=== PATIENT | female | born 1940 | race Caucasian/White ===

== ENCOUNTER → 2017-05-06 | Outpatient (CLI) | payer OTHER ==
[~2017-05-06] MED LIST: ATEN100T PO; CALC-354; CHOLTAB3 PO; LISI20TA3 PO; PRLSR20 PO; RALO60TA30 PO; VSC/5 PO
--- NOTE | 2017-05-06 16:13 | MAMMOGRAPHY REPORT ---
BILATERAL DIGITAL SCREENING MAMMOGRAM WITH CAD: 05/06/2017 CLINICAL HISTORY: Asymptomatic. Personal history of breast cancer. TECHNIQUE: Current study was also evaluated with a Computer Aided Detection (CAD) system. Bilateral CC and MLO views were obtained. COMPARISON: Comparison is made to exams dated: 05/05/2016 mammogram, 04/30/2015 mammogram, 02/13/2014 ma mmogram, 06/23/2012 mammogram, 10/14/2011 mammogram, and 04/09/2011 mammogram - [facility] nter. BREAST COMPOSITION: There are scattered areas of fibroglandular density in both breasts. FINDINGS: No suspicious masses, calcifications, or areas of architectural distortion are noted in ei ther breast. There has been no significant interval change compared to prior exams. Scattered bilat eral benign-appearing calcifications are not significantly changed. There are stable postsurgical ch anges in the left upper outer quadrant from prior lumpectomy. Note that the exam is somewhat limited due to difficulties with patient positioning as the patient is wheelchair-bound and has shoulder iss ues; pectoralis muscles are not well visualized on bilateral MLO views. IMPRESSION: ACR BI-RADS CATEGORY 2: BENIGN There is no mammographic evidence of malignancy. A 1 year screening mammogram is recommended. The pa tient will receive written notification of the results. Approximately 10% of breast cancers are not detected with mammography. A negative mammographic report should not delay biopsy if a clinically suggestive mass is present. Yun Lopez M.D. /:05/06/2017 14:07:24 Digital Media Analyst: Ernestina PORRAS(R)(Sushila), [facility] letter sent: Normal 1/2 BI-RADS Code: ACR BI-RADS Category 2: Benign
== END | disposition home or self-care (01) ==
LOC: C.MAMM 10:50
PROVIDERS: ATTEND Internal Medicine Medical Oncology
DX: Z12.31 Encounter for screening mammogram for malignant neoplasm of breast (principal); Z85.3 Personal history of malignant neoplasm of breast

== ENCOUNTER → 2017-05-11 | Outpatient (CLI) | payer OTHER ==
[2017-05-11 18:25] LABS: BLOOD UREA NITROGEN 17 mg/dl (7-18); BUN/CREATININE RATIO 32.4 (10-20); CALCIUM 9.5 mg/dl (8.5-10.1); CARBON DIOXIDE 30 mmol/L (21-32); CHLORIDE 106 mmol/L (98-107); CREATININE 0.54 mg/dl (0.60-1.20); GLUCOSE 76 mg/dl (70-99); POTASSIUM 3.9 mmol/L (3.5-5.1); SODIUM 142 mmol/L (136-145)
== END | disposition home or self-care (01) ==
LOC: C.LABPVFM 11:24
PROVIDERS: ATTEND Family Medicine
DX: I10 Essential (primary) hypertension (principal)

== ENCOUNTER → 2018-02-22 | Outpatient (CLI) | payer OTHER | END | disposition home or self-care (01) | LOC: C.LABSPEC 17:22 | PROVIDERS: ATTEND Urology | DX: N39.0 Urinary tract infection, site not specified (principal); R33.9 Retention of urine, unspecified ==

== ENCOUNTER → 2018-02-28 | Outpatient (CLI) | payer OTHER | END | disposition home or self-care (01) | LOC: C.PATHSPEC 17:04 | PROVIDERS: ATTEND Urology | DX: N39.490 Overflow incontinence (principal); R39.15 Urgency of urination; R31.9 Hematuria, unspecified ==

== ENCOUNTER → 2018-03-14 | Outpatient (CLI) | payer OTHER ==
[2018-03-14 13:01] LABS: BLOOD UREA NITROGEN 16 mg/dl (7-18); CREATININE 0.55 mg/dl (0.60-1.20)
== END | disposition home or self-care (01) ==
LOC: C.LABBFT 10:16
PROVIDERS: ATTEND Urology
DX: R31.9 Hematuria, unspecified (principal)

== ENCOUNTER 2018-03-21 13:44 | Inpatient (IN) | payer OTHER ==
[~2018-03-21] VITALS: Ht 154.9 cm; Wt 50.2 kg
[~2018-03-21 13:44] MED LIST changes: -CALC250T8 PO; -CPR500 PO; -MULT-506 PO; -OPTIRAY 320 IV PRN; -XRL15 PO
--- NOTE | 2018-03-21 14:20 | EMERGENCY ROOM VISIT NOTE ---
History Report prepared by Smith: Meghann Lim Under the Supervision of: Dr. Cas Farah D.O. First contact with patient: 13:49 Chief Complaint: REFERRED BY DOCTOR Stated Complaint: BLOOD CLOTS IN LEGS - SENT BY DR NEUMANN History of Present Illness The patient is a 77 year old female who presents to the Emergency Room with complaints of possible blood clots. She reports that she had a Lopez catheter put in place on 02/22/18 for overflow incontinence. The patient states she had a CT scan earlier today, which was order by Dr. Neumann, urology. Afterwards, she received a call from his office suggesting that she come to the Emergency Department for further evaluation of possible blood clots that they noticed. She denies any current chest pain or trouble breathing. The patient reports a history of breast cancer, noting that she underwent chemotherapy and a lumpectomy. She notes she had a cholecystectomy. Source of History: patient Onset: today Position: other (veins) Quality: other (blood clots) Timing: other (persistent) Note: Associated symptoms: overflow incontinence Review of Systems See HPI for pertinent positives & negatives. A total of 10 systems reviewed and were otherwise negative. Past Medical & Surgical Medical Problems: (1) Breast cancer (2) DVT (deep venous thrombosis) (3) Kidney disease (4) Overflow incontinence Surgical Problems: (1) H/O lumpectomy Family History Cancer Heart disease Hypertension Social History Smoking Status: Never Smoker Smokeless Tobacco Use: No Alcohol Use: none Drug Use: none Marital Status: Housing Status: lives with family Occupation Status: retired Current/Historical Medications Scheduled Atenolol (Tenormin), 100 MG PO DAILY Calcium Citrate (Calcium Citrate), 250 MG PO DAILY Lisinopril (Prinivil), 20 MG PO DAILY Multivitamin (Multivitamin), 1 TAB PO DAILY Omeprazole (Prilosec), 20 MG PO DAILY Raloxifene Hcl (Evista), 60 MG PO DAILY Solifenacin (Vesicare), 5 MG PO DAILY Allergies Coded Allergies: Aspirin (Unverified Allergy, Mild, 03/21/18) Codeine (Verified Adverse Reaction, Mild, INTOLERANCE, 03/21/18) Diclofenac (Verified Adverse Reaction, Mild, INTOLERANCE, 03/21/18) Erythromycin (Verified Adverse Reaction, Mild, INTOLERANCE, 03/21/18) Sulindac (Verified Adverse Reaction, Mild, INTOLERANCE, 03/21/18) Tramadol (Verified Adverse Reaction, Mild, INTOLERANCE, 03/21/18) INTOLERANCE Physical Exam Vital Signs Date Time Temp Pulse Resp B/P (MAP) Pulse Ox O2 Delivery O2 Flow Rate FiO2 03/21/18 15:15 75 03/21/18 14:42 95 Room Air 03/21/18 14:16 78 96 Room Air 03/21/18 14:16 95 Room Air 03/21/18 13:47 36.7 87 18 136/72 95 Room Air Physical Exam GENERAL: Patient is awake, alert, and in no acute distress. Patient is resting comfortably and showing no signs of anxiety EYES: The conjunctivae are clear. The pupils are round and reactive. EARS, NOSE, MOUTH AND THROAT: The nose is without any evidence of any deformity. Mucous membranes are moist tongue is midline NECK: The neck is nontender and supple. RESPIRATORY: Normal respiratory effort is noted there is no evidence of wheezing rhonchi or rales CARDIOVASCULAR: Regular rate and rhythm noted there no murmurs rubs or gallops normal S1 normal S2 GASTROINTESTINAL: The abdomen is soft. Bowel sounds are present in all quadrants. Abdomen is nontender BACK: No midline tenderness or or step-off noted range of motion in flexion extension as well as rotation no signs of muscle spasm noted MUSCULOSKELETAL/EXTREMITIES: There is no evidence of gross deformity full range of motion is noted in the hips and shoulders SKIN: Trace pedal edema bilaterally. There is no obvious evidence of any rash. There are no petechiae, pallor or cyanosis noted. NEUROLOGIC: Patient is awake alert and oriented x3 Medical Decision & Procedures ER Provider Diagnostic Interpretation: Radiology results as stated below per my review and radiologist interpretation: SINGLE VIEW CHEST CLINICAL HISTORY: Weakness. Change in mental status. FINDINGS: An AP, portable, upright chest radiograph is compared to study dated 03/24/2012. The examination is degraded by portable technique and patient rotation. The heart is top normal for projection and there is atherosclerotic calcification of the thoracic aorta. There are questionable opacities at the right apex. Chronic interstitial thickening is similar to previous. No large pleural effusion or pneumothorax is seen. The skeletal structures are osteopenic. Advanced arthritic changes in the shoulders. Calcific joint bodies are present on the left. Degenerative change and scoliosis are also present in the thoracic spine. Cholecystectomy clips are identified in the right upper quadrant. IMPRESSION: 1. There are questionable airspace opacities at the right apex which may be related to superimposition of shadows could versus true consolidation or nodularity. Follow-up with a dedicated PA and lateral examination is recommended for further assessment. 2. The lungs otherwise clear. Electronically signed by: Brock Arambula M.D. 03/21/2018 2:33 PM Dictated Date/Time: 03/21/2018 2:25 PM Laboratory Results 03/21/18 14:30 Red Blood Count 4.51, Mean Corpuscular Volume 89.8, Mean Corpuscular Hemoglobin 30.8, Mean Corpuscular Hemoglobin Concent 34.3, Mean Platelet Volume 10.3 03/21/18 14:30 Test 03/21/18 14:30 03/21/18 15:49 03/21/18 15:52 White Blood Count 51.67 K/uL (4.8-10.8) Red Blood Count 4.51 M/uL (4.2-5.4) Hemoglobin 13.9 g/dL (12.0-16.0) Hematocrit 40.5 % (37-47) Mean Corpuscular Volume 89.8 fL (80-100) Mean Corpuscular Hemoglobin 30.8 pg (25-34) Mean Corpuscular Hemoglobin Concent 34.3 g/dl (32-36) Platelet Count 229 K/uL (130-400) Mean Platelet Volume 10.3 fL (7.4-10.4) RDW Standard Deviation 50.7 fL (36.4-46.3) RDW Coefficient of Variation 15.5 % (11.5-14.5) Neutrophils % (Manual) 15.8 % Lymphocytes % (Manual) 39.8 % Variant Lymphocytes % (manual) 43.5 % Monocytes % (Manual) 0.9 % Neutrophils # (Manual) 8.16 K/uL (1.4-6.5) Total Absolute Neutrophils 8.16 K/uL (1.4-6.5) Lymphocytes # (Manual) 20.56 K/uL (1.2-3.4) Absolute Variant Lymphocytes 22.48 K/uL Total Absolute Lymphocytes 43.04 K/uL (1.2-3.4) Monocytes # (Manual) 0.47 K/uL (0.11-0.59) Smudge Cells PRESENT Anion Gap 6.0 mmol/L (3-11) Est Creatinine Clear Calc Drug Dose 53.1 ml/min Estimated GFR () 98.5 Estimated GFR (Non- 85.0 BUN/Creatinine Ratio 27.4 (10-20) Calcium Level 9.1 mg/dl (8.5-10.1) Magnesium Level 1.8 mg/dl (1.8-2.4) Total Bilirubin 0.3 mg/dl (0.2-1) Direct Bilirubin < 0.1 mg/dl (0-0.2) Aspartate Amino Transf (AST/SGOT) 25 U/L (15-37) Alanine Aminotransferase (ALT/SGPT) 20 U/L (12-78) Alkaline Phosphatase 73 U/L (45-117) Troponin I < 0.015 ng/ml (0-0.045) Total Protein 7.2 gm/dl (6.4-8.2) Albumin 3.4 gm/dl (3.4-5.0) Thyroid Stimulating Hormone (TSH) 2.210 uIu/ml (0.300-4.500) Prothrombin Time 10.0 SECONDS (9.0-12.0) Prothromb Time International Ratio 1.0 (0.9-1.1) Activated Partial Thromboplast Time 22.6 SECONDS (21.0-31.0) Partial Thromboplastin Ratio 0.9 Laboratory results per my review. ECG Per My Interpretation Indication: weakness Rate (beats per minute): 78 Rhythm: normal sinus Findings: no ectopy, other (No acute ST segments, LVH noted by voltage criteria ) Comparison ECG Date: no prior available ED Course 1353: The patient was evaluated in room B12. A complete history and physical examination were performed. 1435: Ordered Heparin Sodium/Dextrose 1ea. 1436: I discussed the patient's case with Dr. Saavedra [facility]. He suggests that we see her platelets first before we give her Heparin. 1442: I reevaluated the patient, who was resting comfortably. Updated her on test findings and the treatment plan. She verbalized complete understanding and agreement. Medical Decision Prior records reviewed and summarized above. Triage Nursing notes reviewed. Additional history obtained from the family. The patient's history was concerning for swelling and pain in the leg. Differential diagnosis: Etiologies such as DVT, musculoskeletal, infection, joint effusion, trauma, lymphedema, idiopathic, CHF, as well as others were entertained.. The patient is a 77-year-old female who presented to the emergency department at the request of her primary urologist. The patient has been suffering from urinary incontinence and is currently being seen by a urologist. She has a Lopez catheter in place. She states that she was scheduled for an outpatient CT the abdomen and pelvis and after the CT was obtained she was told to go to the emergency department for further evaluation. The patient's CAT scan revealed signs of an iliac vein deep vein thrombosis. This appeared to extend proximally into the inferior vena cava. Because of the location of the severity of this DVT she was started on anticoagulation in the emergency department. I discussed patient's laboratory and radiographic studies with her. I also discussed her case with the on-call [facility] hospitalist. They have agreed to evaluate the patient in the emergency department for further management and disposition. Medication Reconcilliation Current Medication List: was personally reviewed by me Blood Pressure Screening Patient's blood pressure: Normal blood pressure Blood pressure disposition: Did not require urgent referral Consults Time Called: 1406 Consulting Physician: Dr. Quentin ROBERTS Returned Call: [phone] I discussed the patient's case with Dr. Quentin ROBERTS. He suggests that we see her platelets first before we give her Heparin. Impression Primary Impression: DVT (deep venous thrombosis) Critical Care I have personally spent greater than 40 minutes of critical care time in the direct management of this patient. This includes bedside care, interpretation of diagnostic studies, and testing, discussion with consultants, patient, and family members, and other required patient management activities. This 40 minutes is in excess of all separately billable procedures. Scribe Attestation The scribe's documentation has been prepared under my direction and personally reviewed by me in its entirety. I confirm that the note above accurately reflects all work, treatment, procedures, and medical decision making performed by me. Departure Information Dispostion Being Evaluated By Hospitalist Referrals No Doctor, Assigned (PCP) Forms HOME CARE DOCUMENTATION FORM, IMPORTANT VISIT INFORMATION, WORK / SCHOOL INSTRUCTIONS Patient Instructions My [facility] Problem Qualifiers Primary Impression: DVT (deep venous thrombosis) DVT location: non-extremity vein Chronicity: acute Qualified Codes: I82.90 - Acute embolism and thrombosis of unspecified vein
[2018-03-21] MEDS ORDERED: CALC250T8 PO (14:33)
[2018-03-21] MEDS ORDERED: MULT-506 PO (14:33)
--- NOTE | 2018-03-21 14:35 | DIAGNOSTIC IMAGING REPORT ---
SINGLE VIEW CHEST CLINICAL HISTORY: Weakness. Change in mental status. FINDINGS: An AP, portable, upright chest radiograph is compared to study dated 03/24/2012. The examination is degraded by portable technique and patient rotation. The heart is top normal for projection and there is atherosclerotic calcification of the thoracic aorta. There are questionable opacities at the right apex. Chronic interstitial thickening is similar to previous. No large pleural effusion or pneumothorax is seen. The skeletal structures are osteopenic. Advanced arthritic changes in the shoulders. Calcific joint bodies are present on the left. Degenerative change and scoliosis are also present in the thoracic spine. Cholecystectomy clips are identified in the right upper quadrant. IMPRESSION: 1. There are questionable airspace opacities at the right apex which may be related to superimposition of shadows could versus true consolidation or nodularity. Follow-up with a dedicated PA and lateral examination is recommended for further assessment. 2. The lungs otherwise clear. Electronically signed by: Brock Arambula M.D. 03/21/2018 2:33 PM Dictated Date/Time: 03/21/2018 2:25 PM
[2018-03-21 15:18] LABS: ALBUMIN 3.4 gm/dl (3.4-5.0); ALT/SGPT 20 U/L (12-78); AST/SGOT 25 U/L (15-37); BLOOD UREA NITROGEN 19 mg/dl (7-18); CALCIUM 9.1 mg/dl (8.5-10.1); CARBON DIOXIDE 29 mmol/L (21-32); CREATININE 0.68 mg/dl (0.60-1.20); GLUCOSE 93 mg/dl (70-99); SODIUM 138 mmol/L (136-145)
[2018-03-21 15:29] LABS: ALKALINE PHOSPHATASE 73 U/L (45-117); TOTAL PROTEIN 7.2 gm/dl (6.4-8.2)
[2018-03-21 15:44] LABS: HEMATOCRIT 40.5 % (37-47); HEMOGLOBIN 13.9 g/dL (12.0-16.0); MEAN CELL VOLUME 89.8 fL (80-100); MEAN CORPUSCULAR HEMOGLOBIN 30.8 pg (25-34); MEAN CORPUSCULAR HGB CONC 34.3 g/dl (32-36); MEAN PLATELET VOLUME 10.3 fL (7.4-10.4); PLATELET COUNT 229 K/uL (130-400); RED CELL DISTRIBUTION WIDTH CV 15.5 % (11.5-14.5); RED CELL DISTRIBUTION WIDTH SD 50.7 fL (36.4-46.3); WHITE BLOOD COUNT 51.67 K/uL (4.8-10.8)
[2018-03-21] MEDS ORDERED: ACETAMINOPHEN 325 MG TAB PO PRN (16:00)
[2018-03-21] MEDS ORDERED: POLYETHYLENE (MIRALAX) 17 GM PACK PO PRN (16:00)
[2018-03-21] MEDS ORDERED: ONDANSETRON INJ 2 MG/ML 2 ML VIAL IV PRN (16:00)
[2018-03-21] MEDS ORDERED: MAGNESIUM HYDROXIDE SUSP 30 ML UDC PO PRN (16:00)
[2018-03-21] MEDS ORDERED: ZOLPIDEM TARTRATE 5 MG TAB PO PRN ×2 (16:00)
[2018-03-21] MEDS ORDERED: ALUMINUM/MAGNESIUM/SIMETH (MAALOX MAX) 30 ML UDC PO PRN (16:00)
[2018-03-21] MEDS ORDERED: HEPARIN 25000 UNIT/500 ML D5W ONE (16:01)
[2018-03-21] MEDS ORDERED: HEPARIN SOD 5000 UNIT/0.5 ML CARP ONE (16:01)
[2018-03-21 16:17] LABS: PTT PATIENT 22.6 SECONDS (21.0-31.0)
--- NOTE | 2018-03-21 16:58 | History and Physical ---
History & Physical Date & Time of Service: Mar 21, 2018 at 16:09 Chief Complaint: Blood Clots In Legs - Sent By Dr Sullivan Primary Care Physician: No Doctor, Assigned History of Present Illness Source: patient 77 years old female with past medical history of hypertension, spina bifida, back surgery, using a walker for ambulation, in 2004 she was diagnosed with breast cancer [id number], treated with Adriamycin and Cytoxan x4 followed by Taxol weekly followed by Herceptin 1 year with radiation therapy for ER/WI negative, HER-2/az positive disease. The patient developed CLL, that is under control. Patient has also urinary retention status post Lopez placement 1 week ago. Urologist ordered a CT abdomen and pelvis that showed a large DVT extended from right internal and common iliac veins as well as the inferior vena cava without extension to the renal veins. Patient will be admitted for initiation of heparin. As baseline she uses a walker for ambulation. Her platelet count is within normal limits. Her INR is pending Past Medical/Surgical History Medical Problems: (1) Breast cancer (2) DVT (deep venous thrombosis) (3) Kidney disease (4) Overflow incontinence Surgical Problems: (1) H/O lumpectomy Family History Cancer Heart disease Hypertension Social History Smoking Status: Never Smoker Smokeless Tobacco Use: No Drug Use: none Marital Status: Occupational Status: retired Immunizations History of Influenza Vaccine: Yes History of Tetanus Vaccine?: UTD History of Pneumococcal: Yes History of Hepatitis B Vaccine: No Allergies Coded Allergies: Aspirin (Unverified Allergy, Mild, 03/21/18) Codeine (Verified Adverse Reaction, Mild, INTOLERANCE, 03/21/18) Diclofenac (Verified Adverse Reaction, Mild, INTOLERANCE, 03/21/18) Erythromycin (Verified Adverse Reaction, Mild, INTOLERANCE, 03/21/18) Sulindac (Verified Adverse Reaction, Mild, INTOLERANCE, 03/21/18) Tramadol (Verified Adverse Reaction, Mild, INTOLERANCE, 03/21/18) INTOLERANCE Home Medications Scheduled Atenolol (Tenormin), 100 MG PO DAILY Calcium Citrate (Calcium Citrate), 250 MG PO DAILY Lisinopril (Prinivil), 20 MG PO DAILY Multivitamin (Multivitamin), 1 TAB PO DAILY Omeprazole (Prilosec), 20 MG PO DAILY Raloxifene Hcl (Evista), 60 MG PO DAILY Solifenacin (Vesicare), 5 MG PO DAILY Review of Systems Review of system Constitutional: No fever / no chills / no sweats / no weakness / no fatigue Eyes: no blurring of vision / no eye pain / no discharge / no redness ENT: no hearing loss / no epistaxis /no swallowing problems Respiratory: no cough / no wheezing / no SOB / no hemoptysis Cardiovascular: no Chest pain / no lower extremity edema / no palpitation Abdomen: no pain / no nausea / no vomiting / no constipation Musculoskeletal: no joint pain / no muscle pain / no joint swelling Genitourinary: no dysuria / no incontinence / no urinary retention Neurologic: no focal weakness / no numbness/tingling / no ataxia Psychiatric: no depression symptoms / no anxiety / no insomnia Endocrine: no excessive thirst / no excessive urination Hematologic: no abnormal bleeding / no bruising / no LN swelling Skin: No rash / no pallor Physical Exam Vital Signs Date Time Temp Pulse Resp B/P (MAP) Pulse Ox O2 Delivery O2 Flow Rate FiO2 03/21/18 15:15 75 03/21/18 14:42 95 Room Air 03/21/18 14:16 78 96 Room Air 03/21/18 14:16 95 Room Air 03/21/18 13:47 36.7 87 18 136/72 95 Room Air Physical examination General patient appears to be comfortable, not in acute distress HEENT: Atraumatic , normocephalic /no jaundice /no pallor /anicteric /no dry mucous membrane /normal external ear inspection Neck: Supple /no swelling /central trach Heart: S1/S2 normal/regular rate and rhythm/no gallop /no rub /no murmur Lungs: Clear to auscultation bilaterally/normal chest with expansion/no rhonchi/ no rales/no wheezing/no use of accessory muscles of respiration Abdomen: Soft/nontender/no guarding/no rebound/no organomegaly/no pulsatile mass Musculoskeletal: No swelling/no edema/no tenderness/normal range of motion Neuro exam: Awake alert oriented 3/cranial nerves II through XII appear to be intact/sensation intact/moves all extremities/no abnormal movements Psychiatric evaluation: No depressed mood/normal affect Skin: No rash on exposed skin area/no erythema Extremity: Normal pulse/no pitting edema/no clubbing or cyanosis Endocrine/lymphatic: No obvious lymphadenopathy /no lymphedema Diagnostics Laboratory Results Results Past 24 Hours Test 03/21/18 14:30 03/21/18 15:49 03/21/18 15:52 Range/Units White Blood Count 51.67 4.8-10.8 K/uL Red Blood Count 4.51 4.2-5.4 M/uL Hemoglobin 13.9 12.0-16.0 g/dL Hematocrit 40.5 37-47 % Mean Corpuscular Volume 89.8 80-100 fL Mean Corpuscular Hemoglobin 30.8 25-34 pg Mean Corpuscular Hemoglobin Concent 34.3 32-36 g/dl Platelet Count 229 130-400 K/uL Mean Platelet Volume 10.3 7.4-10.4 fL RDW Standard Deviation 50.7 36.4-46.3 fL RDW Coefficient of Variation 15.5 11.5-14.5 % Sodium Level 138 136-145 mmol/L Potassium Level 4.0 3.5-5.1 mmol/L Chloride Level 103 98-107 mmol/L Carbon Dioxide Level 29 21-32 mmol/L Anion Gap 6.0 3-11 mmol/L Blood Urea Nitrogen 19 7-18 mg/dl Creatinine 0.68 0.60-1.20 mg/dl Est Creatinine Clear Calc Drug Dose 53.1 ml/min Estimated GFR () 98.5 Estimated GFR (Non- 85.0 BUN/Creatinine Ratio 27.4 10-20 Random Glucose 93 70-99 mg/dl Calcium Level 9.1 8.5-10.1 mg/dl Magnesium Level 1.8 1.8-2.4 mg/dl Total Bilirubin 0.3 0.2-1 mg/dl Direct Bilirubin < 0.1 0-0.2 mg/dl Aspartate Amino Transf (AST/SGOT) 25 15-37 U/L Alanine Aminotransferase (ALT/SGPT) 20 12-78 U/L Alkaline Phosphatase 73 45-117 U/L Troponin I < 0.015 0-0.045 ng/ml Total Protein 7.2 6.4-8.2 gm/dl Albumin 3.4 3.4-5.0 gm/dl Thyroid Stimulating Hormone (TSH) 2.210 0.300-4.500 uIu/ml Diagnostic Radiology ABD/PELVIS COMBO CLINICAL HISTORY: 77 years-old Female presenting with R31.9 Hematuria, bladder problems. TECHNIQUE: Multidetector CT of the abdomen and pelvis was performed before and after the administration of intravenous contrast. IV contrast: 120 mL of Optiray 320. A dose lowering technique was used consistent with the principles of ALARA (as low as reasonably achievable). COMPARISON: None. CT DOSE (mGy.cm): The estimated cumulative dose is 1728.67 mGycm. FINDINGS: Vibration Technician topogram: Cholecystectomy clips noted. Lung bases: Minimal basilar opacities, likely atelectasis. Normal heart size. Coronary artery calcification. No pericardial or pleural effusion. Liver: Normal morphology. Multiple well-defined hypodense lesions throughout the liver, indeterminate but likely hepatic cysts or hamartomas. Patent hepatic vasculature. Biliary: Mild biliary ductal prominence likely a reservoir effect in the post cholecystectomy state. Gallbladder surgically absent. Pancreas: Normal. Spleen: Normal. Adrenal glands: Normal. Kidneys and ureters: Numerous well-defined hypodense nonenhancing lesions scattered throughout both kidneys, likely cysts. No right hydronephrosis. The right ureter is normal. Left pelvocaliectasis and dilation of the left ureter with left urothelial thickening. Excretion from the bilateral kidneys is maintained. No nephrolithiasis. Delayed imaging demonstrates opacification of the distal ureters. Bladder: Diffusely thickened bladder wall. The bladder is incompletely distended with a Lopez catheter in place. Pelvic organs: Lobular contour of the uterine fundus likely indicates underlying fibroid. Small cysts noted in the ovaries measuring up to 1.6 cm, which appear simple. Bowel: Abnormal soft tissue thickening along the right posterior lateral aspect of the anorectal junction (series 5 image 400). This may in part relate to laxity of the pelvic floor given the convexity of the right levator ani and tortuosity of the lower rectum and inner rectal junction. Diverticulosis of the sigmoid colon. Mild stool burden throughout the normal caliber colon. The appendix is normal. No bowel obstruction. Peritoneal cavity: No free fluid or intraperitoneal gas. Lymph nodes: Pathologically enlarged bilateral external iliac lymph nodes. Subcentimeter common iliac and aortic lymph nodes. And index node in the right external iliac region measures 1.3 cm in the short axis (series 5 image 344). An index node the left external iliac region measures 1.4 cm in the short axis (series 5 image 353). Vasculature: Atherosclerosis of the normal caliber abdominal aorta. Filling defect consistent with thrombus in the right iliac confluence extending from the right internal iliac vein. There is minimal thrombus in the right external iliac vein. Left iliac veins are patent. Thrombus extends into the inferior vena cava without extending to the level of the renal veins. Abdominal wall: Infiltration along the posterior soft tissue of the left lower extremity. Musculoskeletal: Osteopenia. Degenerative changes of the spine and sacroiliac joints. IMPRESSION: 1. Diffusely thick-walled urinary bladder. This could suggest infectious cystitis or cystitis from another etiology, however, given the degree of thickness, urologic consultation for cystoscopy could be considered to exclude underlying neoplasm. 2. Moderate left pelvocaliectasis and left hydroureter without convincing evidence of an obstructing mass or calculus. This can indicate a flaccid collecting system. Urothelial thickening on the left could indicate chronic reflux or infection. Correlate with urinalysis. 3. Deep venous thrombosis in the right internal and common iliac veins as well as the inferior vena cava without extension to the renal veins. 4. Pathologically enlarged bilateral external iliac lymph nodes. Correlate with a history of underlying lymphoproliferative disease or malignancy. 5. Soft tissue prominence at the right posterior lateral aspect of the anorectal junction. Underlying soft tissue neoplasm is difficult to exclude though this could be due to redundancy of the inner rectal junction in the setting of pelvic floor incompetence given abnormal laxity of the right levator ani. 6. Polycystic kidneys. 7. Polycystic liver. 8. Diverticulosis. The report will be called/faxed according to standard departmental protocol. Electronically signed by: Shiva Lindsay M.D. 03/21/2018 11:03 AM Impression Assessment and Plan 77 years old female with past medical history of hypertension, spina bifida, back surgery, breast cancer in 2005 and currently has CLL. Patient was found to have large DVT extended from right internal and common iliac veins as well as the inferior vena cava without extension to the renal veins. Assessment Large DVT and internal iliac/common iliac/inferior vena cava CLL, stable with normal platelets count White blood cell count is 51, in November 2017 was 46 Hypertension Back surgery Spina bifida History of breast cancer status post lumpectomy/chemotherapy/radiation Bladder dysfunction status post indwelling Lopez Diffusely thick-walled urinary bladder Plan Admit patient to telemetry As platelets count is within normal limits, will start patient on heparin drip Consult Dr. Valenzuela for considering retrievable IVC filter Giving the size and magnitude of her DVT will make her bedrest for at least 24 hours despite of the data supporting early mobilization Continue home medications Check hemoglobin A1c and lipids to stratify patient's risk factors Consult urology dr Sullivan who ordered the CT scan as she has bladder thickening and hydroureter, in case he wants to do cystoscopy or any intervention this is his opportunity while she is on heparin drip before starting oral anticoagulation consult food service utility worker for her worsening WBCs and for Pathologically enlarged bilateral external iliac lymph nodes, the DVT added to the complexity of her CLL diagnosis, last time Dr. Woodall saw her was in November. continue home meds Started on heparin drip Resuscitation Status VTE Prophylaxis Will order VTE Prophylaxis: Yes
[2018-03-21] MEDS: HEPARIN 25,000 UNIT/500ML D5W 500 ML IV SCH (17:15)
[2018-03-21 17:59] VITALS: BP 152/78; PULSE 83; TEMP 36.7; O2SAT 98; Ht 154.9 cm; Wt 50.2 kg
[2018-03-21 18:59] VITALS: BP 160/77; PULSE 76; TEMP 36.9; O2SAT 99
[2018-03-21 20:00] VITALS: O2SAT 99
[2018-03-21 23:24] LABS: PTT PATIENT 75.8 SECONDS (21.0-31.0)
[2018-03-21 23:43] VITALS: BP 123/68; PULSE 79; TEMP 36.9; O2SAT 94
[2018-03-22] VITALS (10 sets, daily range): BP systolic 95–129; BP diastolic 6–66; PULSE 59–89; TEMP 36.3–37; O2SAT 94–97
[2018-03-22 05:55] LABS: HEMATOCRIT 35.2 % (37-47); HEMOGLOBIN 11.9 g/dL (12.0-16.0); MEAN CELL VOLUME 88.2 fL (80-100); MEAN CORPUSCULAR HEMOGLOBIN 29.8 pg (25-34); MEAN CORPUSCULAR HGB CONC 33.8 g/dl (32-36); MEAN PLATELET VOLUME 9.8 fL (7.4-10.4); PLATELET COUNT 210 K/uL (130-400); RED CELL DISTRIBUTION WIDTH CV 15.4 % (11.5-14.5); RED CELL DISTRIBUTION WIDTH SD 49.2 fL (36.4-46.3); WHITE BLOOD COUNT 45.04 K/uL (4.8-10.8)
[2018-03-22 06:06] LABS: PTT PATIENT 57.9 SECONDS (21.0-31.0)
[2018-03-22 06:09] LABS: ALBUMIN 2.8 gm/dl (3.4-5.0); CALCIUM 8.4 mg/dl (8.5-10.1); CREATININE 0.5 mg/dl (0.60-1.20)
[2018-03-22 06:13] LABS: PHOSPHORUS 3.4 mg/dl (2.5-4.9)
[2018-03-22 06:55] LABS: HEMOGLOBIN A1C 5.5 % (4.5-5.6)
[2018-03-22] MEDS: LISINOPRIL 20 MG TAB PO SCH (07:40)
[2018-03-22] MEDS: PANTOprazole SOD 40 MG TAB PO SCH (07:40)
--- NOTE | 2018-03-22 08:31 | Clinical Documentation Query ---
CLINICAL DOCUMENTATION QUERY 77 yo female admitted with DVT. Patient has an indwelling bush catheter for bladder dysfunction and presents with a UA positive for leukocytes, >30 WBC, and 3+ bacteria. In your clinical opinion is this patient being managed for: ( ) Infection and inflammatory reaction due to indwelling urethral catheter ( x ) Not Agree- Suspected UTI POA in setting of indwelling Bush catheter ( ) Other explanation of clinical findings (Please Explain. If no explanation given, this would be considered a no response.) ( ) Unable to determine ( ) Need to Discuss (Please call CDS via extension or qliq. If no interaction occurs this is considered a no response.) The medical record reflects the following clinical findings, treatment, and risk factors. Clinical Indicators: As above Treatment: UA C&S, Urology consult Risk Factors: Age, female, indwelling bush catheter Please clarify and document your clinical opinion in the progress notes and discharge summary. Terms such as "probable", "suspected", "likely", "questionable", "possible", or "still to be ruled out" are acceptable. IF IN AGREEMENT, YOU MUST DOCUMENT ABOVE DIAGNOSTIC STATEMENT IN DAILY PROGRESS NOTES AND DISCHARGE SUMMARY. This document is not part of the patient's record. Thank You, Janie Encarnacion RN [phone]
--- NOTE | 2018-03-22 08:50 | Hospitalist Progress Note ---
Hospitalist Progress Note Date of Service March 22, 2018. (Ofelia Zarate PA-C) Subjective Pt evaluation today including: conversation w/ patient, physical exam, chart review, lab review, review of studies Pain: None PO Intake: Good Voiding: bush catheter in place The patient was seen and examined this morning. Pt reports doing well overall. She has no acute complaints. Her friends are present at bedside and are keeping her company. The patients spirits are very high. Pt notes she is not currently receiving any treatment for CLL and follows with Dr. Woodall as an outpatient. Pt had indwelling bush cath placed 1 month ago by urology, she denies any issues or history of having infection associated with the bush. Additional Comments: Constitutional: No fever, sweats or chills Eyes: No diplopia, no worsening or blurred vision ENT: normal hearing, no trouble swallowing Respiratory: No cough, sputum, dyspnea at rest or on exertion Cardiovascular: No chest pain, tightness or palpitations Abdomen: No pain, nausea, vomiting, diarrhea or constipation - bush cath Musculoskeletal: No joint pain, calf pain, swelling - uses scooter/wheelchair at baseline for spina bifida. Neurologic: No weakness - has adequate sensation to light touch in distal ext. Psychiatric: No anxiety or depression Skin: No rash or itch (Ofelia Zarate PA-C) Objective Vital Signs Date Time Temp Pulse Resp B/P (MAP) Pulse Ox O2 Delivery O2 Flow Rate FiO2 03/22/18 08:00 Room Air 03/22/18 07:04 36.8 81 18 105/62 (76) 95 Room Air 03/22/18 04:00 96 Room Air 03/22/18 03:36 37.0 61 18 97/61 (73) 96 Room Air 03/22/18 00:01 94 Room Air 03/21/18 23:43 36.9 79 18 123/68 (86) 94 Room Air 03/21/18 20:00 99 Room Air 03/21/18 18:59 36.9 76 16 160/77 (104) 99 Room Air 03/21/18 17:59 36.7 83 20 152/78 98 Room Air 03/21/18 17:11 90 20 135/70 98 03/21/18 16:17 75 21 131/75 97 Room Air 03/21/18 15:15 75 03/21/18 14:42 95 Room Air 03/21/18 14:16 78 96 Room Air 03/21/18 14:16 95 Room Air 03/21/18 13:47 36.7 87 18 136/72 95 Room Air (Ofelia Zarate PA-C) Physical Exam Notes: General: awake, alert, no apparent distress Head: Normocephalic, atraumatic ENT: PERRL, EOMI, no pharyngeal exudate, mucous membranes moist Chest: on RA, Clear to auscultation, on room air, no adventitious breath sounds Cardiac: Regular rate and rhythm, no murmur, no JVD, normal peripheral pulses, good capillary refill Abdominal: NABS x 4 quadrants, soft, nontender to palpation, no rebound, guarding or tenderness- bush cath draining clear yellow urine Extremities: Normal inspection, no peripheral edema or erythema, calfs nontender to palpation Psych: Normal mood and affect Neuro: AAO x 3, strength intact bilaterally and related 5/5, no motor deficits, speech is clear, no peripheral sensory deficits (Ofelia Zarate, SHANNON-C) Laboratory Results Last 24 Hours Test 03/21/18 14:30 03/21/18 15:49 03/21/18 16:30 03/21/18 22:07 White Blood Count 51.67 K/uL Red Blood Count 4.51 M/uL Hemoglobin 13.9 g/dL Hematocrit 40.5 % Mean Corpuscular Volume 89.8 fL Mean Corpuscular Hemoglobin 30.8 pg Mean Corpuscular Hemoglobin Concent 34.3 g/dl Platelet Count 229 K/uL Mean Platelet Volume 10.3 fL RDW Standard Deviation 50.7 fL RDW Coefficient of Variation 15.5 % Neutrophils % (Manual) 15.8 % Lymphocytes % (Manual) 39.8 % Variant Lymphocytes % (manual) 43.5 % Monocytes % (Manual) 0.9 % Neutrophils # (Manual) 8.16 K/uL Total Absolute Neutrophils 8.16 K/uL Lymphocytes # (Manual) 20.56 K/uL Absolute Variant Lymphocytes 22.48 K/uL Total Absolute Lymphocytes 43.04 K/uL Monocytes # (Manual) 0.47 K/uL Smudge Cells PRESENT Sodium Level 138 mmol/L Potassium Level 4.0 mmol/L Chloride Level 103 mmol/L Carbon Dioxide Level 29 mmol/L Anion Gap 6.0 mmol/L Blood Urea Nitrogen 19 mg/dl Creatinine 0.68 mg/dl Est Creatinine Clear Calc Drug Dose 53.1 ml/min Estimated GFR () 98.5 Estimated GFR (Non- 85.0 BUN/Creatinine Ratio 27.4 Random Glucose 93 mg/dl Calcium Level 9.1 mg/dl Magnesium Level 1.8 mg/dl Total Bilirubin 0.3 mg/dl Direct Bilirubin < 0.1 mg/dl Aspartate Amino Transf (AST/SGOT) 25 U/L Alanine Aminotransferase (ALT/SGPT) 20 U/L Alkaline Phosphatase 73 U/L Troponin I < 0.015 ng/ml Total Protein 7.2 gm/dl Albumin 3.4 gm/dl Thyroid Stimulating Hormone (TSH) 2.210 uIu/ml Prothrombin Time 10.0 SECONDS Prothromb Time International Ratio 1.0 Activated Partial Thromboplast Time 22.6 SECONDS 75.8 SECONDS Partial Thromboplastin Ratio 0.9 2.9 Urine Color YELLOW Urine Appearance CLEAR Urine pH 8.0 Urine Specific Cheney > 1.045 Urine Protein NEG Urine Glucose (UA) NEG Urine Ketones NEG Urine Occult Blood 1+ Urine Nitrite NEG Urine Bilirubin NEG Urine Urobilinogen NEG Urine Leukocyte Esterase MODERATE Urine WBC (Auto) >30 /hpf Urine RBC (Auto) 10-30 /hpf Urine Hyaline Casts (Auto) 5-10 /lpf Urine Epithelial Cells (Auto) 0-5 /lpf Urine Bacteria (Auto) 3+ Test 03/22/18 05:24 White Blood Count 45.04 K/uL Red Blood Count 3.99 M/uL Hemoglobin 11.9 g/dL Hematocrit 35.2 % Mean Corpuscular Volume 88.2 fL Mean Corpuscular Hemoglobin 29.8 pg Mean Corpuscular Hemoglobin Concent 33.8 g/dl Platelet Count 210 K/uL Mean Platelet Volume 9.8 fL RDW Standard Deviation 49.2 fL RDW Coefficient of Variation 15.4 % Neutrophils % (Manual) 10.5 % Lymphocytes % (Manual) 87.7 % Monocytes % (Manual) 0.9 % Eosinophils % (Manual) 0.9 % Neutrophils # (Manual) 4.73 K/uL Total Absolute Neutrophils 4.73 K/uL Lymphocytes # (Manual) 39.50 K/uL Total Absolute Lymphocytes 39.50 K/uL Monocytes # (Manual) 0.41 K/uL Eosinophils # (Manual) 0.41 K/uL Smudge Cells PRESENT Activated Partial Thromboplast Time 57.9 SECONDS Partial Thromboplastin Ratio 2.2 Sodium Level 139 mmol/L Potassium Level 4.0 mmol/L Chloride Level 105 mmol/L Carbon Dioxide Level 28 mmol/L Anion Gap 6.0 mmol/L Blood Urea Nitrogen 18 mg/dl Creatinine 0.50 mg/dl Est Creatinine Clear Calc Drug Dose 72.2 ml/min Estimated GFR () 109.0 Estimated GFR (Non- 94.0 BUN/Creatinine Ratio 35.8 Random Glucose 83 mg/dl Estimated Average Glucose 111 mg/dl Hemoglobin A1c 5.5 % Calcium Level 8.4 mg/dl Phosphorus Level 3.4 mg/dl Magnesium Level 1.5 mg/dl Total Bilirubin 0.4 mg/dl Aspartate Amino Transf (AST/SGOT) 22 U/L Alanine Aminotransferase (ALT/SGPT) 17 U/L Alkaline Phosphatase 54 U/L Total Protein 6.0 gm/dl Albumin 2.8 gm/dl Globulin 3.2 gm/dl Albumin/Globulin Ratio 0.9 Triglycerides Level 53 mg/dl Cholesterol Level 125 mg/dl HDL Cholesterol 53 mg/dl LDL Cholesterol, Calculated 61 mg/dl VLDL Cholesterol, Calculated 11 mg/dl Cholesterol/HDL Ratio 2.4 (Ofelia Zarate, LIANG) Assessment and Plan 77 yo F with PMHx of hypertension, spina bifida, back surgery, breast cancer in 2004 sp chemo/radiation and currently has CLL. Patient was found to have large DVT extended from right internal and common iliac veins as well as the inferior vena cava without extension to the renal veins. Large DVT and internal iliac/common iliac/inferior vena cava - on tele - likely can transition off to med surg tomorrow- NSR in 70-80s overnight. - Vascular surg consulted but have no plans for IVCF placement. - cont heparin gtt and will ask hematology to determine how to switch off of this and transition to xarelto as per their recommendations. - Cont bedrest for at least 24 hours dt size of massive Dvt, despite of the data supporting early mobilization - Hematology consulted- Dr. Downs saw pt today - noted WBC of 54K upon admission has now trended back down to 45 K, She is not on any current treatment for CLL. Plans to transition to xarelto and can do this today since no plans for surgical intervention (no IVCF or cystoscopy). Follows with Dr. Woodall as an outpt- discussed with him and he agrees with xarelto 15 mg BID and transition off heparin gtt CLL, stable with normal platelets count Hx Breast cancer s/p lumpectomy/chemotherapy/radiation - WBC = 51, in November 2017 was 46 now back to 46 - at this time no lymphadenopathy of B sx per heme/onc. No tx indicated at this time. Bladder dysfunction status post indwelling Bush Possible UTI Diffusely thick-walled urinary bladder - Urology consulted for recs regarding antibiotics for possible infection - will check UCx today. UA with >30 WBC, 3+ bacteria, and moderate esterase - Outpatient cystoscopy scheduled for 03/28 - no urgent needs for procedure per primary team - Can hold xarelto for 1-2 days prior to procedure as an outpatient. Back surgery Spina bifida - uses wheelchair/scooter at baseline, PT/OT to eval after initial 24 hours. Hypertension - continue home meds DVT ppx: start xarelto tonight, transition off heparin gtt. CODE: FULL Disposition: From home, possible dc tomorrow, PT/OT to eval, CM to assist with dc needs. (Ofelia Zarate PA-C) Reviewed: Pt Seen/Exam by Me (Era Woody MD) History Physician Vice President Media Relations Supervision Note: I interviewed and examined the patient. Discussed with SHANNON Zarate and agree with findings and plan as documented in the note. Any exceptions or clarifications are listed here: Pt has no complaints. No CP or SOB, no leg swelling, no abd pain. States she is on Evista for breast cancer prevention, but was aware of risk of clot with this nad is willing to stop it for now. Vitals reviewed, tele reviewed NAD, AAOx3 RRR no mgr CTAB no wcr, breathing unlabored Abd +BS soft NT ND, Bush in place with clear yellow urine Ext no edema, no calf tenderness, +atrophy of all muscle groups in LEs 77 yo female with spina bifida, minimal ambulation, CLL, Breast CA, HTN, peripheral chemo-induced neuropathy, and flaccid neurogenic bladder with recent gross hematuria, here with incidental finding on CT abd/pel of significant DVT extending into IVC. -transition off heparin gtt to Xarelto--> will mancuso check tomorrow with CM to see about cost -follow CBC -will need anticoag indefinitely given CLL and immobility -recommend stopping Evista given propensity for thromboembolism -lymphadenopathy on CT ab/pel--> likely related to CLL? Unsure -Bladder thickening on CT--> from flaccid bladder vs neoplasm vs infection? Plans for outpt cystoscopy in future-will have to hold Xarelto at least 24 hrs in advance -Abnormal UA, Suspected UTI POA in setting of indwelling Bush catheter/ Complicated UTI-treat empirically with Rocephin, await Ur cx result -possible dc to home tomorrow Documented By: Era Woody (Era Woody MD)
[2018-03-22] MEDS ORDERED: RALOXIFENE 60 MG TAB PO SCH (09:00)
--- NOTE | 2018-03-22 09:30 | Surgery Consultation ---
Consultation Date of Service March 22, 2018. Chief Complaint R iliac v DVT History of Present Illness The patient is a 77 year old female with multiple medical problems, including breast ca, spina bifida, lumbar spine surgery, CLL, admitted with DVT, seen in consultation today for R pelvic DVT noted incidentally on a CT scan performed by urology for bladder problems. Pt denies previous hx of DVT, edema of legs, pain in legs. States she is feeling her usual self. Denies CASTELLON, fever, chills, chest pain, SOB, abd pain, N/V, rest pain, claudication, other complaints. Currently on heparin drip. Vitals Vital Signs Past 12 Hours Date Time Temp Pulse Resp B/P (MAP) Pulse Ox O2 Delivery O2 Flow Rate FiO2 03/22/18 08:00 Room Air 03/22/18 07:04 36.8 81 18 105/62 (76) 95 Room Air 03/22/18 04:00 96 Room Air 03/22/18 03:36 37.0 61 18 97/61 (73) 96 Room Air 03/22/18 00:01 94 Room Air 03/21/18 23:43 36.9 79 18 123/68 (86) 94 Room Air Allergies Coded Allergies: Aspirin (Unverified Allergy, Mild, 03/21/18) Codeine (Verified Adverse Reaction, Mild, INTOLERANCE, 03/21/18) Diclofenac (Verified Adverse Reaction, Mild, INTOLERANCE, 03/21/18) Erythromycin (Verified Adverse Reaction, Mild, INTOLERANCE, 03/21/18) Sulindac (Verified Adverse Reaction, Mild, INTOLERANCE, 03/21/18) Tramadol (Verified Adverse Reaction, Mild, INTOLERANCE, 03/21/18) INTOLERANCE Home Medications Scheduled Atenolol (Tenormin), 100 MG PO DAILY Calcium Citrate (Calcium Citrate), 250 MG PO DAILY Lisinopril (Prinivil), 20 MG PO DAILY Multivitamin (Multivitamin), 1 TAB PO DAILY Omeprazole (Prilosec), 20 MG PO DAILY Raloxifene Hcl (Evista), 60 MG PO DAILY Solifenacin (Vesicare), 5 MG PO DAILY Problem List Medical Problems: (1) Breast cancer (2) DVT (deep venous thrombosis) (3) Kidney disease (4) Overflow incontinence Surgical Problems: (1) H/O lumpectomy Surgical / Medical History Hx Cardiac Surgery: No Hx Abdominal Surgery: Yes (deven) Hx Cancer Surgery: No Hx Thoracic Surgery: No Hx Orthopedic: Yes (back) Hx Urinary Tract Surgery: No Past Medical/Surgical History: Cancer, Hypertension Family History Cancer Heart disease Hypertension Social History Smoking Status: Never Smoker Hx Tobacco Use In Past Year?: No Hx Alcohol Use - Type & Amnt: No Hx Substance Use -Type & Amnt: No Review of Systems Constitutional: No chills, No fever Skin: No change in color Eyes: No visual changes ENMT: No sore throat Respiratory: No cough, No WEISS, No short of breath Cardiovascular: No chest pain, No palpitations, No edema, No intermittent claudication Gastrointestinal: No abdominal pain, No nausea, No vomiting Neurologic: No dizziness, No headache, No lethargy Physical Exam Constitutional: General Apperance: well-nourished (stunted development d/t spina bifida, mildly chronically ill appearing female) Level of Distress: NAD Psychiatric: Mental Status: active & alert, normal mood, normal affect Orientation: oriented except where noted, to time, to place, to person Memory: recent memory normal, remote memory normal Head: normocephalic, atraumatic Eyes: EOM: EOMI ENMT: normal ENT inspection, hearing grossly normal Neck: supple, trachea midline Lungs: Respiratory effort: no dyspnea Auscultation: no wheezing, no rales/crackles, no rhonchi, decreased breath sounds Cardiovascular: Apical Impulse: not displaced Heart Auscultation: RRR, no rubs, no gallops Peripheral Pulses: Pulses: full and equal, in all extremities except if noted Bruits: none appreciated Carotid Pulse: normal on the left, normal on the right Brachial Pulses: normal on the left, normal on the right Radial Pulse: normal on the left, normal on the right Femoral Pulse: normal on the left, normal on the right Posterior Tibialis Pulse: decreased on the left, decreased on the right Dorsalis Pedis Pulse: decreased on the left, decreased on the right Abdomen: Bowel Sounds: normal Inspection & Palpation: soft, non-distended, no tenderness, guarding & rebound Musculoskeletal: normal strength (5/5 throughout), normal tone Extremities: Upper Right: no cyanosis, no edema, no varicosities Upper Left: no cyanosis, no edema, no varicosities Lower Right: no cyanosis, no edema, no varicosities Lower Left: no cyanosis, no edema, no varicosities Neurologic: Cranial Nerves: grossly intact Sensation: grossly intact Assessment and Plan ASSESSMENT and PLAN: R iliac v and caval DVT Pt also seen by Dr Valenzuela, recommends anticoagulation. Length of tx to be recommended by hematology. No indications for IVC filter insertion at this time and would be difficult to place properly d/t location of caval DVT. Please call if needed.
--- NOTE | 2018-03-22 12:14 | HEMATOLOGY CONSULTATION ---
DATE OF CONSULTATION: 03/22/2018 Hematology consultation. REASON FOR CONSULTATION: Concern with rising WBC count. HISTORY OF PRESENT ILLNESS: Emily Martino is a very pleasant 77-year-old female patient well known to [facility], currently under Dr. Woodall's care for remotely diagnosed breast cancer and chronic lymphocytic leukemia. Patient was admitted to hospital on 03/21/2018 at the request of the urology service when it was discovered the patient was suffering thrombosis of the right internal and common iliac veins as well as the inferior vena cava without extension to the renal vasculature. Patient had been previously evaluated by urology because of bladder wall thickening. She was actually scheduled to undergo cystoscopy according to the patient. CT scan was performed on the day of admission and the patient was strongly recommended for direct admission and anticoagulation. She continues unfractionated heparin presently. Primary service is also requesting vascular surgery consult to discuss Ovidio filter placement. Again, this patient is well known to Dr. Woodall, currently being followed for chronic lymphocytic leukemia and remote history of breast cancer. According to Dr. Woodall's clinical notes, the patient's white count has indeed been fluctuant ranging between 40 and 50,000 total respectively. She has not required treatment. Her disease is devoid of peripheral lymphadenopathy and/or splenomegaly. She was seen by Dr. Woodall back in 11/2017 and was recommended to follow up within the next year or so. Primary service expressed concern as the patient's WBC count was over 50,000 on admission. PAST MEDICAL HISTORY: 1. Again, significant for remotely diagnosed breast cancer for which she received both adjuvant chemo and radiation therapy. 2. DVT. 3. Chronic kidney disease. 4. Overflow incontinence. PAST SURGICAL HISTORY: Status post lumpectomy. MEDICATIONS: Prior to admission include atenolol 100 mg p.o. q. daily, lisinopril 20 mg p.o. q. daily, calcium citrate 250 mg p.o. q. daily, multivitamin 1 p.o. q. daily, omeprazole 20 mg p.o. q. daily, Evista 60 mg p.o. q. daily, VESIcare 5 mg p.o. q. daily. ALLERGIES: ASPIRIN, CODEINE, DICLOFENAC, ERYTHROMYCIN, SULINDAC AND TRAMADOL. SOCIAL HISTORY: Patient is retired, , nonsmoker, nondrinker. FAMILY HISTORY: Positive for hypertension, heart disease, and cancer. REVIEW OF SYSTEMS: As per HPI. GENERAL: Patient was admitted virtually asymptomatic. Negative for fevers, chills or sweats. She is maintaining her weight and appetite. SKIN: No new rashes or lesions. No history of dermatosis. HEENT: Negative for headaches, lightheadedness or dizziness. No visual or hearing deficits. No sinus symptoms, sore throat or dysphagia. LYMPH: No history of peripheral lymphadenopathy. She does suffer from chronic lymphocytic leukemia. CARDIAC: No significant cardiac history. No current angina or palpitations. PULMONARY: No history of COPD. She is not short of breath, dyspneic or orthopneic. No cough or hemoptysis. GASTROINTESTINAL: Negative for abdominal pain, nausea, vomiting, diarrhea or constipation, hematochezia or melanotic stools. GENITOURINARY: Currently under evaluation for urinary issues, particularly thickened bladder wall and pending cystoscopy. NEUROLOGIC: Negative for seizures, strokes or migraine headache. ENDOCRINE: Negative for thyroid disease or diabetes mellitus. HEMATOLOGIC: Positive for lymphocytosis again secondary to CLL. PHYSICAL EXAMINATION: GENERAL: Very pleasant, well-nourished 77-year-old female patient, awake, alert and appropriate, in no acute distress. VITAL SIGNS: Temperature 36.8, pulse 81, respiratory rate 18, blood pressure 105/62. SKIN: Warm, dry, noncyanotic without petechiae, rash or ecchymosis. HEENT: Atraumatic, normocephalic. Eyes: PERRLA, EOMI. Sclerae nonicteric. Nose: Nares patent without rhinorrhea or discharge. Throat and mouth: Throat is clear. Tongue is midline. Mucous membranes are moist. NECK: Supple without JVD or thyromegaly. No palpable cervical, supraclavicular or axillary lymph nodes. HEART: Regular rate and rhythm. No clicks, rubs, murmurs or gallops. LUNGS: Clear to auscultation bilaterally. ABDOMEN: Soft, nontender, nondistended without palpable hepatosplenomegaly. EXTREMITIES: No calf tenderness or swelling. Strength and pulses are equal in all 4 quadrants. NEUROLOGIC: Patient is awake, alert, and oriented x3. Cranial nerves grossly intact. LABORATORY DATA: WBC count 45,000 total white count, hemoglobin 11.9, platelet count 210,000. Sodium 139, potassium 4.0, chloride 105, carbon dioxide 28, BUN 18, creatinine 0.5, magnesium slightly decreased at 1.5. Albumin slightly decreased 2.8. IMPRESSION: 1. 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 2. Thickened gallbladder wall, cystitis versus neoplasia. 3. History of chronic lymphocytic leukemia. 4. Mild hypoalbuminemia. 5. Hypomagnesemia. PLAN: I have been asked to visit with Emily at bedside today to look into her elevated white count. Patient has followed regularly with Dr. Woodall and fortunately has not required any therapy for CLL. Her physical exam is devoid of both peripheral lymphadenopathy and/or splenomegaly and she exhibits no B symptoms at this time. Treatment is not indicated. Regarding her thrombotic event, patient reports no family or personal history of thrombophilia. Nonetheless, because of the unusual location of this thrombus, she should remain on anticoagulation indefinitely. I briefly spoke to Dr. Woodall in this regard and he has recommended conversion to Xarelto at the appropriate time. Clearly if there are procedures to be done, I would continue unfractionated heparin until workup is complete. I will notify Dr. Woodall of the patient's admission so he may arrange for followup at the appropriate time post-admission. I have nothing further to add. Currently, I agree with medical management. I also briefly spoke to Dr. Valenzuela at the patient's bed and he has opted to defer on Radford filter placement.
--- NOTE | 2018-03-22 14:58 | Urology Consultation ---
History General Date of Service: March 22, 2018. Chief Complaint: incomplete bladder emptying, left hydroureter Primary Care Physician: No Doctor, Assigned Pt seen a urologist before?: Yes (Dr. Sullivan) If yes, why?: incomplete bladder emptying History of Present Illness 77 yo female recommended admission by Dr. Sullivan for extensive DVT findings on CT. CT ordered for gross hematuria evaluation. consulted for left hydroureter on CT and gross hematuria. The pt does have a hx of incomplete bladder emptying for which she sees Dr. Sullivan. She had bush catheter placed over 1 month ago. Noted to have intermittent gross hematuria since that time. Bush currently draining clear, yellow urine today. She is scheduled for outpatient cysto on 03-28-[address] Sullivan. She denies pain today. H&H stable. Imaging Imaging: CT Laboratory Last 24 Hours Test 03/21/18 15:49 03/21/18 16:30 03/21/18 22:07 03/22/18 05:24 Prothrombin Time 10.0 SECONDS Prothromb Time International Ratio 1.0 Activated Partial Thromboplast Time 22.6 SECONDS 75.8 SECONDS 57.9 SECONDS Partial Thromboplastin Ratio 0.9 2.9 2.2 Urine Color YELLOW Urine Appearance CLEAR Urine pH 8.0 Urine Specific [place] > 1.045 Urine Protein NEG Urine Glucose (UA) NEG Urine Ketones NEG Urine Occult Blood 1+ Urine Nitrite NEG Urine Bilirubin NEG Urine Urobilinogen NEG Urine Leukocyte Esterase MODERATE Urine WBC (Auto) >30 /hpf Urine RBC (Auto) 10-30 /hpf Urine Hyaline Casts (Auto) 5-10 /lpf Urine Epithelial Cells (Auto) 0-5 /lpf Urine Bacteria (Auto) 3+ White Blood Count 45.04 K/uL Red Blood Count 3.99 M/uL Hemoglobin 11.9 g/dL Hematocrit 35.2 % Mean Corpuscular Volume 88.2 fL Mean Corpuscular Hemoglobin 29.8 pg Mean Corpuscular Hemoglobin Concent 33.8 g/dl Platelet Count 210 K/uL Mean Platelet Volume 9.8 fL RDW Standard Deviation 49.2 fL RDW Coefficient of Variation 15.4 % Neutrophils % (Manual) 10.5 % Lymphocytes % (Manual) 87.7 % Monocytes % (Manual) 0.9 % Eosinophils % (Manual) 0.9 % Neutrophils # (Manual) 4.73 K/uL Total Absolute Neutrophils 4.73 K/uL Lymphocytes # (Manual) 39.50 K/uL Total Absolute Lymphocytes 39.50 K/uL Monocytes # (Manual) 0.41 K/uL Eosinophils # (Manual) 0.41 K/uL Smudge Cells PRESENT Sodium Level 139 mmol/L Potassium Level 4.0 mmol/L Chloride Level 105 mmol/L Carbon Dioxide Level 28 mmol/L Anion Gap 6.0 mmol/L Blood Urea Nitrogen 18 mg/dl Creatinine 0.50 mg/dl Est Creatinine Clear Calc Drug Dose 72.2 ml/min Estimated GFR () 109.0 Estimated GFR (Non- 94.0 BUN/Creatinine Ratio 35.8 Random Glucose 83 mg/dl Estimated Average Glucose 111 mg/dl Hemoglobin A1c 5.5 % Calcium Level 8.4 mg/dl Phosphorus Level 3.4 mg/dl Magnesium Level 1.5 mg/dl Total Bilirubin 0.4 mg/dl Aspartate Amino Transf (AST/SGOT) 22 U/L Alanine Aminotransferase (ALT/SGPT) 17 U/L Alkaline Phosphatase 54 U/L Total Protein 6.0 gm/dl Albumin 2.8 gm/dl Globulin 3.2 gm/dl Albumin/Globulin Ratio 0.9 Triglycerides Level 53 mg/dl Cholesterol Level 125 mg/dl HDL Cholesterol 53 mg/dl LDL Cholesterol, Calculated 61 mg/dl VLDL Cholesterol, Calculated 11 mg/dl Cholesterol/HDL Ratio 2.4 Past History cancer - breast, deep vein thrombosis, renal disease, other (CLL, overflow incontinence ) Past Surgical History: other (hx of lumpectomy ) Family History Cancer Heart disease Hypertension Social History Hx Tobacco Use In Past Year?: No Smoking: non-smoker Drug use: none Marital status: Occupation status: retired Immunizations History of Influenza Vaccine: Yes History of Tetanus Vaccine?: UTD History of Pneumococcal: Yes History of Hepatitis B Vaccine: No History of MDRO No Allergies Coded Allergies: Aspirin (Unverified Allergy, Mild, 03/21/18) Codeine (Verified Adverse Reaction, Mild, INTOLERANCE, 03/21/18) Diclofenac (Verified Adverse Reaction, Mild, INTOLERANCE, 03/21/18) Erythromycin (Verified Adverse Reaction, Mild, INTOLERANCE, 03/21/18) Sulindac (Verified Adverse Reaction, Mild, INTOLERANCE, 03/21/18) Tramadol (Verified Adverse Reaction, Mild, INTOLERANCE, 03/21/18) INTOLERANCE Medications Home Medications: Home Meds and Scripts Medications Dose Route/Sig Max Daily Dose Days Date Category Multivitamin (Multivitamins) Tab 1 Tab PO DAILY 03/21/18 Reported Calcium Citrate 250 Mg Tab 250 Mg PO DAILY 03/21/18 Reported Vesicare (Solifenacin) 5 Mg Tab 5 Mg PO DAILY 02/22/14 Reported Prilosec (Omeprazole) 20 Mg Capcr 20 Mg PO DAILY 02/22/14 Reported Prinivil (Lisinopril) 20 Mg Tab 20 Mg PO DAILY 03/24/12 Reported Evista (Raloxifene Hcl) 60 Mg Tab 60 Mg PO DAILY 03/24/12 Reported Tenormin (Atenolol) 100 Mg Tab 100 Mg PO DAILY 03/24/12 Reported Inpatient Medications: Current Inpatient Medications Medications (Trade) Dose Ordered Sig/Oswald Route Start Time Stop Time Status Last Admin Dose Admin Atenolol (Tenormin Tab) 100 mg DAILY PO 03/22/18 09:00 04/21/18 08:59 03/22/18 07:42 100 MG Lisinopril (Zestril Tab) 20 mg DAILY PO 03/22/18 09:00 04/21/18 08:59 03/22/18 07:40 20 MG Raloxifene HCl (Evista Tab) 60 mg DAILY PO 03/22/18 09:00 04/21/18 08:59 Future Hold 03/22/18 07:40 60 MG Pantoprazole Sodium (Protonix Tab) 40 mg DAILY PO 03/22/18 09:00 04/21/18 08:59 03/22/18 07:40 40 MG Miscellaneous Information (Order Awaiting Action) 1 ea QS N/A 03/22/18 00:00 04/21/18 00:00 Acetaminophen (Tylenol Tab) 650 mg Q4H PRN PO 03/21/18 16:00 04/20/18 15:59 Al Hydrox/Mg Hydrox/Simethicone (Maalox Max Susp) 15 ml Q4H PRN PO 03/21/18 16:00 04/20/18 15:59 Magnesium Hydroxide (Milk Of Magnesia Susp) 30 ml Q12H PRN PO 03/21/18 16:00 04/20/18 15:59 Zolpidem Tartrate (Ambien Tab) 5 mg HSZ PRN PO 03/21/18 16:00 04/20/18 15:59 Zolpidem Tartrate (Ambien Tab) 5 mg HSZ PRN PO 03/21/18 16:00 04/20/18 15:59 Ondansetron HCl (Zofran Inj) 4 mg Q6H PRN IV 03/21/18 16:00 04/20/18 15:59 Polyethylene (Miralax Powder Packet) 17 gm DAILY PRN PO 03/21/18 16:00 04/20/18 15:59 Heparin Sodium/ Dextrose 500 ml @ 16 mls/hr Q24H IV 03/21/18 17:15 04/20/18 17:14 Review of Systems Review of Systems Constitutional: No fever, No chills Eyes: No double vision Neurological: No dizzy Endocrine: No excessive thirst Gastrointestinal: No abdominal pain, No nausea, No vomiting Cardiovascular: No chest pain Respiratory: No shortness of breath Skin: No rash Musculoskeletal: + arthritis Female : No blood in urine Physical Exam Vital Signs: Vital Signs Past 12 Hours Date Time Temp Pulse Resp B/P (MAP) Pulse Ox O2 Delivery O2 Flow Rate FiO2 03/22/18 12:00 Room Air 03/22/18 11:56 36.8 76 16 114/66 (82) 96 Room Air 03/22/18 08:00 Room Air 03/22/18 07:04 36.8 81 18 105/62 (76) 95 Room Air 03/22/18 04:00 96 Room Air 03/22/18 03:36 37.0 61 18 97/61 (73) 96 Room Air Physical Exam: General Appearance: no apparent distress Eyes: bilateral eyes normal inspection ENT: hearing grossly normal Neck: no JVD Respiratory/Chest: no respiratory distress, no accessory muscle use Cardiovascular: no JVD Extremities: normal inspection Neurologic/Psychiatric: alert, normal mood/affect, oriented x 3 Skin: normal color Assessment & Plan Assessment & Plan A/P: Left hydroureter, gross hematuria, incomplete bladder emptying AFVSS. Hematuria currently resolved. Discussed with Dr. Sullivan this afternoon; cysto not felt to be warranted at this time. UC&S pending. Left hydroureter likely secondary to chronic flaccid bladder and incomplete emptying. Pt denies pain. Renal function stable. No need for urgent surgical intervention at this time. Will plan to leave bush catheter in place. Change this admission as she is due for a catheter change. Thanks for the consult. Will continue to follow along with primary service.
[2018-03-22] MEDS: HEPARIN 25,000 UNIT/500ML D5W 500 ML IV SCH (17:28)
[2018-03-22] MEDS ORDERED: RIVAROXABAN TAB 15 MG TAB PO SCH (21:00)
[2018-03-22] MEDS ORDERED: HEPARIN DRIP: STOP ORDER ONE ×2 (21:00→22:00)
[2018-03-22] MEDS ORDERED: CEFTRIAXONE SOD INJ 1 GM in DEXTROSE 5% ADD-VANTAGE 50ML 50 ML IV SCH (23:00)
[2018-03-23] VITALS: BP 111/6; PULSE 89; TEMP 36.6; O2SAT 97
[2018-03-23 04:00] VITALS: BP 123/62; PULSE 83; TEMP 36.5; O2SAT 98
[2018-03-23 05:36] LABS: HEMATOCRIT 34.1 % (37-47); HEMOGLOBIN 11.6 g/dL (12.0-16.0); MEAN CELL VOLUME 89.3 fL (80-100); MEAN CORPUSCULAR HEMOGLOBIN 30.4 pg (25-34); MEAN PLATELET VOLUME 10.1 fL (7.4-10.4); PLATELET COUNT 201 K/uL (130-400); RED CELL DISTRIBUTION WIDTH CV 15.6 % (11.5-14.5); WHITE BLOOD COUNT 37.43 K/uL (4.8-10.8)
[2018-03-23 06:04] LABS: CALCIUM 8.4 mg/dl (8.5-10.1); CREATININE 0.62 mg/dl (0.60-1.20)
[2018-03-23] MEDS ORDERED: RIVAROXABAN TAB 15 MG TAB PO SCH (07:30)
[2018-03-23 07:43] VITALS: BP 139/73; PULSE 91; TEMP 36.3; O2SAT 97
[2018-03-23] MEDS: PANTOprazole SOD 40 MG TAB PO SCH (07:52)
[2018-03-23] MEDS: LISINOPRIL 20 MG TAB PO SCH (07:53)
[2018-03-23 08:00] VITALS: O2SAT 98
[2018-03-23] MEDS ORDERED: MAGNESIUM SULFATE 1GM / D5W 100 ML IV STA (10:34)
[2018-03-23] MEDS ORDERED: XRL15 PO ×2 (10:40→10:48)
[2018-03-23] MEDS ORDERED: CPR500 PO ×2 (10:40→10:48)
--- NOTE | 2018-03-23 10:46 | Discharge Instructions ---
Discharge Instructions Date of Service March 23, 2018. Admission Reason for Admission: DVT Discharge Discharge Diagnosis / Problem: Large deep venous thrombosis (DVT) Discharge Goals Goal(s): Decrease discomfort, Improve function, Increase independence, Improve disease control Activity Recommendations Activity Limitations: resume your previous activity Lifting Limitations: no more than 25 pounds, gradually increase as tolerated Exercise/Sports Limitations: rest today May Resume Sexual Activity: after two weeks Shower/Bathe: no limitations (with assistance) Driving or Machine Use: Do not drive . Instructions / Follow-Up Instructions / Follow-Up You were admitted to [facility] after a CT of the abdomen was completed and diagnosed with large DVT extended from right internal and common iliac veins as well as the inferior vena cava without extension to the renal veins. During your stay here you were treated with intravenous heparin x 1 day and then switched over to anticoagulant called Xarelto. Medications: Continue taking Xarelto 15 mg twice daily for 21 days, your dosage will then be changed to 20 mg daily. Your PCP will need to prescribe the second prescription. Continue taking your medications as prescribed. Appointments: Follow up with PCP within 1-2 weeks. Follow up with hematology, Dr. Woodall as scheduled. An appointment has been requested for you. Current Hospital Diet Patient's current hospital diet: Regular Diet Discharge Diet Recommended Diet: Regular Diet Pending Studies Studies pending at discharge: no Laboratory Results Hemoglobin A1c Test 03/22/18 05:24 Range/Units Estimated Average Glucose 111 mg/dl Hemoglobin A1c 5.5 4.5-5.6 % Lipid Panel Test 03/22/18 05:24 Range/Units Triglycerides Level 53 0-150 mg/dl Cholesterol Level 125 0-200 mg/dl HDL Cholesterol 53 mg/dl Cholesterol/HDL Ratio 2.4 LDL Cholesterol, Calculated 61 mg/dl Medical Emergencies . Who to Call and When: Medical Emergencies: If at any time you feel your situation is an emergency, please call 911 immediately. . Non-Emergent Contact Non-Emergency issues call your: Primary Care Provider, Oncologist Call Non-Emergent contact if: you have a fever, temperature is above 100.5, your pain is not controlled, your pain is worsening, your pain is unusual for you, your pain is concerning you, you have any medication questions other concerns with your health. Call 911 or go directly to the Emergency Department if you experience any of the following: Chest pain, chest tightness, shortness of breath, abdominal pain , lightheadedness, dizziness, gastrointestinal bleeding, or have any other concerns regarding your health. . . "Provider Documentation" section prepared by Heidi Zarate. . [place] Drug Monitoring Program Search Results: no issues identified
--- NOTE | 2018-03-23 10:49 | Discharge Summary ---
Discharge Summary Date of Service March 23, 2018. Discharge Summary Admission Date: Mar 21, 2018 at 15:59 Discharge Date: March 23, 2018 Discharge Disposition: Home Principal Diagnosis: DVT Problems/Secondary Diagnoses: hypertension spina bifida back surgery breast cancer in 2005 sp chemo/radiation CLL Immunizations: Have You Had Influenza Vaccine: Yes History of Tetanus Vaccine?: UTD History of Pneumococcal: Yes History of Hepatitis B Vaccine: No Procedures: CXR 03/21/18 IMPRESSION: 1. There are questionable airspace opacities at the right apex which may be related to superimposition of shadows could versus true consolidation or nodularity. Follow-up with a dedicated PA and lateral examination is recommended for further assessment. 2. The lungs otherwise clear. Consultations: Heme/onc Vascular surgery Urology Medication Reconciliation New Medications: Ciprofloxacin (Ciprofloxacin HCl) 500 Mg Tab 500 MG PO BID for 4 Days, #8 TAB Rivaroxaban (Xarelto) 15 Mg Tab 15 MG PO BIDM for 21 Days, #42 TAB Continued Medications: Atenolol (Tenormin) 100 Mg Tab 100 MG PO DAILY Calcium Citrate (Calcium Citrate) 250 Mg Tab 250 MG PO DAILY Lisinopril (Prinivil) 20 Mg Tab 20 MG PO DAILY, 0 Refills Multivitamin (Multivitamin) Tab 1 TAB PO DAILY, TAB Omeprazole (Prilosec) 20 Mg Capcr 20 MG PO DAILY, CAP Raloxifene Hcl (Evista) 60 Mg Tab 60 MG PO DAILY Solifenacin (Vesicare) 5 Mg Tab 5 MG PO DAILY, TAB Discharge Exam The patient was seen and examined this morning. Pt reports doing well this morning. She is anticipating discharge to home today. Discussion held regarding initiation of xarelto and she is agreeable to this. All questions and concerns were answered. ROS: Constitutional: No fever, sweats or chills Eyes: No diplopia, no worsening or blurred vision ENT: normal hearing, no trouble swallowing Respiratory: No cough, sputum, dyspnea at rest or on exertion Cardiovascular: No chest pain, tightness or palpitations Abdomen: No pain, nausea, vomiting, diarrhea or constipation - bush cath Musculoskeletal: No joint pain, calf pain, swelling - uses scooter/wheelchair at baseline for spina bifida. Neurologic: No weakness - has adequate sensation to light touch in distal ext. Psychiatric: No anxiety or depression Skin: No rash or itch PE: General: awake, alert, no apparent distress, sitting up in wheelchair at bedside Head: Normocephalic, atraumatic ENT: PERRL, EOMI, no pharyngeal exudate, mucous membranes moist Chest: on RA, Clear to auscultation, on room air, no adventitious breath sounds Cardiac: Regular rate and rhythm, no murmur, no JVD, normal peripheral pulses, good capillary refill Abdominal: NABS x 4 quadrants, soft, nontender to palpation, no rebound, guarding or tenderness- bush cath draining clear yellow urine Extremities: Normal inspection, no peripheral edema or erythema, calfs nontender to palpation Psych: Normal mood and affect Neuro: AAO x 3, strength intact bilaterally and related 5/5, no motor deficits, speech is clear, no peripheral sensory deficits Hospital Course 77 yo F with PMHx of hypertension, spina bifida, back surgery, breast cancer in 2004 sp chemo/radiation and currently has CLL. Patient was found to have large DVT extended from right internal and common iliac veins as well as the inferior vena cava without extension to the renal veins. Large DVT and internal iliac/common iliac/inferior vena cava - on tele - likely can transition off to med surg tomorrow- NSR in 70-80s overnight. - Vascular surg consulted but have no plans for IVCF placement. - Transitioned from heparin gtt to xarelto on 03/22: continue 15 mg BID x 21 days then switch to 20 mg afterwards - will need PCP to prescribe after first 3 weeks of tx. - Hematology consulted- Dr. Downs- noted WBC of 54K upon admission has now trended back down to 37 K - She is not on any current treatment for CLL. - Follows with Dr. Woodall as an outpt- f/u appt requested CLL, stable with normal platelets count Hx Breast cancer s/p lumpectomy/chemotherapy/radiation - WBC = 51, in November 2017 was 46, no ~37K - at this time no lymphadenopathy of B sx per heme/onc. No tx indicated at this time. Bladder dysfunction status post indwelling Bush Possible UTI Diffusely thick-walled urinary bladder - Urology consulted - follow UCx UA with >30 WBC, 3+ bacteria, and moderate esterase - Continue on cipro 500 mg BID x 4 more days to complete course. - will ask urology and pcp to follow culture and adjust if needed. - Outpatient cystoscopy scheduled for 03/28 - at this time would recommend holding off on any biopsy or invasive procedure due to new clots and location as this could be difficult to anticoagulate with procedure +/- biopsy. Discussed with Dr. Lucero - plan to continue anticoagulation and possibly do cystoscopy alone as outpatient. He plans to discuss with urology team. Back surgery Spina bifida - uses wheelchair/scooter at baseline, PT/OT to eval after initial 24 hours. Hypertension - continue home meds DVT ppx: start xarelto tonight, transition off heparin gtt. CODE: FULL Disposition: From home, discharge home today. Total Time Spent: Greater than 30 minutes This includes examination of the patient, discharge planning, medication reconciliation, and communication with other providers. Discharge Instructions Please refer to the electronic Patient Visit Report (Discharge Instructions) for additional information. Follow-Up Follow up with your Primary Care Provider within 1 week. Follow up with hematology/oncology as scheduled Follow up with urology as scheduled.
[2018-03-23 11:32] VITALS: BP 139/73; PULSE 91; TEMP 36.3; O2SAT 98
[2018-03-23 12:02] VITALS: BP 134/71; PULSE 62; TEMP 36.5; O2SAT 98
== END 2018-03-23 13:10 | disposition home health service (06) | DRG 294 ==
LOC: C.EDB 13:46 → C.2T 15:59 → ENRESERV 16:59
PROVIDERS: ADMIT Internal Medicine; ATTEND Internal Medicine
DX: I82.220 Acute embolism and thrombosis of inferior vena cava (principal); I82.421 Acute embolism and thrombosis of right iliac vein; N39.0 Urinary tract infection, site not specified; N13.6 Pyonephrosis; C91.11 Chronic lymphocytic leukemia of B-cell type in remission; R31.0 Gross hematuria; E88.09 Other disorders of plasma-protein metabolism, not elsewhere classified; E83.42 Hypomagnesemia; Q05.9 Spina bifida, unspecified; N31.9 Neuromuscular dysfunction of bladder, unspecified; R33.9 Retention of urine, unspecified; N39.490 Overflow incontinence; I12.9 Hypertensive chronic kidney disease with stage 1 through stage 4 chronic kidney disease, or unspecified chronic kidney disease; N18.9 Chronic kidney disease, unspecified; Z99.3 Dependence on wheelchair; Z96.0 Presence of urogenital implants; Z79.810 Long term (current) use of selective estrogen receptor modulators (SERMs); Z79.899 Other long term (current) drug therapy; Z88.1 Allergy status to other antibiotic agents; Z88.6 Allergy status to analgesic agent; Z88.5 Allergy status to narcotic agent

== ENCOUNTER → 2018-03-21 | Outpatient (CLI) | payer OTHER ==
[~2018-03-21] MED LIST changes: +CALC250T8 PO; +CPR500 PO; +MULT-506 PO; +OPTIRAY 320 IV PRN; +XRL15 PO
--- NOTE | 2018-03-21 11:04 | DIAGNOSTIC IMAGING REPORT ---
ABD/PELVIS COMBO CLINICAL HISTORY: 77 years-old Female presenting with R31.9 Hematuria, bladder problems. TECHNIQUE: Multidetector CT of the abdomen and pelvis was performed before and after the administration of intravenous contrast. IV contrast: 120 mL of Optiray 320. A dose lowering technique was used consistent with the principles of ALARA (as low as reasonably achievable). COMPARISON: None. CT DOSE (mGy.cm): The estimated cumulative dose is 1728.67 mGycm. FINDINGS: Medical Care Manager topogram: Cholecystectomy clips noted. Lung bases: Minimal basilar opacities, likely atelectasis. Normal heart size. Coronary artery calcification. No pericardial or pleural effusion. Liver: Normal morphology. Multiple well-defined hypodense lesions throughout the liver, indeterminate but likely hepatic cysts or hamartomas. Patent hepatic vasculature. Biliary: Mild biliary ductal prominence likely a reservoir effect in the post cholecystectomy state. Gallbladder surgically absent. Pancreas: Normal. Spleen: Normal. Adrenal glands: Normal. Kidneys and ureters: Numerous well-defined hypodense nonenhancing lesions scattered throughout both kidneys, likely cysts. No right hydronephrosis. The right ureter is normal. Left pelvocaliectasis and dilation of the left ureter with left urothelial thickening. Excretion from the bilateral kidneys is maintained. No nephrolithiasis. Delayed imaging demonstrates opacification of the distal ureters. Bladder: Diffusely thickened bladder wall. The bladder is incompletely distended with a Lopez catheter in place. Pelvic organs: Lobular contour of the uterine fundus likely indicates underlying fibroid. Small cysts noted in the ovaries measuring up to 1.6 cm, which appear simple. Bowel: Abnormal soft tissue thickening along the right posterior lateral aspect of the anorectal junction (series 5 image 400). This may in part relate to laxity of the pelvic floor given the convexity of the right levator ani and tortuosity of the lower rectum and inner rectal junction. Diverticulosis of the sigmoid colon. Mild stool burden throughout the normal caliber colon. The appendix is normal. No bowel obstruction. Peritoneal cavity: No free fluid or intraperitoneal gas. Lymph nodes: Pathologically enlarged bilateral external iliac lymph nodes. Subcentimeter common iliac and aortic lymph nodes. And index node in the right external iliac region measures 1.3 cm in the short axis (series 5 image 344). An index node the left external iliac region measures 1.4 cm in the short axis (series 5 image 353). Vasculature: Atherosclerosis of the normal caliber abdominal aorta. Filling defect consistent with thrombus in the right iliac confluence extending from the right internal iliac vein. There is minimal thrombus in the right external iliac vein. Left iliac veins are patent. Thrombus extends into the inferior vena cava without extending to the level of the renal veins. Abdominal wall: Infiltration along the posterior soft tissue of the left lower extremity. Musculoskeletal: Osteopenia. Degenerative changes of the spine and sacroiliac joints. IMPRESSION: 1. Diffusely thick-walled urinary bladder. This could suggest infectious cystitis or cystitis from another etiology, however, given the degree of thickness, urologic consultation for cystoscopy could be considered to exclude underlying neoplasm. 2. Moderate left pelvocaliectasis and left hydroureter without convincing evidence of an obstructing mass or calculus. This can indicate a flaccid collecting system. Urothelial thickening on the left could indicate chronic reflux or infection. Correlate with urinalysis. 3. Deep venous thrombosis in the right internal and common iliac veins as well as the inferior vena cava without extension to the renal veins. 4. Pathologically enlarged bilateral external iliac lymph nodes. Correlate with a history of underlying lymphoproliferative disease or malignancy. 5. Soft tissue prominence at the right posterior lateral aspect of the anorectal junction. Underlying soft tissue neoplasm is difficult to exclude though this could be due to redundancy of the inner rectal junction in the setting of pelvic floor incompetence given abnormal laxity of the right levator ani. 6. Polycystic kidneys. 7. Polycystic liver. 8. Diverticulosis. The report will be called/faxed according to standard departmental protocol. Electronically signed by: Shiva Lindsay M.D. 03/21/2018 11:03 AM Dictated Date/Time: 03/21/2018 10:46 AM
== END | disposition home or self-care (01) ==
LOC: C.CTS 10:05
PROVIDERS: ATTEND Urology
DX: R31.9 Hematuria, unspecified (principal); Q61.3 Polycystic kidney, unspecified; Q44.6 Cystic disease of liver; K57.92 Diverticulitis of intestine, part unspecified, without perforation or abscess without bleeding

== ENCOUNTER → 2018-06-14 | Outpatient (CLI) | payer OTHER ==
[~2018-06-14] MED LIST changes: -CALC-354; +CALC250T8 PO; -CHOLTAB3 PO; +CPR500 PO; +MULT-506 PO; +XRL15 PO
--- NOTE | 2018-06-16 07:55 | MAMMOGRAPHY REPORT ---
BILATERAL DIGITAL SCREENING MAMMOGRAM TOMOSYNTHESIS WITH CAD: 06/14/2018 CLINICAL HISTORY: Asymptomatic. Personal history of breast cancer. TECHNIQUE: Bilateral 2D CC and MLO views were obtained. Current study was also evaluated with a Comp uter Aided Detection (CAD) system. COMPARISON: Comparison is made to exams dated: 05/06/2017 mammogram, 05/05/2016 mammogram, 04/30/2015 ma mmogram, 02/13/2014 mammogram, 06/23/2012 mammogram, and 10/14/2011 mammogram - [facility] nter. BREAST COMPOSITION: There are scattered areas of fibroglandular density in both breasts. FINDINGS: The exam is suboptimal due to inability of the patient to tolerate adequate positioning, pa rticularly the MLO views due to bilateral frozen shoulders. Within this limitation, there is stable expected architectural distortion in the upper outer middle to posterior left breast, denoting the si te of prior lumpectomy. There are a few scattered benign calcifications and mild vascular calcificat ion in the breasts. No suspicious mass, architectural distortion or cluster of microcalcifications is seen. IMPRESSION: ACR BI-RADS CATEGORY 1: NEGATIVE There is no mammographic evidence of malignancy, within the limitations of the exam. A 1 year screeni ng mammogram is recommended.(06/15/2019) The patient will receive written notification of the result s. Some breast cancers are not detected with mammography. A negative mammographic report should not pascual y biopsy if a clinically suggestive mass is present. Bia Sullivan M.D. ay/:06/14/2018 22:08:57 [employer]: RT Jack(R)(M), [facility] letter sent: Normal 1/2 BI-RADS Code: ACR BI-RADS Category 1: Negative
== END | disposition home or self-care (01) ==
LOC: C.MAMM 14:05
PROVIDERS: ATTEND Internal Medicine Hematology & Oncology
DX: Z12.31 Encounter for screening mammogram for malignant neoplasm of breast (principal); Z85.3 Personal history of malignant neoplasm of breast

== ENCOUNTER → 2018-06-20 | Outpatient (CLI) | payer OTHER | END | disposition home or self-care (01) | LOC: C.LABSPEC 17:01 | PROVIDERS: ATTEND Surgery | DX: N39.46 Mixed incontinence (principal) ==

== ENCOUNTER → 2018-07-07 | Outpatient (CLI) | payer OTHER ==
--- NOTE | 2018-07-07 11:13 | DIAGNOSTIC IMAGING REPORT ---
R HAND MIN 3 VIEWS ROUTINE CLINICAL HISTORY: M25.439 Wrist swellingRIGHT pain. Edema. COMPARISON: None. DISCUSSION: Severe degenerative change throughout. Periarticular osteopenia. Several marginal erosions are present. Soft tissue vascular calcifications are present. Moderate calcification triangular fibrocartilage. There is no evidence for soft tissue swelling. IMPRESSION: Generalized degenerative change. 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 The above report was generated using voice recognition software. It may contain grammatical, syntax or spelling errors. Electronically signed by: Thor Reid M.D. 07/07/2018 11:11 AM Dictated Date/Time: 07/07/2018 11:11 AM
--- NOTE | 2018-07-07 11:15 | DIAGNOSTIC IMAGING REPORT ---
RIGHT WRIST 5 VIEWS HISTORY: M25.439 Wrist swelling RIGHT COMPARISON: None. FINDINGS: No acute fracture or dislocation within the right wrist. Diffuse soft tissue swelling. Small well-corticated ossific densities dorsal to the wrist is likely due to old injury. Mild to moderate osteoarthritis at the radiocarpal joint, STT joints, and first carpometacarpal joints. Mild chondrocalcinosis. The bones are osteopenic. No radiopaque foreign bodies. IMPRESSION: 1. No acute fracture or dislocation within the right wrist. 2. Diffuse soft tissue swelling. 3. Chondrocalcinosis. 4. Degenerative changes as described above. Electronically signed by: Chandu Garcia M.D. 07/07/2018 11:14 AM Dictated Date/Time: 07/07/2018 11:11 AM
== END | disposition home or self-care (01) ==
LOC: C.RADPV 10:34
PROVIDERS: ATTEND Family Medicine
DX: M11.231 Other chondrocalcinosis, right wrist (principal); M79.89 Other specified soft tissue disorders

== ENCOUNTER 2019-04-30 16:52 | Inpatient (IN) ==
[2019-04-30] MEDS ORDERED: SODIUM CHLORIDE 0.9% 1000ML 1,000 ML IV ONE (17:43)
--- NOTE | 2019-04-30 18:14 | XRay Report ---
XR chest 1V portable HISTORY: 78 years-old Female ro pna follow-up study in a patient with possible pneumonia COMPARISON: Chest radiograph 03/21/2018 and 03/24/2012. TECHNIQUE: Portable AP view of the chest FINDINGS: Linear 2.0 cm opacity of the right lung apex appears unchanged from most recent comparison and has pr ogressed from 03/24/2012. The cardiomediastinal and hilar silhouettes are within normal limits. No pneu mothorax, pleural effusion or focal airspace consolidation. Degenerative changes of the shoulders and spine. Cholecystectomy. IMPRESSION: 1. No acute process. 2. 2.0 cm opacity of the right lung apex redemonstrated, likely secondary to summation density/osteop hytic spurring from adjacent anterior right first rib. Underlying airspace disease or pulmonary lesio n considered less likely. This finding could be confirmed with follow-up lateral and oblique images. The above report was generated using voice recognition software. It may contain grammatical, syntax o r spelling errors. Electronically signed by: Chetan Nesbitt M.D. 04/30/2019 6:12 PM
[2019-04-30 18:20] LABS: INR 1.2 (0.9-1.1); Partial Thromboplastin Ratio 1.1; Partial Thromboplastin Time 30.3 Seconds (21.0-31.0); Prothrombin Time 12.3 Seconds (9.0-12.0)
[2019-04-30 18:24] LABS: Hematocrit (blood only) 41.6 % (37-47); Hemoglobin 13.9 g/dL (12.0-16.0); Mean Corpuscular Hgb Conc 33.4 g/dL (32-36); Mean Corpuscular Volume 88.5 fL (80-100); Mean Platelet Volume 10.4 fL (7.4-10.4); Platelet Count 261 K/uL (130-400); RDW Coefficient of Variation 16.3 % (11.5-14.5); RDW Standard Deviation 52.3 fL (36.4-46.3); White Blood Count 69.35 K/uL (4.8-10.8)
[2019-04-30 18:26] LABS: Alanine Aminotransferase 15 U/L (12-78); Albumin Level 3.5 gm/dl (3.4-5.0); Aspartate Aminotransferase 18 U/L (15-37); BUN Creatinine Ratio 24.2 (10-20); Bilirubin Direct 0.1 mg/dl (0-0.2); Blood Urea Nitrogen 23 mg/dl (7-18); Calcium 9.2 mg/dl (8.5-10.1); Carbon Dioxide 28 mmol/L (21-32); Chloride 104 mmol/L (98-107); Creatinine Clr Calc Pharmacy 37.8 ml/min; Est GFR (African American) 67.8; Est GFR (Non-African American) 58.5; Glucose 104 mg/dl (70-99); Potassium 4.2 mmol/L (3.5-5.1); Sodium 139 mmol/L (136-145)
[2019-04-30 18:31] LABS: Alkaline Phosphatase 79 U/L (45-117); Bilirubin,Total 0.5 mg/dl (0.2-1); Total Protein 7.2 gm/dl (6.4-8.2); Troponin I < 0.015 ng/ml (0-0.045)
[2019-04-30 18:57] LABS: Appearance Urine Turbid (Clear); Bacteria Urine Automated Negative (Negative); Bilirubin Urine Negative (Negative); Blood Urine 3+ (Negative); Epithelial Cell Urine Auto >30 /lpf (0-5); Glucose Urine UA Negative (Negative); Ketones Urine Negative (Negative); Leukocyte Esterase Urine 3+ (Negative); Nitrite Urine Positive (Negative); Protein Urine 3+ (Negative); Specific Gravity Urine 1.019 (1.000-1.030); Urobilinogen Urine Negative (Negative); WBC Urine Automated >30 /hpf (0-5)
--- NOTE | 2019-04-30 18:57 | CT Scan Report ---
ABDOMEN AND PELVIS CT WITHOUT CONTRAST CT DOSE: 270.04 mGy.cm HISTORY: Acute hematuria hematuria TECHNIQUE: Multiaxial CT images of the abdomen and pelvis were performed without contrast. A dose lo wering technique was utilized adhering to the principles of ALARA. COMPARISON STUDY: CT abdomen and pelvis 03/21/2018. FINDINGS: Partially imaged groundglass opacities of the right lung base suggest atelectasis or pneumonitis. Par tially imaged 3 mm nodular focus of the posterior basal segment left lower lobe. No pneumatosis or pn eumoperitoneum. Coronary arterial calcifications are noted. Imaged inferior cardiac chambers are unre markable with trace pericardial effusion. Interval hypodense lesions throughout the liver redemonstrated suggestive of hepatic cysts. The splee n and right adrenal gland are unremarkable. Mild thickening of the left adrenal gland. Moderate gener alized parenchymal atrophy of the pancreas. 10 mm proteinaceous or hemorrhagic cyst of the inferior p ole right kidney, unchanged. Hypodense lesions of the bilateral kidneys are suggestive of bilateral r enal cysts. Severe left-sided hydroureteronephrosis has progressively worsened from prior study. The entire left ureter is dilated to the level of the ureterovesicular junction. Moderate circumferential wall thickening of the urinary bladder. No obstructing calculus or lesion identified. No right hydro nephrosis. Indeterminate 1.7 cm cystic focus of the left adnexum. Mildly atrophic uterus. Extensive c alcifications of the abdominal aorta without aneurysm. Bilateral iliac chain adenopathy redemonstrate d measuring up to 1.3 cm on the right and 1.4 cm and the left, unchanged from comparison. Prominent b ilateral inguinal chain lymph nodes are also present measuring up to 9 mm on the right. No bowel obstruction or focal bowel wall thickening. Colonic diverticulosis without acute diverticuli tis. Terminal ileum and appendix appear normal. Soft tissues are unremarkable. Demineralized appearan ce of the bones. Degenerative changes of the spine, pelvis and hips. No suspicious bone lesions ident ified. Lumbar levoscoliosis. IMPRESSION: 1. Severe left-sided hydroureteronephrosis has progressively worsened from 03/21/2018. The left ureter is dilated to the level of the ureterovesicular junction. No obstructing calculus or lesion identifi ed. Correlation with cystoscopy recommended to exclude obstructing urothelial neoplasm. 2. Moderate circumferential wall thickening of the urinary bladder. Correlate with urinalysis to excl ude cystitis. 3. No urolith identified. 4. Unchanged enlarged bilateral iliac chain lymph nodes with prominent bilateral inguinal lymph nodes . Attention at follow-up recommended. 5. Additional findings as above. Electronically signed by: Chetan Nesbitt M.D. 04/30/2019 6:55 PM
[2019-04-30 19:02] LABS: Color Urine Dark Yellow
[2019-04-30 19:13] LABS: ALC (manual) 54.72 K/uL (1.2-3.4); Lymphocytes # (manual) 54.72 K/uL (1.2-3.4); Lymphocytes % (manual) 78.9 %; Monocytes # (manual) 1.73 K/uL (0.11-0.59); Monocytes % (manual) 2.5 %; Neutrophils % (manual) 18.6 %; RBC Morphology Unremarkable
[2019-04-30] MEDS ORDERED: cefTRIAXone SODIUM 1,000 MG/50 ML BAG IV STA (19:23)
[2019-04-30] MEDS ORDERED: CIPROFLOXACIN 400 MG/200 ML BAG IV STA (19:25)
--- NOTE | 2019-04-30 20:21 | History & Physical Report ---
Date of Service April 30, 2019 Assessment & Plan (1) Hematuria: Patient with reported gross hematuria. Has had similar events in the past associated with UTI. She has history of incomplete bladder emptying, possible neurogenic bladder from spina bifida. She has had indwelling bush catheters in the past and has had gross hematuria as well. Presently she is hemodynamically stable, asymptomatic, voiding spontaneously, renal function intact. 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 -Monitor CBC -Hold Xarelto -NPO after midnight -Urology consultation, possible cystoscopy in AM -No Bush for now Present on Admission?: Yes (2) Acute UTI: +UA with 3+ blood and 3+ protein. 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 She is presently on Xarelto -Hold anticoagulation in setting of acute hematuria -Cysto as above Present on Admission?: Yes (4) CLL (chronic lymphocytic leukemia): Chronic. Patient follows routinely with Dr. Cabrera -Continue to monitor Present on Admission?: Yes (5) Hydroureteronephrosis: Patient with hisotory of the same. Thought to be secondary to flaccid tissues from incomplete emptying. Presently voiding spontaneously. Renal function intact -Urology consultation as above Present on Admission?: Yes (6) Hypertension: Blood pressure stable at present -Continue Atenolol -Continue Lisinopril F/E/N - LR at 80mL/hr x 1 liter, electrolytes favorable, Heart healthy diet tonight, NPO after midnight for possible cystoscopy Ppx - SCDs/TEDS, no chemoppx in setting of acute bleed Code - Full per discussion with patient Dispo - Admit to medical floor History of Present Illness Chief Complaint: Hematuria Primary Care Provider: Balbina Harp MD Emily Martino is a 78yo C female with history of CLL, HTN, DVT on Xarelto presenting with hematuria. Patient had a UTI diagnosed recently which presented with some hematuria as well. She was taking antibiotics which she completed yesterday. Today she noted some pink urine which prompted her to seek medical care. She passes urine without difficulty or needing to strain. She denies passage of dark blood or clots. Denies back pain, fevers, chills, nausea, vomiting. No SOB, WEISS, CP or palpitations. CT Abdomen obtained - results below ER Course: Ceftriaxone, Ciprofloxacin Allergies Allergy/AdvReac Type Severity Reaction Status Date / Time aspirin Allergy Intermediate INCREASES Verified 04/30/19 17:35 BLEEDING capsaicin AdvReac Mild INTOLERANCE Verified 04/30/19 17:35 codeine AdvReac Mild INTOLERANCE Verified 04/30/19 17:35 diclofenac AdvReac Mild INTOLERANCE Verified 04/30/19 17:35 Diclopak AdvReac Mild INTOLERANCE Verified 03/21/18 14:33 erythromycin base AdvReac Mild INTOLERANCE Verified 04/30/19 17:35 sulindac AdvReac Mild INTOLERANCE Verified 04/30/19 17:35 tramadol AdvReac Mild INTOLERANCE Verified 04/30/19 17:35 Home Medications Home Medications Medication Instructions Recorded Confirmed Type atenolol 100 mg PO DAILY 01/08/19 04/30/19 History lisinopril 20 mg PO DAILY 01/08/19 04/30/19 History multivitamin 1 tab PO DAILY 01/08/19 04/30/19 History rivaroxaban [Xarelto] 20 mg PO DAILY 01/08/19 04/30/19 History calcium citrate-vitamin D3 1 tab PO DAILY 04/19/19 04/30/19 History cholecalciferol (vitamin D3) 400 unit PO DAILY 04/19/19 04/30/19 History [Vitamin D3] Past Med/Surg History Medical History Kidney disease (Chronic) Overflow incontinence (Chronic) 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 CLL (chronic lymphocytic leukemia) Spina bifida Surgical History History of back surgery History of cholecystectomy Family History Other Hypertension Social History Preferred Language: Portuguese Communication Ability: Effective Data Officer Required: No Beliefs That Will Affect Care: None marital status: / Current Living Situation: Alone current occupational status: retired Feels Safe at Home: Yes Safety Concerns: Feels Safe At This Time Smoking Status: Former smoker Hx Alcohol Use: No Hx Substance Use: No Review of Systems Review of Systems: All systems reviewed & are unremarkable except as noted in HPI & below +Urinary incontinence +Increased urinary frequency Physical Exam Physical Exam: General: patient resting comfortably, NAD, non-toxic in appearance, AA&O x 4 Skin: warm, dry, intact, no rashes or lesions HEENT: NC/AT, PERRL, EOMI, anicteric sclera, conjunctiva without injection, external ear normal to inspection and nontender, nares patent, moist mucus membranes, poor dentition, no oropharyngeal lesions, neck supple, trachea midline, no LAD, no thyromegaly, no JVD Heart: +S1/S2, regular, no m/r/g Lungs: equal air entry bilaterally, no rales/rhonchi/wheezes Abd: +BS, soft, NT/ND, no masses/organomegaly/ascites Ext: warm, 2+ pulses in UE/LE bilaterally, no clubbing/cyanosis or edema Neuro: nonfocal, patient AA&O x 4, speech intact, no facial droop, moving all extremities on command with equal strength 5/5 Results & Data Vital Signs (Past 12 Hours) Vital Signs Temp Pulse Pulse Resp BP BP Pulse Ox 04/30/19 18:51 83 16 156/91 H 98 04/30/19 18:10 16 122/62 04/30/19 16:58 36.8 C 88 17 86/55 L 97 Laboratory Results Lab Results 04/30/19 04/30/19 04/30/19 Range/Units 17:55 17:55 17:55 WBC 69.35 H* (4.8-10.8) K/uL RBC 4.70 (4.2-5.4) M/uL Hgb 13.9 (12.0-16.0) g/dL Hct 41.6 (37-47) % MCV 88.5 (80-100) fL MCH 29.6 (25-34) pg MCHC 33.4 (32-36) g/dL RDW Std Deviation 52.3 H (36.4-46.3) fL RDW Coeff of [place] 16.3 H (11.5-14.5) % Plt Count 261 (130-400) K/uL MPV 10.4 (7.4-10.4) fL Neutrophils % (Manual) 18.6 % Lymphocytes % (Manual) 78.9 % Monocytes % (Manual) 2.5 % Neutrophils # (Manual) 12.90 H (1.4-6.5) K/uL Total Absolute Neuts 12.90 H (1.4-6.5) K/uL Lymphocytes # (Manual) 54.72 H (1.2-3.4) K/uL Total Abs Lymphocytes 54.72 H (1.2-3.4) K/uL Monocytes # (Manual) 1.73 H (0.11-0.59) K/uL RBC Morphology Unremarkable PT 12.3 H (9.0-12.0) Seconds INR 1.2 H (0.9-1.1) APTT 30.3 (21.0-31.0) Seconds PTT Ratio 1.1 Sodium 139 (136-145) mmol/L Potassium 4.2 (3.5-5.1) mmol/L Chloride 104 (98-107) mmol/L Carbon Dioxide 28 (21-32) mmol/L Anion Gap 7.0 (3-11) BUN 23 H (7-18) mg/dl Creatinine 0.94 (0.6-1.2) mg/dl Est Cr Clr Drug Dosing 37.8 ml/min Est GFR ( Amer) 67.8 Est GFR (Non-Af Amer) 58.5 BUN/Creatinine Ratio 24.2 H (10-20) Glucose 104 H (70-99) mg/dl POC Lactic Acid [place] (0.90-1.70) mmol/L Calcium 9.2 (8.5-10.1) mg/dl Total Bilirubin 0.5 (0.2-1) mg/dl Direct Bilirubin 0.1 (0-0.2) mg/dl AST 18 (15-37) U/L ALT 15 (12-78) U/L Alkaline Phosphatase 79 (45-117) U/L Troponin I < 0.015 (0-0.045) ng/ml Total Protein 7.2 (6.4-8.2) gm/dl Albumin 3.5 (3.4-5.0) gm/dl Lipase 101 (73-393) U/L Urine Color Urine Appearance (Clear) Urine pH (4.5-7.5) Ur Specific [place] (1.000-1.030) Urine Protein (Negative) Urine Glucose (UA) (Negative) Urine Ketones (Negative) Urine Blood (Negative) Urine Nitrite (Negative) Urine Bilirubin (Negative) Urine Urobilinogen (Negative) Ur Leukocyte Esterase (Negative) Urine WBC (Auto) (0-5) /hpf Urine RBC (Auto) (0-4) /hpf U Hyaline Cast (Auto) (0-5) /lpf U Epithel Cells (Auto) (0-5) /lpf Urine Bacteria (Auto) (Negative) Urine Yeast 04/30/19 04/30/19 Range/Units 17:58 18:45 WBC (4.8-10.8) K/uL RBC (4.2-5.4) M/uL Hgb (12.0-16.0) g/dL Hct (37-47) % MCV (80-100) fL MCH (25-34) pg MCHC (32-36) g/dL RDW Std Deviation (36.4-46.3) fL RDW Coeff of [place] (11.5-14.5) % Plt Count (130-400) K/uL MPV (7.4-10.4) fL Neutrophils % (Manual) % Lymphocytes % (Manual) % Monocytes % (Manual) % Neutrophils # (Manual) (1.4-6.5) K/uL Total Absolute Neuts (1.4-6.5) K/uL Lymphocytes # (Manual) (1.2-3.4) K/uL Total Abs Lymphocytes (1.2-3.4) K/uL Monocytes # (Manual) (0.11-0.59) K/uL RBC Morphology PT (9.0-12.0) Seconds INR (0.9-1.1) APTT (21.0-31.0) Seconds PTT Ratio Sodium (136-145) mmol/L Potassium (3.5-5.1) mmol/L Chloride (98-107) mmol/L Carbon Dioxide (21-32) mmol/L Anion Gap (3-11) BUN (7-18) mg/dl Creatinine (0.6-1.2) mg/dl Est Cr Clr Drug Dosing ml/min Est GFR ( Amer) Est GFR (Non-Af Amer) BUN/Creatinine Ratio (10-20) Glucose (70-99) mg/dl POC Lactic Acid [place] 1.47 (0.90-1.70) mmol/L Calcium (8.5-10.1) mg/dl Total Bilirubin (0.2-1) mg/dl Direct Bilirubin (0-0.2) mg/dl AST (15-37) U/L ALT (12-78) U/L Alkaline Phosphatase (45-117) U/L Troponin I (0-0.045) ng/ml Total Protein (6.4-8.2) gm/dl Albumin (3.4-5.0) gm/dl Lipase (73-393) U/L Urine Color Dark Yellow Urine Appearance Turbid A (Clear) Urine pH 7.0 (4.5-7.5) Ur Specific [place] 1.019 (1.000-1.030) Urine Protein 3+ H (Negative) Urine Glucose (UA) Negative (Negative) Urine Ketones Negative (Negative) Urine Blood 3+ H (Negative) Urine Nitrite Positive A (Negative) Urine Bilirubin Negative (Negative) Urine Urobilinogen Negative (Negative) Ur Leukocyte Esterase 3+ H (Negative) Urine WBC (Auto) >30 H (0-5) /hpf Urine RBC (Auto) 10-30 H (0-4) /hpf U Hyaline Cast (Auto) 5-10 H (0-5) /lpf U Epithel Cells (Auto) >30 H (0-5) /lpf Urine Bacteria (Auto) Negative (Negative) Urine Yeast Not Reportable Diagnostic Findings XR chest 1V portable HISTORY: 78 years-old Female ro pna follow-up study in a patient with possible pneumonia COMPARISON: Chest radiograph 03/21/2018 and 03/24/2012. TECHNIQUE: Portable AP view of the chest FINDINGS: Linear 2.0 cm opacity of the right lung apex appears unchanged from most recent comparison and has progressed from 03/24/2012. The cardiomediastinal and hilar silhouettes are within normal limits. No pneumothorax, pleural effusion or focal airspace consolidation. Degenerative changes of the shoulders and spine. Cholecystectomy. IMPRESSION: 1. No acute process. 2. 2.0 cm opacity of the right lung apex redemonstrated, likely secondary to summation density/osteophytic spurring from adjacent anterior right first rib. Underlying airspace disease or pulmonary lesion considered less likely. This finding could be confirmed with follow-up lateral and oblique images. The above report was generated using voice recognition software. It may contain grammatical, syntax or spelling errors. Electronically signed by: Chetan Nesbitt M.D. 04/30/2019 6:12 PM Dictated: 04/30/191808 Transcribed: 04/30/191808 ABDOMEN AND PELVIS CT WITHOUT CONTRAST CT DOSE: 270.04 mGy.cm HISTORY: Acute hematuria hematuria TECHNIQUE: Multiaxial CT images of the abdomen and pelvis were performed without contrast. A dose lowering technique was utilized adhering to the principles of ALARA. COMPARISON STUDY: CT abdomen and pelvis 03/21/2018. FINDINGS: Partially imaged groundglass opacities of the right lung base suggest atelectasis or pneumonitis. Partially imaged 3 mm nodular focus of the posterior basal segment left lower lobe. No pneumatosis or pneumoperitoneum. Coronary arterial calcifications are noted. Imaged inferior cardiac chambers are unremarkable with trace pericardial effusion. Interval hypodense lesions throughout the liver redemonstrated suggestive of hepatic cysts. The spleen and right adrenal gland are unremarkable. Mild thickening of the left adrenal gland. Moderate generalized parenchymal atrophy of the pancreas. 10 mm proteinaceous or hemorrhagic cyst of the inferior pole right kidney, unchanged. Hypodense lesions of the bilateral kidneys are suggestive of bilateral renal cysts. Severe left-sided hydroureteronephrosis has progressively worsened from prior study. The entire left ureter is dilated to the level of the ureterovesicular junction. Moderate circumferential wall thickening of the urinary bladder. No obstructing calculus or lesion identified. No right hydronephrosis. Indeterminate 1.7 cm cystic focus of the left adnexum. Mildly atrophic uterus. Extensive calcifications of the abdominal aorta without aneurysm. Bilateral iliac chain adenopathy redemonstrated measuring up to 1.3 cm on the right and 1.4 cm and the left, unchanged from comparison. Prominent bilateral inguinal chain lymph nodes are also present measuring up to 9 mm on the right. No bowel obstruction or focal bowel wall thickening. Colonic diverticulosis without acute diverticulitis. Terminal ileum and appendix appear normal. Soft tissues are unremarkable. Demineralized appearance of the bones. Degenerative changes of the spine, pelvis and hips. No suspicious bone lesions identified. Lumbar levoscoliosis. IMPRESSION: 1. Severe left-sided hydroureteronephrosis has progressively worsened from 03/21/2018. The left ureter is dilated to the level of the ureterovesicular junction. No obstructing calculus or lesion identified. Correlation with cystoscopy recommended to exclude obstructing urothelial neoplasm. 2. Moderate circumferential wall thickening of the urinary bladder. Correlate with urinalysis to exclude cystitis. 3. No urolith identified. 4. Unchanged enlarged bilateral iliac chain lymph nodes with prominent bilateral inguinal lymph nodes. Attention at follow-up recommended. 5. Additional findings as above. Electronically signed by: Chetan Nesbitt M.D. 04/30/2019 6:55 PM Dictated: 04/30/19 1845 Transcribed: 04/30/19 1845 Code Status & VTE Plan Code Status FULL VTE Prophylaxis Plan VTE Prophylaxis will be ordered: Yes (1) Hematuria Hematuria type: gross Qualified Code(s): R31.0 - Gross hematuria (2) DVT (deep venous thrombosis) DVT location: non-extremity vein Chronicity: unspecified Qualified Code(s): I82.90 - Acute embolism and thrombosis of unspecified vein (3) Hypertension Hypertension type: essential hypertension Qualified Code(s): I10 - Essential (primary) hypertension
[2019-04-30] MEDS ORDERED: ACETAMINOPHEN 325 MG TAB PO PRN (21:15)
[2019-04-30] MEDS ORDERED: ONDANSETRON INJ 2 MG/ML 2 ML VIAL IV PRN (21:15)
[2019-04-30] MEDS ORDERED: LACTATED RINGER'S 1,000 ML IV SCH (21:15)
--- NOTE | 2019-04-30 21:40 | Emergency Department Note ---
Entered by Brianne Mendoza acting as a scribe for Sy Dutton History of Present Illness General Chief complaint: Hematuria Stated complaint: BLOODY URINE Time Seen by Provider: 04/30/19 17:32 Source: patient History of Present Illness Onset (ago): hour(s) (prior to arrival) Location: genitals (hematuria) Pain Consistency: + constant Maximum Pain Intensity: 0 Relieved By: + none Associated symptoms: + other (mild lower abdominal pain); no cough, no fever/chills and no shortness of breath The patient is a 78 year old F who presents to the Emergency Room with complaints of constant hematuria that started prior to arrival. She states that she has a history of UTIs. She notes that she just finished her course of antibiotics for her last UTI, two weeks ago. She adds that during her last UTI, two weeks ago, she was experiencing the same symptoms. She states that she is currently experiencing mild lower abdominal pain. She denies that she is currently experiencing coughing, fevers, and shortness of breath. She adds that she is on the medication, Xarelto. Home Medications Home Medications Medication Instructions Recorded Confirmed Type atenolol 100 mg PO DAILY 01/08/19 04/30/19 History lisinopril 20 mg PO DAILY 01/08/19 04/30/19 History multivitamin 1 tab PO DAILY 01/08/19 04/30/19 History rivaroxaban [Xarelto] 20 mg PO DAILY 01/08/19 04/30/19 History calcium citrate-vitamin D3 1 tab PO DAILY 04/19/19 04/30/19 History cholecalciferol (vitamin D3) 400 unit PO DAILY 04/19/19 04/30/19 History [Vitamin D3] Allergies Allergy/AdvReac Type Severity Reaction Status Date / Time aspirin Allergy Intermediate INCREASES Verified 04/30/19 17:35 BLEEDING capsaicin AdvReac Mild INTOLERANCE Verified 04/30/19 17:35 codeine AdvReac Mild INTOLERANCE Verified 04/30/19 17:35 diclofenac AdvReac Mild INTOLERANCE Verified 04/30/19 17:35 Diclopak AdvReac Mild INTOLERANCE Verified 03/21/18 14:33 erythromycin base AdvReac Mild INTOLERANCE Verified 04/30/19 17:35 sulindac AdvReac Mild INTOLERANCE Verified 04/30/19 17:35 tramadol AdvReac Mild INTOLERANCE Verified 04/30/19 17:35 Past Med/Surg History Medical History Kidney disease (Chronic) Overflow incontinence (Chronic) 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 and A total of 10 systems reviewed and were otherwise negative Physical Exam Vital Signs Vital Signs - 24 hr 04/30/19 16:58 04/30/19 18:10 04/30/19 18:51 Temperature 36.8 C Temperature Source Oral Sepsis Recent Fever Within 48 Hours No Sepsis New/Unexplained Change in Mental Status No Sepsis Action Taken by Nursing No Action Required Pulse Rate 88 Pulse Rate [Finger] 83 Pulse Rhythm [Finger] Regular Pulse Strength [Finger] Normal Respiratory Rate 17 16 16 Respiratory Effort / Characteristics Non-Labored Non-Labored Non-Labored Spontaneous Respiratory Depth Normal Normal Normal Respiratory Pattern Regular Regular Regular Blood Pressure 86/55 L Blood Pressure [Right Arm] 122/62 156/91 H Blood Pressure Mean 65 Blood Pressure Mean [Right Arm] 82 112 Blood Pressure Position Sitting Blood Pressure Position [Right Arm] Lying Lying Pulse Oximetry 97 98 Oxygen Delivery Method Room Air Room Air GENERAL: She is oriented to person, place, and time. She appears well-developed and well-nourished. She does not appear distressed. HENT: Exam performed. - Head: Normocephalic and atraumatic. - Right Ear: External ear normal. No mastoid tenderness. - Left Ear: External ear normal. No mastoid tenderness. - Mouth/Throat: The oropharynx is clear and moist. No trismus in the jaw. No dental abscesses or uvula swelling. No oropharyngeal exudate or tonsillar abscesses. EYES: Conjunctivae and EOM are normal. Pupils are equal, round, and reactive to light. Right eye exhibits no discharge. Left eye exhibits no discharge. No scleral icterus. NECK: Normal range of motion. Neck supple. No JVD present. No spinous process tenderness present. No carotid bruit present. No rigidity. No tracheal deviation and normal range of motion present. No Brudzinski's sign and no Kernig's sign noted. CV: Normal rate, regular rhythm, normal heart sounds and intact distal pulses. There is no peripheral edema. Palpable radial pulses bue. PULM/CHEST: Effort normal and breath sounds normal. No respiratory distress. No stridor. She has no wheezes. She has no rales. Chest Wall: She exhibits no tenderness. ABD: The abdomen is soft. Bowel sounds are normal. She has no distension. No mass is present. There is no tenderness. There is no rebound, no guarding, no Daly's sign and no tenderness at McBurney's point. Rovsig negative MUSC/SKEL: Normal range of motion. There is no peripheral edema, tenderness or deformity. LYMPH: No cervical adenopathy. NEURO: She is alert and oriented to person, place, and time. She has normal strength. No cranial nerve deficit or sensory deficit. Coordination and gait normal. GCS eye subscore is 4. GCS verbal subscore is 5. GCS motor subscore is 6. cerbellar tests wnl. SKIN: Skin is warm and dry. She is not diaphoretic. PSYCH: She has a normal mood and affect. Her behavior is normal. Judgment and thought content normal. Course 1741: The patient was evaluated in room A4B. A complete history and physical exam was performed.IV access was obtained on the patient. The patient was placed on a satellite project site monitor. Prior to medical treatment, the patient had a blood pressure of 122/662. 1830: The patients vital signs are stable. The patients POC lactic acid is within normal limits. The patients white blood count is 69. In January, the patients white blood count was 59. The patients blood pressure is stable. A CAT scan was performed due to hematuria. 1830: EMR reviewed showed that the patient has a history of CLL and breast cancer. She was recently placed on Omnicef for UTI. 4: The patients vital signs are stable. The patients CT shows left-sided hydroureteronephrosis that has worsened. The patients urinalysis is concerning for an infection. I reviewed the patient's case with Dr. Lucero, Urology [facility], [place]. Dr. Lucero is on-call for Dr. Sullivan. We both agreed that the patient should be admitted. The patient will be started on Cipro after being treated with omnicef as outpatient failed. There is no need to place a urinary catheter on the patient due to the patient being able to urinate on her own and having a normal creatinine level per Dr Lucero. Due to the patients normal creatinine levels, the patient will not need to have an emergent stent. Dr. Lucero states that he will evaluate the patient in the morning. 1936: I reviewed the patient's case with Dr. Shantell Borja, [facility] Hospitalist. She will evaluate the patient for further management. Consultations Consultation #1: I reviewed the patient's case with Dr. Shantell Borja, [facility] Hospitalist. She will evaluate the patient for further management. Time: 19:36 Administered Medications Lactated Ringer's (Lr) 1,000 mls @ 80 mls/hr IV .[id number] IMAN Stop: 05/01/19 09:44 Last Admin: 04/30/19 21:35 Dose: 80 mls/hr Documented by: [id number] Discontinued Medications Sodium Chloride (Nss 1000ml) 1,000 mls @ 999 mls/hr IV .[id number] ONE Stop: 04/30/19 18:43 Last Infusion: 04/30/19 19:21 Dose: 0 mls/hr Documented by: [id number] Admin: 04/30/19 18:20 Dose: 999 mls/hr Documented by: [id number] Ceftriaxone Sodium (Rocephin) 1,000 mg in 50 mls @ 100 mls/hr IV NOW STA Stop: 04/30/19 19:52 Last Admin: 04/30/19 19:28 Dose: Not Given Documented by: [id number] Ciprofloxacin (Cipro) 400 mg in 200 mls @ 200 mls/hr IV NOW STA Stop: 04/30/19 20:24 Last Infusion: 04/30/19 20:32 Dose: 0 mls/hr Documented by: [id number] Admin: 04/30/19 19:32 Dose: 200 mls/hr Documented by: [id number] Medical Decision Making Medical Records Attestation: I reviewed the patient's medical records. Home Medications Current Medication List: was personally reviewed by me Laboratory Data Attestation: I reviewed the patient's lab results. Result diagrams: 04/30/19 17:55 04/30/19 17:55 Lab Results 04/30/19 04/30/19 04/30/19 Range/Units 17:55 17:55 17:55 WBC 69.35 H* (4.8-10.8) K/uL RBC 4.70 (4.2-5.4) M/uL Hgb 13.9 (12.0-16.0) g/dL Hct 41.6 (37-47) % MCV 88.5 (80-100) fL MCH 29.6 (25-34) pg MCHC 33.4 (32-36) g/dL RDW Std Deviation 52.3 H (36.4-46.3) fL RDW Coeff of Figueroa 16.3 H (11.5-14.5) % Plt Count 261 (130-400) K/uL MPV 10.4 (7.4-10.4) fL Neutrophils % (Manual) 18.6 % Lymphocytes % (Manual) 78.9 % Monocytes % (Manual) 2.5 % Neutrophils # (Manual) 12.90 H (1.4-6.5) K/uL Total Absolute Neuts 12.90 H (1.4-6.5) K/uL Lymphocytes # (Manual) 54.72 H (1.2-3.4) K/uL Total Abs Lymphocytes 54.72 H (1.2-3.4) K/uL Monocytes # (Manual) 1.73 H (0.11-0.59) K/uL RBC Morphology Unremarkable PT 12.3 H (9.0-12.0) Seconds INR 1.2 H (0.9-1.1) APTT 30.3 (21.0-31.0) Seconds PTT Ratio 1.1 Sodium 139 (136-145) mmol/L Potassium 4.2 (3.5-5.1) mmol/L Chloride 104 (98-107) mmol/L Carbon Dioxide 28 (21-32) mmol/L Anion Gap 7.0 (3-11) BUN 23 H (7-18) mg/dl Creatinine 0.94 (0.6-1.2) mg/dl Est Cr Clr Drug Dosing 37.8 ml/min Est GFR ( Amer) 67.8 Est GFR (Non-Af Amer) 58.5 BUN/Creatinine Ratio 24.2 H (10-20) Glucose 104 H (70-99) mg/dl POC Lactic Acid Jaxson (0.90-1.70) mmol/L Calcium 9.2 (8.5-10.1) mg/dl Total Bilirubin 0.5 (0.2-1) mg/dl Direct Bilirubin 0.1 (0-0.2) mg/dl AST 18 (15-37) U/L ALT 15 (12-78) U/L Alkaline Phosphatase 79 (45-117) U/L Troponin I < 0.015 (0-0.045) ng/ml Total Protein 7.2 (6.4-8.2) gm/dl Albumin 3.5 (3.4-5.0) gm/dl Lipase 101 (73-393) U/L Urine Color Urine Appearance (Clear) Urine pH (4.5-7.5) Ur Specific [place] (1.000-1.030) Urine Protein (Negative) Urine Glucose (UA) (Negative) Urine Ketones (Negative) Urine Blood (Negative) Urine Nitrite (Negative) Urine Bilirubin (Negative) Urine Urobilinogen (Negative) Ur Leukocyte Esterase (Negative) Urine WBC (Auto) (0-5) /hpf Urine RBC (Auto) (0-4) /hpf U Hyaline Cast (Auto) (0-5) /lpf U Epithel Cells (Auto) (0-5) /lpf Urine Bacteria (Auto) (Negative) Urine Yeast 04/30/19 04/30/19 Range/Units 17:58 18:45 WBC (4.8-10.8) K/uL RBC (4.2-5.4) M/uL Hgb (12.0-16.0) g/dL Hct (37-47) % MCV (80-100) fL MCH (25-34) pg MCHC (32-36) g/dL RDW Std Deviation (36.4-46.3) fL RDW Coeff of Figueroa (11.5-14.5) % Plt Count (130-400) K/uL MPV (7.4-10.4) fL Neutrophils % (Manual) % Lymphocytes % (Manual) % Monocytes % (Manual) % Neutrophils # (Manual) (1.4-6.5) K/uL Total Absolute Neuts (1.4-6.5) K/uL Lymphocytes # (Manual) (1.2-3.4) K/uL Total Abs Lymphocytes (1.2-3.4) K/uL Monocytes # (Manual) (0.11-0.59) K/uL RBC Morphology PT (9.0-12.0) Seconds INR (0.9-1.1) APTT (21.0-31.0) Seconds PTT Ratio Sodium (136-145) mmol/L Potassium (3.5-5.1) mmol/L Chloride (98-107) mmol/L Carbon Dioxide (21-32) mmol/L Anion Gap (3-11) BUN (7-18) mg/dl Creatinine (0.6-1.2) mg/dl Est Cr Clr Drug Dosing ml/min Est GFR ( Amer) Est GFR (Non-Af Amer) BUN/Creatinine Ratio (10-20) Glucose (70-99) mg/dl POC Lactic Acid Jaxson 1.47 (0.90-1.70) mmol/L Calcium (8.5-10.1) mg/dl Total Bilirubin (0.2-1) mg/dl Direct Bilirubin (0-0.2) mg/dl AST (15-37) U/L ALT (12-78) U/L Alkaline Phosphatase (45-117) U/L Troponin I (0-0.045) ng/ml Total Protein (6.4-8.2) gm/dl Albumin (3.4-5.0) gm/dl Lipase (73-393) U/L Urine Color Dark Yellow Urine Appearance Turbid A (Clear) Urine pH 7.0 (4.5-7.5) Ur Specific [place] 1.019 (1.000-1.030) Urine Protein 3+ H (Negative) Urine Glucose (UA) Negative (Negative) Urine Ketones Negative (Negative) Urine Blood 3+ H (Negative) Urine Nitrite Positive A (Negative) Urine Bilirubin Negative (Negative) Urine Urobilinogen Negative (Negative) Ur Leukocyte Esterase 3+ H (Negative) Urine WBC (Auto) >30 H (0-5) /hpf Urine RBC (Auto) 10-30 H (0-4) /hpf U Hyaline Cast (Auto) 5-10 H (0-5) /lpf U Epithel Cells (Auto) >30 H (0-5) /lpf Urine Bacteria (Auto) Negative (Negative) Urine Yeast Not Reportable Imaging Data Radiologist's Impression: Radiology results as stated below per my review and the radiologist's interpretation: ABDOMEN AND PELVIS CT WITHOUT CONTRAST CT DOSE: 270.04 mGy.cm HISTORY: Acute hematuria hematuria TECHNIQUE: Multiaxial CT images of the abdomen and pelvis were performed without contrast. A dose lowering technique was utilized adhering to the principles of ALARA. COMPARISON STUDY: CT abdomen and pelvis 03/21/2018. FINDINGS: Partially imaged groundglass opacities of the right lung base suggest atelectasis or pneumonitis. Partially imaged 3 mm nodular focus of the posterior basal segment left lower lobe. No pneumatosis or pneumoperitoneum. Coronary arterial calcifications are noted. Imaged inferior cardiac chambers are unr emarkable with trace pericardial effusion. Interval hypodense lesions throughout the liver redemonstrated suggestive of hepatic cysts. The spleen and right adrenal gland are unremarkable. Mild thicke geeta of the left adrenal gland. Moderate generalized parenchymal atrophy of the pancreas. 10 mm proteinaceous or hemorrhagic cyst of the inferior pole right kidney, unchanged. Hypodense lesions of the bilateral kidneys are suggestive of bilateral renal cysts. Severe left-sided hydroureteronephrosis has progressively worsened from prior study. The entire left ureter is dilated to the level of the ureterovesicular junction. Moderate circumferential wall thickening of the urinary bladder. No obstructing calculus or lesion identified. No right hydronephrosis. Indeterminate 1.7 cm cystic focus of the left adnexum. Mildly atrophic uterus. Extensive calcifications of the abdominal aorta without ane urysm. Bilateral iliac chain adenopathy redemonstrated measuring up to 1.3 cm on the right and 1.4 cm and the left, unchanged from comparison. Prominent bilateral inguinal chain lymph nodes are also present measuring up to 9 mm on the right. No bowel obstruction or focal bowel wall thickening. Colonic diverticulosis without acute diverticulitis. Terminal ileum and appendix appear normal. Soft tissues are unremarkable. Demineralized appearance of the bones. Degenerative changes of the spine, pelvis and hips. No suspicious bone lesions identified. Lumbar levoscoliosis. IMPRESSION: 1. Severe left-sided hydroureteronephrosis has progressively worsened from 03/21/2018. The left ureter is dilated to the level of the ureterovesicular junction. No obstructing calculus or lesion identified. Correlation with cystoscopy recommended to exclude obstructing urothelial neoplasm. 2. Moderate circumferential wall thickening of the urinary bladder. Correlate with urinalysis to exclude cystitis. 3. No urolith identified. 4. Unchanged enlarged bilateral iliac chain lymph nodes with prominent bilateral inguinal lymph nodes. Attention at follow-up recommended. 5. Additional findings as above. Electronically signed by: Chetan Nesbitt M.D. 04/30/2019 6:55 PM XR chest 1V portable HISTORY: 78 years-old Female ro pna follow-up study in a patient with possible pneumonia COMPARISON: Chest radiograph 03/21/2018 and 03/24/2012. TECHNIQUE: Portable AP view of the chest FINDINGS: Linear 2.0 cm opacity of the right lung apex appears unchanged from most recent comparison and has progressed from 03/24/2012. The cardiomediastinal and hilar silhouettes are within normal limits. No pneumothorax, pleural effusion or focal airspace consolidation. Degenerative changes of the shoulders and spine. Cholecystectomy. IMPRESSION: 1. No acute process. 2. 2.0 cm opacity of the right lung apex redemonstrated, likely secondary to summation density/osteophytic spurring from adjacent anterior right first rib. Underlying airspace disease or pulmonary lesion considered less likely. This finding could be confirmed with follow-up lateral and oblique images. The above report was generated using voice recognition software. It may contain grammatical, syntax or spelling errors. Electronically signed by: Chetan Nesbitt M.D. 04/30/2019 6:12 PM Blood Pressure Blood Pressure Findings: Elevated blood pressure Blood Pressure Disposition: further management by hospitalist MARYANA Narrative 1741: The patient was evaluated in room A4B. A complete history and physical exam was performed.IV access was obtained on the patient. The patient was placed on a satellite project site monitor. Prior to medical treatment, the patient had a blood pressure of 122/662. 1830: The patients vital signs are stable. The patients POC lactic acid is within normal limits. The patients white blood count is 69. In January, the patients white blood count was 59. The patients blood pressure is stable. A CAT scan was performed due to hematuria. 1830: EMR reviewed showed that the patient has a history of CLL and breast cancer. She was recently placed on Omnicef for UTI. 1934: The patients vital signs are stable. The patients CT shows left-sided hydroureteronephrosis that has worsened. The patients urinalysis is concerning for an infection. I reviewed the patient's case with Dr. Lucero, [facility] [place] [place]. Dr. Lucero is on-call for Dr. Sullivan. We both agreed that the patient should be admitted. The patient will be started on Cipro after being treated with omnicef as outpatient failed. There is no need to place a urinary catheter on the patient due to the patient being able to urinate on her own and having a normal creatinine level per Dr Lucero. Due to the patients normal creatinine levels, the patient will not need to have an emergent stent. Dr. Lucero states that he will evaluate the patient in the morning. 193: I reviewed the patient's case with Dr. Shantell Borja, [facility] Hospitalist. She will evaluate the patient for further management. Impression & Plan Hematuria, UTI (urinary tract infection) Discharge Plan Visit Data *Final* Discharge Date/Time: 04/30/19 20:49 Chief Complaint: Hematuria Stated Complaint: BLOODY URINE ED Provider: Sy Dutton Discharge Problem: Hematuria, UTI (urinary tract infection) Patient Disposition: Admitted As Inpatient Discharge Instructions Interventions: ED Discharge Assessment Last Done: 04/30/19 20:49 The scribe's documentation has been prepared under my direction and personally reviewed by me in its entirety. I confirm that the note above accurately reflects all work, treatment, procedures, and medical decision making performed by me.
[2019-05-01 05:33] LABS: Hematocrit (blood only) 35.6 % (37-47); Hemoglobin 11.9 g/dL (12.0-16.0); Mean Corpuscular Hgb Conc 33.4 g/dL (32-36); Mean Corpuscular Volume 87.7 fL (80-100); Platelet Count 193 K/uL (130-400); RDW Coefficient of Variation 16.1 % (11.5-14.5); RDW Standard Deviation 51.9 fL (36.4-46.3); Red Blood Count 4.06 M/uL (4.2-5.4); White Blood Count 56.44 K/uL (4.8-10.8)
[2019-05-01 06:24] LABS: BUN Creatinine Ratio 27.5 (10-20); Calcium 8.3 mg/dl (8.5-10.1); Creatinine Clr Calc Pharmacy 61.3 ml/min; Est GFR (Non-African American) 88.9
[2019-05-01 06:51] LABS: Basophils # (auto) 0.07 K/uL (0-0.2); Basophils % (auto) 0.1 %; Eosinophils # (auto) 0.17 K/uL (0-0.5); Eosinophils % (auto) 0.3 %; Smudge Cells Present
[2019-05-01 06:54] LABS: Monocytes # (manual) 1.13 K/uL (0.11-0.59)
[2019-05-01] MEDS: CHOLECALCIFEROL (VITAMIN D) 400 UNITS TABLET PO SCH (08:40)
[2019-05-01] MEDS: ATENOLOL 50 MG TABLET PO SCH (08:41)
[2019-05-01] MEDS: MULTIVITAMIN TAB PO SCH (08:41)
[2019-05-01] MEDS: CALCIUM 600MG + VIT D 400 IU TAB PO SCH (08:41)
[2019-05-01] MEDS: CIPROFLOXACIN 400 MG/200 ML BAG IV SCH ×2 (08:41→19:51)
[2019-05-01] MEDS: LISINOPRIL 20 MG TAB PO SCH (08:41)
--- NOTE | 2019-05-01 08:59 | Urology Consultation ---
Date of Consultation May 01, 2019 Assessment & Plan (1) Hydroureteronephrosis: (2) Acute UTI: (3) Gross hematuria: 78yo F with hematuria, UTI, severe L hydroureteronephrosis Hematuria clearing up per patient - not visualized. CT imaging reviewed, no stones. Obstruction likely due to external compression from pelvic lymphadenopathy. She is afebrile, creatinine stable, no flank pain - no indication for acute stenting at this time. Discussed with Dr. Lucero. Recent course omnicef for alpha strep UTI, concern for MDR uropathogen. Discussed with Dr. Lucero, agree with ciprofloxacin for empiric coverage while awaiting sensitivities. We will allow for diet today, focus on antibiotic therapy. Hx poor bladder sensation and urinary retention, will bladder scan q shift. If PVR > 250, place indwelling bush catheter to allow for bladder decompression/rest. Nursing made aware. Contact our service urgently if she develops acute Left flank pain, fevers >101F. NPO at midnight to reassess need for potential intervention if status changes. Thank you for allowing us to participate in the acute care of Ms. Martino. We will continue to monitor closely with primary service. 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 She is established with Dr. Sullivan for severe incontinence, prior retention, hx UTIs, poor bladder sensation. Last seen outpatient in August 2018. Most recent cystoscopy 06/08 - borderline stovepipe urethra, no bladder lesions. She was recently treated for alpha strep UTI with associated hematuria end of March, completed course of omnicef, than hematuria recurred prompting this admission. She states "this has happened before, once I get on antibiotics the blood in my urine goes away". She also reports urinary dribbling, frequency, urgency. CT imaging reveals worsening Left hydroureteronephrosis when compared to films from February 2018. No significant perinephric stranding or concern for clinical pyelonephritis. Pt was sitting up in chair, talking on phone when entered room. She appears to be in no acute distress. Denies any L flank pain. Some trouble with incontinence, small volumes. States hematuria is lightening up, unable to visualize. She was started on ciprofloxacin IV BID, she feels it is helping. Denies n/v/f/c. She also denies fevers at home. Allergies Allergy/AdvReac Type Severity Reaction Status Date / Time aspirin Allergy Intermediate INCREASES Verified 04/30/19 17:35 BLEEDING capsaicin AdvReac Mild INTOLERANCE Verified 04/30/19 17:35 codeine AdvReac Mild INTOLERANCE Verified 04/30/19 17:35 diclofenac AdvReac Mild INTOLERANCE Verified 04/30/19 17:35 Diclopak AdvReac Mild INTOLERANCE Verified 03/21/18 14:33 erythromycin base AdvReac Mild INTOLERANCE Verified 04/30/19 17:35 sulindac AdvReac Mild INTOLERANCE Verified 04/30/19 17:35 tramadol AdvReac Mild INTOLERANCE Verified 04/30/19 17:35 Home Medications Home Medications Medication Instructions Recorded Confirmed Type atenolol 100 mg PO DAILY 01/08/19 04/30/19 History lisinopril 20 mg PO DAILY 01/08/19 04/30/19 History multivitamin 1 tab PO DAILY 01/08/19 04/30/19 History rivaroxaban [Xarelto] 20 mg PO DAILY 01/08/19 04/30/19 History calcium citrate-vitamin D3 1 tab PO DAILY 04/19/19 04/30/19 History cholecalciferol (vitamin D3) 400 unit PO DAILY 04/19/19 04/30/19 History [Vitamin D3] Patient History Medical History Kidney disease (Chronic) Overflow incontinence (Chronic) 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 CLL (chronic lymphocytic leukemia) Spina bifida Surgical History History of back surgery History of cholecystectomy Family History Other Hypertension Social History Preferred Language: Frisian Communication Ability: Effective After School Tutor Required: No Beliefs That Will Affect Care: None marital status: / Current Living Situation: Alone current occupational status: retired Feels Safe at Home: Yes Safety Concerns: Feels Safe At This Time Smoking Status: Former smoker Hx Alcohol Use: No Hx Substance Use: No Review of Systems Constitutional: no fever, no chills and no fatigue Eyes: no problem reported Ear, Nose, Mouth, Throat: no ear pain and no tinnitus Respiratory: no cough, no dyspnea and no dyspnea on exertion Cardiovascular: no chest pain and no chest pain with activity Gastrointestinal: no abdominal pain, no nausea and no vomiting hungry Genitourinary: + difficulty urinating, + urinary frequency, + urinary urgency and + hematuria; no dysuria and no flank pain Musculoskeletal: no back pain Integumentary: no acne and no rash Neurologic: no falls, no localized weakness and no paralysis Psychiatric: no depression and no hopelessness Endocrine: no fatigue and no polyphagia Hematologic / Lymphatic: no easy bleeding Physical Exam Constitutional: well developed; no acute distress, not ill appearing and not obese Eyes: no nystagmus ENMT: Ears: no hearing impairment Neck: trachea midline Respiratory: no respiratory distress, does not use accessory muscles and no cough Cardiovascular: Vessels: no JVD Chest (Breasts): Chest: no mass Gastrointestinal (Abdomen): Inspection/Auscultation: abdomen not distended and no abdominal edema Musculoskeletal: Head/Neck/Chest: normocephalic and head atraumatic Skin: no rashes, warm and dry (in exposed areas) Neurologic: awake; not confused and not obtunded Motor/Sensory: no tremor Psychiatric: Orientation: alert and oriented x 3 Eye Contact: good eye contact Genitourinary: no bladder distention, no suprapubic pain on palpation Lymphatic: no lymphadenopathy Results & Data Vital Signs (Past 12 Hours) Vital Signs Temp Pulse Pulse Resp BP BP Pulse Ox 05/01/19 07:56 36.7 C 83 20 146/86 H 100 04/30/19 23:07 36.8 C 83 16 130/72 96 04/30/19 21:05 36.7 C 90 18 127/71 96 Laboratory Results Laboratory Results - last 48 hr 04/30/19 04/30/19 04/30/19 17:55 17:55 17:55 WBC 69.35 H* RBC 4.70 Hgb 13.9 Hct 41.6 MCV 88.5 MCH 29.6 MCHC 33.4 RDW Std Deviation 52.3 H RDW Coeff of [place] 16.3 H Plt Count 261 MPV 10.4 Eos % (Auto) Baso % (Auto) Eos # (Auto) Baso # (Auto) Neutrophils % (Manual) 18.6 Lymphocytes % (Manual) 78.9 Monocytes % (Manual) 2.5 Neutrophils # (Manual) 12.90 H Total Absolute Neuts 12.90 H Lymphocytes # (Manual) 54.72 H Total Abs Lymphocytes 54.72 H Monocytes # (Manual) 1.73 H Smudge Cells RBC Morphology Unremarkable PT 12.3 H INR 1.2 H APTT 30.3 PTT Ratio 1.1 Sodium 139 Potassium 4.2 Chloride 104 Carbon Dioxide 28 Anion Gap 7.0 BUN 23 H Creatinine 0.94 Est Cr Clr Drug Dosing 37.8 Est GFR ( Amer) 67.8 Est GFR (Non-Af Amer) 58.5 BUN/Creatinine Ratio 24.2 H Glucose 104 H POC Lactic Acid Jaxson Calcium 9.2 Total Bilirubin 0.5 Direct Bilirubin 0.1 AST 18 ALT 15 Alkaline Phosphatase 79 Troponin I < 0.015 Total Protein 7.2 Albumin 3.5 Lipase 101 Urine Color Urine Appearance Urine pH Ur Specific [place] Urine Protein Urine Glucose (UA) Urine Ketones Urine Blood Urine Nitrite Urine Bilirubin Urine Urobilinogen Ur Leukocyte Esterase Urine WBC (Auto) Urine RBC (Auto) U Hyaline Cast (Auto) U Epithel Cells (Auto) Urine Bacteria (Auto) Urine Yeast 04/30/19 04/30/19 05/01/19 17:58 18:45 05:09 WBC 56.44 H* D RBC 4.06 L Hgb 11.9 L Hct 35.6 L MCV 87.7 MCH 29.3 MCHC 33.4 RDW Std Deviation 51.9 H RDW Coeff of [place] 16.1 H Plt Count 193 MPV 10.0 Eos % (Auto) 0.3 Baso % (Auto) 0.1 Eos # (Auto) 0.17 Baso # (Auto) 0.07 Neutrophils % (Manual) 11.0 Lymphocytes % (Manual) 87.0 Monocytes % (Manual) 2.0 Neutrophils # (Manual) 6.21 Total Absolute Neuts 6.21 Lymphocytes # (Manual) 49.10 H Total Abs Lymphocytes 49.10 H Monocytes # (Manual) 1.13 H Smudge Cells Present RBC Morphology PT INR APTT PTT Ratio Sodium Potassium Chloride Carbon Dioxide Anion Gap BUN Creatinine Est Cr Clr Drug Dosing Est GFR ( Amer) Est GFR (Non-Af Amer) BUN/Creatinine Ratio Glucose POC Lactic Acid Jaxson 1.47 Calcium Total Bilirubin Direct Bilirubin AST ALT Alkaline Phosphatase Troponin I Total Protein Albumin Lipase Urine Color Dark Yellow Urine Appearance Turbid A Urine pH 7.0 Ur Specific [place] 1.019 Urine Protein 3+ H Urine Glucose (UA) Negative Urine Ketones Negative Urine Blood 3+ H Urine Nitrite Positive A Urine Bilirubin Negative Urine Urobilinogen Negative Ur Leukocyte Esterase 3+ H Urine WBC (Auto) >30 H Urine RBC (Auto) 10-30 H U Hyaline Cast (Auto) 5-10 H U Epithel Cells (Auto) >30 H Urine Bacteria (Auto) Negative Urine Yeast Not Reportable 05/01/19 05:09 WBC RBC Hgb Hct MCV MCH MCHC RDW Std Deviation RDW Coeff of [place] Plt Count MPV Eos % (Auto) Baso % (Auto) Eos # (Auto) Baso # (Auto) Neutrophils % (Manual) Lymphocytes % (Manual) Monocytes % (Manual) Neutrophils # (Manual) Total Absolute Neuts Lymphocytes # (Manual) Total Abs Lymphocytes Monocytes # (Manual) Smudge Cells RBC Morphology PT INR APTT PTT Ratio Sodium 140 Potassium 4.0 Chloride 108 H Carbon Dioxide 26 Anion Gap 6.0 BUN 16 Creatinine 0.58 L D Est Cr Clr Drug Dosing 61.3 Est GFR ( Amer) 103.0 Est GFR (Non-Af Amer) 88.9 BUN/Creatinine Ratio 27.5 H Glucose 89 POC Lactic Acid Jaxson Calcium 8.3 L Total Bilirubin Direct Bilirubin AST ALT Alkaline Phosphatase Troponin I Total Protein Albumin Lipase Urine Color Urine Appearance Urine pH Ur Specific [place] Urine Protein Urine Glucose (UA) Urine Ketones Urine Blood Urine Nitrite Urine Bilirubin Urine Urobilinogen Ur Leukocyte Esterase Urine WBC (Auto) Urine RBC (Auto) U Hyaline Cast (Auto) U Epithel Cells (Auto) Urine Bacteria (Auto) Urine Yeast
--- NOTE | 2019-05-01 12:46 | Hospitalist Progress Note ---
Date of Service May 01, 2019 Assessment & Plan (1) Hematuria: Patient with reported gross hematuria. Has had similar events in the past associated with UTI. She has history of incomplete bladder emptying, possible neurogenic bladder from spina bifida. She has had indwelling bush catheters in the past and has had gross hematuria as well. Presently she is hemodynamically stable, asymptomatic, voiding spontaneously, renal function intact. 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 -Hgb 11 down from 13 on admission, repeat CBC am -Hold Xarelto again today -Urology consultation - recommend monitoring for now, Bush if PVR are greater than 250. (2) Acute UTI: +UA with 3+ blood and 3+ protein. Prior cultures from 01/08/19 and 04/19/19 positive for alpha hemolytic streptococcus, no sensitivities reported -Follow cultures -continue Ciprofloxacin 400mg IV BID - Continue NSS @ 80 mls/hr (3) DVT (deep venous thrombosis): Patient with DVT of common iliac and IVC clot from February 2018. She is presently on Xarelto - will hold again today. Hopefully can restart tomorrow if no further bleeding or indication for cystoscopy (4) CLL (chronic lymphocytic leukemia): Chronic. Patient follows routinely with Dr. Cabrera -Continue to monitor (5) Hydroureteronephrosis: Patient with history of the same. Thought to be secondary to flaccid tissues from incomplete emptying. Presently voiding spontaneously. Renal function intact -Urology consultation as above (6) Hypertension: Blood pressure stable at present -Continue Atenolol -Continue Lisinopril Ppx - SCDs/TEDS, no chemoppx in setting of acute bleed Code - Full Subjective Ms. Martino has no complaints other than pink urine. She has no pain or burning upon urination. Review of Systems Review of Systems: All systems reviewed & are unremarkable except as noted in HPI & below Physical Exam Physical Exam: General: no distress Eyes: normal inspection, PERLL Respiratory: chest non tender, crackles bilateral bases, no respiratory distress, no accessory muscle use Cardiac: regular rate and rhythm, no rub or gallop, no murmur, no edema, no jvd GI/: active bowel sounds, no abd pain or tenderness, soft, non distended Extremities: normal range of motion, normal strength, non tender Neuro/Psych: alert and oriented x 3, normal mood and affect Skin: normal color, dry Results & Data Vital Signs (Past 12 Hours) Vital Signs Temp Pulse Resp BP Pulse Ox 05/01/19 07:56 36.7 C 83 20 146/86 H 100 (1) Hematuria Hematuria type: gross Qualified Code(s): R31.0 - Gross hematuria (2) DVT (deep venous thrombosis) Chronicity: unspecified DVT location: non-extremity vein Qualified Code(s): I82.90 - Acute embolism and thrombosis of unspecified vein (3) Hypertension Hypertension type: essential hypertension Qualified Code(s): I10 - Essential (primary) hypertension
[2019-05-02 08:03] LABS: Hematocrit (blood only) 36.2 % (37-47); Hemoglobin 12.3 g/dL (12.0-16.0); Mean Corpuscular Volume 86.8 fL (80-100); Mean Platelet Volume 9.8 fL (7.4-10.4); Platelet Count 217 K/uL (130-400); RDW Coefficient of Variation 16.2 % (11.5-14.5); RDW Standard Deviation 51.8 fL (36.4-46.3); Red Blood Count 4.17 M/uL (4.2-5.4); White Blood Count 62.04 K/uL (4.8-10.8)
--- NOTE | 2019-05-02 08:11 | Urology Progress Note ---
Date of Service May 02, 2019 Assessment & Plan (1) Hydroureteronephrosis: (2) Gross hematuria: (3) Acute UTI: 78yo F with CLL, DCIS admitted with complicated pseudomonal UTI, incomplete bladder emptying with indwelling catheter, hematuria, L hydroureteronephrosis. 78yo F with CLL, DCIS admitted with complicated pseudomonal UTI, incomplete bladder emptying with indwelling catheter, hematuria, L hydroureteronephrosis. UC&S final available today - 80,000cfu pseudomonas aeruginosa with intermediate aminoglycoside resistance. BCx prelim no growth. Continue ciprofloxacin IV, okay to convert to PO when agreeable by primary team. Recommend 10-14days total antibiotic therapy. Hematuria likely due to acute cystitis and bladder distention. Continue bush catheter. CT imaging again reviewed by Dr. Sullivan - agreeable to continue to monitor hydronephrosis conservatively. Contact our service urgently if she develops acute left lank pain, fevers >101F or deteriorating kidney function. We will continue to monitor closely with primary service. Subjective 78yo F with CLL, DCIS admitted with complicated pseudomonal UTI, incomplete bladder emptying with indwelling catheter, hematuria, L hydroureteronephrosis. Bush catheter placed yesterday for high PVR (400s) per order. Catheter draining light red/pink with intermittent small clots. Pt tolerating well, denies suprapubic pain or bladder spasms. Able to get some rest last evening, difficult due to change in environment. Afebrile overnight, continues to deny any L flank pain. Denies fever/chills/n/v. She is hungry this AM. Labs reviewed- Creatinine normal today. Review of Systems Review of Systems: All systems reviewed & are unremarkable except as noted in HPI & below Physical Exam Physical Exam: A&Ox3 RRR abd soft, nontender no suprapubic tenderness on palpation no LE edema Bush draining pink to light red with intermittent, small clots. Results & Data Vital Signs (Past 12 Hours) Vital Signs Temp Pulse Resp BP BP Pulse Ox 05/02/19 07:38 36.9 C 78 18 98/62 L 98 05/01/19 23:15 36.8 C 84 18 114/70 97
--- NOTE | 2019-05-02 08:30 | XRay Report ---
XR chest PA, lat, obliques HISTORY: 78 years-old Female pulmonary nodule nodular opacity of the right lung apex. COMPARISON: Chest radiograph 04/30/2019, 03/21/2018 and chest radiographs 03/24/2012 TECHNIQUE: AP view of the chest with oblique views FINDINGS: Ill-defined nodular opacity of the right upper lung redemonstrated, 2.0 cm. This appears slightly les s apparent on the MALAWIAN view. No pneumothorax, pleural effusion or overt pulmonary edema. Degenerative changes of the shoulders and spine. Cholecystectomy. IMPRESSION: Persistent ill-defined 2.0 cm right upper lung opacity. Correlation with chest CT recomme nded. The above report was generated using voice recognition software. It may contain grammatical, syntax o r spelling errors. Electronically signed by: Chetan Nesbitt M.D. 05/02/2019 8:28 AM
[2019-05-02 08:31] LABS: BUN Creatinine Ratio 22.9 (10-20); Calcium 8.7 mg/dl (8.5-10.1); Creatinine Clr Calc Pharmacy 54.7 ml/min; Est GFR (African American) 99.3; Est GFR (Non-African American) 85.6; Potassium 3.8 mmol/L (3.5-5.1)
[2019-05-02 08:56] LABS: ALC (manual) 53.29 K/uL (1.2-3.4); Lymphocytes # (manual) 53.29 K/uL (1.2-3.4); Lymphocytes % (manual) 85.9 %; Monocytes # (manual) 1.12 K/uL (0.11-0.59); Monocytes % (manual) 1.8 %; Neutrophils % (manual) 12.3 %
[2019-05-02] MEDS: CIPROFLOXACIN 400 MG/200 ML BAG IV SCH (09:03)
[2019-05-02] MEDS: LISINOPRIL 20 MG TAB PO SCH (09:04)
[2019-05-02] MEDS: MULTIVITAMIN TAB PO SCH (09:04)
[2019-05-02] MEDS: ATENOLOL 50 MG TABLET PO SCH (09:04)
[2019-05-02] MEDS: CHOLECALCIFEROL (VITAMIN D) 400 UNITS TABLET PO SCH (09:04)
[2019-05-02] MEDS: CALCIUM 600MG + VIT D 400 IU TAB PO SCH (09:04)
--- NOTE | 2019-05-02 17:06 | Hospitalist Progress Note ---
Date of Service May 02, 2019 Assessment & Plan (1) Hematuria: Patient with gross hematuria. Has had similar events in the past associated with UTI. She has history of incomplete bladder emptying, possible neurogenic bladder from spina bifida. She has had indwelling bush catheters in the past and has had gross hematuria as well. Presently she is hemodynamically stable, asymptomatic, voiding spontaneously, renal function intact. 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 -Hgb stable around 12 -Hold Xarelto again today - hopefully can restart in the morning, appreciate urology recommendations on this - continue Bush catheter (2) Acute UTI: +UA with 3+ blood and 3+ protein. Prior cultures from 01/08/19 and 04/19/19 positive for alpha hemolytic streptococcus, no sensitivities reported - UC growing pseudomonas - will change IV cipro to po - Continue NSS @ 80 mls/hr (3) DVT (deep venous thrombosis): Patient with DVT of common iliac and IVC clot from February 2018. She is presently on Xarelto - will hold again today. Hopefully can restart tomorrow if no further bleeding or indication for cystoscopy. Has been on hold for 48 hours (4) CLL (chronic lymphocytic leukemia): Chronic. Patient follows routinely with Dr. Cabrera -Continue to monitor (5) Hydroureteronephrosis: Patient with history of the same. Thought to be secondary to flaccid tissues from incomplete emptying. Presently voiding spontaneously. Renal function intact -Urology consultation as above (6) Hypertension: Blood pressure stable at present -Continue Atenolol -Continue Lisinopril Ppx - SCDs/TEDS, no chemoppx in setting of acute bleed Code - Full Subjective Ms. Martino continues to have pink urine in her catheter. She is also having persistent diarrhea Review of Systems Review of Systems: All systems reviewed & are unremarkable except as noted in HPI & below Physical Exam Physical Exam: General: no distress Eyes: normal inspection, PERLL Respiratory: chest non tender, clear to auscultation, normal breath sounds, no respiratory distress, no accessory muscle use Cardiac: regular rate and rhythm, no rub or gallop, no murmur, no edema, no jvd GI/: active bowel sounds, no abd pain or tenderness, soft, non distended Extremities: normal range of motion, normal strength, non tender Neuro/Psych: alert and oriented x 3, normal mood and affect Skin: normal color, dry Results & Data Vital Signs (Past 12 Hours) Vital Signs Temp Pulse Resp BP Pulse Ox 05/02/19 07:38 36.9 C 78 18 98/62 L 98 (1) Hematuria Hematuria type: gross Qualified Code(s): R31.0 - Gross hematuria (2) DVT (deep venous thrombosis) DVT location: non-extremity vein Chronicity: unspecified Qualified Code(s): I82.90 - Acute embolism and thrombosis of unspecified vein (3) Hypertension Hypertension type: essential hypertension Qualified Code(s): I10 - Essential (primary) hypertension
[2019-05-02] MEDS: CIPROFLOXACIN 500 MG TAB PO SCH (20:28)
--- NOTE | 2019-05-03 09:03 | Urology Progress Note ---
Date of Service May 03, 2019 Assessment & Plan (1) Gross hematuria: (2) Hydroureteronephrosis: (3) Acute UTI: 78yo F with CLL, DCIS admitted with complicated pseudomonal UTI, incomplete bladder emptying with indwelling catheter, hematuria, L hydroureteronephrosis. VSS, afebrile Doing well this AM, responding well to IV abx. Recommend 14 days total abx coverage based upon sensitivities for complicated pseudomonal UTI. Okay to restart xarelto from our perspective. Please discharge home with bush catheter, we will arrange for outpatient TOV next week. Warning signs reviewed with patient for criteria to return to ED including severe L flank pain, Fever >101F, intractable emesis - she verbalizes understanding. Thank you for allowing us to participate in the acute care of Ms. Martino, will see her at outpatient f/u. Subjective 78yo F with CLL, DCIS admitted with complicated pseudomonal UTI, incomplete bladder emptying with indwelling catheter, hematuria, L hydroureteronephrosis. Doing well today, uneventful evening. She states she was able to get some rest. Denies f/c/n/v. Bush catheter "annoying" but denies bladder spasms, suprapubic pain. Bush draining hazy yellow with intermittent strands of clot, draining well. Review of Systems Review of Systems: All systems reviewed & are unremarkable except as noted in HPI & below Physical Exam Physical Exam: A&Ox3 RRR Abd soft, nontender. No suprapubic tenderness upon palpation. Bush draining hazy yellow with intermittent strands of clot, draining well. Results & Data Vital Signs (Past 12 Hours) Vital Signs Temp Pulse Pulse Resp BP Pulse Ox 05/03/19 07:30 36.9 C 83 20 108/70 98 05/02/19 23:10 36.6 C 82 16 100/66 98 Laboratory Results Laboratory Results - last 48 hr 05/02/19 05/02/19 05/03/19 07:45 07:45 08:57 WBC 62.04 H* 64.32 H* RBC 4.17 L 4.41 Hgb 12.3 13.3 Hct 36.2 L 38.8 MCV 86.8 88.0 MCH 29.5 30.2 MCHC 34.0 34.3 RDW Std Deviation 51.8 H 52.7 H RDW Coeff of [place] 16.2 H 16.3 H Plt Count 217 241 MPV 9.8 10.5 H Neutrophils % (Manual) 12.3 Lymphocytes % (Manual) 85.9 Monocytes % (Manual) 1.8 Neutrophils # (Manual) 7.63 H Total Absolute Neuts 7.63 H Lymphocytes # (Manual) 53.29 H Total Abs Lymphocytes 53.29 H Monocytes # (Manual) 1.12 H Sodium 140 Potassium 3.8 Chloride 105 Carbon Dioxide 26 Anion Gap 9.0 BUN 15 Creatinine 0.65 Est Cr Clr Drug Dosing 54.7 Est GFR ( Amer) 99.3 Est GFR (Non-Af Amer) 85.6 BUN/Creatinine Ratio 22.9 H Glucose 88 Calcium 8.7 05/03/19 08:57 WBC RBC Hgb Hct MCV MCH MCHC RDW Std Deviation RDW Coeff of [place] Plt Count MPV Neutrophils % (Manual) Lymphocytes % (Manual) Monocytes % (Manual) Neutrophils # (Manual) Total Absolute Neuts Lymphocytes # (Manual) Total Abs Lymphocytes Monocytes # (Manual) Sodium 137 Potassium 4.2 Chloride 105 Carbon Dioxide 27 Anion Gap 5.0 BUN 20 H Creatinine 0.73 Est Cr Clr Drug Dosing 48.7 Est GFR ( Amer) 92.1 Est GFR (Non-Af Amer) 79.4 BUN/Creatinine Ratio 27.6 H Glucose 100 H Calcium 8.8
[2019-05-03] MEDS: MULTIVITAMIN TAB PO SCH (09:14)
[2019-05-03] MEDS: LISINOPRIL 20 MG TAB PO SCH (09:14)
[2019-05-03] MEDS: CALCIUM 600MG + VIT D 400 IU TAB PO SCH (09:14)
[2019-05-03] MEDS: CIPROFLOXACIN 500 MG TAB PO SCH (09:14)
[2019-05-03] MEDS: ATENOLOL 50 MG TABLET PO SCH (09:15)
[2019-05-03] MEDS: CHOLECALCIFEROL (VITAMIN D) 400 UNITS TABLET PO SCH (09:15)
[2019-05-03 09:52] LABS: Hematocrit (blood only) 38.8 % (37-47); Hemoglobin 13.3 g/dL (12.0-16.0); Mean Corpuscular Hgb Conc 34.3 g/dL (32-36); Mean Platelet Volume 10.5 fL (7.4-10.4); Platelet Count 241 K/uL (130-400); RDW Coefficient of Variation 16.3 % (11.5-14.5); RDW Standard Deviation 52.7 fL (36.4-46.3); Red Blood Count 4.41 M/uL (4.2-5.4); White Blood Count 64.32 K/uL (4.8-10.8)
[2019-05-03 09:56] LABS: BUN Creatinine Ratio 27.6 (10-20); Calcium 8.8 mg/dl (8.5-10.1); Creatinine Clr Calc Pharmacy 48.7 ml/min; Est GFR (African American) 92.1; Est GFR (Non-African American) 79.4; Potassium 4.2 mmol/L (3.5-5.1)
[2019-05-03 10:24] LABS: ALC (manual) 56.22 K/uL (1.2-3.4); Echinocytes 1+; Lymphocytes # (manual) 56.22 K/uL (1.2-3.4); Lymphocytes % (manual) 87.4 %; Monocytes # (manual) 1.09 K/uL (0.11-0.59); Monocytes % (manual) 1.7 %; Neutrophils % (manual) 10.9 %; Smudge Cells Present
--- NOTE | 2019-05-03 14:09 | Discharge Summary ---
Date of Service May 03, 2019 Admission HPI Per Admitting Provider Emily Martino is a 78yo C female with history of CLL, HTN, DVT on Xarelto presenting with hematuria. Patient had a UTI diagnosed recently which presented with some hematuria as well. She was taking antibiotics which she completed yesterday. Today she noted some pink urine which prompted her to seek medical care. She passes urine without difficulty or needing to strain. She denies passage of dark blood or clots. Denies back pain, fevers, chills, nausea, vomiting. No SOB, WEISS, CP or palpitations. CT Abdomen obtained - results below ER Course: Ceftriaxone, Ciprofloxacin Principal Diagnosis Complicated UTI Discharge Exam Constitutional WD/WN, vitals as above Respiratory normal respiratory effort, lungs clear to auscultation Cardiovascular RRR, no murmur, no edema Gastrointestinal (Abdomen) Inspection/Auscultation: abdomen normal to inspection and normal bowel sounds; abdomen not distended Percussion/Palpation: abdomen nontender Musculoskeletal generalized weakness, wheelchair bound Skin no rashes, warm and dry Neurologic moves all extremities and awake Psychiatric A+Ox3, euthymic affect Discharge Data Allergies Allergy/AdvReac Type Severity Reaction Status Date / Time aspirin Allergy Intermediate INCREASES Verified 04/30/19 17:35 BLEEDING capsaicin AdvReac Mild INTOLERANCE Verified 04/30/19 17:35 codeine AdvReac Mild INTOLERANCE Verified 04/30/19 17:35 diclofenac AdvReac Mild INTOLERANCE Verified 04/30/19 17:35 Diclopak AdvReac Mild INTOLERANCE Verified 03/21/18 14:33 erythromycin base AdvReac Mild INTOLERANCE Verified 04/30/19 17:35 sulindac AdvReac Mild INTOLERANCE Verified 04/30/19 17:35 tramadol AdvReac Mild INTOLERANCE Verified 04/30/19 17:35 Consultations 04/30/19 19:34 ED Decision to Admit Stat 04/30/19 21:15 Consult Urology Routine 05/01/19 08:00 Consult Lung Nodule Program Routine Ordered Studies 04/30/19 17:44 CT abd pelvis wo con Stat 05/03/19 09:43 CT chest wo con Routine Hospital Course (1) Hematuria: Patient with gross hematuria. Has had similar events in the past associated with UTI. She has history of incomplete bladder emptying, possible neurogenic bladder from spina bifida. She has had indwelling bush catheters in the past and has had gross hematuria as well. 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 -Hgb improved to 13 -Discussed with urology and patient can restart Xeralto today - Discussed with patient to watch for any increase in bleeding or clots and call urology right away if she sees this. - continue Bush catheter until outpatient follow up (2) Acute UTI: +UA with 3+ blood and 3+ protein. 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 Resume Xeralto as above. Discussed risks and benefits with patient - she is very high risk for clot given history of extensive clot, immobility as she is wheelchair bound, and CLL. She is also at risk for increased bleeding with the hematuria but I think the risk of clotting outweighs the risk of bleeding and urology feels it is ok to restart the Xeralto as well. (4) CLL (chronic lymphocytic leukemia): Chronic. Patient follows routinely with Dr. 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 Thought to be secondary to flaccid tissues from incomplete emptying. Renal function intact -Urology consultation as above (6) Hypertension: Blood pressure stable at present -Continue Atenolol -Continue Lisinopril Dispo: patient has caretakers, declines home health (7) Pulmonary nodule: Found incidentally on Chest Xray. CT showed: IMPRESSION: 1. There is a 3.2 cm cm groundglass lesion at the right apex which has been present radiographically dating back to 03/21/2018. This is highly concerning for a low-grade neoplasm and surgical consultation is advised. 2. There is also a much less well-defined groundglass focus at the left apex which measures 3.2 cm, a subcentimeter groundglass nodule in the left lower lobe, and 2 subcentimeter nodular densities at the left lung base. These should be reassessed at follow-up. 3. Patchy groundglass change in the right lower lobe likely resents a mild infectious/inflammatory pneumonitis. Pulmonary nodule program consulted. Will also have patient see Dr. Sanchez next week for possible biopsy A 3.5 cm ectasia was also found in the ascending aorta. Will have patient follow with vascular surgery Patient's primary care provider should review CT scan as there were multiple abn ormal but non urgent findings ie. calcified coronary arteries, thyroid nodule, hepatic cyst, prominent lymph nodes As to the patchy groundglass change in the RLL which could be mild infectious/inflammatory pneumonitits. Patient denies any cough, sob, has been afebrile, and feels like she is at her baseline pulmonary status. Discussed s/s of pneumonia. While Cipro is not usually a first choice for pneumonia, it should provide coverage especially for such a mild presentation, I would not want to add further antibiotics at this point. Total Time Total Time Spent Total Time Spent (In Minutes): greater than 30 minutes Discharge Plan Discharge Items Patient Disposition: Home - Self-Care Reason For Visit: HEMATURIA Discharge Diagnosis: complicated UTI Discharge Goals: Decrease discomfort and Improve disease control Activity: Resume your previous activity Non-emergency contact: Primary Care Provider and Urologist Call non-emergency contact if: you have any medication questions Follow-up/Referrals: Pedro Sanchez MD, FACS [Surgeon] - 05/11/19 9:00 am (An appointment has be en made on your behalf with [facility]. Please call the office with any questions or concerns. ) Balbina Harp MD [Primary Care Provider] - 05/08/19 2:00 pm Jm Valenzuela MD [Physician] - (A referral has been made to [facility] for a follow-up appointment. You will receive a call from the office with appointment date and time after they review the clinical in formation. Please call the [facility] office with any questions or concerns. ) Diet: Regular Addtl Provider Instructions: Follow ups: Urology within a week. Primary care provider within about a week. Thoracic surgery Dr. Sanchez next week Vascular Surgery in the next few weeks Our nurse navigator will call you with these appointments. If you do not hear from anyone by [place], please call the offices directly. Let urology know right away if you have an increase in blood or clotting in your Bush catheter as your Xeralto has been restarted. Per urology you should return to ED if you have severe L flank pain, Fever >101F, or intractable vomiting. You can take Tylenol at home for fever. Do not exceed 3g (3000 mg per 24 hours). Please finish your entire antibiotic regimen Prescriptions: New ciprofloxacin HCl 500 mg Tablet 500 mg PO BID 10 Days Qty: 20 RF: 0 Continued multivitamin Tablet 1 tab PO DAILY RF: 0 atenolol 100 mg Tablet 100 mg PO DAILY RF: 0 lisinopril 20 mg Tablet 20 mg PO DAILY RF: 0 Xarelto 20 mg Tablet 20 mg PO DAILY RF: 0 cholecalciferol (vitamin D3) [Vitamin D3] 400 unit Tablet 400 unit PO DAILY RF: 0 calcium citrate-vitamin D3 200 mg calcium -250 unit Tablet 1 tab PO DAILY RF: 0 Stand-Alone Forms: My [facility]/Other Patient Handouts: Ciprofloxacin Hydrochloride Oral tablet Discharge Orders: Discharge Order (Routine); Ordered 05/03/19 Ordered By: Katie Ibarra Admission Data Admit Date/Time: 04/30/19 20:17 Attending Provider: Darrell Sahu Admit Provider: Charlene Borja Primary Care Provider: Balbina Harp Other Providers: Charlene Borja ; Dannie Lucero II Service: Surgical Services
--- NOTE | 2019-05-03 14:42 | CT Scan Report ---
CT SCAN OF THE CHEST WITHOUT IV CONTRAST CLINICAL HISTORY: Right upper lobe pulmonary nodule seen by x-ray. COMPARISON STUDY: Chest x-ray dated 05/02/2019 and 03/21/2018. TECHNIQUE: CT scan of the thorax was performed from the thoracic inlet to the upper abdomen. Images are reviewed in the axial, sagittal, and coronal planes. IV contrast was not administered for this ex amination as per the referring clinician. A dose lowering technique was utilized adhering to the anna marie mclain of MARGIE. CT DOSE: 349.56 mGy.cm FINDINGS: Thyroid: Imaged portions of the thyroid gland are normal in size and attenuation. An 11 mm low-attenu ation nodule is seen in the left lobe. A coarse calcification is present in the right lobe. Thoracic aorta: There is mild atherosclerotic calcification of the thoracic aorta. There is mild ecta morenita of the ascending thoracic aorta which measures up to 3.5 cm in diameter. The remainder of the tho racic aorta is normal in caliber and the arch demonstrates bovine variant anatomy. Heart: The heart is normal in size and without pericardial effusion. The coronary arteries are densel y calcified. The pulmonary trunk is normal in caliber. Lungs and pleural spaces: There is no lobar consolidation or pleural effusion. Mild bronchiectasis is seen in the lower lobes. There is bibasilar scarring/atelectasis. The trachea and central airways ar e clear. There is a 3.2 x 1.9 x 2.1 cm groundglass lesion at the right apex seen on image #50. This c orresponds to about is seen on prior chest x-rays. Less confluent groundglass change is also seen at the left apex on image #48 and measures up to 3.2 cm. A 7 mm groundglass nodule in the superior segme nt of the left lower lobe as seen on image #66. 2 nodular densities at the left lung base seen on rosamaria ge #177 and #179 measure up to 8 mm. Patchy groundglass change in the right lower lobe as seen on rosamaria ge #131. Mediastinum: There are numerous prominent mediastinal lymph nodes which measure up to 10 mm in short axis. Preeti: Not well assessed without IV contrast. Axillae: There is no axillary lymphadenopathy. Upper abdomen: Cholecystectomy clips are noted. Hepatic cysts measure up to 14 mm. Cysts are also see n within the partially imaged upper poles of both kidneys. Skeletal structures: The skeletal structures are heterogeneously osteopenic. Degenerative change is n oted in the shoulders and thoracic spine. Numerous calcified joint bodies are seen around the left sh oulder. No lytic or blastic bony lesions are seen. IMPRESSION: 1. There is a 3.2 cm cm groundglass lesion at the right apex which has been present radiographically dating back to 03/21/2018. This is highly concerning for a low-grade neoplasm and surgical consultatio n is advised. 2. There is also a much less well-defined groundglass focus at the left apex which measures 3.2 cm, a subcentimeter groundglass nodule in the left lower lobe, and 2 subcentimeter nodular densities at th e left lung base. These should be reassessed at follow-up. 3. Patchy groundglass change in the right lower lobe likely resents a mild infectious/inflammatory pn eumonitis. 4. Additional findings as above. Electronically signed by: Brock Arambula M.D. 05/03/2019 2:40 PM
[2019-05-03] MEDS ORDERED: RIVAROXABAN 20 MG TAB PO SCH (16:30)
== END 2019-05-03 17:24 | disposition home or self-care (01) | DRG 689 ==
LOC: ED 16:52 → SUATTDRO 20:17 → 3E 20:17

== ENCOUNTER 2019-11-03 06:41 | Inpatient (IN) ==
--- NOTE | 2019-10-16 08:50 | Anesthesiology Consultation ---
Date of Service October 16, 2019 Assessment & Plan (1) Encounter for pre-operative examination: Chart Review Chart Review: Acceptable Risk for Surgery and Patient NOT seen in Pre Admission Testing Consults Requested none History Surgery Operation Date: 10/23/19 09:00 Proposed Procedures p Right Video Assisted Thoracoscopy with Right Upper Lobe Wedge Resection - Pedro Sanchez MD, FACS Height/Weight Height: 5 ft 1 in Weight: 47.627 kg Allergies Allergy/AdvReac Type Severity Reaction Status Date / Time aspirin AdvReac Intermediate INCREASES Verified 10/05/19 09:56 BLEEDING capsaicin AdvReac Mild INTOLERANCE Verified 10/05/19 09:56 codeine AdvReac Mild INTOLERANCE Verified 10/05/19 09:56 diazepam AdvReac Mild INTOLERANCE Verified 10/05/19 09:56 diclofenac AdvReac Mild INTOLERANCE Verified 10/05/19 09:56 Diclopak AdvReac Mild INTOLERANCE Verified 03/21/18 14:33 erythromycin base AdvReac Mild INTOLERANCE Verified 10/05/19 09:56 sulindac AdvReac Mild INTOLERANCE Verified 10/05/19 09:56 tramadol AdvReac Mild INTOLERANCE Verified 10/05/19 09:56 Medications Home Medications Medication Instructions Recorded Confirmed Last Taken Xarelto 20 mg PO QAM 01/08/19 10/05/19 07/18/19 06:00 atenolol 100 mg PO QAM 01/08/19 10/05/19 07/21/19 08:00 lisinopril 20 mg PO QAM 01/08/19 10/05/19 07/20/19 06:00 multivitamin 1 tab PO QAM 01/08/19 10/05/19 07/20/19 06:00 cholecalciferol (vitamin D3) 400 unit PO QAM 04/19/19 10/05/19 07/20/19 06:00 [Vitamin D3] calcium citrate 250 mg PO QAM 07/03/19 10/05/19 07/20/19 06:00 nitrofurantoin 100 mg PO BID 5 Days #10 cap 10/03/19 10/05/19 Unknown monohydrate/macrocrystals 100 mg capsule Past Medical History Medical History (Updated 10/16/19 @ 08:51 by Chandu Gan MD) Breast cancer s/p lumpectomy s/p chemo/XRT CLL (chronic lymphocytic leukemia) h/o chemotherapy (2014); chronic leukocytosis (baseline WBC 50-60 range per chart review) 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 GERD (gastroesophageal reflux disease) occasional Hypertension Lung mass "NON-MALIGNANT" Osteoarthritis Peripheral neuropathy b/l hands r/t chemo Pulmonary nodules Spina bifida able to walk short distances with walker but often uses wheelchair but due to increasing back pain UTI (urinary tract infection) Past Family History Family History Mother Hypertension Past Surgical History Surgical History (Updated 10/16/19 @ 08:49 by Chandu Gan MD) History of back surgery lumbar History of bilateral tubal ligation History of bronchoscopy Navigational bronchoscopy 07/21/1919 Grade 1 view Yao 2 blade History of cardiac cath 2001= no stents History of cholecystectomy History of lumbar puncture as an r/t spina bifida History of surgery repair of the spina bifida (at the base of pt neck) History of tonsillectomy Hx of lumpectomy left Social History Smoking Status: Former smoker tobacco type: cigarettes Smoking End Date: Hx Alcohol Use: No Hx Substance Use: No substance use type: does not use Testing Laboratory Results Laboratory Tests 03/21/18 03/22/18 04/30/19 14:30 05:24 17:55 WBC Hgb Hct Plt Count PT 12.3 H INR 1.2 H APTT 30.3 Sodium Potassium Chloride Carbon Dioxide BUN Creatinine Glucose Hemoglobin A1c 5.5 TSH 2.210 10/06/19 10/06/19 08:59 08:59 WBC 63.15 H* Hgb 12.2 Hct 37.7 Plt Count 238 PT INR APTT Sodium 141 Potassium 3.8 Chloride 106 Carbon Dioxide 28 BUN 23 H Creatinine 0.91 Glucose 109 H Hemoglobin A1c TSH Electrocardiogram Date: 07/04/19 Findings: + NSR @ (75) and + LVH Other Testing CT OF THE CHEST WITH IV CONTRAST CLINICAL HISTORY: BREAST CA COMPARISON STUDY: 05/03/2019 TECHNIQUE: Following the IV administration of 94 mL of Optiray-320, CT of the thorax was performed from the thoracic inlet to the lung bases. Images are reviewed in the axial, sagittal, and coronal planes. IV contrast was adminis tered without complication. A dose lowering technique was utilized adhering to the principles of ALARA. CT DOSE: 296.93 mGy.cm FINDINGS: Thyroid: There is a multinodular thyroid gland. No nodules exceed 15 mm in diameter. Current recommendations indicate no necessity of all up. Thoracic aorta: The ascending thoracic aorta measures 33 mm. Pulmonary vasculature: The pulmonary trunk is normal in caliber. There are no central filling defects identified to suggest pulmonary embolus. Note that this examination was not protocoled for the evaluation of pulmonary emboli. HEART: There are moderate coronary artery calcifications. There is no pericardial effusion. Lungs and pleural spaces: There are no pleural effusions. There are dependent atelectatic changes. There is a persistent mixed solid and groundglass right apical pulmonary nodule measuring 18 mm in diameter. There is adjacent 6 mm solid nodule. There are no pleural effusions. There is a very subtle 3 cm focus of groundglass attenuation within the left upper lobe. There is a stable 3 mm solid nodule within the superior segment of the left lower lobe. Mediastinum: Mediastinal lymph nodes are the upper limits of normal in size. Preeti: There is no evidence of pathologic hilar adenopathy Axilla: There is no evidence of pathologic axillary lymphadenopathy Upper abdomen: There are multiple hepatic hypodensities similar to the prior study. There is a partially visualized 2 cm upper pole left renal hypodensity Skeletal structures: There are no lytic or blastic osseous lesions. IMPRESSION: 1. Stable mixed solid and groundglass right apical pulmonary nodule measuring 18 mm. A low-grade carcinoma remains a diagnosis of exclusion. There is an adjacent 6 mm solid nodule. 2. Stable 3 mm solid nodule in the superior segment of the left lower lobe. 3. Persistent very subtle 3 cm groundglass opacity within the left upper lobe. 4. No evidence of pathologic adenopathy 5. Multiple hepatic hypodensities likely representing cysts 6. Mediastinal lymph nodes are the upper limits of normal in size and similar to the prior study Electronically signed by: Marky Cobb M.D. 08/28/2019 1:12 PM Dictated: 08/28/19 1303 Transcribed: 08/28/19 1303
[~2019-11-03 06:41] MED LIST changes: -ATEN100T PO; -CALC250T8 PO; -CPR500 PO; -LISI20TA3 PO; +LR 15ML/HR IV SCH; -MULT-506 PO; -PRLSR20 PO; -RALO60TA30 PO; -VSC/5 PO; -XRL15 PO
[2019-11-03 07:43] LABS: Hematocrit (blood only) 26.4 % (37-47); Hemoglobin 8.5 g/dL (12.0-16.0); Mean Corpuscular Hemoglobin 27.6 pg (25-34); Mean Corpuscular Hgb Conc 32.2 g/dL (32-36); Mean Corpuscular Volume 85.7 fL (80-100); Mean Platelet Volume 8.3 fL (7.4-10.4); Platelet Count 391 K/uL (130-400); RDW Coefficient of Variation 17.2 % (11.5-14.5); RDW Standard Deviation 53.3 fL (36.4-46.3); Red Blood Count 3.08 M/uL (4.2-5.4); White Blood Count 61.56 K/uL (4.8-10.8)
[2019-11-03 08:36] LABS: Basophils # (auto) 0.06 K/uL (0-0.2); Basophils % (auto) 0.1 %; Eosinophils # (auto) 0.12 K/uL (0-0.5); Eosinophils % (auto) 0.2 %; Smudge Cells Present
[2019-11-03] MEDS ORDERED: PROMETHAZINE HCL 12.5 MG in SODIUM CHLORIDE 0.9% 50 ML IV PRN (08:54)
[2019-11-03] MEDS ORDERED: ePHEDrine sulfate 50 MG/ML AMP IV PRN (08:54)
[2019-11-03] MEDS ORDERED: fentaNYL citrate 100 MCG/2 ML VIAL IV PRN (08:54)
[2019-11-03] MEDS ORDERED: ATROPINE SULFATE 0.1 MG/ML 10ML SYR IV PRN (08:54)
[2019-11-03] MEDS ORDERED: HYDROmorphone INJ 2 MG/ML SYR/VIAL IV PRN (08:54)
[2019-11-03] MEDS ORDERED: METOCLOPRAMIDE HCL INJ 5 MG/ML 2 ML VIAL IV PRN (08:54)
[2019-11-03] MEDS ORDERED: ONDANSETRON INJ 2 MG/ML 2 ML VIAL IV PRN ×2 (08:54→13:26)
[2019-11-03] MEDS ORDERED: fentaNYL citrate 100 MCG/2 ML VIAL ONE (09:04)
[2019-11-03] MEDS ORDERED: MIDAZOLAM HCL 1 MG/ML 2ML VIAL ONE (09:04)
--- NOTE | 2019-11-03 09:45 | History & Physical Report ---
Date of Service November 03, 2019 Assessment & Plan (1) Right upper lobe pulmonary nodule: After much discussion at our multidisciplinary cancer conference and with Dr. Bhanu Woodall we are going to proceed with a right thoracoscopy with a wedge resection of this right upper lobe mass. I had multiple discussions with the patient and her support system about risk and benefits which included but were not limited to lung injury, bleeding, persistent air leak, infections, cardiac arrhythmias and deep vein thromboses with pulmonary emboli. Patient understands and wishes to proceed. Present on Admission?: Yes History of Present Illness Primary Care Provider: Balbina Harp MD Emily Martino is a 79-year-old female with a history of spina bifida who is essentially wheelchair-bound. She has longstanding history of chronic lymphocytic leukemia. Several months ago the patient was sent to me as she had a right upper lobe solid nodule and a groundglass opacity in the left upper lobe. I performed an endobronchial ultrasound navigational bronchoscopy but we did not get a diagnosis of malignancy. Dr. Bhanu Woodall is been following her for her CLL and as she does have a history of cigarette smoking he was concerned. He is asked that we do a biopsy of this right upper lobe mass. It is solid. On her last CT scan on 08/28/2019 it appeared to me that the left upper lobe groundglass opacity had improved. We have set her up for a thoracoscopic right upper lobe wedge resection of this mass. Patient has multiple social issues as she is really getting to the point where she cannot care for herself. She fell 10 days ago and has hematoma of her forehead and also has a abrasion of her anterior left lower leg and has started get some breakdown in her sacral area. She is also found to have a white count over 100,000 which was unusual for her. She usually ran about 50,000. We discussed this with Dr. Woodall and was felt that infection may be an etiology and we put her on Cipro and it turns out she had a Pseudomonas urinary tract infection sensitive to Cipro. Her white count was 61,000 today on 11/03/2019. We are going to proceed with a right thoracoscopy wedge resection of the right upper lobe mass. Allergies Allergy/AdvReac Type Severity Reaction Status Date / Time aspirin AdvReac Intermediate INCREASES Verified 11/03/19 07:09 BLEEDING capsaicin AdvReac Mild INTOLERANCE Verified 11/03/19 07:09 codeine AdvReac Mild INTOLERANCE Verified 11/03/19 07:09 diazepam AdvReac Mild INTOLERANCE Verified 11/03/19 07:09 diclofenac AdvReac Mild INTOLERANCE Verified 11/03/19 07:09 Diclopak AdvReac Mild INTOLERANCE Verified 03/21/18 14:33 erythromycin base AdvReac Mild INTOLERANCE Verified 11/03/19 07:09 sulindac AdvReac Mild INTOLERANCE Verified 11/03/19 07:09 tramadol AdvReac Mild INTOLERANCE Verified 11/03/19 07:09 Home Medications Home Medications Medication Instructions Recorded Confirmed Type multivitamin 1 tab PO QAM 01/08/19 11/03/19 History Xarelto 20 mg PO DAILY 10/24/19 11/03/19 History atenolol 100 mg PO DAILY 10/24/19 11/03/19 History lisinopril 20 mg PO DAILY 10/24/19 11/03/19 History ciprofloxacin HCl 500 mg tablet 500 mg PO Q12H #14 tab 10/30/19 11/03/19 Rx Past Med/Surg History Family History Mother Hypertension Social History Preferred Language: Czech Communication Ability: Effective 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 The patient denies fevers. She did fall and have lacerations and contusions as noted in history of present illness. She denies symptoms suggestive of a urinary tract infection has had no fever or chills. She denies a productive cough. Rest of her review of systems is unremarkable. Physical Exam Physical Exam: Right foot 1 inch 105 pound female who is awake alert and oriented. She has a contusion just above her left brow which is in various stages of resolution. Her teeth are in very poor repair. Extraocular's are intact. Sclera pale but anicteric. Tongue is midline. Oral mucosa is a bit dry. Neck is supple. She has no neck vein distention or tracheal deviation. She has no wheezing today although she has had wheezing in the past. Her abdomen is soft nontender. Upon evaluation of her lower extremity she has some abrasions in the anterior aspect of her left lower mid leg without evidence of infection. She also has a stage II breakdown along her sacral area which is rather small. This is a pressure wound. Neurologically patient does have weakness in her lower legs. There is been no change in her exam since 09/28/2019 of those offered above. Results & Data Vital Signs (Past 12 Hours) Vital Signs Temp Pulse Resp BP Pulse Ox 11/03/19 07:11 36.9 C 79 18 139/74 99 PG Care Time/CCT Total # of Minutes Spent Total Time Spent with Patient: Total time spent is greater than 50% in coordination of care (as documented) at patient's floor/unit and/or counseling patient:
[2019-11-03] MEDS ORDERED: SODIUM CHLORIDE 0.9% PF 50 ML VIAL ONE (09:51)
[2019-11-03] MEDS ORDERED: BUPIVACAINE 0.5 % 5 MG/1 ML MPF 30ML VIAL ONE (09:51)
[2019-11-03] MEDS ORDERED: BUPIVACAINE LIPOSOME 1.3% 266 MG/20 ML VIAL ONE (09:51)
[2019-11-03] MEDS ORDERED: LARYING-O-JET KIT (LTA) ONE (10:48)
[2019-11-03] MEDS ORDERED: DEXAMETHASONE SOD INJ 4 MG/ML VIAL ONE (10:48)
[2019-11-03] MEDS ORDERED: ONDANSETRON INJ 2 MG/ML 2 ML VIAL ONE (10:48)
[2019-11-03] MEDS ORDERED: PROPOFOL IV EMULSION 10 MG/ML 20 ML VIAL IV ONE (10:48)
[2019-11-03] MEDS ORDERED: PHENYLEPHRINE HCL 10 MG/ML VIAL ONE (10:48)
[2019-11-03] MEDS ORDERED: LIDOCAINE HCL 2% 2 ML VIAL/AMP(20MG/ML) INFIL ONE (10:48)
[2019-11-03] MEDS ORDERED: NEOSTIGMINE METHYLSULFATE 5 MG/5 ML SYR ONE (10:48)
[2019-11-03] MEDS ORDERED: ROCURONIUM BROMIDE 10 MG/ML 5 ML VIAL ONE ×2 (10:48→11:21)
[2019-11-03] MEDS ORDERED: GLYCOPYRROLATE 0.2 MG/ML VIAL ONE (10:48)
[2019-11-03] MEDS ORDERED: ePHEDrine sulfate 50 MG/ML SYR ONE (10:48)
[2019-11-03] MEDS ORDERED: CEFAZOLIN 1000MG 1,000 MG/7.5 ML SYR IV ONE (11:01)
--- NOTE | 2019-11-03 11:06 | Operative Report ---
PG Post Operative Report Pre & Post Diagnosis Operation Date: 11/03/19 08:25 Pre-Op Diagnosis: Right lung Nodule Post-Op Diagnosis: Right lung Nodule I identified the patient and participated in the time-out.: Yes Procedure Operation Date: 11/03/19 08:25 Actual Procedures p Right Video-Assisted Thoracoscopy with Right Upper Lobe Wedge Resection(Right) - Pedro Sanchez MD, FACS Surgeon Pedro Sanchez MD, FACS Process Technician Edil ORTEGA Estimated Blood Loss 2 Findings Consistent with Post-Op Diagnosis Specimens Right upper lobe apex wedge resection Drains 24 fr chest tube Anesthesia Type General Complications none Disposition Accompanied Patient To Recovery: Yes Disposition: Recovery Room Indications Right upper lobe mass in former smoker who has history of CLL Description of Procedure This is a 79-year-old female with history of spina bifida and longstanding chronic lymphocytic leukemia who is also has a history of cigarette smoking although she quit many years ago. Patient presented to the office and was noted to have bilateral upper lobe abnormalities. Had a groundglass opacity in the left which was hypermetabolic on PET and she had a more solid mass on the right. We discussed this patient multiple times at our multidisciplinary cancer conference. The consensus was that we should wedged out the right upper lobe mass. I was happy to see that the left lower lobe mass actually appeared to improve a bit which would seem to suggest inflammatory infectious component. Should be noted that I performed an endobronchial ultrasound with biopsy as well as a occasional bronchoscopy with no evidence of malignancy. On 11/03/2019 patient underwent uncomplicated right thoracoscopy with wedge resections right upper lobe mass. She tolerated it well. Procedure: Patient was brought to the operating room and laid in the supine position. General anesthesia was induced the patient was intubated with a single-lumen tube. The patient was turned into the left lateral decubitus position the right chest was prepped and draped in sterile fashion. After appropriate timeout had been called and antibiotics given a 5 mm port was placed just posterior to the scapular tip. Upon placing the 5 mm scope we could see that there were no adhesions. Carbon dioxide was insufflated. Another 5 mm port was placed anterior to the scapula just anterior latissimus dorsi muscle. 12 mm port was then placed anterior just above the diaphragmatic insertion. 266 mg of Exparel were mixed and 30 cc of 0.5% ropivacaine and 2 and 50 cc of normal saline. The solution was used to inject each of the 3 port sites before making the incision. We then used this to perform a block from the first to the 12th rib intrathoracicly. There was an abnormality noted anteriorly on the right upper lobe apex. This was grasped we did a generous wedge resection using Endo IRMA IRMA staplers. The wedge was placed in Endobag and removed. 24 Sami chest tube was placed through the 12 mm port directed towards the apex. Held in place with heavy silk suture. 4 Monocryl was used to close each of the incisions in a subcuticular fashion. Blood loss was negligible. She tolerated it well. I attest to the content of the Intraoperative Record and any orders documented therein. Any exceptions are noted below.
--- NOTE | 2019-11-03 11:56 | Operative Report ---
PG Post Operative Report Pre & Post Diagnosis Operation Date: 11/03/19 08:25 Pre-Op Diagnosis: Right lung Nodule Post-Op Diagnosis: Adenocarcinoma I identified the patient and participated in the time-out.: Yes Procedure Operation Date: 11/03/19 08:25 Actual Procedures p Right Video-Assisted Thoracoscopy with Right Upper Lobe Wedge Resection with Mediastinal Lymphnode Biopsies(Right) - Pedro Sanchez MD, FACS Re-resected staple line and performed a lymph node biopsy Surgeon Pedro Sanchez MD, FACS Assistant Accounting Manager Edil ORTEGA Estimated Blood Loss 5 Findings Consistent with Post-Op Diagnosis Specimens Re-resected staple line Right lymph node stations 2 and 4 Drains 24 fr Anesthesia Type General Complications none Disposition Accompanied Patient To Recovery: Yes Disposition: Recovery Room Indications Frozen section showed adenocarcinoma close to resection line Description of Procedure Please see formal operative note. Frozen section reviewed with Dr. Flowers from pathology. Appears to be an adenocarcinoma close to resection margin. For this reason. the staple line was re-resected with an Endo IRMA stapler with a generous margin. I also used the harmonic stapler to dissect out and remove the right level 2 and level 4 nodes. She had no air leak. The 24 fr. chest tube was re- inserted and sutured in place with a heavy silk suture. The skin incisions were closed with 4-0 monocryl. She tolerated it well. I attest to the content of the Intraoperative Record and any orders documented therein. Any exceptions are noted below.
[2019-11-03] MEDS ORDERED: METOCLOPRAMIDE HCL INJ 5 MG/ML 2 ML VIAL IV ONE (12:10)
--- NOTE | 2019-11-03 12:19 | XRay Report ---
XR chest 1V portable CLINICAL HISTORY: RUL wedge resection COMPARISON STUDY: 10/30/2019 FINDINGS: The cardiac and mediastinal contours remain stable. Postsurgical changes are present on the right. There is a right-sided chest tube. There is trace right-sided subcutaneous emphysema. No pneu mothorax is visualized. There is no lobar consolidation. There are advanced arthritic changes are pre sent within the shoulders. There is minor left basilar atelectatic change.[ IMPRESSION: Postsurgical changes of the right. Interval insertion of a right-sided chest tube the tip of which projects between the right posterior third and fourth ribs. No evidence of pneumothorax Electronically signed by: Marky Cobb M.D. 11/03/2019 12:18 PM
[2019-11-03] MEDS ORDERED: MoRPHine SULFATE 2 MG/ML CARP IV PRN (13:26)
--- NOTE | 2019-11-03 13:31 | Anesthesiology Progress Note ---
Date of Service November 03, 2019 Anesthesia Post Procedure Vital Signs Vital Signs: Temp Pulse Pulse Resp BP Pulse Ox 11/03/19 12:55 36.2 C L 74 20 149/58 H 100 11/03/19 12:45 36.2 C L 70 20 134/64 100 11/03/19 12:35 70 19 122/65 100 11/03/19 12:25 72 22 132/67 100 11/03/19 12:15 73 23 129/69 100 11/03/19 12:08 36.2 C L 72 18 107/57 L 100 11/03/19 07:11 36.9 C 79 18 139/74 99 Pain Intensity Generalized: Pain Intensity: 7 Transfer of Care Handoff Completed per policy Notes Mental Status: alert / awake / arousable and participated in evaluation Patient Amnestic to Procedure: Yes Nausea / Vomiting: adequately controlled Pain: adequately controlled Airway Patency, RR, SpO2: stable & adequate BP & HR: stable & adequate Hydration State: stable & adequate Anesthetic Complications: no major complications apparent
[2019-11-03] MEDS: D5W AND 1/2NSS 1,000 ML IV SCH ×2 (14:27→23:31)
[2019-11-03] MEDS: ACETAMINOPHEN 1,000 MG/100 ML VIAL IV SCH ×2 (14:27→21:02)
[2019-11-03] MEDS: CIPROFLOXACIN 500 MG TAB PO SCH ×2 (14:42→21:04)
[2019-11-03] MEDS: DOCUSATE SODIUM 100 MG CAP PO SCH (20:43)
[2019-11-03] MEDS: METOCLOPRAMIDE HCL INJ 5 MG/ML 2 ML VIAL IV SCH (20:43)
[2019-11-04] MEDS: METOCLOPRAMIDE HCL INJ 5 MG/ML 2 ML VIAL IV SCH (04:04)
[2019-11-04] MEDS: ACETAMINOPHEN 1,000 MG/100 ML VIAL IV SCH ×3 (05:18→21:03)
--- NOTE | 2019-11-04 07:17 | XRay Report ---
XR chest 1V portable CLINICAL HISTORY: RUL wedge resection COMPARISON STUDY: Chest radiograph November 03, 2019. FINDINGS: Right chest tube is in place. Postoperative findings within the right lung are noted. No pn eumothorax is identified. There is no consolidation or evidence for pulmonary edema. Cardiomediastina l silhouette is normal. IMPRESSION: Right chest tube in place. No pneumothorax identified. Electronically signed by: Tino Frank M.D. 11/04/2019 7:15 AM
[2019-11-04] MEDS: CIPROFLOXACIN 500 MG TAB PO SCH ×2 (09:06→21:03)
[2019-11-04] MEDS: lisinopriL 20 MG TAB PO SCH (09:34)
[2019-11-04] MEDS: DOCUSATE SODIUM 100 MG CAP PO SCH ×2 (09:34→21:03)
[2019-11-04] MEDS: ATENOLOL 50 MG TABLET PO SCH (09:35)
[2019-11-04] MEDS: MULTIVITAMIN TAB PO SCH (09:35)
[2019-11-04] MEDS: D5W AND 1/2NSS 1,000 ML IV SCH (09:39)
--- NOTE | 2019-11-04 10:04 | Surgery Progress Note ---
Date of Service November 04, 2019 Assessment & Plan (1) Primary adenocarcinoma of upper lobe of right lung: Present on Admission?: Yes (2) Status post lung surgery: I had a long talk with Emily Martino this morning. I have explained that this is a primary adenocarcinoma of the lung which is totally different from her chronic lymphocytic leukemia. We will await we get our lymph nodes back that I dissected out the level 2 and 4 lymph node packets. I feeling from our prior endobronchial ultrasound with biopsies and her PET scan and CT is that we are dealing with an early stage rather indolent cancer. We await her final pathology. This patient is also going to have issues going home. She is getting to the point where she is unable to care for herself and she really has no support system. She is probably going to end up in an extended care facility however she may be able to make it back home with enough help. We will leave that to the discharge planners and case management director. The meantime were going to check another CBC in the morning. Her x-ray today looked excellent. We will probably be able to get her chest tube out the next 24 to 48 hours. Present on Admission?: No Subjective The patient tolerated her surgery well. She has a minimal amount of pain. She is on room air. She sitting up eating breakfast. Physical Exam Physical Exam: Her breath sounds are excellent bilaterally. She has no wheezing or rails. She has a tiny intermittent chest tube air leak. The rest of her exam is unchanged. Results & Data Vital Signs (Past 12 Hours) Vital Signs Temp Pulse Pulse Resp BP Pulse Ox 11/04/19 08:00 36.3 C L 73 16 132/67 97 11/04/19 06:14 36.7 C 74 16 136/56 L 97 11/04/19 02:10 36.5 C 80 18 155/68 H 98 11/04/19 00:10 36.4 C L 80 18 132/73 97 11/03/19 22:10 36.7 C 78 18 133/69 98 PG Care Time/CCT Total # of Minutes Spent Total Time Spent with Patient: Total time spent is greater than 50% in coordination of care (as documented) at patient's floor/unit and/or counseling patient:
--- NOTE | 2019-11-04 17:43 | Hospitalist Consultation ---
Date of Consultation November 04, 2019 Assessment & Plan (1) Primary adenocarcinoma of upper lobe of right lung: - S/P R VATS with RUL Wedge Resection & Bx -likely primary adenocarcinoma -Right-sided chest tube at present -CXR with no pneumothorax -possible removal of chest tube in next 24 to 48 hours per primary team -Surgical management per primary -appreciate their input on Xarelto restart (2) CLL (chronic lymphocytic leukemia): -History of chemotherapy (2014); baseline WBC 50-60 -WBC currently 61 (3) Hypertension: -Stable -Continue atenolol 100 mg daily and lisinopril 20 mg daily (4) DVT (deep venous thrombosis): -History of DVT and per notes IVC filter placed in February 2018 -appears this was likely removed as I cannot visualize them on imaging -Xarelto on hold given procedure and will defer to primary service when deemed safe to resume -Given limited mobility and malignancy she is at increased risk for coagulopathies (5) Anemia: -Baseline appears around 11 and currently at 8.5 -Per operative report there was minimal blood loss with EBL at 5 cc and will repeat labs in a.m. (6) Pseudomonas urinary tract infection: -Culture from 10/30 reveals pansensitive Pseudomonas currently on treatment with Cipro 500 mg twice daily Disposition: Referrals placed to [facility]; hospitalist service will continue to monitor Supervising Physician Co-Signing Physician Notes I have seen and examine patient with Niurka Ramos PA-C and agree with the assessment and plan. Physical Exam Constitutional: WD/WN, vitals as above Eyes: + anicteric sclerae ENMT: Ears: no hearing impairment Neck: trachea midline Respiratory: normal respiratory effort Auscultation: lungs clear to auscultation bilaterally and + diminished lung sounds Cardiovascular: Rate/Rhythm: regular rate and regular rhythm Chest (Breasts): Additional Comments: Right-sided chest tube Gastrointestinal (Abdomen): Inspection/Auscultation: normal bowel sounds Percussion/Palpation: abdomen soft; abdomen nontender Musculoskeletal: Head/Neck/Chest: normocephalic Healing hematoma noted to left forehead with very minimal bruising just inferior to left eye Skin: no rashes, warm and dry Psychiatric: A+Ox3, euthymic affect History of Present Illness Reason for Consultation: Medical management Attending Physician: Pedro Sanchez MD, FACS History of Present Illness Ms. Martino is a 79-year-old female with past medical history of CLL, DVT on Xarelto, HTN, Breast CA S/P Lumpectomy/XRT, recent fall even now chair bound, and spina bifida who is S/CA VATS with RUL Wedge Resection with biopsies which is likely primary adenocarcinoma. Patient states she is doing okay this morning and only minimal pain. She has a chest tube placed on the right. She reports being wheelchair-bound. She was in the emergency room at the beginning of the month due to a fall resulting in hematoma to the left forehead. Minimal bruising and healing hematoma still present. She verbalizes no other complaints at this time. Allergies Allergy/AdvReac Type Severity Reaction Status Date / Time aspirin AdvReac Intermediate INCREASES Verified 11/03/19 07:09 BLEEDING capsaicin AdvReac Mild INTOLERANCE Verified 11/03/19 07:09 codeine AdvReac Mild INTOLERANCE Verified 11/03/19 07:09 diazepam AdvReac Mild INTOLERANCE Verified 11/03/19 07:09 diclofenac AdvReac Mild INTOLERANCE Verified 11/03/19 07:09 Diclopak AdvReac Mild INTOLERANCE Verified 03/21/18 14:33 erythromycin base AdvReac Mild INTOLERANCE Verified 11/03/19 07:09 sulindac AdvReac Mild INTOLERANCE Verified 11/03/19 07:09 tramadol AdvReac Mild INTOLERANCE Verified 11/03/19 07:09 Home Medications Home Medications Medication Instructions Recorded Confirmed Type multivitamin 1 tab PO QAM 01/08/19 11/03/19 History Xarelto 20 mg PO DAILY 10/24/19 11/03/19 History atenolol 100 mg PO DAILY 10/24/19 11/03/19 History lisinopril 20 mg PO DAILY 10/24/19 11/03/19 History ciprofloxacin HCl 500 mg tablet 500 mg PO Q12H #14 tab 10/30/19 11/03/19 Rx Patient History Medical History Breast cancer s/p lumpectomy s/p chemo/XRT CLL (chronic lymphocytic leukemia) h/o chemotherapy (2014); chronic leukocytosis (baseline WBC 50-60 range per chart review) 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 GERD (gastroesophageal reflux disease) occasional Hypertension Lung mass "NON-MALIGNANT" Osteoarthritis Peripheral neuropathy b/l hands r/t chemo Pulmonary nodules Spina bifida able to walk short distances with walker but often uses wheelchair but due to increasing back pain UTI (urinary tract infection) Surgical History History of back surgery lumbar History of bilateral tubal ligation History of bronchoscopy Navigational bronchoscopy 07/21/1919 Grade 1 view Yao 2 blade History of cardiac cath 2001= no stents History of cholecystectomy History of lumbar puncture as an r/t spina bifida History of surgery repair of the spina bifida (at the base of pt neck) History of tonsillectomy Hx of lumpectomy left Family History Mother Hypertension Social History Preferred Language: Sudanese Communication Ability: Effective Technology Applications Engineer Required: No Beliefs That Will Affect Care: None marital status: / Current Living Situation: Alone current occupational status: retired Other Information That Helps Us Care for You: No Feels Safe at Home: Yes Safety Concerns: Feels Safe At This Time Smoking Status: Former smoker Tobacco Type: cigarettes ; Smoking End Date: ; Second Hand Exposure: No ; Tobacco Cessation Education Requested by Patient: No Hx Alcohol Use: No Hx Substance Use: No Review of Systems Constitutional: no fever and no chills Respiratory: no cough and no dyspnea Cardiovascular: no chest pain, no palpitations and no edema Gastrointestinal: no abdominal pain, no nausea, no vomiting, no constipation and no diarrhea/loose stools Genitourinary: no dysuria Musculoskeletal: Mild discomfort at location of chest tube Integumentary: no rash Healing bruising around left eye and healing left forehead hematoma Neurologic: + falls Physical Exam Constitutional: WD/WN, vitals as above Eyes: + anicteric sclerae ENMT: Ears: no hearing impairment Neck: trachea midline Respiratory: normal respiratory effort Auscultation: lungs clear to auscultation bilaterally and + diminished lung sounds Cardiovascular: Rate/Rhythm: regular rate and regular rhythm Chest (Breasts): Additional Comments: Right-sided chest tube Gastrointestinal (Abdomen): Inspection/Auscultation: normal bowel sounds Percussion/Palpation: abdomen soft; abdomen nontender Musculoskeletal: Head/Neck/Chest: normocephalic Healing hematoma noted to left forehead with very minimal bruising just inferior to left eye Skin: no rashes, warm and dry Psychiatric: A+Ox3, euthymic affect Results & Data Vital Signs (Past 12 Hours) Vital Signs Temp Pulse Pulse Resp BP Pulse Ox 11/04/19 16:04 36.4 C L 74 18 131/67 96 11/04/19 11:00 36.3 C L 79 18 133/66 98 11/04/19 08:00 36.3 C L 73 16 132/67 97 11/04/19 06:14 36.7 C 74 16 136/56 L 97 PG Care Time/CCT Total # of Minutes Spent Total Time Spent with Patient: Total time spent is greater than 50% in coordination of care (as documented) at patient's floor/unit and/or counseling patient: (1) DVT (deep venous thrombosis) Chronicity: unspecified DVT location: non-extremity vein Qualified Code(s): I82.90 - Acute embolism and thrombosis of unspecified vein (2) Hypertension Hypertension type: essential hypertension Qualified Code(s): I10 - Essential (primary) hypertension
[2019-11-05] MEDS: ACETAMINOPHEN 1,000 MG/100 ML VIAL IV SCH ×3 (05:42→21:04)
[2019-11-05 06:38] LABS: Hematocrit (blood only) 27.1 % (37-47); Hemoglobin 8.6 g/dL (12.0-16.0); Mean Corpuscular Hemoglobin 27.1 pg (25-34); Mean Corpuscular Hgb Conc 31.7 g/dL (32-36); Mean Corpuscular Volume 85.5 fL (80-100); Mean Platelet Volume 8.5 fL (7.4-10.4); Platelet Count 438 K/uL (130-400); RDW Coefficient of Variation 17.2 % (11.5-14.5); RDW Standard Deviation 53.1 fL (36.4-46.3); Red Blood Count 3.17 M/uL (4.2-5.4); White Blood Count 76.03 K/uL (4.8-10.8)
[2019-11-05 07:19] LABS: ALC (manual) 59.46 K/uL (1.2-3.4); ANC (manual) 15.97 K/uL (1.4-6.5); Basophils # (manual) 0.61 K/uL (0-0.2); Basophils % (manual) 0.8 %; Lymphocytes # (manual) 59.46 K/uL (1.2-3.4); Lymphocytes % (manual) 78.2 %; Neutrophils # (manual) 15.97 K/uL (1.4-6.5); Smudge Cells Present
[2019-11-05] MEDS: MULTIVITAMIN TAB PO SCH (08:45)
[2019-11-05] MEDS: DOCUSATE SODIUM 100 MG CAP PO SCH ×2 (08:45→21:04)
[2019-11-05] MEDS: lisinopriL 20 MG TAB PO SCH (08:45)
[2019-11-05] MEDS: ATENOLOL 50 MG TABLET PO SCH (08:45)
--- NOTE | 2019-11-05 09:41 | Surgery Progress Note ---
Date of Service November 05, 2019 Assessment & Plan (1) Primary adenocarcinoma of upper lobe of right lung: Present on Admission?: Yes (2) Status post lung surgery: The patient's white count has gone back up over 70,000. I have discussed this case a few times with Dr. Woodall but I am and asked him to officially see her tomorrow. We will probably be able to get her chest tube out tomorrow. Otherwise I think she looks quite good. She sounds very good on exam. They are going to be some discharge and disposition issues which can have to be resolved before she can be discharged from the hospital. Present on Admission?: No Subjective Patient is sitting up eating breakfast this morning. She has no complaints. Physical Exam Physical Exam: Exam is unchanged. She has a resolving ecchymosis of her forehead. In addition her breath sounds are excellent bilaterally. She has no rales or wheezing. She has a very small intermittent air leak. Results & Data Vital Signs (Past 12 Hours) Vital Signs Temp Pulse Pulse Resp BP Pulse Ox 11/05/19 07:38 36.6 C 91 H 20 122/63 95 11/04/19 22:55 36.8 C 88 18 147/73 H 96 PG Care Time/CCT Total # of Minutes Spent Total Time Spent with Patient: Total time spent is greater than 50% in coordination of care (as documented) at patient's floor/unit and/or counseling patient:
[2019-11-05] MEDS: RIVAROXABAN 20 MG TAB PO SCH (10:17)
--- NOTE | 2019-11-05 18:16 | Hospitalist Progress Note ---
Date of Service November 05, 2019 Assessment & Plan (1) Primary adenocarcinoma of upper lobe of right lung: -S/P R VATS with RUL Wedge Resection & Bx -likely primary adenocarcinoma -Right-sided chest tube present -CXR with no pneumothorax -possible removal of chest tube in next 24 hours per primary team -Surgical management per primary -appreciate their input on Xarelto restart (2) CLL (chronic lymphocytic leukemia): -Follows with Dr. Woodall - History of chemotherapy (2015); baseline WBC 50-60 -WBC currently 76 - Heme/Onc consultation placed - appreciate input (3) Hypertension: -Stable -Continue atenolol 100 mg daily and lisinopril 20 mg daily (4) DVT (deep venous thrombosis): -History of DVT and per notes IVC filter placed in February 2018 -appears this was likely removed as I cannot visualize them on imaging and can discuss patient -Xarelto on hold given procedure and will defer to primary service when deemed safe to resume -Given limited mobility and malignancy she is at increased risk for coagulopathies (5) Anemia: -Baseline appears around 11 and currently at 8.6 -- May be the cause of her intermittent lightheadedness - if ongoing symptoms may need to consider transfusion but currently hemodynamically stable -Per operative report there was minimal blood loss with EBL at 5 cc; Continue to monitor (6) Spina bifida: - STABLE; primarily wheelchair bound - Lives in a senior care apartment alone; has a friend who helps with transfers/transport (7) Pseudomonas urinary tract infection: -Culture from 10/30 reveals pansensitive Pseudomonas currently on treatment with Cipro 500 mg twice daily Disposition: Referrals placed to [facility]; hospitalist service will continue to monitor Supervising Physician Co-Signing Physician Notes I have seen and examine patient with Niurka Ramos PA-C and agree with the assessment and plan. Physical Exam Constitutional: WD/WN, vitals as above Eyes: + anicteric sclerae ENMT: Ears: no hearing impairment Neck: trachea midline Respiratory: normal respiratory effort Auscultation: lungs clear to auscultation bilaterally and + diminished lung sounds Cardiovascular: Rate/Rhythm: regular rate and regular rhythm Chest (Breasts): Additional Comments: Right-sided chest tube Gastrointestinal (Abdomen): Inspection/Auscultation: normal bowel sounds Percussion/Palpation: abdomen soft; abdomen nontender Musculoskeletal: Head/Neck/Chest: normocephalic Healing hematoma noted to left forehead with very minimal bruising just inferior to left eye Skin: no rashes, warm and dry Psychiatric: A+Ox3, euthymic affect Subjective Reports she feels very good today. Better then yesterday. Was able to sit in chair for a longer duration of time today. She states she did have some lightheadedness and was wondering if her BP medications are becoming too much for her. Hbg higher on labs today and she states she sees Dr. Woodall. States she is aware her lung is cancer. She states she is tolerating a diet without issue. Denies new complaints Review of Systems Constitutional: no fever and no chills Respiratory: no cough and no dyspnea Cardiovascular: + lightheadedness (short intermittent episode while sitting in chair); no chest pain, no palpitations and no edema Gastrointestinal: no abdominal pain, no nausea and no vomiting Genitourinary: + urinary incontinence Musculoskeletal: no body aches Mild discomfort at location of chest tube Integumentary: no rash Healing bruising around left eye and healing left forehead hematoma Neurologic: + falls Physical Exam Constitutional: WD/WN, vitals as above Eyes: + anicteric sclerae ENMT: Ears: no hearing impairment Neck: trachea midline Respiratory: normal respiratory effort Auscultation: lungs clear to auscultation bilaterally and + diminished lung sounds Cardiovascular: Rate/Rhythm: regular rate and regular rhythm Chest (Breasts): Additional Comments: R sided chest tube present Gastrointestinal (Abdomen): Inspection/Auscultation: normal bowel sounds Percussion/Palpation: abdomen soft; abdomen nontender Musculoskeletal: Head/Neck/Chest: normocephalic Skin: no rashes, warm and dry Psychiatric: A+Ox3, euthymic affect Results & Data Vital Signs (Past 12 Hours) Vital Signs Temp Pulse Pulse Resp BP Pulse Ox 11/05/19 15:25 36.7 C 73 16 146/72 H 97 11/05/19 11:00 36.4 C L 75 20 119/64 98 11/05/19 07:38 36.6 C 91 H 20 122/63 95 PG Care Time/CCT Total # of Minutes Spent Total Time Spent with Patient: Total time spent is greater than 50% in coordination of care (as documented) at patient's floor/unit and/or counseling patient: (1) DVT (deep venous thrombosis) Chronicity: unspecified DVT location: non-extremity vein Qualified Code(s): I82.90 - Acute embolism and thrombosis of unspecified vein (2) Hypertension Hypertension type: essential hypertension Qualified Code(s): I10 - Essential (primary) hypertension
[2019-11-06] MEDS: ACETAMINOPHEN 1,000 MG/100 ML VIAL IV SCH (05:30)
--- NOTE | 2019-11-06 07:13 | XRay Report ---
XR chest 1V portable HISTORY: 79 years-old Female post-op status post right upper lobe wedge resection COMPARISON: Chest radiograph 11/04/2018 TECHNIQUE: Portable AP view of the chest FINDINGS: Postoperative changes of the right upper lung redemonstrated. A right-sided chest tube distal tip pro jects over the right lung apex. No definite pneumothorax identified. Mild subcutaneous emphysema of t he right chest wall. Mild right hemidiaphragmatic elevation. Cardiomediastinal and hilar silhouettes are unchanged. No large pleural effusion or overt pulmonary edema. Severe osteoarthritis of the shoul ders with multiple heterotopic ossifications/loose bodies inferior to the left glenohumeral joint. Si gmoidal scoliosis of the spine. Cholecystectomy. IMPRESSION: Postoperative changes of the right lung with unchanged positioning of the right-sided clemente st tube. No definite pneumothorax identified. The above report was generated using voice recognition software. It may contain grammatical, syntax o r spelling errors. Electronically signed by: Chetan Nesbitt M.D. 11/06/2019 7:12 AM
[2019-11-06] MEDS: MULTIVITAMIN TAB PO SCH (08:39)
[2019-11-06] MEDS: DOCUSATE SODIUM 100 MG CAP PO SCH ×2 (08:39→21:04)
[2019-11-06] MEDS: RIVAROXABAN 20 MG TAB PO SCH (08:40)
[2019-11-06] MEDS: lisinopriL 20 MG TAB PO SCH (08:40)
[2019-11-06] MEDS: ATENOLOL 50 MG TABLET PO SCH (08:40)
[2019-11-06 10:04] LABS: BUN Creatinine Ratio 28.5 (10-20); Calcium 8.1 mg/dl (8.5-10.1); Creatinine Clr Calc Pharmacy 42.7 ml/min; Est GFR (African American) 84.4; Est GFR (Non-African American) 72.8; Potassium 3.6 mmol/L (3.5-5.1)
--- NOTE | 2019-11-06 14:21 | XRay Report ---
XR chest 1V portable CLINICAL HISTORY: 79 years-old Female presenting with tube removal. TECHNIQUE: Portable upright AP view of the chest was obtained. COMPARISON: 11/06/2019 at 6:54 AM. FINDINGS: The large bore right pleural drain has been removed. Mild elevation of the right hemidiaphragm as on prior exam. Atherosclerosis of the aortic arch. Cardiac silhouette and or more in size. Suture margin projects over the right upper lung. No focal opacity. No large effusion or pneumothorax. Advanced de generative changes of the glenohumeral joints with several large loose bodies on the left. Cholecyste ctomy clips noted. IMPRESSION: 1. Status post removal of the right pleural drain. No pneumothorax. Postsurgical changes of the righ t upper lung. Electronically signed by: Shiva Lindsay M.D. 11/06/2019 2:20 PM
--- NOTE | 2019-11-06 15:29 | Hospitalist Progress Note ---
Date of Service November 06, 2019 Assessment & Plan (1) Primary adenocarcinoma of upper lobe of right lung: * S/P R VATS with RUL Wedge Resection & Bx -likely primary adenocarcinoma * Right-sided chest tube present -CXR with no pneumothorax -possible removal of chest tube this afternoon per primary team * Surgical management per primary (2) CLL (chronic lymphocytic leukemia): * Follows with Dr. Woodall - History of chemotherapy (2014); baseline W BC 50-60 * WBC continues to be elevated, at 85.58k today from 76 * Heme/Onc consultation placed - to be seen today -- appreciate input * Continue to follow (3) Hypertension: * Stable * Continue atenolol 100 mg daily and lisinopril 20 mg daily (4) DVT (deep venous thrombosis): * History of DVT and per notes IVC filter placed in February 2018 -appears this was likely removed as not able to be visualized on imaging * Xarelto on hold given procedure, but was re-initiated on 11/05 * Given limited mobility and malignancy she is at increased risk for coagulopathies (5) Anemia: * Baseline appears around 11. Pre-op h/h 11.6/35.5 with drop to 8.5/8.6 post-operatively. EBL per op report with minimal blood loss, 5cc * Today, h/h improved to 9.1/28.5, with improvement in symptoms * Continue to monitor (6) Spina bifida: * STABLE; primarily wheelchair bound * Lives in a retirement apartment alone; has a friend who helps with transfers/transport recently, Rocael (7) Pseudomonas urinary tract infection: * Culture from 10/30 revealed pansensitive Pseudomonas-- treated with Cipro 500mg BID, completed on 11/04 * No urinary symptoms currently (8) Depression: * Recent depression regarding diagnosis -- after discussion with patient, patient agreeable to trial mirtazapine to help with depression/anxiety/appetite * Would initiate mirtazapine 7.5mg HS and monitor (9) DVT prophylaxis: * Per primary -- Xarelto resumed 11/05 Disposition: CM sent referrals to [facility]-- no beds until later in the week. Referrals placed for [facility] or [facility] -- patient will likely need rehab/possible prison needs. Hospitalist service will continue to follow. Supervising Physician Co-Signing Physician Notes PA Supervision Note: I did not personally see or examine the patient today, but I verified all montes p oints of SHANNON Romero's assessment and plan with the following exceptions/additions: None Subjective Patient evaluated this morning. States her cough is improving with the use of incentive spirometry. She continues to state her appetite is minimal and her sleep is poor. She states she is cold, and also admits that she has been having some depression and anxiety regarding her health, as she has a history of breast cancer in 2004 and underwent lumpectomy and chemo/radiation as well as continued issues with CLL in addition to a new diagnosis of lung ca. She states she is not very sure what the plan for her is, and she states that she has been living at home [facility] to help her. A friend, Rocael, has been staying with her from [place] to help her with daily activities as well. She believes her chest tube is supposed to come out today, but still believes she would like to return home. When asked about skilled rehab, the patient stated that no one had ever mentioned that to her. Review of Systems Review of Systems: All systems reviewed & are unremarkable except as noted in HPI & below Constitutional: + chills and + anorexia; no fever Eyes: no diplopia and no problem reported Respiratory: + cough (improving) and + change in sputum (decreased) Cardiovascular: no chest pain, no palpitations and no edema Gastrointestinal: + constipation; no abdominal pain, no nausea, no vomiting and no diarrhea/loose stools Genitourinary: + urinary incontinence; no dysuria and no hematuria Musculoskeletal: scoliosis Physical Exam Constitutional: + thin and cooperative; no acute distress Eyes: + anicteric sclerae and PERRL Neck: trachea midline, no thyromegaly Respiratory: normal respiratory effort; no respiratory distress and no labored breathing Auscultation: + diminished lung sounds and + bronchovesicular breath sounds R sided chest tube present, hooked to suction. No airleak present. Cardiovascular: Rate/Rhythm: regular rate and regular rhythm Heart Sounds: normal S1 and normal S2 Vessels: no JVD Extremities: no edema Gastrointestinal (Abdomen): normal bowel sounds, soft, nontender, no hepatosplenomegaly Musculoskeletal: no cyanosis or clubbing, extremities motor strength 5/5 Skin: no rashes, warm and dry Neurologic: PERRL, EOMI, accommodation nl, no face palsy, no dysarthria Psychiatric: Orientation: alert and oriented x 3 Mood: + depressed mood Lymphatic: no cervical or axillary lymphadenopathy Results & Data Vital Signs (Past 12 Hours) Vital Signs Temp Pulse Pulse Resp BP Pulse Ox 11/06/19 15:12 36.5 C 88 16 166/84 H 99 11/06/19 07:21 36.6 C 83 16 149/74 H 97 Laboratory Results 11/06/19 Range/Units 09:15 Sodium 138 (136-145) mmol/L Potassium 3.6 (3.5-5.1) mmol/L Chloride 105 (98-107) mmol/L Carbon Dioxide 27 (21-32) mmol/L Anion Gap 6.0 (3-11) BUN 22 H (7-18) mg/dl Creatinine 0.78 (0.6-1.2) mg/dl Est Cr Clr Drug Dosing 42.7 ml/min Est GFR ( Amer) 84.4 Est GFR (Non-Af Amer) 72.8 BUN/Creatinine Ratio 28.5 H (10-20) Glucose 109 H (70-99) mg/dl Calcium 8.1 L (8.5-10.1) mg/dl Diagnostic Findings CXR 11/06/19 IMPRESSION: Postoperative changes of the right lung with unchanged positioning of the right-sided chest tube. No definite pneumothorax identified. PG Care Time/CCT Total # of Minutes Spent Total Time Spent with Patient: Total time spent is greater than 50% in coordination of care (as documented) at patient's floor/unit and/or counseling patient: (1) DVT (deep venous thrombosis) Chronicity: unspecified DVT location: non-extremity vein Qualified Code(s): I82.90 - Acute embolism and thrombosis of unspecified vein (2) Hypertension Hypertension type: essential hypertension Qualified Code(s): I10 - Essential (primary) hypertension
[2019-11-06 16:20] LABS: Hematocrit (blood only) 28.5 % (37-47); Hemoglobin 9.1 g/dL (12.0-16.0); Mean Corpuscular Hemoglobin 27.5 pg (25-34); Mean Corpuscular Hgb Conc 31.9 g/dL (32-36); Mean Corpuscular Volume 86.1 fL (80-100); Mean Platelet Volume 8.5 fL (7.4-10.4); Platelet Count 450 K/uL (130-400); RDW Coefficient of Variation 17.5 % (11.5-14.5); RDW Standard Deviation 54.6 fL (36.4-46.3); Red Blood Count 3.31 M/uL (4.2-5.4); White Blood Count 85.58 K/uL (4.8-10.8)
--- NOTE | 2019-11-06 16:36 | Surgery Progress Note ---
Date of Service November 06, 2019 Assessment & Plan (1) Status post lung surgery: Present on Admission?: No (2) Primary adenocarcinoma of upper lobe of right lung: Patient is now postop day 3 from her wide excision of the adenocarcinoma the right upper lobe. Removed her chest tube. Her x-rays look quite good. She has no air leak and very little in the way of fluid. We are attempting to place her is I feel she is a danger to herself at home. Very little support. Present on Admission?: Yes Subjective Patient has no real complaints. We removed her chest tube today and she tolerated it well. Disposition is going to be difficult and efforts are ongoing. Physical Exam Physical Exam: Her incisions are clean. Her chest tube was removed. She is moving air well bilaterally. Results & Data Vital Signs (Past 12 Hours) Vital Signs Temp Pulse Pulse Resp BP Pulse Ox 11/06/19 15:12 36.5 C 88 16 166/84 H 99 11/06/19 07:21 36.6 C 83 16 149/74 H 97 PG Care Time/CCT Total # of Minutes Spent Total Time Spent with Patient: Total time spent is greater than 50% in coordination of care (as documented) at patient's floor/unit and/or counseling patient:
[2019-11-06] MEDS: MIRTAZAPINE TAB 15 MG TAB PO SCH (21:04)
[2019-11-07 06:41] LABS: Hematocrit (blood only) 26.4 % (37-47); Hemoglobin 8.6 g/dL (12.0-16.0); Mean Corpuscular Hemoglobin 27.8 pg (25-34); Mean Corpuscular Hgb Conc 32.6 g/dL (32-36); Mean Corpuscular Volume 85.4 fL (80-100); Mean Platelet Volume 8.5 fL (7.4-10.4); Platelet Count 407 K/uL (130-400); RDW Coefficient of Variation 17.3 % (11.5-14.5); RDW Standard Deviation 53.5 fL (36.4-46.3); Red Blood Count 3.09 M/uL (4.2-5.4); White Blood Count 72.93 K/uL (4.8-10.8)
[2019-11-07 07:12] LABS: BUN Creatinine Ratio 30.7 (10-20); Calcium 8.5 mg/dl (8.5-10.1); Creatinine Clr Calc Pharmacy 46.3 ml/min; Est GFR (Non-African American) 80.2; Potassium 3.7 mmol/L (3.5-5.1)
[2019-11-07 07:16] LABS: ALC (manual) 61.48 K/uL (1.2-3.4); ANC (manual) 10.79 K/uL (1.4-6.5); Lymphocytes # (manual) 61.48 K/uL (1.2-3.4); Lymphocytes % (manual) 84.3 %; Monocytes # (manual) 0.66 K/uL (0.11-0.59); Monocytes % (manual) 0.9 %; Neutrophils # (manual) 10.79 K/uL (1.4-6.5); Neutrophils % (manual) 14.8 %; Smudge Cells Present
[2019-11-07] MEDS: lisinopriL 20 MG TAB PO SCH (09:36)
[2019-11-07] MEDS: DOCUSATE SODIUM 100 MG CAP PO SCH ×2 (09:36→20:18)
[2019-11-07] MEDS: MULTIVITAMIN TAB PO SCH (09:36)
[2019-11-07] MEDS: RIVAROXABAN 20 MG TAB PO SCH (09:37)
[2019-11-07] MEDS: ATENOLOL 50 MG TABLET PO SCH (09:37)
--- NOTE | 2019-11-07 09:38 | Consultation Report ---
DATE OF CONSULTATION: 11/07/2019 REASON FOR CONSULTATION: Right upper lobe pulmonary nodule. HISTORY OF PRESENT ILLNESS: Emily Martino is a pleasant 79-year-old female patient with history of spina bifida who is essentially wheelchair bound. She is well known to Dr. Woodall, had been following with history of both chronic lymphocytic leukemia and remote history of breast cancer. Apparently, she suffered a fall about a week and half prior to admission, striking her forehead, resulting in a left-sided frontal hematoma and circumoral ecchymosis. She was also noted to have a white count of 100,000, which was unusual for her. This was brought up to Dr. Woodall who felt infection was the underlying etiology and she was empirically treated with Cipro as it was discovered she suffered from a pseudomonal urinary tract infection. Her white count subsequently retreated to the 60,[address] Woodall had ordered a CT scan of the chest which was performed on 08/28/2019, delineating a right apical pulmonary nodule measuring 18 mm in diameter. There was also an adjacent 6 mm solid nodule. Mediastinal lymph nodes were evaluated and found to be within normal limits. Thus, this led to a tumor board presentation and subsequent right-sided video-assisted thoracoscopy with right upper lobe wedge resection with mediastinal lymph node sampling, which was performed by Dr. Sanchez on 11/03/2019. Pathology remains pending; however, frozen section suggested she suffers from non-small cell lung cancer. She is recovering postoperatively. PAST MEDICAL HISTORY: Again, significant for remote history of breast cancer, CLL, spina bifida, hypertension, DVT by history, anemia by history, depression by history, pseudomonal urinary tract infection. MEDICATIONS: Prior to admission, ciprofloxacin 500 mg p.o. b.i.d., lisinopril 20 mg p.o. daily, atenolol 100 mg p.o. daily, Xarelto 20 mg p.o. daily, multivitamin 1 p.o. daily. ALLERGIES: Include ASPIRIN, CAPSAICIN, CODEINE, DIAZEPAM, DICLOFENAC, ____, ERYTHROMYCIN, SULINDAC, AND TRAMADOL. SOCIAL HISTORY: The patient lives alone. She is retired. She is a . She is a reformed smoker, stopped in the 70s. Negative for alcohol or illicit drugs. FAMILY HISTORY: Noncontributory. REVIEW OF SYSTEMS: Negative for fevers, chills or sweats. She was diagnosed with a pseudomonal urinary tract infection and was treated with ciprofloxacin. Denies any overt weight loss or decrease in appetite. SKIN: Status post fall posttraumatic ecchymosis in the right frontal and periorbital regions in the head. No rashes or lesions otherwise. HEENT: She denies headaches, lightheadedness or dizziness at present. She has no acute visual or hearing deficits. No sinus symptoms, sore throat or dysphagia. LYMPH: Positive history of CLL. CARDIAC: No current angina or palpitations. PULMONARY: She is not currently short of breath or dyspneic. Status post VATS. GASTROINTESTINAL: Negative for abdominal pain, nausea, vomiting, diarrhea or constipation, hematochezia or melena reported. GENITOURINARY: Again, pseudomonal urinary tract infection treated with ciprofloxacin. MUSCULOSKELETAL: No arthralgias or myalgias. ENDOCRINE: Negative for diabetes or thyroid disease. NEUROLOGIC: Negative for seizure, stroke, or migraine headache. HEMATOLOGIC: Positive for lymphocytosis and associated anemia. PHYSICAL EXAMINATION: GENERAL: Very pleasant 79-year-old female patient, in no acute distress. VITAL SIGNS: Temperature 36.4, pulse 88, respiratory rate 18, blood pressure 125/66. SKIN: Other than the above noted ecchymoses, no rashes or lesions. No petechiae. HEENT: Head is normocephalic. Eyes: PERRLA, EOMI. Sclerae nonicteric. No conjunctival injection. Nares patent without rhinorrhea or discharge. Throat is clear. Tongue is midline. Mucous membranes are moist. NECK: Supple without JVD or thyromegaly. LYMPHATICS: No cervical, supraclavicular, axillary or inguinal palpable nodes. HEART: Regular rate and rhythm. No clicks, rubs, murmurs or gallops. LUNGS: Clear to auscultation bilaterally. ABDOMEN: Soft, nontender, nondistended, without palpable hepatosplenomegaly. EXTREMITIES: No clubbing, cyanosis or edema. MUSCULOSKELETAL: Strength and pulses are equal in all 4 quadrants. NEUROLOGICAL: She is grossly intact. LABORATORY DATA: WBC count 72,930, hemoglobin 8.6, platelet count 407,000, absolute neutrophil count 10,790, absolute lymphocyte count 61.5 thousand. Sodium 140, potassium 3.7, chloride 107, carbon dioxide 27, creatinine 0.72, BUN 22. IMPRESSION: 1. Newly diagnosed nonsmall cell lung cancer with pending confirmation. 2. History of chronic lymphocytic leukemia, currently under Dr. Woodall's management. 3. Pseudomonal urinary tract infection. 4. Remote history of breast cancer. PLAN: I briefly spoke with Emily today, explained her that Dr. Woodall will make formal decision on how to proceed with treatment. Generally speaking depending on pathology high risk features, etc., consolidative chemotherapy may be warranted. Metastatic disease should be ruled out before formal treatment decision made. She has not required any form of therapy for her lymphoproliferative disorder. I will advise Dr. Woodall of patient's admission to the hospital and will establish expedient followup to discuss ongoing care upon discharge. I have nothing further to add and agree with current medical management. Thank you very much for allowing me to participate in her care.
--- NOTE | 2019-11-07 13:26 | Hospitalist Progress Note ---
Date of Service November 07, 2019 Assessment & Plan (1) Primary adenocarcinoma of upper lobe of right lung: * Patient with h/o Breast Ca 2003 (s/p lumpectomy, chemo with Herceptin and radiation x39 treatments), CLL * S/P R VATS with RUL Wedge Resection & Bx -likely primary adenocarcinoma, non small cell in nature, although pathology not back yet * Right-sided chest tube removed last evening --> repeat CXR without pneumothorax, post surgical changes * Surgical management per primary * Discharge complicated due to placement issues, as patient labeled as [facility] (2) CLL (chronic lymphocytic leukemia): * Follows with Dr. Woodall - History of chemotherapy (2014); baseline WBC 50-60k * WBC continued to be elevated at 85.5k yesterday, but is trending down --> 72.9k today * Most recent PET scan 05/17/19 with enlarged external iliac chain lymph nodes unchanged from previous imaging but remain pathologically indeterminant. Also, found 1.4cm nodule in Left lobe of thyroid gland -- rec nonemergent thyroid US, however patient did not have done. * Chest CT on 08/28 with multiple hepatic hypodensities, likely representing cysts, as well partially visualized 2cm upper pole left renal hypodensity. * Head CT 10/24 with ventriculomegaly of lateral and third ventricles, likely representing Chiari malformation * Heme/Onc consultation-- patient seen by Dr. Grayson today, appreciate input -- patient with likely non small cell lung CA, although pathology still pending -- consolidative chemo could be warranted, but would rule out metastatic disease prior to formal treatment decision --> will defer to Dr. Woodall * Continue to follow (3) Hypertension: * Stable * Continue atenolol 100 mg daily and lisinopril 20 mg daily (4) DVT (deep venous thrombosis): * History of DVT and per notes IVC filter placed in February 2018 -appears this was likely removed as not able to be visualized on imaging * Given limited mobility and malignancy she is at increased risk for coagulopathies-- Xarelto initially on hold for procedure but resumed on 11/05 (5) Anemia: * Baseline appears around 11. Pre-op h/h 11.6/35.5 with drop to 8.5/8.6 post-operatively. EBL per op report with minimal blood loss, 5cc * Stable -- h/h today 8.6/26.4 * Continue to monitor (6) Spina bifida: * STABLE; primarily wheelchair bound * Lives in a skilled nursing apartment alone; has a friend who helps with transfers/transport recently, Rocael, who lives in [place] (7) Pseudomonas urinary tract infection: * Culture from 10/30 revealed pansensitive Pseudomonas-- treated with Cipro 500mg BID, completed on 11/04 * No urinary symptoms currently (8) Depression: * Recent depression regarding diagnosis -- after discussion with patient, patient agreeable to trial mirtazapine to help with depression/anxiety/appetite * Initiated mirtazapine 7.5mg HS last night, with increased fatgiue this morning, could consider decreasing or switching to different agent, but will continue for now to see if better tolerated- re-evaluate in AM (9) DVT prophylaxis: * Per primary -- Xarelto resumed 11/05 Disposition: sent referrals to [facility]-- no beds until later in the week. Referrals placed for [facility] or [facility] -- patient will likely need rehab/possible [place] [facility] needs. Per CM, patient a [facility] Hospitalist service will continue to follow. Supervising Physician Co-Signing Physician Notes PA Supervision Note: I did not personally see or examine the patient today, but I verified all montes points of SHANNON Romero's assessment and plan with the following exceptions/additions: None Subjective Patient evaluated this morning. When asked how she is feeling, she states she is doing "alright". States she was a little more tired this morning that usual but denies any improved sleep due to "all the people in and out every twenty minutes". Appetite is still minimal. Confirms she saw Dr. Grayson this morning and they are still waiting on the biopsy results to see what the next steps are moving forward. Breathing improved. Patient denies any shortness of breath. Does have some pain where the chest tube was removed last evening. The patient does voice that the pain was pretty severe directly after removal of the chest tube, but is tolerable today. When asked about rehab again today, patient more interested in the discussion as it is unsafe for her to return home alone, even with friend, due to assistance of 2 aides to get her from bed to chair. She states she does feel uneasy on her feet and is scared to fall. Review of Systems Review of Systems: All systems reviewed & are unremarkable except as noted in HPI & below Constitutional: no fever and no chills Eyes: no diplopia and no problem reported Ear, Nose, Mouth, Throat: no sore throat and no dysphagia Respiratory: no cough and no dyspnea Cardiovascular: no chest pain, no palpitations and no edema Gastrointestinal: no abdominal pain, no nausea and no vomiting Genitourinary: no dysuria and no hematuria Integumentary: no rash and no lesions Neurologic: no numbness, no paresthesia and no headache(s) Endocrine: + cold intolerance Physical Exam Constitutional: + thin and cooperative; no acute distress Eyes: + anicteric sclerae and PERRL ptosis RIGHT eye Neck: trachea midline, no thyromegaly Respiratory: normal respiratory effort; no respiratory distress and no labored breathing Auscultation: + diminished lung sounds Cardiovascular: Rate/Rhythm: regular rate and regular rhythm Heart Sounds: normal S1 and normal S2 Vessels: no JVD Extremities: no edema Gastrointestinal (Abdomen): normal bowel sounds, soft, nontender, no hepatosplenomegaly Musculoskeletal: no cyanosis or clubbing, extremities motor strength 5/5 Skin: dressing over incision from previous chest tube no crepitus appreciated hematoma to forehead, left of midline, approx 2cm in diameter Psychiatric: Orientation: alert and oriented x 3 Lymphatic: no cervical or axillary lymphadenopathy Results & Data Vital Signs (Past 12 Hours) Vital Signs Temp Pulse Resp BP Pulse Ox 11/07/19 07:26 36.4 C L 88 18 125/66 97 11/07/19 04:00 36.5 C 83 16 146/78 H 97 Laboratory Results 11/07/19 11/07/19 11/06/19 Range/Units 05:54 05:54 16:02 WBC 72.93 H* D 85.58 H* (4.8-10.8) K/uL RBC 3.09 L 3.31 L (4.2-5.4) M/uL Hgb 8.6 L 9.1 L (12.0-16.0) g/dL Hct 26.4 L 28.5 L (37-47) % MCV 85.4 86.1 (80-100) fL MCH 27.8 27.5 (25-34) pg MCHC 32.6 31.9 L (32-36) g/dL RDW Std Deviation 53.5 H 54.6 H (36.4-46.3) fL RDW Coeff of Figueroa 17.3 H 17.5 H (11.5-14.5) % Plt Count 407 H 450 H (130-400) K/uL MPV 8.5 8.5 (7.4-10.4) fL Neutrophils % (Manual) 14.8 % Lymphocytes % (Manual) 84.3 % Monocytes % (Manual) 0.9 % Neutrophils # (Manual) 10.79 H (1.4-6.5) K/uL Total Absolute Neuts 10.79 H (1.4-6.5) K/uL Lymphocytes # (Manual) 61.48 H (1.2-3.4) K/uL Total Abs Lymphocytes 61.48 H (1.2-3.4) K/uL Monocytes # (Manual) 0.66 H (0.11-0.59) K/uL Smudge Cells Present Sodium 140 (136-145) mmol/L Potassium 3.7 (3.5-5.1) mmol/L Chloride 107 (98-107) mmol/L Carbon Dioxide 27 (21-32) mmol/L Anion Gap 6.0 (3-11) BUN 22 H (7-18) mg/dl Creatinine 0.72 (0.6-1.2) mg/dl Est Cr Clr Drug Dosing 46.3 ml/min Est GFR ( Amer) 93.0 Est GFR (Non-Af Amer) 80.2 BUN/Creatinine Ratio 30.7 H (10-20) Glucose 78 (70-99) mg/dl Calcium 8.5 (8.5-10.1) mg/dl Diagnostic Findings CXR 11/06/19 14:19 FINDINGS: The large bore right pleural drain has been removed. Mild elevation of the right hemidiaphragm as on prior exam. Atherosclerosis of the aortic arch. Cardiac silhouette and or more in size. Suture margin projects over the right upper lung. No focal opacity. No large effusion or pneumothorax. Advanced degenerative changes of the glenohumeral joints with several large loose bodies on the left. Cholecystectomy clips noted. IMPRESSION: 1. Status post removal of the right pleural drain. No pneumothorax. Postsurgical changes of the right upper lung. PG Care Time/CCT Total # of Minutes Spent Total Time Spent with Patient: Total time spent is greater than 50% in coordination of care (as documented) at patient's floor/unit and/or counseling patient: (1) DVT (deep venous thrombosis) Chronicity: unspecified DVT location: non-extremity vein Qualified Code(s): I82.90 - Acute embolism and thrombosis of unspecified vein (2) Hypertension Hypertension type: essential hypertension Qualified Code(s): I10 - Essential (primary) hypertension
--- NOTE | 2019-11-07 16:08 | Surgery Progress Note ---
Date of Service November 07, 2019 Assessment & Plan (1) Primary adenocarcinoma of upper lobe of right lung: Patient has tolerated her procedure quite nicely. Unfortunately, the path is not back yet. She has no real complaints. She is being evaluated for possible extended care facility placement. I think this is appropriate. She and I discussed this at length. Present on Admission?: Yes (2) Status post lung surgery: Present on Admission?: No Subjective Patient has no real complaints. Physical Exam Physical Exam: She is moving air quite well in the right side. She denies right-sided chest pain. Results & Data Vital Signs (Past 12 Hours) Vital Signs Temp Pulse Resp BP Pulse Ox 11/07/19 14:54 37.0 C 76 17 129/70 97 11/07/19 07:26 36.4 C L 88 18 125/66 97 PG Care Time/CCT Total # of Minutes Spent Total Time Spent with Patient: Total time spent is greater than 50% in coordination of care (as documented) at patient's floor/unit and/or counseling patient:
[2019-11-07] MEDS: MIRTAZAPINE TAB 15 MG TAB PO SCH (20:17)
[2019-11-07] MEDS: ACETAMINOPHEN 500 MG TAB PO PRN (20:25)
[2019-11-08 07:24] LABS: Creatinine Clr Calc Pharmacy 42.2 ml/min; Est GFR (African American) 83.1; Est GFR (Non-African American) 71.7
[2019-11-08] MEDS: lisinopriL 20 MG TAB PO SCH (09:37)
[2019-11-08] MEDS: RIVAROXABAN 20 MG TAB PO SCH (09:38)
[2019-11-08] MEDS: DOCUSATE SODIUM 100 MG CAP PO SCH ×2 (09:38→21:12)
[2019-11-08] MEDS: ATENOLOL 50 MG TABLET PO SCH (09:38)
[2019-11-08] MEDS: MULTIVITAMIN TAB PO SCH (09:38)
[2019-11-08 10:28] LABS: ALC (manual) 69.32 K/uL (1.2-3.4); ANC (manual) 9.72 K/uL (1.4-6.5); Basophils # (manual) 0.64 K/uL (0-0.2); Basophils % (manual) 0.8 %; Hematocrit (blood only) 27.6 % (37-47); Hemoglobin 8.8 g/dL (12.0-16.0); Lymphocytes # (manual) 69.32 K/uL (1.2-3.4); Lymphocytes % (manual) 86.3 %; Mean Corpuscular Hgb Conc 31.9 g/dL (32-36); Mean Corpuscular Volume 87.9 fL (80-100); Mean Platelet Volume 8.6 fL (7.4-10.4); Monocytes # (manual) 0.64 K/uL (0.11-0.59); Monocytes % (manual) 0.8 %; Neutrophils # (manual) 9.72 K/uL (1.4-6.5); Neutrophils % (manual) 12.1 %; Platelet Count 456 K/uL (130-400); RDW Coefficient of Variation 17.4 % (11.5-14.5); RDW Standard Deviation 54.5 fL (36.4-46.3); Red Blood Count 3.14 M/uL (4.2-5.4); Smudge Cells Present; White Blood Count 80.32 K/uL (4.8-10.8)
--- NOTE | 2019-11-08 11:26 | Surgery Progress Note ---
Date of Service November 08, 2019 Assessment & Plan (1) Primary adenocarcinoma of upper lobe of right lung: Present on Admission?: Yes (2) Status post lung surgery: Patient is stable from a surgical standpoint. Disposition is an issue. Discharge planners and special education case manager are working on this. I reviewed her pathology. She does have an adenocarcinoma. Her margins are clean. Her level 2 and level 4 lymph node packets were negative for any ev idence of metastatic disease. In addition endobronchial ultrasound done a few months ago and her PET scan showed no evidence of lymph node involvement. White count is up a bit today to over 80,000. I do not believe this is clinically relevant. At this point we are awaiting disposition. Present on Admission?: No Subjective Patient really has no complaints. She is just wondering exactly what her disposition is going to be. Discharge planners are working on this. Patient is eating. She is been working with physical therapy. She is wheelchair-bound secondary to her spina bifida. Physical Exam Physical Exam: All dressings were removed and her incisions are quite clean. She does have good aeration in both lung aguirre. The rest of her exam is unchanged. Results & Data Vital Signs (Past 12 Hours) Vital Signs Temp Pulse Resp BP Pulse Ox 11/08/19 09:35 83 105/64 11/08/19 07:30 36.4 C L 16 144/71 H 93 PG Care Time/CCT Total # of Minutes Spent Total Time Spent with Patient: Total time spent is greater than 50% in coordination of care (as documented) at patient's floor/unit and/or counseling patient:
--- NOTE | 2019-11-08 13:57 | Hospitalist Progress Note ---
Date of Service November 08, 2019 Assessment & Plan (1) Primary adenocarcinoma of upper lobe of right lung: * Patient with h/o Breast Ca 2004 (s/p lumpectomy, chemo with Herceptin and radiation x39 treatments), CLL * POD #5 S/P R VATS with RUL Wedge Resection & Bx on 11/[address] Sanchez - likely primary adenocarcinoma, nonsmall cell in nature, although pathology not back yet * Right-sided chest tube removed last evening --> repeat CXR without pneumothorax, post surgical changes * Surgical management per primary (2) CLL (chronic lymphocytic leukemia): * Follows with Dr. Woodall - History of chemotherapy (2014); baseline WBC 50-60k * WBC continued to be elevated at 85.5k on 11/06, but trended down to 72k yesterday -- currently WBC 80.3k, although given lack of s/sx of infection, afebrile do not think this is significant * Most recent PET scan 05/17/19 with enlarged external iliac chain lymph nodes unchanged from previous imaging but remain pathologically indeterminant. Also, found 1.4cm nodule in Left lobe of thyroid gland -- rec nonemergent thyroid US, however patient did not have done. * Chest CT on 08/28 with multiple hepatic hypodensities, likely representing cysts, as well partially visualized 2cm upper pole left renal hypodensity. * Head CT 10/24 with ventriculomegaly of lateral and third ventricles, likely representing Chiari malformation * Heme/Onc consultation-- patient seen by Dr. Grayson, appreciate input -- per note, patient with likely non small cell lung CA, although pathology still pending -- consolidative chemo could be warranted, but would rule out metastatic disease prior to formal treatment decision --> will defer to Dr. Woodall * Continue to follow (3) Hypertension: * Stable * Continue atenolol 100 mg daily and lisinopril 20 mg daily (4) DVT (deep venous thrombosis): * History of DVT and per notes IVC filter placed in February 2018 -appears this was likely removed as not able to be visualized on imaging * Given limited mobility and malignancy she is at increased risk for coagulopathies -- Xarelto initially on hold for procedure but resumed on 11/05 (5) Anemia: * Baseline appears around 11. Pre-op h/h 11.6/35.5 with drop to 8.5/8.6 post-operatively. EBL per op report with minimal blood loss, 5cc * Stable -- h/h improved 8.8/27.6 (6) Spina bifida: * STABLE; primarily wheelchair bound * Lives in a half-way apartment alone; has a friend who helps with transfers/transport recently, Rocael, who lives in [place] (7) Pseudomonas urinary tract infection: * Culture from 10/30 revealed pansensitive Pseudomonas-- treated with Cipro 500mg BID, completed on 11/04 * No urinary symptoms currently (8) Depression: * Recent depression regarding diagnosis. * Initiated mirtazapine 7.5mg HS on 11/06 * Mood appears improved today -- will continue at current dose (9) Thyroid nodule: As above, 1.4 cm nodule-needs outpatient follow-up TSH normal at 1.98 (10) DVT prophylaxis: * Per primary -- Xarelto resumed 11/05 Disposition: sent referrals to [facility]-- no beds until later in the week. Now that patient no longer T[employer]/requiring PASSR 2, patient to be dis charged per primary service. Referrals placed for [facility] or [facility]. Hospitalist service will continue to follow while patient remains inpatient Supervising Physician Co-Signing Physician Notes PA Supervision Note: I did not personally see or examine the patient today, but I verified all montes points of SHANNON Romero's assessment and plan with the following exceptions/additions: None Subjective Patient seen this morning, in bed. Patient more awake this morning, although she does state she is a little drowsy. Discussion regarding continued use of Remeron and subsiding of that side effect was had, with agreement of patient to continue current dose for now. Patient states appetite minimally improved. She states she is frustrated by being "cooped up" in her room and being in bed. States she is more comfortable up in the chair, similar to last evening. Plan for discharge to inpatient facility when bed available. Review of Systems Review of Systems: All systems reviewed & are unremarkable except as noted in HPI & below Constitutional: no fever and no chills Eyes: no diplopia and no spots in vision Ear, Nose, Mouth, Throat: no sore throat and no dysphagia Respiratory: no cough and no dyspnea Cardiovascular: no chest pain, no palpitations and no edema Gastrointestinal: no abdominal pain, no nausea and no vomiting Genitourinary: no dysuria and no difficulty urinating Musculoskeletal: + stiffness Integumentary: no rash and no lesions Neurologic: no numbness and no paresthesia Physical Exam Constitutional: + thin and cooperative; no acute distress Eyes: + anicteric sclerae and PERRL Neck: trachea midline, no thyromegaly Respiratory: normal respiratory effort; no respiratory distress and no labored breathing Auscultation: + diminished lung sounds Cardiovascular: Rate/Rhythm: regular rate and regular rhythm Heart Sounds: normal S1 and normal S2 Vessels: no JVD Extremities: no edema Gastrointestinal (Abdomen): normal bowel sounds, soft, nontender, no hepatosplenomegaly Musculoskeletal: no cyanosis or clubbing, extremities motor strength 5/5 Skin: small hematoma/ecchymosis left forehead, improved Neurologic: PERRL, EOMI, accommodation nl, no face palsy, no dysarthria Psychiatric: Orientation: alert and oriented x 3 Lymphatic: no cervical or axillary lymphadenopathy Results & Data Vital Signs (Past 12 Hours) Vital Signs Temp Pulse Resp BP Pulse Ox 11/08/19 09:35 83 105/64 11/08/19 07:30 36.4 C L 16 144/71 H 93 Laboratory Results 11/08/19 11/08/19 Range/Units 06:26 06:23 WBC 80.32 H* (4.8-10.8) K/uL RBC 3.14 L (4.2-5.4) M/uL Hgb 8.8 L (12.0-16.0) g/dL Hct 27.6 L (37-47) % MCV 87.9 (80-100) fL MCH 28.0 (25-34) pg MCHC 31.9 L (32-36) g/dL RDW Std Deviation 54.5 H (36.4-46.3) fL RDW Coeff of Figueroa 17.4 H (11.5-14.5) % Plt Count 456 H (130-400) K/uL MPV 8.6 (7.4-10.4) fL Neutrophils % (Manual) 12.1 % Lymphocytes % (Manual) 86.3 % Monocytes % (Manual) 0.8 % Basophils % (Manual) 0.8 % Neutrophils # (Manual) 9.72 H (1.4-6.5) K/uL Total Absolute Neuts 9.72 H (1.4-6.5) K/uL Lymphocytes # (Manual) 69.32 H (1.2-3.4) K/uL Total Abs Lymphocytes 69.32 H (1.2-3.4) K/uL Monocytes # (Manual) 0.64 H (0.11-0.59) K/uL Basophils # (Manual) 0.64 H (0-0.2) K/uL Smudge Cells Present Creatinine 0.79 (0.6-1.2) mg/dl Est Cr Clr Drug Dosing 42.2 ml/min Est GFR ( Amer) 83.1 Est GFR (Non-Af Amer) 71.7 PG Care Time/CCT Total # of Minutes Spent Total Time Spent with Patient: Total time spent is greater than 50% in coordination of care (as documented) at patient's floor/unit and/or counseling patient: (1) DVT (deep venous thrombosis) Chronicity: unspecified DVT location: non-extremity vein Qualified Code(s): I82.90 - Acute embolism and thrombosis of unspecified vein (2) Hypertension Hypertension type: essential hypertension Qualified Code(s): I10 - Essential (primary) hypertension
[2019-11-08] MEDS: ACETAMINOPHEN 500 MG TAB PO PRN ×2 (16:57→21:15)
[2019-11-08] MEDS: MIRTAZAPINE TAB 15 MG TAB PO SCH (21:10)
[2019-11-09 07:04] VITALS: TEMP 97.9
--- NOTE | 2019-11-09 08:44 | Surgery Progress Note ---
Date of Service November 09, 2019 Assessment & Plan (1) Primary adenocarcinoma of upper lobe of right lung: -pt. is s/p RVATS with wedge resection -margins noted to be (-) -CT removed on 11/06/19 and no pneumothorax noted on post-pull CXR -continue pain control measures -activity as tolerated -pt. taking xarelto so no additional DVT measures needed -discussed with case mgt.--awaiting placement Subjective Pt. resting in bed and voices no complaints. Discussed with RN--no issues noted. Pt. is non-ambulatory. Physical Exam Constitutional: + thin; no acute distress Neck: trachea midline Respiratory: normal respiratory effort; no respiratory distress and no labored breathing BS noted to be decreased slightly at bases Cardiovascular: Rate/Rhythm: regular rate and regular rhythm Results & Data Vital Signs (Past 12 Hours) Vital Signs Temp Pulse Pulse Resp BP Pulse Ox 11/09/19 07:04 36.6 C 77 16 118/63 98 11/09/19 00:14 36.5 C 78 16 121/66 97 PG Care Time/CCT Total # of Minutes Spent Total Time Spent with Patient: Total time spent is greater than 50% in coordination of care (as documented) at patient's floor/unit and/or counseling patient:
[2019-11-09] MEDS: RIVAROXABAN 20 MG TAB PO SCH (09:26)
[2019-11-09] MEDS: lisinopriL 20 MG TAB PO SCH (09:26)
[2019-11-09] MEDS: MULTIVITAMIN TAB PO SCH (09:27)
[2019-11-09] MEDS: ATENOLOL 50 MG TABLET PO SCH (09:27)
[2019-11-09] MEDS: DOCUSATE SODIUM 100 MG CAP PO SCH (09:27)
--- NOTE | 2019-11-09 11:45 | Hospitalist Progress Note ---
Date of Service November 09, 2019 Assessment & Plan (1) Primary adenocarcinoma of upper lobe of right lung: * Patient with h/o Breast Ca 2004 (s/p lumpectomy, chemo with Herceptin and radiation x39 treatments), CLL * POD #6 S/P R VATS with RUL Wedge Resection & Bx on 11/[address] Sanchez - likely primary adenocarcinoma, nonsmall cell in nature, although pathology not back yet * Right-sided chest tube removed last evening --> repeat CXR without pneumothorax, post surgical changes * Surgical management per primary (2) CLL (chronic lymphocytic leukemia): * Follows with Dr. Woodall - History of chemotherapy (2014); baseline WBC 50-60k * WBC continued to be elevated at 85.5k on 11/06, but trended down to 72k yesterday -- currently WBC 80.3k, although given lack of s/sx of infection, afebrile do not think this is significant * Most recent PET scan 05/17/19 with enlarged external iliac chain lymph nodes unchanged from previous imaging but remain pathologically indeterminant. Also, found 1.4cm nodule in Left lobe of thyroid gland -- rec nonemergent thyroid US, however patient did not have done. * Chest CT on 08/28 with multiple hepatic hypodensities, likely representing cysts, as well partially visualized 2cm upper pole left renal hypodensity. * Head CT 10/24 with ventriculomegaly of lateral and third ventricles, likely representing Chiari malformation * Heme/Onc consultation-- patient seen by Dr. Grayson, appreciate input -- per note, patient with likely non small cell lung CA, although pathology still pending -- consolidative chemo could be warranted, but would rule out metastatic disease prior to formal treatment decision --> will defer to Dr. Woodall (3) Hypertension: * Stable. 117/63 this morning * Continue atenolol 100 mg daily and lisinopril 20 mg daily (4) DVT (deep venous thrombosis): * History of DVT and per notes IVC filter placed in February 2018 -appears this was likely removed as not able to be visualized on imaging * Given limited mobility and malignancy she is at increased risk for coagulopathies -- Xarelto initially on hold for procedure but resumed on 11/05 (5) Anemia: * Baseline appears around 11. Pre-op h/h 11.6/35.5 with drop to 8.5/8.6 post-operatively. EBL per op report with minimal blood loss, 5cc * Stable -- h/h 8.8/27.6 (6) Spina bifida: * STABLE; primarily wheelchair bound * Lives in a assisted apartment alone; has a friend who helps with transfers/transport recently, Rocael, who lives in [place] (7) Pseudomonas urinary tract infection: * Culture from 10/30 revealed pansensitive Pseudomonas-- treated with Cipro 500mg BID, completed on 11/04 * No urinary symptoms currently (8) Depression: * Recent depression regarding diagnosis. * Initiated mirtazapine 7.5mg HS on 11/06 * Continue at current dose (9) Thyroid nodule: * As above, 1.4 cm nodule-needs outpatient follow-up * TSH normal at 1.98 (10) DVT prophylaxis: * Per primary -- Xarelto resumed 11/05 Disposition: Patient to be discharged to [facility] this afternoon per primary Supervising Physician Co-Signing Physician Notes SHANNON Supervision Note: I did not personally see or examine the patient today, but I verified all montes points of SHANNON Romero's assessment and plan with the following exceptions/additions: None Subjective Patient evaluated this morning. When initially asked how she doing, she states "they're kicking me out". Patient became extremely tearful when talking about [facility], as it brought back difficult memories regarding her and his end of life/previous experience there. She states that ideally she would like to go to [facility], but after discussion with case management regarding [facility] vs [facility], patient agreeable to go to [facility]. Much less tearful with reassurance. No other concerns at this time. Denies chest pain, shortness of breath, abdominal pain, n/v/d/c, fever, chills, dysuria, lightheadedness. Review of Systems Constitutional: no fever and no chills Eyes: no diplopia and no spots in vision Respiratory: no cough and no dyspnea Cardiovascular: no chest pain and no palpitations Gastrointestinal: no abdominal pain, no nausea, no vomiting, no constipation and no diarrhea/loose stools Genitourinary: no dysuria and no hematuria Integumentary: no rash and no lesions Psychiatric: + depression; no anxiety Physical Exam Physical Exam: Constitutional + thin and cooperative; no acute distress Eyes + anicteric sclerae and PERRL Neck trachea midline, no thyromegaly Respiratory normal respiratory effort; no respiratory distress and no labored breathing Auscultation: + diminished lung sounds, r base Cardiovascular Rate/Rhythm: regular rate and regular rhythm Heart Sounds: normal S1 and normal S2 Vessels: no JVD Extremities: no edema Gastrointestinal (Abdomen) normal bowel sounds, soft, nontender, no hepatosplenomegaly Musculoskeletal extremities motor strength 5/5 Skin hematoma/ecchymosis left forehead, improved Psychiatric Orientation: alert and oriented x 3 Lymphatic no cervical or axillary lymphadenopathy Results & Data Vital Signs (Past 12 Hours) Vital Signs Temp Pulse Pulse Resp BP Pulse Ox 11/09/19 09:25 83 117/63 11/09/19 07:04 36.6 C 77 16 118/63 98 11/09/19 00:14 36.5 C 78 16 121/66 97 PG Care Time/CCT Total # of Minutes Spent Total Time Spent with Patient: Total time spent is greater than 50% in coordination of care (as documented) at patient's floor/unit and/or counseling patient: (1) DVT (deep venous thrombosis) Chronicity: unspecified DVT location: non-extremity vein Qualified Code(s): I82.90 - Acute embolism and thrombosis of unspecified vein (2) Hypertension Hypertension type: essential hypertension Qualified Code(s): I10 - Essential (primary) hypertension
[2019-11-09] MEDS ORDERED: bisacodyL 5 MG TABEC PO ONE (14:00)
[2019-11-09] MEDS ORDERED: POLYETHYLENE (MIRALAX) 17 GM PACK PO SCH (14:00)
--- NOTE | 2019-11-09 14:01 | Discharge Summary ---
ADMISSION DIAGNOSIS: Right lung nodule. DISCHARGE DIAGNOSES: Include the followin. Adenocarcinoma of right lung. 2. Stage II sacral decubitus ulcer, which was a preexisting condition at the time of admission. 3. History of CLL. 4. History of hypertension. 5. Depression. HOSPITAL COURSE: This is a patient who is 79 years old who was seen and evaluated by Dr. Sanchez as an outpatient. She was evaluated for a right lung nodule and due to the appearance radiographically, Dr. Sanchez was concerned about underlying malignancy. He therefore brought the patient into the hospital on 11/03/2019 and performed a right video-assisted thoracoscopy with a wedge resection of the right upper lobe. Pathology did reveal that patient had an adenocarcinoma. It should be noted that he did perform a wedge resection and all margins were uninvolved by tumor. He examined 3 lymph nodes, which were also negative for underlying malignancy. The patient's chest tube was managed in the appropriate fashion and removed on 11/06/2019 and a post-pull chest x-ray did not reveal any evidence of pneumothorax. Additional things to note during her hospitalization is preoperatively, the patient is noted to have a history of CLL with baseline white blood cell count anywhere to 40,000-60,000. On her preoperative labs, this had increased to 100,000 and this was discussed prior to surgery with her lip and gate builder/oncologist. He did not feel that this was a contraindication to surgery; however, underlying infectious etiology should be ruled out. It should be noted that the patient did have a chest x-ray performed on 10/30/2019 that showed no evidence of infiltrates. Blood cultures were drawn the same day that did not reveal any growth; however, she did have a urine culture on this date, which showed a pseudomonas urinary tract infection. This was noted to be sensitive to Cipro and after discussion with her urology team, it was felt to treat her with Cipro, which she was treated for several days prior to surgery and continued in the postoperative period. This did not appear to be of any consequence. It is also noteworthy to mention that in the holding area when Dr. Sanchez identified the patient, she was noted to have a stage II sacral decubitus ulcer. This was treated appropriately while in the hospital with frequent repositioning. Again, this was a preexisting condition. The patient has an underlying history of spina bifida and history of falls and she is largely wheelchair bound; therefore, did not ambulate much during her hospital course. During her postoperative course, PT and OT evaluations were undertaken and it was felt the patient would benefit from placement in acute rehab/intermediate facility and case management helped to secure a bed at [facility] and she was accepted there on 11/09/2019. Most recent labs prior to discharge included a CBC on 11/08 where white blood cell count was 80,000, hemoglobin and hematocrit were 8.8 and 27.6 and her platelet count was 456,000. Most recent chemistry profile was on 11/07/2019 that showed sodium, potassium and creatinine were all normal. Her BUN had a slight elevation of 22. The patient was deemed stable for discharge on 11/09/2019 to [facility]. DISCHARGE MEDICATIONS: Include the followin. Tylenol 325 mg every 6 hours. 2. Remeron 7.5 mg daily at bedtime and this was a new medication initiated by the hospitalist service during her hospitalization due to depression. 3. Atenolol 100 mg daily. 4. Lisinopril 20 mg daily. 5. Multivitamin tablet daily. 6. Xarelto 20 mg daily. As the patient's chest tube was removed 3 days ago, her incisions were felt to no longer require any dressings. They could be left open to air and the patient could shower with soap and water; however, not to take any tub baths. She should maintain physical and occupational therapy while at [facility]. Concerning followup, Dr. Sanchez will see her in approximately 3 weeks with a repeat chest x-ray. She will continue to follow with her oncologist, Dr. Bhanu Woodall, regarding treatment of her CLL as well as her underlying lung cancer if felt to be necessary.
[2019-11-09 15:24] VITALS: BP 123/68; PULSE 84; O2SAT 99
== END 2019-11-09 16:15 | DRG 167 ==
LOC: ASU 06:41 → 3N 12:00

== ENCOUNTER 2020-01-03 10:53 | Inpatient (IN) ==
[2020-01-03] MEDS ORDERED: CEFEPIME 2,000 MG/20 ML VIAL IV STA (12:29)
[2020-01-03] MEDS ORDERED: VANCOMYCIN HCL 1,000 MG in SODIUM CHLORIDE 0.9% 500 ML IV STA (12:29)
[2020-01-03] MEDS ORDERED: VANCOMYCIN CONSULT ACTIVE PRN (12:29)
[2020-01-03] MEDS ORDERED: SODIUM CHLORIDE 0.9% 1000ML 1,000 ML IV ONE (12:29)
--- NOTE | 2020-01-03 12:49 | XRay Report ---
SINGLE VIEW CHEST CLINICAL HISTORY: Sepsis. FINDINGS: An AP, portable, upright chest radiograph is compared to study dated 11/17/2019 and correla micki with chest CT dated 08/28/2019. The examination is degraded by portable technique and patient rota tion. The cardiomediastinal silhouette is unremarkable. There is elevation right hemidiaphragm. Bibas ilar scarring/atelectasis is similar to previous. Postoperative change is noted at the right apex. No airspace consolidation or large pleural effusion is identified. A calcified granuloma is seen at the left apex. No pneumothorax is seen. The skeletal structures are osteopenic. The bony thorax is gross ly intact. Advanced degenerative change is noted in the shoulders and thoracic spine. Cholecystectomy clips are seen in the right upper quadrant. IMPRESSION: No acute cardiopulmonary abnormality. ACT 112: Negative or not required by law. Electronically signed by: Brock Arambula M.D. 01/03/2020 12:48 PM
[2020-01-03 13:11] LABS: Appearance Urine Turbid (Clear); Bacteria Urine Automated 1+ (Negative); Bilirubin Urine Negative (Negative); Blood Urine 3+ (Negative); Color Urine Yellow; Glucose Urine UA Negative (Negative); Ketones Urine Negative (Negative); Leukocyte Esterase Urine 3+ (Negative); Nitrite Urine Negative (Negative); Protein Urine 1+ (Negative); Specific Gravity Urine 1.014 (1.000-1.030); Urobilinogen Urine Negative (Negative); WBC Urine Automated >30 /hpf (0-5)
[2020-01-03 13:42] LABS: INR 1.9 (0.9-1.1); Partial Thromboplastin Ratio 1.6; Partial Thromboplastin Time 44.6 Seconds (21.0-31.0); Prothrombin Time 18.2 Seconds (9.0-12.0)
[2020-01-03 13:46] LABS: Alanine Aminotransferase 12 U/L (12-78); Albumin Level 2.3 gm/dl (3.4-5.0); Aspartate Aminotransferase 20 U/L (15-37); BUN Creatinine Ratio 43.9 (10-20); Blood Urea Nitrogen 33 mg/dl (7-18); Calcium 9.1 mg/dl (8.5-10.1); Carbon Dioxide 23 mmol/L (21-32); Chloride 102 mmol/L (98-107); Creatinine Clr Calc Pharmacy 48.4 ml/min; Est GFR (African American) 88.5; Est GFR (Non-African American) 76.3; Glucose 84 mg/dl (70-99); Magnesium 1.7 mg/dl (1.8-2.4); Potassium 3.5 mmol/L (3.5-5.1); Sodium 133 mmol/L (136-145)
[2020-01-03 13:47] LABS: Albumin Globulin Ratio 0.5 (0.9-2); Alkaline Phosphatase 88 U/L (45-117); Bilirubin,Total 0.4 mg/dl (0.2-1); Globulin 4.8 gm/dl (2.5-4.0); Total Protein 7.1 gm/dl (6.4-8.2); Troponin I < 0.015 ng/ml (0-0.045)
[2020-01-03 13:54] LABS: Hematocrit (blood only) 31.9 % (37-47); Hemoglobin 10.3 g/dL (12.0-16.0); Mean Corpuscular Hemoglobin 27.3 pg (25-34); Mean Corpuscular Hgb Conc 32.3 g/dL (32-36); Mean Corpuscular Volume 84.6 fL (80-100); Mean Platelet Volume 9.7 fL (7.4-10.4); Platelet Count 237 K/uL (130-400); RDW Coefficient of Variation 17.6 % (11.5-14.5); RDW Standard Deviation 54.4 fL (36.4-46.3); Red Blood Count 3.77 M/uL (4.2-5.4); White Blood Count 46.98 K/uL (4.8-10.8)
[2020-01-03 14:38] LABS: Echinocytes 1+; Lymphocytes # (manual) 31.85 K/uL (1.2-3.4); Lymphocytes % (manual) 67.8 %; Monocytes # (manual) 0.42 K/uL (0.11-0.59); Monocytes % (manual) 0.9 %; Neutrophils % (manual) 31.3 %; Smudge Cells Present; Toxic Vacuolation 1+
--- NOTE | 2020-01-03 15:31 | History & Physical Report ---
Date of Service January 03, 2020 Assessment & Plan (1) Sepsis: -Admit to PCU -BCx x1+ growing gram-negative rods per [facility] resulted on 01/02/20, repeat BCx obtained x2, follow UCx for sensitivities -Patient received 1 L NSS in the ER, started on empiric antibiotics with vancomycin and cefepime, will add on IV Zosyn with concern for Pseudomonas since she had UTI in October 2019. -BP equal 137/82, HR = 90, temp =36.8, Tmax as outpt was 103 -Give additional bolus of LR 1 L, then continue LR at 150 mL/h x 10h -Hold all antihypertensives including lisinopril and atenolol in the setting of sepsis -Lactic acid 1.4 on admission (2) Bacteremia: - Gram negative rods on anaerobic BCx, follow for sensitivities - As above (3) Adenocarcinoma of lung: -Recent diagnosis in October 2019 -S/p right lobe wedge resection with Dr. Benson, follows with him as an outpatient note, with his upcoming departure, the patient will require new thoracic surgeon for continued follow-up -Follow with Dr. Woodall as outpatient (4) CLL (chronic lymphocytic leukemia): -WBC count significantly elevated secondary to CLL, WBC = 46.98 -Follows with Dr. Woodall as an outpatient, currently not on any treatment (5) UTI (urinary tract infection): -History of growing E. coli and Pseudomonas UTI from October 2019 -Monitor a.m. PRP to monitor kidney function with history of acute pyelonephritis -Continue on Vanco, cefepime, vancomycin -Lopez catheter in place with turbid urine, reports does not have indwelling Lopez catheter (6) Thyroid nodule: - follow up as outpatient (7) Spina bifida: -Noted, has been doing exercises to work on standing at [facility] more recently in the past 3 days, otherwise uses wheelchair, prior to this most recent [facility] stay she did use walker for ambulation -PT/OT consults (8) Depression: - stable (9) Anemia: -Hemoglobin of 10.3, HCT = 31.9, appears to be about her baseline, -Continue Xarelto with history of DVT -Follow a.m. CBC (10) Hypertension: -Currently holding antihypertensives in the setting of sepsis and hypotensive this morning- monitor for rebound tachycardia as this happened during last admission, consider half dose of atenolol with am if BP remains stable. (11) DVT (deep venous thrombosis): -Continue Xarelto (12) Sacral decubitus ulcer, stage II: - Stage II - Wound consulted - Frequent turn and repo Q2H (13) DVT prophylaxis: - Keisha velez CODE STATUS: Full code Disposition: Patient from [facility], PT/OT consults, CM to assist with discharge planning, likely to remain in the hospital x2 days Brother from [place] currently up to visit due to patient status History of Present Illness Primary Care Provider: [facility] This is a 79 yo F with PMHx of CLL, primary adenocarcinoma of the lung, multiple pulmonary nodules involving the left and right lobes, s/p right upper lobe wedge resection on 11/03/2019, breast cancer s/p left breast lumpectomy orig dx in 2003, s/p chemo/xrt, remote smoking history of 20 pack years, quit over 30 years ago, anemia, HTN, spina bifida, history of Pseudomonas UTI and pyelonephritis in October 2019, stage II decubitus ulcer, history of DVT, IC VC filter was placed in 2017 but was removed, osteoporosis, osteoarthritis, and peripheral neuropathy who presents from [facility] with +1/1 anaerobic blood culture growing gram-negative bacilli. The patient was noted to be lethargic, weak, had decreased appetite and not quite herselfyesterday at [facility]. She developed a fever with T-max of 103 yesterday afternoon and was treated with Tylenol. Her temperature spiked throughout the night. Staff there had been monitoring her blood pressure and checked 1 blood culture yesterday at the facility. This morning the patient was found to have a BP of 84/51, all her normally scheduled antihypertensives were held, blood culture results came back positive for gram-negative bacteria. UA appears to be grossly infected here in the ER, Lopez was placed and turbid urine is in the tubing. Patient denies any lightheadedness or dizziness currently. She is able to answer all my questions, and her brother is present at bedside to support the history. She has been administered 1 L NSS, started on Vanco and cefepime in the ER. Allergies Allergy/AdvReac Type Severity Reaction Status Date / Time aspirin AdvReac Intermediate INCREASES Verified 01/03/20 12:27 BLEEDING capsaicin AdvReac Mild INTOLERANCE Verified 01/03/20 12:27 codeine AdvReac Mild INTOLERANCE Verified 01/03/20 12:27 diazepam AdvReac Mild INTOLERANCE Verified 01/03/20 12:27 diclofenac AdvReac Mild INTOLERANCE Verified 01/03/20 12:27 Diclopak AdvReac Mild INTOLERANCE Verified 03/21/18 14:33 erythromycin base AdvReac Mild INTOLERANCE Verified 01/03/20 12:27 sulindac AdvReac Mild INTOLERANCE Verified 01/03/20 12:27 tramadol AdvReac Mild INTOLERANCE Verified 01/03/20 12:27 Home Medications Home Medications Medication Instructions Recorded Confirmed Type multivitamin 1 tab PO QAM 01/08/19 01/03/20 History Xarelto 20 mg PO DAILY 10/24/19 01/03/20 History lisinopril 20 mg PO DAILY 10/24/19 01/03/20 History acetaminophen 650 mg PO Q6H PRN 11/17/19 01/03/20 History ascorbic acid (vitamin C) 500 mg 500 mg PO DAILY 11/30/19 01/03/20 History tablet atenolol 100 mg tablet 100 mg PO DAILY 11/30/19 01/03/20 History Past Med/Surg History Medical History Breast cancer s/p lumpectomy s/p chemo/XRT CLL (chronic lymphocytic leukemia) h/o chemotherapy (2014); chronic leukocytosis (baseline WBC 50-60 range per chart review) 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 GERD (gastroesophageal reflux disease) occasional Hypertension Lung mass "NON-MALIGNANT" Osteoarthritis Peripheral neuropathy b/l hands r/t chemo Pulmonary nodules Spina bifida able to walk short distances with walker but often uses wheelchair but due to increasing back pain Thyroid nodule UTI (urinary tract infection) Surgical History History of back surgery lumbar History of bilateral tubal ligation History of bronchoscopy Navigational bronchoscopy 07/21/1919 Grade 1 view Yao 2 blade History of cardiac cath 2001= no stents History of chemotherapy Chemotherapeutics History of cholecystectomy History of lumbar puncture as an r/t spina bifida History of surgery repair of the spina bifida (at the base of pt neck) History of tonsillectomy Hx of lumpectomy left Family History Mother Hypertension Social History Preferred Language: Lithuanian Communication Ability: Effective Visual Impairment: No Limitations Quality Control Associate Required: No Beliefs That Will Affect Care: None marital status: / Current Living Situation: [facility] Current Living Situation Comment: [facility] current occupational status: retired Other Information That Helps Us Care for You: No Feels Safe at Home: Yes Smoking Status: Former smoker Tobacco Type: cigarettes ; Second Hand Exposure: No ; Hx Alcohol Use: No Hx Substance Use: No Review of Systems Review of Systems: Constitutional: No fever, sweats, + generalized fatigue, + chills, + decreased appetite Eyes: No diplopia, no worsening or blurred vision ENT: normal hearing, no trouble swallowing Respiratory: No cough, sputum, dyspnea at rest or on exertion Cardiovascular: No chest pain, tightness or palpitations Abdomen: No pain, nausea, vomiting, diarrhea or constipation : Denies urinary frequency, dysuria, hematuria Musculoskeletal: + Low back pain in the past 2 days, no joint pain, calf pain, swelling Neurologic: + Generalized weakness, + generalized numbness/tingling in BLE, uses a walker for ambulation, has been doing PT/OT at [facility] with exercises regarding holding onto a bar and standing up more in past 3 days Psychiatric: no anxiety or depression currently Skin: No rash or itch, + small abrasions over the left matias secondary to bumping into something Physical Exam Physical Exam: General: awake, alert, no apparent distress, + thin, + generalized muscular atrophy, + BMI 17 Head: Normocephalic, atraumatic ENT: PERRL, EOMI, no pharyngeal exudate, mucous membranes slightly dry Chest: Clear to auscultation, on room air, no adventitious breath sounds Cardiac: Sinus tachycardia with few PVCs, no murmur, no JVD, normal peripheral pulses, good capillary refill Abdominal: NABS x 4 quadrants, soft, nondistended, nontender to palpation, no rebound, guarding or tenderness Extremities: + BLE muscular atrophy, + left ankle hyperflexed at baseline, otherwise normal inspection, no peripheral edema or erythema, calfs nontender to palpation Psych: Normal mood and affect Neuro: AAO x 3, no gross motor deficits, speech is clear, no peripheral sensory deficits Skin: + Small abrasion over the left matias, healing well, no surrounding erythema otherwise no rash or erythema. + Grade 2 sacral decubitus ulceration. Constitutional: WD/WN, vitals as above Eyes: normal visual aguirre by confrontation and + anicteric sclerae Neck: normal visual inspection and trachea midline Respiratory: normal respiratory effort, lungs clear to auscultation Cardiovascular: Rate/Rhythm: regular rate and regular rhythm Gastrointestinal (Abdomen): Inspection/Auscultation: abdomen not distended Percussion/Palpation: abdomen soft; abdomen nontender Musculoskeletal: Head/Neck/Chest: normocephalic and head atraumatic Neg for peripheral LE edema, + pedal pulses Skin: no rashes, warm and dry Neurologic: awake; not confused Speech / Cognition: normal speech Psychiatric: A+Ox3, euthymic affect Lymphatic: Exam as done by Danelle Lu DO Results & Data Vital Signs (Past 12 Hours) Vital Signs Temp Pulse Pulse Resp BP BP Pulse Ox 01/03/20 15:00 90 18 137/82 99 01/03/20 13:52 86 18 111/51 L 98 01/03/20 12:36 78 18 117/55 L 97 01/03/20 12:29 100 01/03/20 10:36 36.8 C 85 18 98/58 L 98 Diagnostic Findings SINGLE VIEW CHEST CLINICAL HISTORY: Sepsis. FINDINGS: An AP, portable, upright chest radiograph is compared to study dated 11/17/2019 and correlated with chest CT dated 08/28/2019. The examination is degraded by portable technique and patient rotation. The cardiomediastinal silhouette is unremarkable. There is elevation right hemidiaphragm. Bibasilar scarring/atelectasis is similar to previous. Postoperative change is noted at the right apex. No airspace consolidation or large pleural effusion is identified. A calcified granuloma is seen at the left apex. No pneumothorax is seen. The skeletal structures are osteopenic. The bony thorax is grossly intact. Advanced degenerative change is noted in the shoulders and thoracic spine. Cholecystectomy clips are seen in the right upper quadrant. IMPRESSION: No acute cardiopulmonary abnormality. ACT 112: Negative or not required by law. Electronically signed by: Brock Arambula M.D. 01/03/2020 12:48 PM ECG Additional Comments: Normal sinus rhythm Possible left atrial enlargement LVH Ventricular rate =81 bpm NC interval 144 MS QRS duration = 78 MS QT/QTc = 396/460 MS PRRT axis 33 -27 17 Code Status & VTE Plan Code Status Full code-discussed with the patient at bedside, she would not want to be maintained on a ventilator or other artificial means. - Her brother is the person who would make decisions in the event that she would be unable to. Does not have a formal medical POA, spouse , no children. Supervising Physician Co-Signing Physician Notes Pt seen and examined by me. States she feels overall improved since starting tx in the ED. Was hungry and asked for cereal. States she felt a fever this AM but not now. States she was sent here due to drop in BP at [facility]. Denies chest pain or SOB. Tolerating PO without issue. Agree with HPI/ROS as noted by PA See above for my exam in PE section Agree with plan as outlined above UTI, tx with ceftriaxone x1 at [facility] on 01/02, blood cx returned + for gram neg bacteremia and sent to ED for hypoTN in this setting Started on vanc/cefepime in ED, zosyn added for hx of pseudomonas UA + for leuk est, neg nitrites today with repeat urine and blood cx pending Obtain urine cx, blood cx from [facility] Elevated lactic acid Markedly elevated WBC in the setting of CLL, monitor Pt states that urology recommended she might need a permanent catheter placed due to UTIs. Pt currently uses pads with Depends over her regular underwear. It does sound as if she is not changing her pads very often because she has the "fall back" of the Depends. "Sometimes they feel like they (the pads) weight 10 lbs when I change them." Advised that she should change the pads at a regular interval while awake and this would likely decrease her UTI recurrence and prevent need for catheter. PG Care Time/CCT Total # of Minutes Spent Total Time Spent with Patient: Total time spent is greater than 50% in coordination of care (as documented) at patient's floor/unit and/or counseling patient: Coding Level of Care Code 74572 Initial Inpt Care Lvl 3 Diagnoses Sepsis A41.9; R65.21 Sepsis acute organ dysfunction status: with acute organ dysfunction Sepsis type: sepsis due to unspecified organism Severe sepsis acute organ dysfunction type: unspecified Severe sepsis shock status: with septic shock Bacteremia R78.81 Adenocarcinoma of lung C34.90 CLL (chronic lymphocytic leukemia) C91.90 UTI (urinary tract infection) N39.0 Thyroid nodule E04.1 Spina bifida Q05.9 Depression F32.9 Anemia D64.9 Anemia type: unspecified type Hypertension I10 Hypertension type: essential hypertension DVT (deep venous thrombosis) I82.90 Chronicity: unspecified DVT location: non-extremity vein Sacral decubitus ulcer, stage II L89.152 DVT prophylaxis Z29.9 (1) DVT (deep venous thrombosis) Chronicity: unspecified DVT location: non-extremity vein Qualified Code(s): I82.90 - Acute embolism and thrombosis of unspecified vein (2) Anemia Anemia type: unspecified type Qualified Code(s): D64.9 - Anemia, unspecified (3) Sepsis Sepsis acute organ dysfunction status: with acute organ dysfunction Sepsis type: sepsis due to unspecified organism Severe sepsis acute organ dysfunction type: unspecified Severe sepsis shock status: with septic shock Qualified Code(s): A41.9 - Sepsis, unspecified organism; R65.21 - Severe sepsis with septic shock (4) Hypertension Hypertension type: essential hypertension Qualified Code(s): I10 - Essential (primary) hypertension
[2020-01-03] MEDS ORDERED: LACTATED RINGER'S 1,000 ML IV ONE (16:36)
[2020-01-03] MEDS ORDERED: PIPERACILLIN/TAZOBACTAM 3.375 GM in DEXTROSE 5% 100 ML IV SCH (16:36)
--- NOTE | 2020-01-03 17:11 | Emergency Department Note ---
Entered by Talisha Mcgowan acting as a scribe for Feng Suazo MD ED Provider Note CHIEF COMPLAINT: Hypotension HISTORY OF PRESENT ILLNESS: The patient is a 74 year old female who presents to the Emergency Room with complaints of persistent hypotension starting 1 day ago. The patient resides at [facility]. [facility] staff called and reported that the patient's blood presure has been low for the past day. They state that the patient has been weak and lethargic appearing. They explain that the patient had a Chest X-Ray and influenza testing which were both negative. They note that the patient did have her blood cultured today which returned positive for gram negative bacteria. They add that the patient received no medications for her symptoms [employer]PER[employer]. [facility] staff reported that they did not give the patient her blood pressure medication yesterday. They state that the patient received a shot of Rocephin yesterday that didn't improve her symptoms. Pt denies LOC, headache, fevers, chills, diaphoresis, visual changes, neck pain, chest pain, breathing difficulties, nausea, vomiting, abdominal pain, melena, he matochezia, urinary symptoms, numbness, weakness, lymphadenopathy, rash, or other complaints. REVIEW OF SYSTEMS: See HPI for pertinent positives and negatives. A total of ten systems were reviewed and were otherwise negative. PMHx/PSHx: See past medical and surgical history lists. SOCIAL HISTORY: Patient lives in [facility]. . PHYSICAL EXAM: GENERAL: Patient is tired appearing. Awake, alert, in no distress HENT: Normocephalic, atraumatic. Oropharynx unremarkable. EYES: PERRL. Normal conjunctiva. Sclera non-icteric. NECK: Inspection normal. Non-tender. Supple. No nuchal rigidity. FROM. No masses. RESPIRATORY: Clear to auscultation. No wheezes. No rales. Normal respiratory effort. CARDIAC: Normal rate. Normal rhythm. No murmurs. No rubs. Extremities warm and well perfused. Pulses equal. No JVD. GI: Soft, non-distended. No tenderness to palpation. No rebound or guarding. No masses. RECTAL: Deferred. MUSCULOSKELETAL: Atraumatic. Chest examination reveals no tenderness. The back is symmetrical on inspection without obvious abnormality. There is no CVA tenderness to palpation. No joint edema. LOWER EXTREMITIES: Trace lower extremity edema. Calves are equal size bilaterally and non-tender. No discoloration. NEURO: Normal sensorium. No sensory or motor deficits noted. SKIN: No rash or jaundice noted. EMERGENCY DEPARTMENT COURSE: 1232: Past medical records reviewed. The patient was evaluated in room A3, and a complete history and physical examination were performed. 1446: I updated the patient at this time. 1454: I discussed the patients case with Dr. Aly ROBERTS hospitalist. She will evaluate the patient for further management. MEDICAL DECISION MAKING: Prior records/ancillary studies reviewed. Gram-negative bacilli growing in cultures. Triage Nursing notes reviewed and agree them. Additional history obtained from the family. The patient's history was concerning for possible infection. Differential diagnosis: Etiologies such as sepsis, UTI, pneumonia, electrolyte abnormalities, cardiac sources, intracerebral event, toxicologic, neurologic, as well as others were entertained. Physical examination: As above. The patient had some mild hypotension. ER treatment provided: IV fluid resuscitation normal saline Blood and urine cultures Antibiotics: Cefepime and vancomycin Pressors: None Procedures: None On reassessment the patient vital signs improved. Diagnostics interpretation by me: ECG: No acute process The labs revealed a market leukocytosis consistent with the patient's CLL. Chemistry panel was unremarkable. New blood and urine cultures pending. Urinalysis concerning for infection. I suspect this is the source. Imaging studies: Chest x-ray negative for acute process Consultation: A consultation was placed with the hospitalist. The case was discussed and diagnostics were reviewed. The patient was evaluated in the ER for further treatment. The patient has bacteremia. She does not have a lactic acidosis. She did have low blood pressure. She has a leukocytosis although this is skewed because of her CLL. There is findings that are concerning for sepsis. I suspect a urinary source. To be admitted. IMPRESSION: Bacteremia, Acute UTI, Hypotension, sepsis PLAN: Being Evaluated by Hospitalist The scribe's documentation has been prepared under my direction and personally reviewed by me in its entirety. I confirm that the note above accurately reflects all work, treatment, procedures, and medical decision making performed by me. 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 GERD (gastroesophageal reflux disease) occasional Hypertension Lung mass "NON-MALIGNANT" Osteoarthritis Peripheral neuropathy b/l hands r/t chemo Pulmonary nodules Spina bifida able to walk short distances with walker but often uses wheelchair but due to increasing back pain Thyroid nodule UTI (urinary tract infection) Surgical History History of back surgery lumbar History of bilateral tubal ligation History of bronchoscopy Navigational bronchoscopy 07/21/1919 Grade 1 view Yao 2 blade History of cardiac cath 2001= no stents History of chemotherapy Chemotherapeutics History of cholecystectomy History of lumbar puncture as an r/t spina bifida History of surgery repair of the spina bifida (at the base of pt neck) History of tonsillectomy Hx of lumpectomy left Family History Mother Hypertension Social History Preferred Language: Surinamese Communication Ability: Effective Visual Impairment: No Limitations 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 Cook Room Required: No Beliefs That Will Affect Care: None marital status: / Current Living Situation: [facility] Current Living Situation Comment: [facility] current occupational status: retired Other Information That Helps Us Care for You: No Feels Safe at Home: Yes Smoking Status: Former smoker Tobacco Type: cigarettes ; Second Hand Exposure: No ; Hx Alcohol Use: No Hx Substance Use: No Results & Data Vital Signs Vital Signs - 24 hr 01/03/20 10:36 01/03/20 12:29 01/03/20 12:36 Temperature 36.8 C Temperature Source Oral Pulse Rate 85 Pulse Rate [Apical] 78 Respiratory Rate 18 18 Respiratory Effort / Characteristics Non-Labored Non-Labored Respiratory Depth Normal Normal Blood Pressure 98/58 L Blood Pressure [Right Arm] 117/55 L Blood Pressure Mean 71 Blood Pressure Mean [Right Arm] 75 Blood Pressure Position Lying Pulse Oximetry 98 100 97 Oxygen Delivery Method Room Air Room Air Room Air Sepsis Recent Fever Within 48 Hours Yes Sepsis New/Unexplained Change in Mental Status No Sepsis Action Taken by Nursing No Action Required 01/03/20 13:52 01/03/20 15:00 01/03/20 17:00 Temperature Temperature Source Pulse Rate Pulse Rate [Apical] 86 90 106 H Respiratory Rate 18 18 16 Respiratory Effort / Characteristics Respiratory Depth Blood Pressure Blood Pressure [Right Arm] 111/51 L 137/82 111/90 Blood Pressure Mean Blood Pressure Mean [Right Arm] 71 100 97 Blood Pressure Position Pulse Oximetry 98 99 97 Oxygen Delivery Method Room Air Room Air Sepsis Recent Fever Within 48 Hours Sepsis New/Unexplained Change in Mental Status Sepsis Action Taken by [facility] Medications Current Medication List: was personally reviewed by me Laboratory Data Attestation: I reviewed the patient's lab results. Result diagrams: 01/03/20 13:14 01/03/20 13:14 Lab Results 01/03/20 01/03/20 01/03/20 Range/Units 11:10 13:14 13:14 WBC 46.98 H* (4.8-10.8) K/uL RBC 3.77 L (4.2-5.4) M/uL Hgb 10.3 L (12.0-16.0) g/dL Hct 31.9 L (37-47) % MCV 84.6 (80-100) fL MCH 27.3 (25-34) pg MCHC 32.3 (32-36) g/dL RDW Std Deviation 54.4 H (36.4-46.3) fL RDW Coeff of Figueroa 17.6 H (11.5-14.5) % Plt Count 237 (130-400) K/uL MPV 9.7 (7.4-10.4) fL Neutrophils % (Manual) 31.3 % Lymphocytes % (Manual) 67.8 % Monocytes % (Manual) 0.9 % Neutrophils # (Manual) 14.70 H (1.4-6.5) K/uL Total Absolute Neuts 14.70 H (1.4-6.5) K/uL Lymphocytes # (Manual) 31.85 H (1.2-3.4) K/uL Monocytes # (Manual) 0.42 (0.11-0.59) K/uL Smudge Cells Present Toxic Vacuolation 1+ Echinocytes 1+ PT 18.2 H (9.0-12.0) Seconds INR 1.9 H (0.9-1.1) APTT 44.6 H (21.0-31.0) Seconds PTT Ratio 1.6 Sodium (136-145) mmol/L Potassium (3.5-5.1) mmol/L Chloride (98-107) mmol/L Carbon Dioxide (21-32) mmol/L Anion Gap (3-11) BUN (7-18) mg/dl Creatinine (0.6-1.2) mg/dl Est Cr Clr Drug Dosing ml/min Est GFR ( Amer) Est GFR (Non-Af Amer) BUN/Creatinine Ratio (10-20) Glucose (70-99) mg/dl Lactate (0.4-2.0) mmol/L Calcium (8.5-10.1) mg/dl Magnesium (1.8-2.4) mg/dl Total Bilirubin (0.2-1) mg/dl AST (15-37) U/L ALT (12-78) U/L Alkaline Phosphatase (45-117) U/L Troponin I (0-0.045) ng/ml Total Protein (6.4-8.2) gm/dl Albumin (3.4-5.0) gm/dl Globulin (2.5-4.0) gm/dl Albumin/Globulin Ratio (0.9-2) Specimen Hemolysis Urine Color Yellow Urine Appearance Turbid A (Clear) Urine pH 6.0 (4.5-7.5) Ur Specific Sandy 1.014 (1.000-1.030) Urine Protein 1+ H (Negative) Urine Glucose (UA) Negative (Negative) Urine Ketones Negative (Negative) Urine Blood 3+ H (Negative) Urine Nitrite Negative (Negative) Urine Bilirubin Negative (Negative) Urine Urobilinogen Negative (Negative) Ur Leukocyte Esterase 3+ H (Negative) Urine WBC (Auto) >30 H (0-5) /hpf Urine RBC (Auto) 10-30 H (0-4) /hpf U Hyaline Cast (Auto) 1-5 (0-5) /lpf U Epithel Cells (Auto) 10-20 H (0-5) /lpf Urine Bacteria (Auto) 1+ H (Negative) Urine Yeast Not Reportable 01/03/20 01/03/20 Range/Units 13:14 13:14 WBC (4.8-10.8) K/uL RBC (4.2-5.4) M/uL Hgb (12.0-16.0) g/dL Hct (37-47) % MCV (80-100) fL MCH (25-34) pg MCHC (32-36) g/dL RDW Std Deviation (36.4-46.3) fL RDW Coeff of Figueroa (11.5-14.5) % Plt Count (130-400) K/uL MPV (7.4-10.4) fL Neutrophils % (Manual) % Lymphocytes % (Manual) % Monocytes % (Manual) % Neutrophils # (Manual) (1.4-6.5) K/uL Total Absolute Neuts (1.4-6.5) K/uL Lymphocytes # (Manual) (1.2-3.4) K/uL Monocytes # (Manual) (0.11-0.59) K/uL Smudge Cells Toxic Vacuolation Echinocytes PT (9.0-12.0) Seconds INR (0.9-1.1) APTT (21.0-31.0) Seconds PTT Ratio Sodium 133 L (136-145) mmol/L Potassium 3.5 (3.5-5.1) mmol/L Chloride 102 (98-107) mmol/L Carbon Dioxide 23 (21-32) mmol/L Anion Gap 9.0 (3-11) BUN 33 H (7-18) mg/dl Creatinine 0.75 (0.6-1.2) mg/dl Est Cr Clr Drug Dosing 48.4 ml/min Est GFR ( Amer) 88.5 Est GFR (Non-Af Amer) 76.3 BUN/Creatinine Ratio 43.9 H (10-20) Glucose 84 (70-99) mg/dl Lactate 1.4 (0.4-2.0) mmol/L Calcium 9.1 (8.5-10.1) mg/dl Magnesium 1.7 L (1.8-2.4) mg/dl Total Bilirubin 0.4 (0.2-1) mg/dl AST 20 (15-37) U/L ALT 12 (12-78) U/L Alkaline Phosphatase 88 (45-117) U/L Troponin I < 0.015 (0-0.045) ng/ml Total Protein 7.1 (6.4-8.2) gm/dl Albumin 2.3 L (3.4-5.0) gm/dl Globulin 4.8 H (2.5-4.0) gm/dl Albumin/Globulin Ratio 0.5 L (0.9-2) Specimen Hemolysis Urine Color Urine Appearance (Clear) Urine pH (4.5-7.5) Ur Specific Sandy (1.000-1.030) Urine Protein (Negative) Urine Glucose (UA) (Negative) Urine Ketones (Negative) Urine Blood (Negative) Urine Nitrite (Negative) Urine Bilirubin (Negative) Urine Urobilinogen (Negative) Ur Leukocyte Esterase (Negative) Urine WBC (Auto) (0-5) /hpf Urine RBC (Auto) (0-4) /hpf U Hyaline Cast (Auto) (0-5) /lpf U Epithel Cells (Auto) (0-5) /lpf Urine Bacteria (Auto) (Negative) Urine Yeast Administered Medications Lactated Ringer's (Lr) 1,000 mls @ 999 mls/hr IV .Q1H1M ONE Stop: 01/03/20 17:36 Last Admin: 01/03/20 17:06 Dose: 999 mls/hr Documented by: [id number] Discontinued Medications Vancomycin HCl 1,000 mg/ (Sodium Chloride) 520 mls @ 200 mls/hr IV NOW STA Stop: 01/03/20 15:04 Last Infusion: 01/03/20 16:04 Dose: 0 mls/hr Documented by: [id number] Admin: 01/03/20 13:28 Dose: 200 mls/hr Documented by: [id number] Sodium Chloride (Nss 1000ml) 1,000 mls @ 999 mls/hr IV .Q1H1M ONE Stop: 01/03/20 13:29 Last Infusion: 01/03/20 13:51 Dose: 0 mls/hr Documented by: [id number] Admin: 01/03/20 12:29 Dose: 999 mls/hr Documented by: [id number] Cefepime HCl (Maxipime) 2,000 mg in 20 mls @ 5 mls/min IV NOW STA; Protocol Stop: 01/03/20 12:32 Last Admin: 01/03/20 13:28 Dose: 5 mls/min Documented by: [id number] Imaging Data Radiologist's Impression: Radiology results as stated below per my review and the radiologist's interpretation: SINGLE VIEW CHEST CLINICAL HISTORY: Sepsis. FINDINGS: An AP, portable, upright chest radiograph is compared to study dated 11/17/2019 and correlated with chest CT dated 08/28/2019. The examination is degraded by portable technique and patient rotation. The cardiomediastinal silhouette is unremarkable. There is elevation right hemidiaphragm. Bibasilar scarring/atelectasis is similar to previous. Postoperative change is noted at the right apex. No airspace consolidation or large pleural effusion is identified. A calcified granuloma is seen at the left apex. No pneumothorax is seen. The skeletal structures are osteopenic. The bony thorax is grossly intact. Advanced degenerative change is noted in the shoulders and thoracic spine. Cholecystectomy clips are seen in the right upper quadrant. IMPRESSION: No acute cardiopulmonary abnormality. ACT 112: Negative or not required by law. Electronically signed by: Brock Arambula M.D. 01/03/2020 12:48 PM ECG Data Attestation: I personally reviewed and interpreted this ECG as follows: Indication: + weakness and + other (hypotension) Rate (beats per minute): 81 Rhythm: normal sinus ECG Intervals/blocks: + Normal QRS ECG Wykoff: + Normal ECG ST segments: + Nonspecific ST abnormalities; no ST depression and no ST elevation ECG Findings: + LVH Blood Pressure Blood Pressure Findings: Low blood pressure Blood Pressure Disposition: further management by hospitalist Discharge Plan Visit Data Chief Complaint: Hypotension ED Provider: Feng Suazo Discharge Problem: Bacteremia, Hypertension, Acute UTI Patient Disposition: Being Evaluated by Hospitalist Forms Stand Alone Forms: My [facility] Prescriptions Prescriptions: No Action ascorbic acid (vitamin C) 500 mg tablet 500 mg PO DAILY RF: 0 atenolol 100 mg tablet 100 mg PO DAILY RF: 0 multivitamin Tablet 1 tab PO QAM RF: 0 lisinopril 20 mg tablet 20 mg PO DAILY RF: 0 Xarelto 20 mg tablet 20 mg PO DAILY RF: 0 acetaminophen 325 mg capsule 650 mg PO Q6H PRN (Reason: fever or pain) RF: 0 Referrals Referrals: Chuck Maradiaga [Primary Care Provider] - Discharge Problem: Hypertension Qualifiers: Hypertension type: unspecified Qualified Code(s): I10 - Essential (primary) hypertension The scribe's documentation has been prepared under my direction and personally reviewed by me in its entirety. I confirm that the note above accurately reflects all work, treatment, procedures, and medical decision making performed by me.
[2020-01-03] MEDS ORDERED: ACETAMINOPHEN 325 MG TAB ONE (17:50)
[2020-01-03] MEDS ORDERED: PIPERACILL/TAZOBAC CONSULT ACTIVE PRN (19:38)
[2020-01-03] MEDS ORDERED: SODIUM CHLORIDE 0.9% 1000ML 1,000 ML IV SCH (19:38)
[2020-01-03] MEDS ORDERED: ONDANSETRON INJ 2 MG/ML 2 ML VIAL IV PRN (19:38)
[2020-01-03] MEDS ORDERED: NON-FORMULARY MEDICATION (Acetaminophen 650 MG) PO PRN (19:38)
--- NOTE | 2020-01-03 21:20 | Pharmacy Report ---
Pharmacy Abx Dose Short Note - Date of Service January 03, 2020 - Assessment & Plan Laboratory Tests 01/03/20 01/03/20 13:14 13:14 WBC 46.98 H* Creatinine 0.75 Est Cr Clr Drug Dosing 48.4 Assessment 79 year old F receiving VANC/ZOSYN for treatment of CONFIRMED BACTEREMIA * [facility] BC x 1 gram(-) rods * Received Vanc 1g IV + cefepime 2g + Zosyn 3.375g IV in ED Plan Vancomycin * Estimated PK = 0.0450hr-1, T1/2~15hrs * LOADING DOSE: Vanc 1g (20mg/kg) IV x 1 * MAINTENANCE DOSE: Vanc 750mg IV q18h * Goal trough level: 15 to 20 mcg/mL * VANC Trough level ordered @ [facility] prior to 01/05/20 1600 ZOSYN: 3.375g IV load, then 3.375g IV CI q 8 hours. Pharmacy will continue to follow and will adjust dose/frequency as necessary. Thank you.
[2020-01-03] MEDS: LACTATED RINGER'S 1,000 ML IV SCH (21:27)
[2020-01-04] MEDS: PIPERACILLIN/TAZOBACTAM 3.375 GM in DEXTROSE 5% 100 ML IV SCH ×2 (00:02→08:03)
[2020-01-04] MEDS: ACETAMINOPHEN 325 MG TAB PO PRN ×2 (01:31→11:17)
[2020-01-04] MEDS ORDERED: VANCOMYCIN HCL 750 MG in SODIUM CHLORIDE 0.9% 250 ML IV SCH (04:00)
[2020-01-04] MEDS: LACTATED RINGER'S 1,000 ML IV SCH (04:10)
[2020-01-04 06:27] LABS: Hematocrit (blood only) 25.5 % (37-47); Hemoglobin 8.3 g/dL (12.0-16.0); Mean Corpuscular Hemoglobin 27.4 pg (25-34); Mean Corpuscular Hgb Conc 32.5 g/dL (32-36); Mean Corpuscular Volume 84.2 fL (80-100); Mean Platelet Volume 9.2 fL (7.4-10.4); Platelet Count 195 K/uL (130-400); RDW Coefficient of Variation 17.7 % (11.5-14.5); RDW Standard Deviation 54.1 fL (36.4-46.3); Red Blood Count 3.03 M/uL (4.2-5.4); White Blood Count 39.98 K/uL (4.8-10.8)
[2020-01-04 06:57] LABS: Albumin Globulin Ratio 0.4 (0.9-2); Albumin Level 1.7 gm/dl (3.4-5.0); BUN Creatinine Ratio 39.4 (10-20); Bilirubin,Total 0.3 mg/dl (0.2-1); Calcium 8.4 mg/dl (8.5-10.1); Creatinine Clr Calc Pharmacy 77.7 ml/min; Est GFR (African American) 109.7; Est GFR (Non-African American) 94.6; Globulin 4.1 gm/dl (2.5-4.0); Potassium 2.9 mmol/L (3.5-5.1); Total Protein 5.8 gm/dl (6.4-8.2)
[2020-01-04] MEDS: RIVAROXABAN 20 MG TAB PO SCH (08:04)
[2020-01-04] MEDS: MULTIVITAMIN TAB PO SCH (08:04)
[2020-01-04] MEDS: ASCORBIC ACID 500 MG TAB PO SCH (08:04)
[2020-01-04] MEDS ORDERED: POTASSIUM CHLORIDE 20 MEQ TABCR PO STA (08:33)
[2020-01-04] MEDS: POTASSIUM CHLORIDE / WTR 10 MEQ/100 ML PLCT IV SCH ×2 (09:52→11:14)
[2020-01-04] MEDS: ATENOLOL 50 MG TABLET PO SCH (09:53)
--- NOTE | 2020-01-04 13:06 | Electrocardiogram Report ---
Test Reason : Blood Pressure : / mmHG Vent. Rate : 081 BPM Atrial Rate : 081 BPM P-R Int : 144 ms QRS Dur : 078 ms QT Int : 396 ms P-R-T Axes : 033 -27 017 degrees QTc Int : 460 ms Normal sinus rhythm Possible Left atrial enlargement Left ventricular hypertrophy Nonspecific T wave abnormality Abnormal ECG When compared with ECG of 17-NOV-2019 15:00, Premature ventricular complexes are no longer Present Confirmed by Andrew Del Toro ([id number]) on 01/04/2020 1:05:52 PM Referred By: REFERRED SELF Confirmed By:Andrew Del Toro
[2020-01-04] MEDS: cefTRIAXone SODIUM 1,000 MG in DEXTROSE 5% 50 ML IV SCH (13:43)
[2020-01-04] MEDS ORDERED: DICLOFENAC SOD 1% GEL 100 GM TUBE EXT PRN (18:47)
[2020-01-04] MEDS ORDERED: TRAMADOL HCL 50 MG TABLET PO PRN (18:53)
[2020-01-04] MEDS: DICLOFENAC SOD 1% GEL 100 GM TUBE EXT SCH (19:16)
--- NOTE | 2020-01-04 19:25 | Hospitalist Progress Note ---
Date of Service January 04, 2020 Assessment & Plan (1) Sepsis: -Admit to PCU -BCx x1+ growing E. coli per [facility] resulted on 01/02/20, repeat BCx obtained x2 NGTD-will follow - follow UCx for sensitivities -Patient received IVFs for resuscitation and BPs improved -based on sensitivities of E. coli in BCxs--> dc current abx and convert to IV ceftriaxone--> eventually will convert to po abx x 2 weeks total for GNR bacteremia Overall much improved -continue to hold antihypertensives including lisinopril but will restart lower dose of atenolol in the setting of sepsis -Lactic acid 1.4 on admission (2) Bacteremia: - As above (3) Adenocarcinoma of lung: -Recent diagnosis in October 2019 -S/p right lobe wedge resection with Dr. Sanchez, follows with him as an outpatient note, with his upcoming departure, the patient will require new thoracic surgeon for continued follow-up -Follow with Dr. Woodall as outpatient (4) CLL (chronic lymphocytic leukemia): -WBC count significantly elevated secondary to CLL, WBC = 39 today -Follows with Dr. Woodall as an outpatient, currently not on any treatment (5) UTI (urinary tract infection): -History of growing E. coli and Pseudomonas UTI from October 2019 Ur cx pending, abx as above -Lopez catheter in place with turbid urine, reports does not have indwelling Lopez catheter--> will remove tomorrow (6) Thyroid nodule: - follow up as outpatient (7) Spina bifida: -Noted, has been doing exercises to work on standing at more recently in the past 3 days, otherwise uses wheelchair, prior to this most recent [facility] stay she did use walker for ambulation -PT/OT consults (8) Depression: - stable , no meds (9) Anemia: -Hemoglobin of 10.3, HCT = 31.9, appears to be about her baseline, dropped to 8.3 today with hemodilutional effect, no evidence of bleeding Is on Xarelto, will watch carefully -Continue Xarelto with history of DVT -Follow a.m. CBC (10) Hypertension: -Currently holding antihypertensives in the setting of sepsis and hypotensive -BPs now improved -restart atenolol at half dose of atenolol 50mg daily -continue to hold lisinopril (11) DVT (deep venous thrombosis): -Continue Xarelto in setting of malignancy (12) Sacral decubitus ulcer, stage II: Healed stage II decubitus to sacrum - Wound consulted - Frequent turn and repo Q2H (13) Severe protein-calorie malnutrition: needs encouraged nutrition, dietary consult (14) DVT prophylaxis: - teds, Xarelto CODE STATUS: Full code Disposition: Patient from [facility], PT/OT consults, CM to assist with discharge planning, likely to remain in the hospital x2 days Brother from [place] currently up to visit due to patient status Admission and Anticipated Discharge Date Admission Date: January 03, 2020 Subjective Feeling much better. Her hips and shoulders hurt all the time for months since her fall in 10/2019. Denies chest pain or SOB, no abd pain. SHe is eating. Tele with NSR, PVCs, rates 80s-90s. Review of Systems Review of Systems: All systems reviewed & are unremarkable except as noted in HPI & below Physical Exam Constitutional: WD/WN, vitals as above Eyes: + anicteric sclerae ENMT: external ear and nose normal, oropharynx normal Neck: trachea midline, no thyromegaly Respiratory: normal respiratory effort, lungs clear to auscultation Cardiovascular: RRR, no murmur, no edema Chest (Breasts): Chest: normal inspection of chest Gastrointestinal (Abdomen): normal bowel sounds, soft, nontender, no hepatosplenomegaly Musculoskeletal: Extremities: extremities normal to inspection; no cyanosis and no clubbing Shoulder: + joint line tenderness (+TTP over bilat shoulders) Skin: no rashes, warm and dry Neurologic: moves all extremities and awake; no focal motor deficits Psychiatric: A+Ox3, euthymic affect Genitourinary: Lopez in place Lymphatic: no lymphedema Results & Data ([facility]) Vital Signs (Past 12 Hours) Vital Signs Temp Pulse Pulse Resp BP Pulse Ox 01/04/20 19:12 37.3 C 91 H 18 123/64 98 01/04/20 16:00 84 01/04/20 15:21 36.8 C 79 19 151/72 H 97 01/04/20 11:26 37.6 C H 94 H 20 149/80 H 99 01/04/20 09:51 91 H 159/79 H 01/04/20 07:44 37.1 C 91 H 18 148/74 H 98 Laboratory Results Labs reviewed BCx with E. coli, sensitivities reviewed Repeat BCxs NGTD Ur cx pending PG Care Time/CCT Total # of Minutes Spent Total Time Spent with Patient: Total time spent is greater than 50% in coordination of care (as documented) at patient's floor/unit and/or counseling patient: Coding Level of Care Code 85710 Subseq Hosp Care Lvl 3 Diagnoses Sepsis A41.9; R65.21 Sepsis acute organ dysfunction status: with acute organ dysfunction Sepsis type: sepsis due to unspecified organism Severe sepsis acute organ dysfunction type: unspecified Severe sepsis shock status: with septic shock Bacteremia R78.81 Adenocarcinoma of lung C34.90 CLL (chronic lymphocytic leukemia) C91.90 UTI (urinary tract infection) N39.0 Thyroid nodule E04.1 Spina bifida Q05.9 Depression F32.9 Anemia D64.9 Anemia type: unspecified type Hypertension I10 Hypertension type: essential hypertension DVT (deep venous thrombosis) I82.90 Chronicity: unspecified DVT location: non-extremity vein Sacral decubitus ulcer, stage II L89.152 Severe protein-calorie malnutrition E43 DVT prophylaxis Z29.9 (1) DVT (deep venous thrombosis) Chronicity: unspecified DVT location: non-extremity vein Qualified Code(s): I82.90 - Acute embolism and thrombosis of unspecified vein (2) Anemia Anemia type: unspecified type Qualified Code(s): D64.9 - Anemia, unspecified (3) Sepsis Sepsis acute organ dysfunction status: with acute organ dysfunction Sepsis type: sepsis due to unspecified organism Severe sepsis acute organ dysfunction type: unspecified Severe sepsis shock status: with septic shock Qualified Code(s): A41.9 - Sepsis, unspecified organism; R65.21 - Severe sepsis with septic shock (4) Hypertension Hypertension type: essential hypertension Qualified Code(s): I10 - Essential (primary) hypertension
[2020-01-04] MEDS: ACETAMINOPHEN 500 MG TAB PO SCH (19:52)
[2020-01-05] MEDS ORDERED: MAGNESIUM OXIDE 400 MG TAB PO ONE (01:35)
[2020-01-05] MEDS: POTASSIUM CHLORIDE 20 MEQ TABCR PO SCH ×3 (01:54→07:32)
[2020-01-05] MEDS: ACETAMINOPHEN 500 MG TAB PO SCH ×2 (05:35→13:15)
[2020-01-05 07:12] LABS: Hematocrit (blood only) 25.9 % (37-47); Hemoglobin 8.5 g/dL (12.0-16.0); Mean Corpuscular Hgb Conc 32.8 g/dL (32-36); Mean Corpuscular Volume 82.2 fL (80-100); Mean Platelet Volume 8.9 fL (7.4-10.4); Platelet Count 248 K/uL (130-400); RDW Coefficient of Variation 17.6 % (11.5-14.5); RDW Standard Deviation 52.9 fL (36.4-46.3); Red Blood Count 3.15 M/uL (4.2-5.4); White Blood Count 45.88 K/uL (4.8-10.8)
[2020-01-05] MEDS: ASCORBIC ACID 500 MG TAB PO SCH (07:31)
[2020-01-05] MEDS: ATENOLOL 50 MG TABLET PO SCH (07:32)
[2020-01-05] MEDS: MULTIVITAMIN TAB PO SCH (07:32)
[2020-01-05] MEDS: DICLOFENAC SOD 1% GEL 100 GM TUBE EXT SCH ×2 (07:33→13:16)
[2020-01-05] MEDS: RIVAROXABAN 20 MG TAB PO SCH (07:33)
[2020-01-05 07:39] LABS: Albumin Globulin Ratio 0.4 (0.9-2); Albumin Level 1.8 gm/dl (3.4-5.0); Bilirubin,Total 0.4 mg/dl (0.2-1); Calcium 8.8 mg/dl (8.5-10.1); Est GFR (African American) 118.6; Est GFR (Non-African American) 102.4; Globulin 4.2 gm/dl (2.5-4.0); Potassium 4.3 mmol/L (3.5-5.1)
[2020-01-05] MEDS ORDERED: MAGNESIUM OXIDE 400 MG TAB PO SCH (09:00)
--- NOTE | 2020-01-05 13:08 | Discharge Summary ---
Date of Service January 05, 2020 Admission HPI Per Admitting Provider This is a 79 yo F with PMHx of CLL, primary adenocarcinoma of the lung, multiple pulmonary nodules involving the left and right lobes, s/p right upper lobe wedge resection on 11/03/2019, breast cancer s/p left breast lumpectomy orig dx in 2003, s/p chemo/xrt, remote smoking history of 20 pack years, quit over 30 years ago, anemia, HTN, spina bifida, history of Pseudomonas UTI and pyelonephritis in October 2019, stage II decubitus ulcer, history of DVT, IC VC filter was placed in 2017 but was removed, osteoporosis, osteoarthritis, and peripheral neuropathy who presents from [facility] with +1/ anaerobic blood culture growing gram-negative bacilli. The patient was noted to be lethargic, weak, had decreased appetite and not quite herselfyesterday at [facility]. She developed a fever with T-max of 103 yesterday afternoon and was treated with Tylenol. Her temperature spiked throughout the night. Staff there had been monitoring her blood pressure and checked 1 blood culture yesterday at the facility. This morning the patient was found to have a BP of 84/51, all her normally scheduled antihypertensives were held, blood culture results came back positive for gram-negative bacteria. UA appears to be grossly infected here in the ER, Lopez was placed and turbid urine is in the tubing. Patient denies any lightheadedness or dizziness currently. She is able to answer all my questions, and her brother is present at bedside to support the history. She has been administered 1 L NSS, started on Vanco and cefepime in the ER. Principal Diagnosis E. coli septicemia, hypotension, UTI Discharge Exam Constitutional WD/WN, vitals as above Eyes + anicteric sclerae ENMT external ear and nose normal, oropharynx normal Neck trachea midline, no thyromegaly Respiratory normal respiratory effort, lungs clear to auscultation Cardiovascular RRR, no murmur, no edema Chest (Breasts) Chest: normal inspection of chest Gastrointestinal (Abdomen) normal bowel sounds, soft, nontender, no hepatosplenomegaly Musculoskeletal Extremities: extremities normal to inspection; no cyanosis and no clubbing Skin no rashes, warm and dry Neurologic moves all extremities and awake; no focal motor deficits Psychiatric A+Ox3, euthymic affect Genitourinary Lopez catheter in place with clear yellow urine Lymphatic no lymphedema Discharge Data Allergies Allergy/AdvReac Type Severity Reaction Status Date / Time aspirin AdvReac Intermediate INCREASES Verified 01/03/20 12:27 BLEEDING capsaicin AdvReac Mild INTOLERANCE Verified 01/03/20 12:27 codeine AdvReac Mild INTOLERANCE Verified 01/03/20 12:27 diazepam AdvReac Mild INTOLERANCE Verified 01/03/20 12:27 diclofenac AdvReac Mild INTOLERANCE Verified 01/03/20 12:27 Diclopak AdvReac Mild INTOLERANCE Verified 03/21/18 14:33 erythromycin base AdvReac Mild INTOLERANCE Verified 01/03/20 12:27 sulindac AdvReac Mild INTOLERANCE Verified 01/03/20 12:27 tramadol AdvReac Mild INTOLERANCE Verified 01/03/20 12:27 Consultations 01/03/20 19:38 Consult Case Management - Discharge Planning Routine 01/03/20 20:18 Consult Health Information Management Routine Ordered Studies Chest x-ray Hospital Course (1) Sepsis: Now resolved -BCx x1+ growing E. coli per [facility] resulted on 01/02/20, repeat BCx obtained x2 NGTD at the 48-hour kulwant-should be followed after [facility] by [facility] but I do not expect further growth at this point -Urine culture collected here with mixed rodri -Patient received IVFs for resuscitation and BPs improved -based on sensitivities of E. coli in BCxs--> initially was treated with broad- spectrum antibiotics and then was converted to IV ceftriaxone--> will now convert to po Bactrim 1 tab twice daily x 2 weeks total for GNR bacteremia-her E. coli was resistant to some cephalosporins as well as fluoroquinolones Overall much improved -Initially held antihypertensives but now restarted at half dosing and blood pressures are stable -Lactic acid 1.4 on admission (2) Bacteremia: - As above (3) Adenocarcinoma of lung: -Recent diagnosis in October 2019 -S/p right lobe wedge resection with Dr. Sanchez, follows with him as an outpatient note, with his upcoming departure, the patient will require new thoracic surgeon for continued follow-up -Follow with Dr. Woodall as outpatient (4) CLL (chronic lymphocytic leukemia): -WBC count significantly elevated secondary to CLL, WBC = 45 today -Follows with Dr. Woodall as an outpatient, currently not on any treatment (5) UTI (urinary tract infection): -History of growing E. coli and Pseudomonas UTI from October 2019 Ur cx with mixed rodri as above E. coli bacteremia likely secondary to source with history of acute pyelonephritis in 10/2019 -She has a history of bilateral hydronephrosis and hydroureter requiring Lopez catheter placement Lopez catheter was just removed in the last 2 weeks and she was seen by urology- recommend Lopez catheter be left in place until she follows up with urologist-I have communicated this with the urology nurse practitioner Bia Ibarra today. She will discussed the case with Dr. Sullivan and let him know him my plans to discharge her. (6) Thyroid nodule: - follow up as outpatient (7) Spina bifida: -Noted, has been doing exercises to work on standing at [facility] more recently in the past 3 days, otherwise uses wheelchair, prior to this most recent [facility] stay she did use walker for ambulation -PT/OT consults (8) Depression: - stable , no meds (9) Anemia: -Hemoglobin of 10.3, HCT = 31.9, appears to be about her baseline, dropped to 8.5 likely secondary to hemodilutional effect, no evidence of bleeding Is on Xarelto, will watch carefully -Continue Xarelto with history of DVT -Recommend CBC at the [facility] in 3 days (10) Hypertension: -Initially held all antihypertensives in the setting of sepsis and hypotensive -BPs now much improved -restart atenolol at half dose of atenolol 50mg daily -Restart lisinopril at the half dose of 10 mg daily -Can titrate antihypertensives back up to usual doses if blood pressures are elevated at the [facility] (11) DVT (deep venous thrombosis): -Continue Xarelto in setting of malignancy (12) Sacral decubitus ulcer, stage II: Healed stage II decubitus to sacrum - Wound consulted - Frequent turn and repo Q2H (13) Severe protein-calorie malnutrition: needs encouraged nutrition, dietary consult (14) Nonsustained ventricular tachycardia: She had 1 run of 5 beats of ventricular tachycardia that was asymptomatic here A bedside ultrasound by the automatic lathe setter during her admission in 10/2019 revealed a normal left ventricular ejection fraction Likely secondary to being off of her beta-sedrick in the setting of sepsis -No further treatment needed -Her beta-sedrick has been restarted (15) DVT prophylaxis: - Keisha velez CODE STATUS: Full code Disposition: Stable for discharge [facility] to the [facility] today Total Time Total Time Spent Total Time Spent (In Minutes): 35 minutes Total Time Includes: Examination of the Patient, Discharge Planning, Medication Reconciliation and Communication With Other Providers (Urology nurse practitioner, pharmacist) Discharge Plan Discharge Items Patient Disposition: Transfer [facility] Fac Reason For Visit: SEPSIS,BACTEREMIA,UTI Discharge Diagnosis: E. coli septicemia, UTI Condition on Discharge: Fair Activity: Resume your previous activity Non-emergency contact: Primary Care Provider and Urologist Call non-emergency contact if: you have any medication questions, your symptoms worsen, your pain is not controlled, your pain is worsening, your pain is unusual for you, you have a fever and your temperature is above 101 Follow-up/Referrals: Tha Sullivan MD [Physician] - (Please follow-up within 1 to 2 weeks) Chuck Maradiaga [Primary Care Provider] - Diet: Heart Healthy Addtl Attending Provider Instructions: Please finish out a course of Bactrim double strength 1 tablet twice daily for 12 more days for your E. coli bacteremia likely secondary to acute pyelonephritis. A Lopez catheter was replaced this admission and should remain in place until you see the urologist again. Her low blood pressures improved rapidly with IV fluid resuscitation. Her atenolol dose was lowered to 50 mg daily and her lisinopril dose was lowered to 10 mg daily upon discharge. These can be titrated back up as needed if blood pressures become elevated. Her hemoglobin was low at 8.5 on the day of discharge and is likely somewhat falsely low due to hemodilution from IV fluids. This should be followed closely. Recommend following CBC and basic metabolic panel in 3-5 days. She should follow-up with a urologist within 1 to 2 weeks and with PCP within 2 to 3 days after discharge. Pending Studies at Discharge: Yes Studies:: Final result of repeat blood cultures-no growth to date Stand-Alone Forms: My [employer] Skilled Items Patient informed of condition?: Yes DNR: No Discharge Level of Care: Skilled Communicable Disease: No Discharge Prognosis: Improving Lines: None Urinary Catheter: Yes Medications and DC Order Prescriptions: New atenolol 50 mg Tablet 50 mg PO QAM Qty: 30 RF: 0 diclofenac sodium [Voltaren] 1 % Gel 4 g EXT QID Qty: 100 RF: 0 acetaminophen 500 mg Tablet 1,000 mg PO Q8H Qty: 180 RF: 0 sulfamethoxazole-trimethoprim [Bactrim DS] 800-160 mg tablet 1 tab PO BID Qty: 24 RF: 0 Continued ascorbic acid (vitamin C) 500 mg tablet 500 mg PO DAILY RF: 0 multivitamin Tablet 1 tab PO QAM RF: 0 Xarelto 20 mg tablet 20 mg PO DAILY RF: 0 Changed lisinopril 20 mg tablet 10 mg PO DAILY Qty: 0 RF: 0 Discontinued atenolol 100 mg tablet 100 mg PO DAILY RF: 0 acetaminophen 325 mg capsule 650 mg PO Q6H PRN (Reason: fever or pain) RF: 0 Discharge Orders: Discharge Order (Routine); Ordered 01/05/20 Ordered By: Era Woody Admission Data Admit Date/Time: 01/03/20 16:06 Attending Provider: Era Woody Admit Provider: Danelle Lu Primary Care Provider: Chuck Maradiaga Coding Level of Care Code D/C Day Management >30 mins Diagnoses Sepsis A41.9; R65.21 Sepsis acute organ dysfunction status: with acute organ dysfunction Sepsis type: sepsis due to unspecified organism Severe sepsis acute organ dysfunction type: unspecified Severe sepsis shock status: with septic shock Bacteremia R78.81 Adenocarcinoma of lung C34.90 CLL (chronic lymphocytic leukemia) C91.90 UTI (urinary tract infection) N39.0 Thyroid nodule E04.1 Spina bifida Q05.9 Depression F32.9 Anemia D64.9 Anemia type: unspecified type Hypertension I10 Hypertension type: essential hypertension DVT (deep venous thrombosis) I82.90 DVT location: non-extremity vein Chronicity: unspecified Sacral decubitus ulcer, stage II L89.152 Severe protein-calorie malnutrition E43 Nonsustained ventricular tachycardia I47.2 DVT prophylaxis Z29.9
[2020-01-05] MEDS: cefTRIAXone SODIUM 1,000 MG in DEXTROSE 5% 50 ML IV SCH (13:15)
[2020-01-05] MEDS ORDERED: VANCOMYCIN TROUGH ONE (15:30)
== END 2020-01-05 14:36 | DRG 871 ==
LOC: ED 10:53 → 2S 16:06 → SUATTDRO 16:06 → 2S 18:23

== ENCOUNTER 2020-12-29 12:12 | Inpatient (IN) ==
[2020-12-29] MEDS ORDERED: SODIUM CHLORIDE 0.9% 1000ML 1,000 ML IV SCH (12:45)
[2020-12-29] MEDS ORDERED: SODIUM CHLORIDE 0.9% 500 ML IV SCH (12:45)
[2020-12-29 12:50] LABS: Hematocrit (blood only) 32.8 % (37-47); Hemoglobin 10.6 g/dL (12.0-16.0); Mean Corpuscular Hemoglobin 30.4 pg (25-34); Mean Corpuscular Hgb Conc 32.3 g/dL (32-36); Mean Platelet Volume 9.6 fL (7.4-10.4); Platelet Count 150 K/uL (130-400); RDW Coefficient of Variation 16.9 % (11.5-14.5); RDW Standard Deviation 57.4 fL (36.4-46.3); Red Blood Count 3.49 M/uL (4.2-5.4); White Blood Count 123.35 K/uL (4.8-10.8)
[2020-12-29 13:04] LABS: BUN Creatinine Ratio 59.6 (10-20); Calcium 9.1 mg/dl (8.5-10.1); Creatinine Clr Calc Pharmacy 35.6 ml/min; Est GFR (African American) 68.6; Est GFR (Non-African American) 59.2; Potassium 4.3 mmol/L (3.5-5.1)
[2020-12-29 13:14] LABS: Albumin Globulin Ratio 0.5 (0.9-2); Bilirubin,Total 1.4 mg/dl (0.2-1); Globulin 3.8 gm/dl (2.5-4.0); Thyroid Stimulating Hormone 0.913 uIu/ml (0.300-4.500); Total Protein 5.8 gm/dl (6.4-8.2)
[2020-12-29 13:28] LABS: ALC (manual) 93.25 K/uL (1.2-3.4); Lymphocytes # (manual) 93.25 K/uL (1.2-3.4); Lymphocytes % (manual) 75.6 %; Monocytes % (manual) 1.7 %; Neutrophils % (manual) 22.7 %; Smudge Cells Present; Toxic Granulation 1+; Toxic Vacuolation 1+
--- NOTE | 2020-12-29 13:43 | CT Scan Report ---
CT head/brain wo con CLINICAL HISTORY: 80 years-old Female with AMS. Acutely altered mental status TECHNIQUE: Multiple axial CT images of the head were obtained without contrast. A dose lowering tech nique was utilized adhering to the principles of ALARA. CT DOSE: 810.83 mGy.cm COMPARISON: Head CT 11/17/2019. FINDINGS: No acute intracranial hemorrhage, midline shift, intracranial mass, territorial ischemia or abnormal extra-axial collection. Marked dilation of the lateral and third ventricles appears unchanged. Inferi or displacement of the cerebellar tonsils is also unchanged. Chiari malformation considered. Cavum se ptum pellucidum. Cerebral vascular calcifications are noted. Minimal patchy white matter hypodensitie s suggest chronic microvascular ischemic disease. No acute calvarial fracture. The mastoid air cells and paranasal sinuses appear clear. Soft tissues a nd orbits are unremarkable. IMPRESSION: Chronic findings as above. No acute intracranial abnormality. ACT 112: Negative or not required by law. The above report was generated using voice recognition software. It may contain grammatical, syntax o r spelling errors. Electronically signed by: Chetan Nesbitt M.D. 12/29/2020 1:42 PM
--- NOTE | 2020-12-29 14:06 | XRay Report ---
XR chest 1V portable HISTORY: 80 years-old Female weakness acute weakness COMPARISON: Chest radiograph 01/03/2020 TECHNIQUE: Portable AP view of the chest FINDINGS: Cardiac silhouette is enlarged. Calcified plaque of the thoracic aorta. No pneumothorax, or large ple ural effusion. With retrocardiac opacities are noted. Prominent vascular congestion with chronic inte rstitial coarsening. Right hemidiaphragmatic elevation. Cholecystectomy. Degenerative changes of the shoulders and spine. IMPRESSION: 1. Cardiomegaly with pulmonary vascular congestion and chronic interstitial coarsening. 2. Retrocardiac opacities suggestive of atelectasis versus pneumonitis. ACT 112: Negative or not required by law. The above report was generated using voice recognition software. It may contain grammatical, syntax o r spelling errors. Electronically signed by: Chetan Nesbitt M.D. 12/29/2020 2:05 PM
[2020-12-29] MEDS ORDERED: SODIUM CHLORIDE 0.9% 500 ML IV ONE (14:27)
[2020-12-29 15:06] LABS: Appearance Urine Turbid (Clear); Bacteria Urine Automated 1+ (Negative); Blood Urine 3+ (Negative); Epithelial Cell Urine Auto >30 /lpf (0-5); Glucose Urine UA Negative (Negative); Ketones Urine Negative (Negative); Leukocyte Esterase Urine 3+ (Negative); Nitrite Urine Positive (Negative); Protein Urine 2+ (Negative); Urobilinogen Urine Negative (Negative); WBC Urine Automated >30 /hpf (0-5); pH Urine 6.5 (4.5-7.5)
[2020-12-29 15:24] LABS: Bilirubin Urine 1+ (Negative)
[2020-12-29 15:25] LABS: Color Urine Amber
[2020-12-29 15:33] LABS: RBC Urine Automated >30 /hpf (0-4)
[2020-12-29] MEDS ORDERED: CEFEPIME 2,000 MG/20 ML VIAL IV STA (16:04)
[2020-12-29] MEDS ORDERED: VANCOMYCIN CONSULT ACTIVE PRN (16:39)
--- NOTE | 2020-12-29 16:44 | History & Physical Report ---
Date of Service December 29, 2020 Assessment & Plan (1) Altered mental state: No acute intracranial abnormality on CT. Suspected infection with ANC 28. No acute findings on chest x-ray to suggest pneumonia as source. Possible catheter associated UTI although will always have chronic bacteriuria. ?L2-3 discitis/osteomyelitis on prior CT. Possibly also related to opiate use - patient on fentanyl 25 mcg/h patch, removed on admission, patient also receiving oxycodone 5 mg recently started on December 25. Prior to this she was on tramadol. This was increased to 10 mg which she had 3 times yesterday ?dehydration ?fecal retention as noted on prior CT ?CLL with increasing ALC and progressive lymphadenopathy as noted on prior CT (2) Osteomyelitis: vs. discitis on recent outpatient CT MRI lumbar spine Bedrest ESR/CRP with AM labs. ?infective vs. metastatic disease IV vancomycin and cefepime as below (3) Catheter-associated urinary tract infection: Given history of MRSA growing on urine culture without subsequent blood cultures in August this is concerning for MRSA bacteremia. Therefore will cover with vancomycin pending repeat urine and blood cultures. However subsequent urine cultures have not contain MRSA I suspect this was a skin/catheter contaminant and did not represent a true infection. She is also have a history of Pseudomonas UTIs therefore will continue coverage with cefepime (prior providencia resistant to cipro). Continue cefepime and vancomycin IV Follow-up blood and urine cultures (4) Urinary retention: Continue chronic Bush catheter, replaced in ER. (5) Constipation: MiralLAX TID, no bowel obstruction suspected. (6) Severe protein-calorie malnutrition: Consult dietary (7) Adenocarcinoma of lung: Status post right upper lobe resection. (8) Spina bifida: Wheelchair bound - per patient, although this is relatively recent, previously mobilized with walker. (9) CLL (chronic lymphocytic leukemia): Increasing ALC, no acute intervention per hematology/oncology. Consider consultation depending on clinical course. (10) DVT (deep venous thrombosis): 2018. Presumably on anticoagulation for life with Xarelto due to ongoing risk with CLL. Admission and Anticipated Discharge Date Admission Date: Dec 29, 2020 History of Present Illness Chief Complaint: Altered mental state Primary Care Provider: [facility] Emily Martino is a 80-year-old female who presents to the ER from [facility] with altered mental status. Unable to get any meaningful history from the patient due to altered mental status, she is aware she is in hospital (on occasions) but unsure why she was sent here. She is calling out for her friend Xiomara despite multiple times being reorientated that her friend is not here. Per [facility] notes she was sent to the ER due to altered mental status, decreased oral intake and concern for UTI. The patient here has been complaining of feeling like she is falling out of bed although is securely lying down. She has a chronic Bush catheter due to urinary retention from spina bifida - history of UTIs with pseudomonas, Klebsiella, Providencia and most concerning MRSA. Patient is on opiates for multiple pains but most notably back pain with recent CT scan concerning for osteomyelitis/discitis - I am, unclear whether this has been addressed but no blood cultures taken since this scan and not currently on antibiotics. Her brother does note her complaining of back pain and left hip pain is a relatively recent phenomena. The patient confirms this but cannot give any timeline of events. She also notes she is wheelchair bound for "some time". Records from [facility] appear to suggest pain is acute onset given rapidly increasing opiate using a Fentanyl patch, regularly requiring PRN tramadol then recently switched to oxycodone 5mg and increased yesterday from 5 to 10mg which she is also getting regularly despite order being PRN (took three times yesterday and once this morning). She has a significant history of lung adenocarcinoma s/p resection and CLL followed by pulmonology and [facility] - not on chemotherapy. She has a more remote history of breast cancer. In the ER she was noted to having an increasing WBC with significant lymphocytosis and neutrophilia. This was discussed with hematology by the ER physician and did not feel acute intervention was needed at this time. UA appeared grossly infected although suspect she always has some bacteruria with chronic bush catheter. She denies any suprapubic pain, fever or chills. Creatinine increased from baseline 0.53 to 0.92 with elevated BUN. She was given cefepime 2g IV due to history of pseudomonas and referred to medicine for admission and ongoing management of altered mental state, dehydration and CLL. Allergies Allergy/AdvReac Type Severity Reaction Status Date / Time aspirin AdvReac Intermediate INCREASES Verified 12/29/20 14:42 BLEEDING capsaicin AdvReac Mild INTOLERANCE Verified 12/29/20 14:42 codeine AdvReac Mild INTOLERANCE Verified 12/29/20 14:42 diazepam AdvReac Mild INTOLERANCE Verified 12/29/20 14:42 diclofenac AdvReac Mild INTOLERANCE Verified 12/29/20 14:42 Diclopak AdvReac Mild INTOLERANCE Verified 03/21/18 14:33 diphenhydramine AdvReac Mild Dizziness Verified 12/29/20 14:42 [From Benadryl] erythromycin base AdvReac Mild INTOLERANCE Verified 12/29/20 14:42 sulindac AdvReac Mild INTOLERANCE Verified 12/29/20 14:42 tramadol AdvReac Mild INTOLERANCE Verified 12/29/20 14:42 turkey AdvReac Mild Diarrhea Verified 12/29/20 14:42 Home Medications Medication Instructions Recorded Confirmed Type multivitamin 1 tab PO QAM 01/08/19 12/29/20 History Xarelto 20 mg PO DAILY 10/24/19 12/29/20 History ascorbic acid (vitamin C) 500 mg 500 mg PO DAILY 11/30/19 12/29/20 History tablet acetaminophen 1,000 mg PO Q8H #180 tab 01/05/20 12/29/20 Rx atenolol 50 mg PO QAM #30 tab 01/05/20 12/29/20 Rx diclofenac sodium [Voltaren] 4 g EXT QID #100 gm 01/05/20 12/29/20 Rx lisinopril 10 mg PO DAILY #0 tab 01/05/20 12/29/20 Rx bisacodyl [Dulcolax (bisacodyl)] 10 mg TN DAILY PRN 02/01/20 12/29/20 History dextromethorphan-guaifenesin 10 ml PO Q6H PRN 02/01/20 12/29/20 History [Robitussin Cough-Chest [place] DM] lidocaine 1 patch TOPICAL DAILY 02/01/20 12/29/20 History loperamide [Imodium A-D] 2 mg PO Q3H PRN 02/01/20 12/29/20 History magnesium hydroxide [Milk of 30 ml PO DAILY PRN 02/01/20 12/29/20 History Magnesia] sodium phosphates [Fleet Enema] 118 ml TN DAILY PRN 02/01/20 12/29/20 History fentanyl 1 patch TOPICAL Q3D 12/29/20 12/29/20 History ferrous sulfate 325 mg PO BID 12/29/20 12/29/20 History oxycodone 5 mg PO Q6 PRN 12/29/20 12/29/20 History Past Med/Surg History Medical History (Updated 12/30/20 @ 09:39 by Dominique Barnhart MD) Breast cancer s/p lumpectomy s/p chemo/XRT CLL (chronic lymphocytic leukemia) h/o chemotherapy (2014); chronic leukocytosis (baseline WBC 50-60 range per chart review) 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 GERD (gastroesophageal reflux disease) occasional Hypertension Lung mass "NON-MALIGNANT" Nonsustained ventricular tachycardia Osteoarthritis Peripheral neuropathy b/l hands r/t chemo Pulmonary nodules Spina bifida able to walk short distances with walker but often uses wheelchair but due to increasing back pain Thyroid nodule UTI (urinary tract infection) Surgical History History of back surgery lumbar History of bilateral tubal ligation History of bronchoscopy Navigational bronchoscopy 07/21/1919 Grade 1 view Yao 2 blade History of cardiac cath 2001= no stents History of chemotherapy Chemotherapeutics History of cholecystectomy History of lumbar puncture as an infant r/t spina bifida History of surgery repair of the spina bifida (at the base of pt neck) History of tonsillectomy Hx of lumpectomy left Family History Mother Hypertension Social History Smoking Status: Former smoker Second Hand Exposure: No; Do You Dip or Chew Tobacco: No; Hx Alcohol Use: No Hx Substance Use: No Preferred Language: Tongan Communication Ability: Effective Visual Impairment: No Limitations Learning Disabilities Specialist Required: No Beliefs That Will Affect Care: None marital status: / Current Living Situation: Shelter Current Living Situation Comment: [facility] current occupational status: retired Other Information That Helps Us Care for You: No Feels Safe at Home: Yes Safety Concerns: Feels Safe At This Time Assistive Devices: Wheelchair Review of Systems Review of Systems: All systems reviewed & are unremarkable except as noted in HPI & below Musculoskeletal: + back pain and + joint pain (left hip); no radicular pain Physical Exam Constitutional: well developed, + frail appearing and + malnourished; no acute distress Eyes: + anicteric sclerae; normal pupil size ENMT: Ears: no external ear abnormality Nose: no external nose abnormality Mouth: + dry oral mucous membranes Respiratory: normal respiratory effort, lungs clear to auscultation Cardiovascular: Rate/Rhythm: regular rate and regular rhythm Heart Sounds: no murmur Extremities: normal capillary refill and + pedal edema (trace pre- tibial b/l equal) Gastrointestinal (Abdomen): Inspection/Auscultation: + abdomen distended and normal bowel sounds Percussion/Palpation: abdomen soft; abdomen nontender, no guarding and abdomen not rigid Skin: no rashes, warm and dry (No areas of cellulitis) Neurologic: moves all extremities (decorticate posturing and minimal movement of b/l LE at baseline), awake and + confused (will intermittently lose her train of thought or where she is) Motor/Sensory: no tremor Psychiatric: Orientation: alert and oriented to person; + not oriented to place (able to reorientate and patient will remember for a short time) and + not oriented to time (notes year as 2019) Eye Contact: good eye contact Results & Data Results & Data ([facility]) Vital Signs (Past 12 Hours) Vital Signs Temp Pulse Resp BP Pulse Ox 12/29/20 14:00 89 22 129/61 97 12/29/20 13:45 87 16 96 12/29/20 13:41 89 18 126/63 96 12/29/20 13:40 89 15 12/29/20 13:15 89 23 103/61 96 12/29/20 13:00 89 21 107/55 L 94 12/29/20 12:45 89 22 130/64 94 12/29/20 12:30 86 21 106/57 L 95 12/29/20 12:25 36.9 C 87 22 124/65 93 12/29/20 12:18 86 23 124/65 94 Diagnostic Findings XR chest 1V portable IMPRESSION: 1. Cardiomegaly with pulmonary vascular congestion and chronic interstitial coarsening. 2. Retrocardiac opacities suggestive of atelectasis versus pneumonitis CT head/brain wo con IMPRESSION: Chronic findings as above. No acute intracranial abnormality. Medications Administered ER Medications Given: NSS 500ml bolus then 125 ml/hr Cefepime 2g IV ECG Indication: back/shoulder pain Rate (beats per minute): 86 Rhythm: normal sinus Findings: + T-wave inversion (Anterolateral) Comparison ECG Date: from (Jan 03, 2020) Change: the following changes noted (TWI are new) Code Status & VTE Plan Code Status Full - per [facility] Notes VTE Prophylaxis Plan VTE Prophylaxis will be ordered: Yes PG Care Time/CCT Total # of Minutes Spent Total Time Spent with Patient: Total time spent is greater than 50% in coordination of care (as documented) at patient's floor/unit and/or counseling patient: Coding Level of Care Code 87732 Initial Inpt Care Lvl 3 Diagnoses Altered mental state R41.82 Osteomyelitis M86.9 Catheter-associated urinary tract infection T83.511A; N39.0 Urinary retention R33.9 Constipation K59.00 Severe protein-calorie malnutrition E43 Adenocarcinoma of lung C34.90 Spina bifida Q05.9 CLL (chronic lymphocytic leukemia) C91.90 DVT (deep venous thrombosis) I82.90 Chronicity: unspecified DVT location: non-extremity vein (1) DVT (deep venous thrombosis) Chronicity: unspecified DVT location: non-extremity vein Qualified Code(s): I82.90 - Acute embolism and thrombosis of unspecified vein
[2020-12-29] MEDS ORDERED: VANCOMYCIN HCL 1,000 MG in SODIUM CHLORIDE 0.9% 500 ML IV ONE (16:45)
[2020-12-29] MEDS ORDERED: CEFEPIME CONSULT ACTIVE PRN (19:55)
[2020-12-29] MEDS ORDERED: ONDANSETRON INJ 2 MG/ML 2 ML VIAL IV PRN (19:55)
[2020-12-29] MEDS ORDERED: bisacodyL 10 MG SUPP PR PRN (19:55)
[2020-12-29] MEDS ORDERED: ALUMINUM/MAGNESIUM SUSP 30 ML UDC PO PRN (19:55)
--- NOTE | 2020-12-29 20:26 | Pharmacy Report ---
Pharmacy Abx Dose Short Note - Date of Service December 29, 2020 - Assessment & Plan Assessment 80 year old F who presented with altered mental status and history of UTI. Empiric vancomycin and cefepime have been started for suspected catheter associated UTI. Urine culture growth from the past year: * 10/04/20: Proteus mirabilis (R to fluoroquinolones and bactrim) * 09/15/20: Pseudomonas aeruginosa (R to amp and amikacin) * 09/09/20: Providencia stuartii (I to Unasyn, cefuroxime, LVQ and R to cipro) & MRSA * 07/19/20: pen-sensitive Klebsiella Plan Vancomycin * Loading dose: 1000 mg IV given in ED * Maintenance dose: 750 mg (15.7 mg/kg) IV q24h * Goal trough level: ~15 mcg/mL * Levels will be ordered as clinically warranted Cefepime * 2000 mg IV q12h Pharmacy will continue to follow and will adjust dose/frequency as necessary. Thank you.
[2020-12-29] MEDS: DICLOFENAC SOD 1% GEL 100 GM TUBE EXT SCH (21:28)
[2020-12-29] MEDS: POLYETHYLENE (MIRALAX) 17 GM PACK PO SCH (21:28)
[2020-12-29] MEDS ORDERED: HYDROmorphone INJ 0.5 MG/0.5 ML SYR IV PRN (22:43)
[2020-12-30] MEDS: CEFEPIME 2,000 MG in SYRINGE 0 ML IV SCH ×2 (04:17→15:56)
[2020-12-30] MEDS: oxyCODONE HCL IR 5 MG TAB (IMMEDIATE RELEASE) PO PRN ×4 (04:18→20:35)
[2020-12-30 06:24] LABS: Hematocrit (blood only) 31.2 % (37-47); Hemoglobin 10.5 g/dL (12.0-16.0); Mean Corpuscular Hemoglobin 30.6 pg (25-34); Mean Corpuscular Hgb Conc 33.7 g/dL (32-36); Mean Platelet Volume 9.8 fL (7.4-10.4); Platelet Count 136 K/uL (130-400); RDW Coefficient of Variation 16.7 % (11.5-14.5); Red Blood Count 3.43 M/uL (4.2-5.4); White Blood Count 140.26 K/uL (4.8-10.8)
[2020-12-30 06:50] LABS: BUN Creatinine Ratio 69.8 (10-20); Calcium 9.1 mg/dl (8.5-10.1); Creatinine Clr Calc Pharmacy 47.8 ml/min; Est GFR (African American) 96.4; Est GFR (Non-African American) 83.2; Potassium 4.2 mmol/L (3.5-5.1)
[2020-12-30 06:57] LABS: Albumin Globulin Ratio 0.5 (0.9-2); Bilirubin,Total 1.8 mg/dl (0.2-1); C Reactive Protein 32.7 mg/dl (0-0.29); Globulin 3.7 gm/dl (2.5-4.0); Total Protein 5.7 gm/dl (6.4-8.2)
[2020-12-30 07:39] LABS: ALC (manual) 99.02 K/uL (1.2-3.4); Lymphocytes # (manual) 99.02 K/uL (1.2-3.4); Lymphocytes % (manual) 70.6 %; Monocytes # (manual) 6.73 K/uL (0.11-0.59); Monocytes % (manual) 4.8 %; Neutrophils % (manual) 24.6 %
[2020-12-30] MEDS ORDERED: PNEUMOCOCCAL Polysaccharide Vaccine 25mcg/0.5mL vial/Syr IM ONE (08:00)
[2020-12-30] MEDS: DICLOFENAC SOD 1% GEL 100 GM TUBE EXT SCH ×4 (08:26→20:34)
[2020-12-30] MEDS: RIVAROXABAN 20 MG TAB PO SCH (08:26)
[2020-12-30] MEDS: MULTIVITAMIN TAB PO SCH (08:26)
[2020-12-30] MEDS: POLYETHYLENE (MIRALAX) 17 GM PACK PO SCH ×3 (08:26→20:34)
--- NOTE | 2020-12-30 08:33 | Electrocardiogram Report ---
Test Reason : Blood Pressure : / mmHG Vent. Rate : 086 BPM Atrial Rate : 086 BPM P-R Int : 136 ms QRS Dur : 086 ms QT Int : 366 ms P-R-T Axes : 029 -32 116 degrees QTc Int : 437 ms Normal sinus rhythm Left atrial enlargement Left axis deviation Left ventricular hypertrophy with repolarization abnormality Abnormal ECG When compared with ECG of 03-JAN-2020 11:17, Inverted T waves have replaced nonspecific T wave abnormality in Anterolateral leads Confirmed by Aguilar Reyna ([id number]) on 12/30/2020 8:32:55 AM Referred By: ED Confirmed By:Aguilar Reyna
--- NOTE | 2020-12-30 09:37 | Hospitalist Progress Note ---
Date of Service December 30, 2020 Assessment & Plan (1) Altered mental state: No acute intracranial abnormality on CT. Suspected infection with ANC 28. No acute findings on chest x-ray to suggest pneumonia as source. Possible catheter associated UTI although will always have chronic bacteriuria. ?C2-3 discitis/osteomyelitis on prior CT Possibly also related to opiate use - patient on fentanyl 25 mcg/h patch, removed on admission, patient also receiving oxycodone 5 mg recently started on December 25. Prior to this she was on tramadol. This was increased to 10 mg which she had 3 times yesterday ?dehydration ?fecal retention as noted on prior CT ?CLL with increasing ALC and progressive lymphadenopathy as noted on prior CT (2) Leukocytosis: -27 baseline WBC 94 2-7 WBC 123 2-8 WBC 140 check peripheral smear, consulting oncology oncology stated leukapheresis not needed unless WBC > 400 they also stated that underlying infection is source of leukocytosis (3) Osteomyelitis: vs. discitis on recent outpatient CT MRI lumbar spine Bedrest ESR/CRP with AM labs. ?infective vs. metastatic disease 2-8 ID consult placed may need aspiration to determine source? defer to ID (4) Catheter-associated urinary tract infection: Given history of MRSA growing on urine culture without subsequent blood cultures in August this is concerning for MRSA bacteremia. Therefore will cover with vancomycin pending repeat urine and blood cultures. However subsequent urine cultures have not contain MRSA I suspect this was a skin/catheter contaminant and did not represent a true infection. She is also have a history of Pseudomonas UTIs therefore will continue coverage with cefepime (prior providencia resistant to cipro). Continue cefepime and vancomycin IV Follow-up blood and urine cultures (5) Urinary retention: Continue chronic Lopez catheter, replaced in ER. (6) Constipation: MiralLAX TID, no bowel obstruction suspected. (7) Severe protein-calorie malnutrition: Consult dietary (8) Adenocarcinoma of lung: Status post right upper lobe resection. (9) Spina bifida: Wheelchair bound - per patient, although this is relatively recent, previ ously mobilized with walker. (10) CLL (chronic lymphocytic leukemia): Increasing ALC, no acute intervention per hematology/oncology. Consider consultation depending on clinical course. (11) DVT (deep venous thrombosis): 2018. Presumably on anticoagulation for life with Xarelto due to ongoing risk with CLL. Admission and Anticipated Discharge Date Admission Date: December 29, 2020 Subjective Patient is altered, only oriented to person Unable to obtain other history Review of Systems Review of Systems: Unobtainable due to cognitive status Physical Exam Constitutional: well developed and well nourished; no acute distress Eyes: PERRL, conjunctivae normal, anicteric sclerae ENMT: Mouth: oral mucous membranes not dry Respiratory: normal respiratory effort; no respiratory distress and no labored breathing Auscultation: lungs clear to auscultation bilaterally; no crackles, no rales, no rhonchi and no wheezes Cardiovascular: Rate/Rhythm: regular rate and regular rhythm Heart Sounds: no murmur and no cardiac rub Vessels: normal peripheral pulses and radial pulses present; no JVD Extremities: no edema Gastrointestinal (Abdomen): Inspection/Auscultation: abdomen normal to inspection and normal bowel sounds; abdomen not distended Percuss ion/Palpation: abdomen soft; abdomen nontender, no guarding, abdomen not rigid and no hepatosplenomegaly Musculoskeletal: Head/Neck/Chest: normocephalic and head atraumatic Spine: no cervical spinal tenderness, no cervical muscular tenderness, no thoracic spinal tenderness and no lumbar spinal tenderness Skin: no rashes, warm and dry Neurologic: CN's II-XI intact bilaterally and moves all extremities Motor/Sensory: no tremor and no sensory deficit Psychiatric: Orientation: alert and oriented to person; + not oriented to place and + not oriented to time Apperance: + disheveled; + inappropriately groomed Affect: + anxious affect; + affect not euthymic and no tearful affect Genitourinary: no CVA tenderness Lopez catheter Results & Data Results & Data ([facility]) Vital Signs (Past 12 Hours) Vital Signs Temp Pulse Resp BP Pulse Ox 12/30/20 07:26 36.9 C 100 H 18 156/82 H 95 12/30/20 03:41 36.7 C 95 H 18 137/81 95 12/29/20 21:47 36.8 C 99 H 16 133/71 96 Laboratory Results Abnormal lab results 12/29/20 12/29/20 12/29/20 Range/Units 12:30 12:30 13:05 WBC 123.35 H* (4.8-10.8) K/uL RBC 3.49 L (4.2-5.4) M/uL Hgb 10.6 L (12.0-16.0) g/dL Hct 32.8 L (37-47) % RDW Std Deviation 57.4 H (36.4-46.3) fL RDW Coeff of Figueroa 16.9 H (11.5-14.5) % Neutrophils # (Manual) 28.00 H (1.4-6.5) K/uL Total Absolute Neuts 28.00 H (1.4-6.5) K/uL Lymphocytes # (Manual) 93.25 H (1.2-3.4) K/uL Total Abs Lymphocytes 93.25 H (1.2-3.4) K/uL Monocytes # (Manual) 2.10 H (0.11-0.59) K/uL ESR (0-21) mm/hr Chloride (98-107) mmol/L BUN 55 H (7-18) mg/dl BUN/Creatinine Ratio 59.6 H (10-20) Glucose (70-99) mg/dl Total Bilirubin 1.4 H (0.2-1) mg/dl AST 63 H (15-37) U/L Alkaline Phosphatase 170 H (45-117) U/L Ammonia < 10.0 L (11-32) umol/L C-Reactive Protein (0-0.29) mg/dl Total Protein 5.8 L (6.4-8.2) gm/dl Albumin 2.0 L (3.4-5.0) gm/dl Albumin/Globulin Ratio 0.5 L (0.9-2) Urine Appearance (Clear) Urine Protein (Negative) Urine Blood (Negative) Urine Nitrite (Negative) Urine Bilirubin (Negative) Ur Leukocyte Esterase (Negative) Urine WBC (Auto) (0-5) /hpf Urine RBC (Auto) (0-4) /hpf U Epithel Cells (Auto) (0-5) /lpf Urine Bacteria (Auto) (Negative) 12/29/20 12/30/20 12/30/20 Range/Units 14:53 05:56 05:56 WBC (4.8-10.8) K/uL RBC (4.2-5.4) M/uL Hgb (12.0-16.0) g/dL Hct (37-47) % RDW Std Deviation (36.4-46.3) fL RDW Coeff of Figueroa (11.5-14.5) % Neutrophils # (Manual) (1.4-6.5) K/uL Total Absolute Neuts (1.4-6.5) K/uL Lymphocytes # (Manual) (1.2-3.4) K/uL Total Abs Lymphocytes (1.2-3.4) K/uL Monocytes # (Manual) (0.11-0.59) K/uL ESR > 90 H (0-21) mm/hr Chloride 108 H (98-107) mmol/L BUN 47 H (7-18) mg/dl BUN/Creatinine Ratio 69.8 H (10-20) Glucose 108 H (70-99) mg/dl Total Bilirubin 1.8 H (0.2-1) mg/dl AST 62 H (15-37) U/L Alkaline Phosphatase 191 H (45-117) U/L Ammonia (11-32) umol/L C-Reactive Protein 32.70 H (0-0.29) mg/dl Total Protein 5.7 L (6.4-8.2) gm/dl Albumin 2.0 L (3.4-5.0) gm/dl Albumin/Globulin Ratio 0.5 L (0.9-2) Urine Appearance Turbid A (Clear) Urine Protein 2+ H (Negative) Urine Blood 3+ H (Negative) Urine Nitrite Positive A (Negative) Urine Bilirubin 1+ H (Negative) Ur Leukocyte Esterase 3+ H (Negative) Urine WBC (Auto) >30 H (0-5) /hpf Urine RBC (Auto) >30 H (0-4) /hpf U Epithel Cells (Auto) >30 H (0-5) /lpf Urine Bacteria (Auto) 1+ H (Negative) 12/30/20 Range/Units 05:56 WBC 140.26 H* D (4.8-10.8) K/uL RBC 3.43 L (4.2-5.4) M/uL Hgb 10.5 L (12.0-16.0) g/dL Hct 31.2 L (37-47) % RDW Std Deviation 55.0 H (36.4-46.3) fL RDW Coeff of Figueroa 16.7 H (11.5-14.5) % Neutrophils # (Manual) 34.50 H (1.4-6.5) K/uL Total Absolute Neuts 34.50 H (1.4-6.5) K/uL Lymphocytes # (Manual) 99.02 H (1.2-3.4) K/uL Total Abs Lymphocytes 99.02 H (1.2-3.4) K/uL Monocytes # (Manual) 6.73 H (0.11-0.59) K/uL ESR (0-21) mm/hr Chloride (98-107) mmol/L BUN (7-18) mg/dl BUN/Creatinine Ratio (10-20) Glucose (70-99) mg/dl Total Bilirubin (0.2-1) mg/dl AST (15-37) U/L Alkaline Phosphatase (45-117) U/L Ammonia (11-32) umol/L C-Reactive Protein (0-0.29) mg/dl Total Protein (6.4-8.2) gm/dl Albumin (3.4-5.0) gm/dl Albumin/Globulin Ratio (0.9-2) Urine Appearance (Clear) Urine Protein (Negative) Urine Blood (Negative) Urine Nitrite (Negative) Urine Bilirubin (Negative) Ur Leukocyte Esterase (Negative) Urine WBC (Auto) (0-5) /hpf Urine RBC (Auto) (0-4) /hpf U Epithel Cells (Auto) (0-5) /lpf Urine Bacteria (Auto) (Negative) Medications Administered Current Inpatient Medications Al Hydrox/Mg Hydrox/Simethicone (Aluminum/Magnesium Susp 30 Ml Udc) 15 ml PO Q4H PRN PRN Reason: Dyspepsia Stop: 01/28/21 19:54 Bisacodyl (Bisacodyl 10 Mg Supp) 10 mg LA DAILY PRN PRN Reason: Constipation Stop: 01/28/21 19:54 Diclofenac Sodium (Diclofenac Sod 1% Gel 100 Gm Tube) 4 gm EXT QID IMAN Stop: 01/28/21 20:59 Last Admin: 12/30/20 08:26 Dose: 4 gm Documented by: Hydromorphone HCl (Hydromorphone Inj 0.5 Mg/0.5 Ml Syr) 0.25 mg IV Q4H PRN PRN Reason: Pain Stop: 01/12/21 22:42 Cefepime HCl 2,000 mg/ Syringe 20 mls @ 5 mls/min IV Q12H [facility]; Protocol Stop: 01/01/21 03:59 Last Admin: 12/30/20 04:17 Dose: 5 mls/min Documented by: Vancomycin HCl 750 mg/ Sodium (Chloride) 265 mls @ 200 mls/hr IV Q24H IMAN; Protocol Stop: 01/08/21 13:59 Miscellaneous Information (Vancomycin Consult Active) 1 ea N/A UD PRN PRN Reason: Consult Stop: 01/28/21 16:38 Miscellaneous Information (Cefepime Consult Active) 1 ea N/A UD PRN PRN Reason: Consult Stop: 01/28/21 19:54 Multivitamins (Multivitamin Tab) 1 tab PO QAM IMAN Stop: 01/29/21 08:59 Last Admin: 12/30/20 08:26 Dose: 1 tab Documented by: Ondansetron HCl (Ondansetron Inj 2 Mg/Ml 2 Ml Vial) 4 mg IV Q6H PRN PRN Reason: Nausea Stop: 01/28/21 19:54 Oxycodone HCl (Oxycodone Hcl Ir 5 Mg Tab (Immediate Release)) 5 mg PO Q4H PRN PRN Reason: Pain Stop: 01/12/21 22:42 Last Admin: 12/30/20 04:18 Dose: 5 mg Documented by: Polyethylene Glycol (Polyethylene (Miralax) 17 Gm Pack) 17 gm PO TID IMAN Stop: 01/28/21 20:59 Last Admin: 12/30/20 08:26 Dose: 17 gm Documented by: Rivaroxaban (Rivaroxaban 20 Mg Tab) 20 mg PO DAILY [facility] Stop: 01/29/21 08:59 Last Admin: 12/30/20 08:26 Dose: 20 mg Documented by: PG Care Time/CCT Total # of Minutes Spent Total Time Spent with Patient: Total time spent is greater than 50% in coordination of care (as documented) at patient's floor/unit and/or counseling patient: Coding Level of Care Code 90244 Subseq Hosp Care Lvl 3 Diagnoses Altered mental state R41.82 Leukocytosis D72.829 Osteomyelitis M86.9 Catheter-associated urinary tract infection T83.511A; N39.0 Urinary retention R33.9 Constipation K59.00 Severe protein-calorie malnutrition E43 Adenocarcinoma of lung C34.90 Spina bifida Q05.9 CLL (chronic lymphocytic leukemia) C91.90 DVT (deep venous thrombosis) I82.90 Chronicity: unspecified DVT location: non-extremity vein (1) DVT (deep venous thrombosis) Chronicity: unspecified DVT location: non-extremity vein Qualified Code(s): I82.90 - Acute embolism and thrombosis of unspecified vein
--- NOTE | 2020-12-30 09:51 | XRay Report ---
KUB HISTORY: MRI-clearance COMPARISON: Abdomen and pelvis CT 12/16/2020. FINDINGS: A few nondilated gas-filled loops of large or small bowel. There is also mild gaseous diste ntion of the stomach. Moderate well-formed stool within the colon and rectum. This favors a mild ileu s. There are no dilated loops of small bowel to suggest an obstruction. No renal calculi. No uretera l calculi. No pneumoperitoneum or pneumatosis. Subtle clips within the right upper quadrant. Levoscol iosis of the lumbar spine with advanced degenerative changes. No pain pump or stimulator device is id entified. IMPRESSION: 1. Mild ileus. No significant bowel obstruction. 3. No pain pump or stimulator device identified. ACT 112: Negative or not required by law. Electronically signed by: Chandu Garcia M.D. 12/30/2020 9:50 AM
[2020-12-30] MEDS ORDERED: GADOBUTROL 65ML VIAL IV ONE (11:08)
[2020-12-30] MEDS: VANCOMYCIN HCL 1,000 MG in SODIUM CHLORIDE 0.9% 250 ML IV SCH (11:10)
--- NOTE | 2020-12-30 13:52 | Magnetic Resonance Report ---
MRI OF THE LUMBAR SPINE COMBO CLINICAL HISTORY: Dementia. Back pain. Breast cancer. COMPARISON STUDY: Abdominal CT dated 12/16/2020. TECHNIQUE: MRI of the lumbar spine is performed utilizing various T1 and T2-weighted sequences in the axial and sagittal planes. Contrast-enhanced sequences were obtained following the IV administration of 4.5 cc of Gadavist. The examination is severely compromised by motion artifact. This degrades jorge gnostic utility. FINDINGS: Marrow signal intensity is markedly heterogeneous. There is loss of height involving L2 and L3 with significant destructive endplate change at this level. There is fluid within the disc space and marked marrow edema. This is highly concerning for discitis/osteomyelitis, likely chronic. There is associated paravertebral edema at this level. There is also significant fluid within the disc spac e at L3-L4, and trace fluid within the disc space at L1-L2. Vertebral body height is well maintained throughout the lumbar spine. Moderate lumbar levocurvature centered at L3. Anterior and lateral tereso nal osteophytes are seen throughout. The transverse and spinous processes are grossly intact. There i s no evidence of spondylolysis. Degenerative disc desiccation and significant loss of height is seen throughout the lumbar spine. Loss of height is moderate to severe at all levels from L2 to L3 through L5-S1. There are large posterior disc osteophyte complexes at L2-L3 and L3-L4 which contribute to mi ld to moderate acquired compromise of the central canal. The minimum AP canal diameter at these level s measures up to 8 mm. There is mild posterior disc bulge at L4-L5. The visualized spinal cord appear s atrophic with abnormal signal in the lower thoracic region. This is focally expanded at the T10-T11 level. There is likely a thin bony septation/strut that extends through the central canal at the T10 -T11 level. There is no evidence of epidural fluid collection. There is edema within the posterior so ft tissues at the L2-L4 levels. There is marked fatty atrophy of the paraspinous musculature. The vis ualized sacrum is grossly intact. Retroperitoneal lymphadenopathy and marked splenomegaly are partial ly imaged. There are numerous small renal cysts. IMPRESSION: 1. Severely motion compromised examination. This degrades diagnostic utility. 2. There is destructive endplate change at L2-L3 with a large pocket of fluid within the widened disc space and surrounding paravertebral edema and edema within the vertebral bodies. This is nonspecific and likely represents chronic discitis/osteomyelitis. This could also be seen with osteonecrosis or pseudoarthrosis at L2-L3. Clinical correlation will be essential. 3. There is fluid within the L3-L4 disc and trace fluid within the L1-L2 disc. This could be on a deg enerative basis or could be seen with discitis. Again, clinical correlation will be essential. 4. There is no evidence of epidural abscess. 5. Spondylotic change as above with multilevel acquired compromise of the central canal. 6. Retroperitoneal lymphadenopathy and marked splenomegaly are similar to previous. 7. The bony structures are markedly heterogeneous. Given the reported history of breast cancer, diffu se osseous metastatic disease is not excluded. Dictated: 12/30/2020 12:51 PM Transcribed: 12/30/2020 1:49 PM Maddy [id number] [email or web address] Electronically signed by: Brock Arambula M.D. 12/30/2020 1:50 PM
[2020-12-30] MEDS ORDERED: VANCOMYCIN HCL 750 MG in SODIUM CHLORIDE 0.9% 250 ML IV SCH (14:00)
--- NOTE | 2020-12-30 16:01 | Consultation ---
Date of Consultation December 30, 2020 Assessment & Plan (1) CLL (chronic lymphocytic leukemia): CLL with 13q deletion and ZAP70 borderline negative, both conferring favorable prognosis Diagnosed in 2013 Followed expectantly at [facility] Worsening leukocytosis during this hospitalization is at the expense of neutrophilia (ANC leobardo from 5.6 to 34.5) rather than lymphocytosis. Recommend to treat underlying infection/inflammation Patient may need CLL directed therapy at some point given her worsening lymphadenopathy, splenomegaly and ALC doubling time but this will be determined as an outpatient Mild anemia and normal platelet counts Will check hemolysis panel. LDH, quantitative Ig levels Leukostasis is extremely rare in CLL unless WBC exceeds 400k Thank you for the courtesy of this consultation. 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 Patient presented to the ER from [facility] with altered mental status. Unable to get any meaningful history from the patient due to altered mental status. Per [facility] notes she was sent to the ER due to altered mental status, decreased oral intake and concern for UTI. She has a chronic Lopez catheter due to urinary retention from spina bifida - history of UTIs with pseudomonas, Klebsiella, Providencia and most concerning MRSA. Patient is on opiates for multiple pains but most notably back pain with recent CT scan concerning for osteomyelitis/discitis. In the ER she was noted to having an increasing WBC with significant lymphocytosis and neutrophilia. Empiric Abx was initiated for presumed UTI. Patient was seen and examined at bedside. Patient still confused and delirious. Lab data and imaging studies were reviewed. Allergies Allergy/AdvReac Type Severity Reaction Status Date / Time aspirin AdvReac Intermediate INCREASES Verified 12/29/20 14:42 BLEEDING capsaicin AdvReac Mild INTOLERANCE Verified 12/29/20 14:42 codeine AdvReac Mild INTOLERANCE Verified 12/29/20 14:42 diazepam AdvReac Mild INTOLERANCE Verified 12/29/20 14:42 diclofenac AdvReac Mild INTOLERANCE Verified 12/29/20 14:42 Diclopak AdvReac Mild INTOLERANCE Verified 03/21/18 14:33 diphenhydramine AdvReac Mild Dizziness Verified 12/29/20 14:42 [From Benadryl] erythromycin base AdvReac Mild INTOLERANCE Verified 12/29/20 14:42 sulindac AdvReac Mild INTOLERANCE Verified 12/29/20 14:42 tramadol AdvReac Mild INTOLERANCE Verified 12/29/20 14:42 turkey AdvReac Mild Diarrhea Verified 12/29/20 14:42 Home Medications Medication Instructions Recorded Confirmed Type multivitamin 1 tab PO QAM 01/08/19 12/29/20 History Xarelto 20 mg PO DAILY 10/24/19 12/29/20 History ascorbic acid (vitamin C) 500 mg 500 mg PO DAILY 11/30/19 12/29/20 History tablet acetaminophen 1,000 mg PO Q8H #180 tab 01/05/20 12/29/20 Rx atenolol 50 mg PO QAM #30 tab 01/05/20 12/29/20 Rx diclofenac sodium [Voltaren] 4 g EXT QID #100 gm 01/05/20 12/29/20 Rx lisinopril 10 mg PO DAILY #0 tab 01/05/20 12/29/20 Rx bisacodyl [Dulcolax (bisacodyl)] 10 mg WA DAILY PRN 02/01/20 12/29/20 History dextromethorphan-guaifenesin 10 ml PO Q6H PRN 02/01/20 12/29/20 History [Robitussin Cough-Chest [place] DM] lidocaine 1 patch TOPICAL DAILY 02/01/20 12/29/20 History loperamide [Imodium A-D] 2 mg PO Q3H PRN 02/01/20 12/29/20 History magnesium hydroxide [Milk of 30 ml PO DAILY PRN 02/01/20 12/29/20 History Magnesia] sodium phosphates [Fleet Enema] 118 ml WA DAILY PRN 02/01/20 12/29/20 History fentanyl 1 patch TOPICAL Q3D 12/29/20 12/29/20 History ferrous sulfate 325 mg PO BID 12/29/20 12/29/20 History oxycodone 5 mg PO Q6 PRN 12/29/20 12/29/20 History Patient History Medical History (Updated 12/30/20 @ 16:13 by Qasim Amador MD) Breast cancer s/p lumpectomy s/p chemo/XRT CLL (chronic lymphocytic leukemia) h/o chemotherapy (2014); chronic leukocytosis (baseline WBC 50-60 range per chart review) 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 GERD (gastroesophageal reflux disease) occasional Hypertension Lung mass "NON-MALIGNANT" Nonsustained ventricular tachycardia Osteoarthritis Peripheral neuropathy b/l hands r/t chemo Pulmonary nodules Spina bifida able to walk short distances with walker but often uses wheelchair but due to increasing back pain Thyroid nodule UTI (urinary tract infection) Surgical History History of back surgery lumbar History of bilateral tubal ligation History of bronchoscopy Navigational bronchoscopy 07/21/1919 Grade 1 view Yao 2 blade History of cardiac cath 2001= no stents History of chemotherapy Chemotherapeutics History of cholecystectomy History of lumbar puncture as an infant r/t spina bifida History of surgery repair of the spina bifida (at the base of pt neck) History of tonsillectomy Hx of lumpectomy left Family History Mother Hypertension Social History Smoking Status: Former smoker Second Hand Exposure: No; Do You Dip or Chew Tobacco: No; Hx Alcohol Use: No Hx Substance Use: No Preferred Language: Lebanese Communication Ability: Effective Visual Impairment: No Limitations Family And Consumer Education Teacher Required: No Beliefs That Will Affect Care: None marital status: / Current Living Situation: Longterm Current Living Situation Comment: [facility] current occupational status: retired Other Information That Helps Us Care for You: No Feels Safe at Home: Yes Safety Concerns: Feels Safe At This Time Assistive Devices: Wheelchair Review of Systems Review of Systems: Unobtainable due to cognitive status Physical Exam Physical Exam: Constitutional: Vitals are stable, CACHECTIC, FRAIL Eyes: Eyes are CALE EOMI without conjunctival erythema or icterus. ENT: DRY MUCOSA, POOR DENTITION Neck: Negative for masses or palpable thyromegaly. Respiratory: Lung sounds were generally clear bilaterally. Cardiovascular: Heart was RRR without significant murmur, gallops or rubs. Gastrointestinal: The abdomen was soft with normal bowel sounds. Lymphatic system: There was no palpable peripheral lymphadenopathy. Musculoskeletal System: The musculoskeletal system seemed concordant with age. Skin: The skin was negative for jaundice. Neurologic Exam: The exam was negative for any focal findings. CONFUSED, DELIRIOUS Extremities: Negative for edema or erythema Results & Data ([facility]) Vital Signs (Past 12 Hours) Vital Signs Temp Pulse Pulse Resp BP Pulse Ox 12/30/20 08:30 94 H 12/30/20 07:26 36.9 C 100 H 18 156/82 H 95 12/30/20 03:41 36.7 C 95 H 18 137/81 95 Laboratory Results Abnormal lab results 12/29/20 12/29/20 12/29/20 Range/Units 12:30 12:30 13:05 WBC 123.35 H* (4.8-10.8) K/uL RBC 3.49 L (4.2-5.4) M/uL Hgb 10.6 L (12.0-16.0) g/dL Hct 32.8 L (37-47) % RDW Std Deviation 57.4 H (36.4-46.3) fL RDW Coeff of Figueroa 16.9 H (11.5-14.5) % Neutrophils # (Manual) 28.00 H (1.4-6.5) K/uL Total Absolute Neuts 28.00 H (1.4-6.5) K/uL Lymphocytes # (Manual) 93.25 H (1.2-3.4) K/uL Total Abs Lymphocytes 93.25 H (1.2-3.4) K/uL Monocytes # (Manual) 2.10 H (0.11-0.59) K/uL ESR (0-21) mm/hr Chloride (98-107) mmol/L BUN 55 H (7-18) mg/dl BUN/Creatinine Ratio 59.6 H (10-20) Glucose (70-99) mg/dl Total Bilirubin 1.4 H (0.2-1) mg/dl AST 63 H (15-37) U/L Alkaline Phosphatase 170 H (45-117) U/L Ammonia < 10.0 L (11-32) umol/L C-Reactive Protein (0-0.29) mg/dl Total Protein 5.8 L (6.4-8.2) gm/dl Albumin 2.0 L (3.4-5.0) gm/dl Albumin/Globulin Ratio 0.5 L (0.9-2) Urine Appearance (Clear) Urine Protein (Negative) Urine Blood (Negative) Urine Nitrite (Negative) Urine Bilirubin (Negative) Ur Leukocyte Esterase (Negative) Urine WBC (Auto) (0-5) /hpf Urine RBC (Auto) (0-4) /hpf U Epithel Cells (Auto) (0-5) /lpf Urine Bacteria (Auto) (Negative) 12/29/20 12/30/20 12/30/20 Range/Units 14:53 05:56 05:56 WBC (4.8-10.8) K/uL RBC (4.2-5.4) M/uL Hgb (12.0-16.0) g/dL Hct (37-47) % RDW Std Deviation (36.4-46.3) fL RDW Coeff of Figueroa (11.5-14.5) % Neutrophils # (Manual) (1.4-6.5) K/uL Total Absolute Neuts (1.4-6.5) K/uL Lymphocytes # (Manual) (1.2-3.4) K/uL Total Abs Lymphocytes (1.2-3.4) K/uL Monocytes # (Manual) (0.11-0.59) K/uL ESR > 90 H (0-21) mm/hr Chloride 108 H (98-107) mmol/L BUN 47 H (7-18) mg/dl BUN/Creatinine Ratio 69.8 H (10-20) Glucose 108 H (70-99) mg/dl Total Bilirubin 1.8 H (0.2-1) mg/dl AST 62 H (15-37) U/L Alkaline Phosphatase 191 H (45-117) U/L Ammonia (11-32) umol/L C-Reactive Protein 32.70 H (0-0.29) mg/dl Total Protein 5.7 L (6.4-8.2) gm/dl Albumin 2.0 L (3.4-5.0) gm/dl Albumin/Globulin Ratio 0.5 L (0.9-2) Urine Appearance Turbid A (Clear) Urine Protein 2+ H (Negative) Urine Blood 3+ H (Negative) Urine Nitrite Positive A (Negative) Urine Bilirubin 1+ H (Negative) Ur Leukocyte Esterase 3+ H (Negative) Urine WBC (Auto) >30 H (0-5) /hpf Urine RBC (Auto) >30 H (0-4) /hpf U Epithel Cells (Auto) >30 H (0-5) /lpf Urine Bacteria (Auto) 1+ H (Negative) 12/30/20 Range/Units 05:56 WBC 140.26 H* D (4.8-10.8) K/uL RBC 3.43 L (4.2-5.4) M/uL Hgb 10.5 L (12.0-16.0) g/dL Hct 31.2 L (37-47) % RDW Std Deviation 55.0 H (36.4-46.3) fL RDW Coeff of Figueroa 16.7 H (11.5-14.5) % Neutrophils # (Manual) 34.50 H (1.4-6.5) K/uL Total Absolute Neuts 34.50 H (1.4-6.5) K/uL Lymphocytes # (Manual) 99.02 H (1.2-3.4) K/uL Total Abs Lymphocytes 99.02 H (1.2-3.4) K/uL Monocytes # (Manual) 6.73 H (0.11-0.59) K/uL ESR (0-21) mm/hr Chloride (98-107) mmol/L BUN (7-18) mg/dl BUN/Creatinine Ratio (10-20) Glucose (70-99) mg/dl Total Bilirubin (0.2-1) mg/dl AST (15-37) U/L Alkaline Phosphatase (45-117) U/L Ammonia (11-32) umol/L C-Reactive Protein (0-0.29) mg/dl Total Protein (6.4-8.2) gm/dl Albumin (3.4-5.0) gm/dl Albumin/Globulin Ratio (0.9-2) Urine Appearance (Clear) Urine Protein (Negative) Urine Blood (Negative) Urine Nitrite (Negative) Urine Bilirubin (Negative) Ur Leukocyte Esterase (Negative) Urine WBC (Auto) (0-5) /hpf Urine RBC (Auto) (0-4) /hpf U Epithel Cells (Auto) (0-5) /lpf Urine Bacteria (Auto) (Negative) Diagnostic Findings XR chest 1V portable IMPRESSION: 1. Cardiomegaly with pulmonary vascular congestion and chronic interstitial coarsening. 2. Retrocardiac opacities suggestive of atelectasis versus pneumonitis CT head/brain wo con IMPRESSION: Chronic findings as above. No acute intracranial abnormality. CT SCAN OF THE CHEST, ABDOMEN, AND PELVIS WITHOUT IV CONTRAST 12/16/20 IMPRESSION: 1. There is postoperative change from right apical lung resection. Nodular parenchymal scarring along the resection margin is unchanged from previous. 2. An ill-defined groundglass lesion at the left apex and a 6 mm groundglass nodule in the superior segment of the left lower lobe are unchanged as compared to 08/26/2020. These remain pathologically indeterminant, and low-grade adenocarcinoma is not excluded. 3. No new pulmonary lesion is identified. 4. There is no airspace consolidation typical for pneumonia or pleural effusion. 5. Right axillary and left internal mammary lymphadenopathy is unchanged as compared to 08/26/2020. 6. The spleen is enlarged and there is retroperitoneal, iliac chain, mesenteric, and inguinal lymphadenopathy. Lymphadenopathy has progressed as compared to the most recent abdominal CT dated 11/17/2019 and favors a lymphoproliferative disorder. Correlation with the patient's medical and oncological history will be required. 7. There are compression deformities of L2 and L3 with extensive endplate destruction and erosion at L2-L3 with associated paravertebral edema. This is new from 11/17/2019. Although this could represent progressive degenerative change with osteonecrosis, underlying discitis/osteomyelitis is not excluded. Clinical correlation will be essential. 8. The bladder is decompressed and a Lopez catheter. The bladder wall is markedly thickened and there is pericystic inflammation. Correlate clinically and with urinalysis for evidence of cystitis. 9. Left-sided nephrolithiasis. 10. Rectosigmoid fecal retention and moderate constipation. 11. Asymmetric dermal thickening of the left breast is unchanged from previous. Clinical correlation will be required. 12. Cardiomegaly with advanced coronary artery calcification. 13. There is a 1.5 cm peripherally calcified splenic artery aneurysm.
--- NOTE | 2020-12-30 19:46 | Emergency Department Note ---
Impression & Plan Acute alteration in mental status, CLL (chronic lymphocytic leukemia) ED Provider Note NAME: ISIAH ROMAN AGE: 80 SEX: F ARRIVES VIA: Ambulance INFORMANT: care home, EMS, Friend Vianca ED PROVIDER(S): Dahlia Ramires MD CHIEF COMPLAINT: AMS PLAN: Disposition: inpatient Condition: Fair Referral: Hospitalist MEDICAL DECISION MAKING: This pt was evaluated and appeared to be confused and to be somewhat agitated. IV access was obtained and lab work was drawn. Pt was placed on the site monitor and appeared to be in no distress. Pt was noted to have a fentanyl patch in place on left arm. IVF were initiated. Bush cath was noted to be draining a dark and sediment laden urine. Lab work reveals a WBC of 123. UA is indicative of infection although cx from day prior was negative. Bush was changed and a new cx sent. CXR was significant for retrocardiac opacity and congestion. Blood cx were sent and pt was medicated with cefepime 2 gm IV, hydrated with NSS. I did contact pt's brother in [place] and friend (who attends most doctor's visits) who said pt was started on pain medication in the last week, fentanyl patch and prn oxycodone. Thinking narcotics maybe causing some of the delirium, fentanyl patch was removed. Oncology was consulted, Dr. Amador who stated the pt's oncology needs should be met at our facility. Case was d/w Dr. Bah who ill evaluate for further management. Vianca was updated and agreed w plan. Triage Nursing notes reviewed. Prior medical records reviewed. Vital Signs: reviewed and remarkable for hypertension. Differential diagnosis: Infection, dehydration, metabolic abnormality, hypo/hyperglycemia, electrolyte disturbance, anemia, hypoxia, cardiac sources, intracerebral event, toxicologic, neurologic, as well as other pathologies. ER treatment provided: IV NSS IV cefepime fentanyl patch removed Diagnostics interpreted by me: ECG: NSR at 86 bpm, left atrial enlargement, LAD, LVH with repolarization abnl. No ectopy. Cardiac Monitoring: Laboratory studies: See below Imaging studies: XR chest 1V portable HISTORY: 80 years-old Female weakness acute weakness COMPARISON: Chest radiograph 01/03/2020 TECHNIQUE: Portable AP view of the chest FINDINGS: Cardiac silhouette is enlarged. Calcified plaque of the thoracic aorta. No pneumothorax, or large pleural effusion. With retrocardiac opacities are noted. Prominent vascular congestion with chronic interstitial coarsening. Right hemidiaphragmatic elevation. Cholecystectomy. Degenerative changes of the shoulders and spine. IMPRESSION: 1. Cardiomegaly with pulmonary vascular congestion and chronic interstitial coarsening. 2. Retrocardiac opacities suggestive of atelectasis versus pneumonitis. ACT 112: Negative or not required by law. The above report was generated using voice recognition software. It may contain grammatical, syntax or spelling errors. Electronically signed by: Chetan Nesbitt M.D. 12/29/2020 2:05 PM Dictated: 12/29/20 1404Transcribed: 12/29/[address] head/brain wo con CLINICAL HISTORY: 80 years-old Female with AMS. Acutely altered mental status TECHNIQUE: Multiple axial CT images of the head were obtained without contrast. A dose lowering technique was utilized adhering to the principles of ALARA. CT DOSE: 810.83 mGy.cm COMPARISON: Head CT 11/17/2019. FINDINGS: No acute intracranial hemorrhage, midline shift, intracranial mass, territorial ischemia or abnormal extra-axial collection. Marked dilation of the lateral and third ventricles appears unchanged. Inferior displacement of the cerebellar tonsils is also unchanged. Chiari malformation considered. Cavum septum pellucidum. Cerebral vascular calcifications are noted. Minimal patchy white matter hypodensities suggest chronic microvascular ischemic disease. No acute calvarial fracture. The mastoid air cells and paranasal sinuses appear clear. Soft tissues and orbits are unremarkable. IMPRESSION: Chronic findings as above. No acute intracranial abnormality. ACT 112: Negative or not required by law. The above report was generated using voice recognition software. It may contain grammatical, syntax or spelling errors. Electronically signed by: Chetan Nesbitt M.D. 12/29/2020 1:42 PM Dictated: 12/29/20 133Transcribed: 12/29/201338 Consultation(s): hospitalist HPI: Rafael/F arrives for evaluation of AMS. Pt resides in a nursing facility and has had a sudden change in mental status over the last week. According to her close friend, she has suffered from CLL, breast CA but has been only taking tylenol until recently. She began to c/o severe pain this week and her med requirement escalated from ultram->oxy prn->fentanyl patchy w oxy prn. Pt has had dark urine but had a neg UCx yesterday. No v/d, abd pain, fever, CP but report. Hisptory is limited as pt is unable to reliably answer. ROS: Unable to obtain secondary to AMS PAST MEDICAL HISTORY:See Below PAST SURGICAL HISTORY:See Below FAMILY HISTORY:See Below SOCIAL HISTORY:See Below HOME MEDICATIONS:See Below ALLERGIES:See Below VITALS:See Below PHYSICAL EXAMINATION: Vital signs reviewed. General: Chronically ill appearing 80 yo female, agitated but in no distress. HEENT: No scleral icterus, PERRLA, neck supple. Atraumatic. Dry MM. Cardiovascular: Regular rate and rhythm, systolic ejection murmur. Pulmonary: Clear to auscultation bilaterally, normal work of breathing. Abdomen: Soft, nontender, nondistended, positive bowel sounds. Musculoskeletal: Atraumatic, no peripheral edema. : Indwelling bush cath Neurologic: Patient awake alert but confused. Yelling out, disoriented. 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 GERD (gastroesophageal reflux disease) occasional Hypertension Lung mass "NON-MALIGNANT" Nonsustained ventricular tachycardia Osteoarthritis Peripheral neuropathy b/l hands r/t chemo Pulmonary nodules Spina bifida able to walk short distances with walker but often uses wheelchair but due to increasing back pain Thyroid nodule UTI (urinary tract infection) Surgical History History of back surgery lumbar History of bilateral tubal ligation History of bronchoscopy Navigational bronchoscopy 07/21/1919 Grade 1 view Yao 2 blade History of cardiac cath 2001= no stents History of chemotherapy Chemotherapeutics History of cholecystectomy History of lumbar puncture as an r/t spina bifida History of surgery repair of the spina bifida (at the base of pt neck) History of tonsillectomy Hx of lumpectomy left Family History Mother Hypertension Social History Smoking Status: Former smoker Second Hand Exposure: No; Do You Dip or Chew Tobacco: No; Hx Alcohol Use: No Hx Substance Use: No Preferred Language: Hungarian Communication Ability: Effective Visual Impairment: No Limitations Continuity Coordinator Required: No Beliefs That Will Affect Care: None marital status: / Current Living Situation: Residential Current Living Situation Comment: [facility] current occupational status: retired Other Information That Helps Us Care for You: No Feels Safe at Home: Yes Safety Concerns: Feels Safe At This Time Assistive Devices: Wheelchair Allergies Allergies Allergy/AdvReac Type Severity Reaction Status Date / Time aspirin AdvReac Intermediate INCREASES Verified 12/29/20 14:42 BLEEDING capsaicin AdvReac Mild INTOLERANCE Verified 12/29/20 14:42 codeine AdvReac Mild INTOLERANCE Verified 12/29/20 14:42 diazepam AdvReac Mild INTOLERANCE Verified 12/29/20 14:42 diclofenac AdvReac Mild INTOLERANCE Verified 12/29/20 14:42 Diclopak AdvReac Mild INTOLERANCE Verified 03/21/18 14:33 diphenhydramine AdvReac Mild Dizziness Verified 12/29/20 14:42 [From Benadryl] erythromycin base AdvReac Mild INTOLERANCE Verified 12/29/20 14:42 sulindac AdvReac Mild INTOLERANCE Verified 12/29/20 14:42 tramadol AdvReac Mild INTOLERANCE Verified 12/29/20 14:42 turkey AdvReac Mild Diarrhea Verified 12/29/20 14:42 Home Meds Home Medications Medication Instructions Recorded Confirmed multivitamin 1 tab PO QAM 01/08/19 12/29/20 Xarelto 20 mg PO DAILY 10/24/19 12/29/20 ascorbic acid (vitamin C) 500 mg 500 mg PO DAILY 11/30/19 12/29/20 tablet bisacodyl [Dulcolax (bisacodyl)] 10 mg CO DAILY PRN 02/01/20 12/29/20 dextromethorphan-guaifenesin 10 ml PO Q6H PRN 02/01/20 12/29/20 [Robitussin Cough-Chest Francisco DM] lidocaine 1 patch TOPICAL DAILY 02/01/20 12/29/20 loperamide [Imodium A-D] 2 mg PO Q3H PRN 02/01/20 12/29/20 magnesium hydroxide [Milk of 30 ml PO DAILY PRN 02/01/20 12/29/20 Magnesia] sodium phosphates [Fleet Enema] 118 ml CO DAILY PRN 02/01/20 12/29/20 fentanyl 1 patch TOPICAL Q3D 12/29/20 12/29/20 ferrous sulfate 325 mg PO BID 12/29/20 12/29/20 oxycodone 5 mg PO Q6 PRN 12/29/20 12/29/20 Previous Rx's Medication Instructions Recorded acetaminophen 1,000 mg PO Q8H #180 tab 01/05/20 atenolol 50 mg PO QAM #30 tab 01/05/20 diclofenac sodium [Voltaren] 4 g EXT QID #100 gm 01/05/20 lisinopril 10 mg PO DAILY #0 tab 01/05/20 Results & Data (ED) Home Medications Current Medication List: was personally reviewed by me Laboratory Data Attestation: I reviewed the patient's lab results. Result diagrams: 12/30/20 05:56 12/30/20 05:56 Lab Results 12/29/20 12/29/20 12/29/20 Range/Units 12:30 12:30 13:05 WBC 123.35 H* (4.8-10.8) K/uL RBC 3.49 L (4.2-5.4) M/uL Hgb 10.6 L (12.0-16.0) g/dL Hct 32.8 L (37-47) % MCV 94.0 (80-100) fL MCH 30.4 (25-34) pg MCHC 32.3 (32-36) g/dL RDW Std Deviation 57.4 H (36.4-46.3) fL RDW Coeff of Figueroa 16.9 H (11.5-14.5) % Plt Count 150 (130-400) K/uL MPV 9.6 (7.4-10.4) fL Neutrophils % (Manual) 22.7 % Lymphocytes % (Manual) 75.6 % Monocytes % (Manual) 1.7 % Neutrophils # (Manual) 28.00 H (1.4-6.5) K/uL Total Absolute Neuts 28.00 H (1.4-6.5) K/uL Lymphocytes # (Manual) 93.25 H (1.2-3.4) K/uL Total Abs Lymphocytes 93.25 H (1.2-3.4) K/uL Monocytes # (Manual) 2.10 H (0.11-0.59) K/uL Smudge Cells Present Toxic Granulation 1+ Toxic Vacuolation 1+ Sodium 136 (136-145) mmol/L Potassium 4.3 (3.5-5.1) mmol/L Chloride 102 (98-107) mmol/L Carbon Dioxide 26 (21-32) mmol/L Anion Gap 8.0 (3-11) BUN 55 H (7-18) mg/dl Creatinine 0.92 (0.6-1.2) mg/dl Est Cr Clr Drug Dosing 35.6 ml/min Est GFR ( Amer) 68.6 Est GFR (Non-Af Amer) 59.2 BUN/Creatinine Ratio 59.6 H (10-20) Glucose 75 (70-99) mg/dl Lactate 1.2 (0.4-2.0) mmol/L Calcium 9.1 (8.5-10.1) mg/dl Total Bilirubin 1.4 H (0.2-1) mg/dl AST 63 H (15-37) U/L ALT 32 (12-78) U/L Alkaline Phosphatase 170 H (45-117) U/L Ammonia (11-32) umol/L Total Protein 5.8 L (6.4-8.2) gm/dl Albumin 2.0 L (3.4-5.0) gm/dl Globulin 3.8 (2.5-4.0) gm/dl Albumin/Globulin Ratio 0.5 L (0.9-2) TSH 0.913 (0.300-4.500) uIu/ml Urine Color Urine Appearance (Clear) Urine pH (4.5-7.5) Ur Specific Buna (1.000-1.030) Urine Protein (Negative) Urine Glucose (UA) (Negative) Urine Ketones (Negative) Urine Blood (Negative) Urine Nitrite (Negative) Urine Bilirubin (Negative) Urine Urobilinogen (Negative) Ur Leukocyte Esterase (Negative) Urine WBC (Auto) (0-5) /hpf Urine RBC (Auto) (0-4) /hpf U Hyaline Cast (Auto) (0-5) /lpf U Epithel Cells (Auto) (0-5) /lpf Urine Bacteria (Auto) (Negative) Urine Yeast COVID-19 Eval Order SARS-CoV-2, RNA, NAAT (NEGATIVE) 12/29/20 12/29/20 12/29/20 Range/Units 13:05 14:53 15:30 WBC (4.8-10.8) K/uL RBC (4.2-5.4) M/uL Hgb (12.0-16.0) g/dL Hct (37-47) % MCV (80-100) fL MCH (25-34) pg MCHC (32-36) g/dL RDW Std Deviation (36.4-46.3) fL RDW Coeff of Figueroa (11.5-14.5) % Plt Count (130-400) K/uL MPV (7.4-10.4) fL Neutrophils % (Manual) % Lymphocytes % (Manual) % Monocytes % (Manual) % Neutrophils # (Manual) (1.4-6.5) K/uL Total Absolute Neuts (1.4-6.5) K/uL Lymphocytes # (Manual) (1.2-3.4) K/uL Total Abs Lymphocytes (1.2-3.4) K/uL Monocytes # (Manual) (0.11-0.59) K/uL Smudge Cells Toxic Granulation Toxic Vacuolation Sodium (136-145) mmol/L Potassium (3.5-5.1) mmol/L Chloride (98-107) mmol/L Carbon Dioxide (21-32) mmol/L Anion Gap (3-11) BUN (7-18) mg/dl Creatinine (0.6-1.2) mg/dl Est Cr Clr Drug Dosing ml/min Est GFR ( Amer) Est GFR (Non-Af Amer) BUN/Creatinine Ratio (10-20) Glucose (70-99) mg/dl Lactate (0.4-2.0) mmol/L Calcium (8.5-10.1) mg/dl Total Bilirubin (0.2-1) mg/dl AST (15-37) U/L ALT (12-78) U/L Alkaline Phosphatase (45-117) U/L Ammonia < 10.0 L (11-32) umol/L Total Protein (6.4-8.2) gm/dl Albumin (3.4-5.0) gm/dl Globulin (2.5-4.0) gm/dl Albumin/Globulin Ratio (0.9-2) TSH (0.300-4.500) uIu/ml Urine Color Marilu Urine Appearance Turbid A (Clear) Urine pH 6.5 (4.5-7.5) Ur Specific Buna 1.020 (1.000-1.030) Urine Protein 2+ H (Negative) Urine Glucose (UA) Negative (Negative) Urine Ketones Negative (Negative) Urine Blood 3+ H (Negative) Urine Nitrite Positive A (Negative) Urine Bilirubin 1+ H (Negative) Urine Urobilinogen Negative (Negative) Ur Leukocyte Esterase 3+ H (Negative) Urine WBC (Auto) >30 H (0-5) /hpf Urine RBC (Auto) >30 H (0-4) /hpf U Hyaline Cast (Auto) 1-5 (0-5) /lpf U Epithel Cells (Auto) >30 H (0-5) /lpf Urine Bacteria (Auto) 1+ H (Negative) Urine Yeast Not Reportable COVID-19 Eval Order Covid19 IDNow [facility] SARS-CoV-2, RNA, NAAT (NEGATIVE) 12/29/20 Range/Units 15:30 WBC (4.8-10.8) K/uL RBC (4.2-5.4) M/uL Hgb (12.0-16.0) g/dL Hct (37-47) % MCV (80-100) fL MCH (25-34) pg MCHC (32-36) g/dL RDW Std Deviation (36.4-46.3) fL RDW Coeff of Figueroa (11.5-14.5) % Plt Count (130-400) K/uL MPV (7.4-10.4) fL Neutrophils % (Manual) % Lymphocytes % (Manual) % Monocytes % (Manual) % Neutrophils # (Manual) (1.4-6.5) K/uL Total Absolute Neuts (1.4-6.5) K/uL Lymphocytes # (Manual) (1.2-3.4) K/uL Total Abs Lymphocytes (1.2-3.4) K/uL Monocytes # (Manual) (0.11-0.59) K/uL Smudge Cells Toxic Granulation Toxic Vacuolation Sodium (136-145) mmol/L Potassium (3.5-5.1) mmol/L Chloride (98-107) mmol/L Carbon Dioxide (21-32) mmol/L Anion Gap (3-11) BUN (7-18) mg/dl Creatinine (0.6-1.2) mg/dl Est Cr Clr Drug Dosing ml/min Est GFR ( Amer) Est GFR (Non-Af Amer) BUN/Creatinine Ratio (10-20) Glucose (70-99) mg/dl Lactate (0.4-2.0) mmol/L Calcium (8.5-10.1) mg/dl Total Bilirubin (0.2-1) mg/dl AST (15-37) U/L ALT (12-78) U/L Alkaline Phosphatase (45-117) U/L Ammonia (11-32) umol/L Total Protein (6.4-8.2) gm/dl Albumin (3.4-5.0) gm/dl Globulin (2.5-4.0) gm/dl Albumin/Globulin Ratio (0.9-2) TSH (0.300-4.500) uIu/ml Urine Color Urine Appearance (Clear) Urine pH (4.5-7.5) Ur Specific Buna (1.000-1.030) Urine Protein (Negative) Urine Glucose (UA) (Negative) Urine Ketones (Negative) Urine Blood (Negative) Urine Nitrite (Negative) Urine Bilirubin (Negative) Urine Urobilinogen (Negative) Ur Leukocyte Esterase (Negative) Urine WBC (Auto) (0-5) /hpf Urine RBC (Auto) (0-4) /hpf U Hyaline Cast (Auto) (0-5) /lpf U Epithel Cells (Auto) (0-5) /lpf Urine Bacteria (Auto) (Negative) Urine Yeast COVID-19 Eval Order SARS-CoV-2, RNA, NAAT NEGATIVE (NEGATIVE) Administered Medications Diclofenac Sodium (Diclofenac Sod 1% Gel 100 Gm Tube) 4 gm EXT QID IMAN Stop: 01/28/21 20:59 Last Admin: 12/30/20 20:34 Dose: 4 gm Documented by: [id number] Admin: 12/30/20 17:43 Dose: 4 gm Documented by: [id number] Admin: 12/30/20 12:32 Dose: 4 gm Documented by: [id number] Admin: 12/30/20 08:26 Dose: 4 gm Documented by: [id number] Admin: 12/29/20 21:28 Dose: 4 gm Documented by: [id number] Haloperidol Lactate (Haloperidol Lactate 5 Mg/Ml 1 Ml Vial) 5 mg IM HS PRN PRN Reason: agitation Stop: 01/29/21 21:13 Last Admin: 12/30/20 22:15 Dose: 5 mg Documented by: [id number] Cefepime HCl 2,000 mg/ Syringe 20 mls @ 5 mls/min IV Q12H IMAN; Protocol Stop: 01/01/21 03:59 Last Admin: 12/30/20 15:56 Dose: 5 mls/min Documented by: [id number] Admin: 12/30/20 04:17 Dose: 5 mls/min Documented by: [id number] Vancomycin HCl 1,000 mg/ (Sodium Chloride) 270 mls @ 200 mls/hr IV Q18H IMAN; Protocol Stop: 01/09/21 10:59 Last Infusion: 12/30/20 13:00 Dose: 0 mls/hr Documented by: [id number] Admin: 12/30/20 11:10 Dose: 150 mls/hr Documented by: [id number] Multivitamins (Multivitamin Tab) 1 tab PO QAM [facility] Stop: 01/29/21 08:59 Last Admin: 12/30/20 08:26 Dose: 1 tab Documented by: [id number] Oxycodone HCl (Oxycodone Hcl Ir 5 Mg Tab (Immediate Release)) 5 mg PO Q4H PRN PRN Reason: Pain Stop: 01/12/21 22:42 Last Admin: 12/30/20 20:35 Dose: 5 mg Documented by: [id number] Admin: 12/30/20 20:33 Dose: 5 mg Documented by: [id number] Admin: 12/30/20 12:29 Dose: 5 mg Documented by: [id number] Admin: 12/30/20 04:18 Dose: 5 mg Documented by: [id number] Polyethylene Glycol (Polyethylene (Miralax) 17 Gm Pack) 17 gm PO TID [facility] Stop: 01/28/21 20:59 Last Admin: 12/30/20 20:34 Dose: 17 gm Documented by: [id number] Admin: 12/30/20 14:42 Dose: Not Given Documented by: [id number] Admin: 12/30/20 08:26 Dose: 17 gm Documented by: [id number] Admin: 12/29/20 21:28 Dose: 17 gm Documented by: [id number] Rivaroxaban (Rivaroxaban 20 Mg Tab) 20 mg PO DAILY IM[facility] Stop: 01/29/21 08:59 Last Admin: 12/30/20 08:26 Dose: 20 mg Documented by: [id number] Discontinued Medications Gadobutrol (Gadobutrol 65ml Vial) 4.5 ml IV ONCE ONE Stop: 12/30/20 11:09 Last Admin: 12/30/20 11:08 Dose: 4.5 ml Documented by: [id number] Sodium Chloride (Nss) 500 mls @ 999 mls/hr IV .Q31M [facility] Stop: 12/29/20 13:15 Last Infusion: 12/29/20 13:40 Dose: 0 mls/hr Documented by: [id number] Admin: 12/29/20 13:09 Dose: 999 mls/hr Documented by: [id number] Sodium Chloride (Nss 1000ml) 1,000 mls @ 125 mls/hr IV .Q8H IMAN Stop: 12/29/20 20:44 Last Infusion: 12/29/20 21:19 Dose: 0 mls/hr Documented by: [id number] Admin: 12/29/20 13:20 Dose: 125 mls/hr Documented by: [id number] Sodium Chloride (Nss) 500 mls @ 999 mls/hr IV .Q31M ONE Stop: 12/29/20 14:57 Last Infusion: 12/29/20 15:01 Dose: 0 mls/hr Documented by: [id number] Admin: 12/29/20 14:30 Dose: 999 mls/hr Documented by: [id number] Cefepime HCl (Maxipime) 2,000 mg in 20 mls @ 5 mls/min IV NOW STA; Protocol Stop: 12/29/20 16:07 Last Admin: 12/29/20 16:52 Dose: 5 mls/min Documented by: [id number] Vancomycin HCl 1,000 mg/ (Sodium Chloride) 520 mls @ 200 mls/hr IV NOW ONE Stop: 12/29/20 19:20 Last Infusion: 12/29/20 20:36 Dose: 0 mls/hr Documented by: [id number] Admin: 12/29/20 17:07 Dose: 200 mls/hr Documented by: [id number] Miscellaneous (Fentanyl Patch Remove & Waste) 1 ea N/A NOW STA Stop: 12/29/20 15:09 Last Admin: 12/29/20 15:10 Dose: 1 ea Documented by: [id number] Cosigned by: [id number] Discharge Plan Visit Data Chief Complaint: Urinary Symptoms ED Provider: Dahlia Ramires Discharge Problem: Acute alteration in mental status, CLL (chronic lymphocytic leukemia) Patient Disposition: Admitted As Inpatient Discharge Instructions Interventions: ED Discharge Assessment Last Done: 12/29/20 19:04
[2020-12-30] MEDS ORDERED: HALOPERIDOL LACTATE 5 MG/ML 1 ML VIAL IM PRN (21:14)
[2020-12-31] MEDS: oxyCODONE HCL IR 5 MG TAB (IMMEDIATE RELEASE) PO PRN (01:49)
[2020-12-31] MEDS: CEFEPIME 2,000 MG in SYRINGE 0 ML IV SCH (04:17)
[2020-12-31] MEDS: VANCOMYCIN HCL 1,000 MG in SODIUM CHLORIDE 0.9% 250 ML IV SCH ×2 (05:05→22:03)
[2020-12-31 06:47] LABS: Hematocrit (blood only) 31.7 % (37-47); Hemoglobin 10.5 g/dL (12.0-16.0); Mean Corpuscular Hemoglobin 30.1 pg (25-34); Mean Corpuscular Hgb Conc 33.1 g/dL (32-36); Mean Corpuscular Volume 90.8 fL (80-100); Mean Platelet Volume 9.2 fL (7.4-10.4); Platelet Count 150 K/uL (130-400); RDW Coefficient of Variation 16.9 % (11.5-14.5); RDW Standard Deviation 55.1 fL (36.4-46.3); Red Blood Count 3.49 M/uL (4.2-5.4); Reticulocyte % 0.9 % (0.5-2.0); Reticulocytes # 0.03 10^6/uL (0.02-0.10); White Blood Count 198.11 K/uL (4.8-10.8)
[2020-12-31 07:21] LABS: BUN Creatinine Ratio 86.7 (10-20); Calcium 8.7 mg/dl (8.5-10.1); Creatinine Clr Calc Pharmacy 53.2 ml/min; Est GFR (African American) 99.9; Est GFR (Non-African American) 86.2; Magnesium 2.1 mg/dl (1.8-2.4); Potassium 5.1 mmol/L (3.5-5.1)
[2020-12-31 07:31] LABS: Immunoglobulin M 97.7 mg/dl (40-230); Phosphorus 2.4 mg/dl (2.5-4.9)
--- NOTE | 2020-12-31 08:27 | Hospitalist Progress Note ---
Date of Service December 31, 2020 Assessment & Plan (1) Sepsis: tachycardic, leukocytosis lactate is 2 giving NS fluid bolus, starting maintenance fluids blood cultures with strep, urine culture with proteus patient is critically ill, appears that she may be actively dying, informed patients brother. he stated to continue all medical interventions, continue antibiotics ABG with respiratory alkalosis monitoring closely (2) Altered mental state: No acute intracranial abnormality on CT Suspected infection with ANC 28. No acute findings on chest x-ray to suggest pneumonia as source. Possible catheter associated UTI although will always have chronic bacteriuria ?C2-3 discitis/osteomyelitis on prior CT Possibly also related to opiate use - patient on fentanyl 25 mcg/h patch, removed on admission, patient also receiving oxycodone 5 mg recently started on December 25. Prior to this she was on tramadol. This was increased to 10 mg which she had 3 times yesterday ?CLL with increasing ALC and progressive lymphadenopathy as noted on prior CT 2-9 worse today than yesterday incomprehensible speech, appears agonal. checking ABG long conversation with patient's only living family -- her brother. consulting palliative care (3) Bacteremia: blood cultures with strep cont vanco in case ends up being enterococcus discussed with pharmacy (4) Leukocytosis: 1-27 baseline WBC 94 2-7 WBC 123 2-8 WBC 140 check peripheral smear, consulting oncology oncology stated leukapheresis not needed unless WBC > 400 they also stated that underlying infection in setting of CLL is source of worsening leukocytosis (5) Osteomyelitis: vs. discitis on recent outpatient CT MRI lumbar spine Bedrest ESR/CRP with AM labs. ?infective vs. metastatic disease 2-8 ID consult placed, but then on hold as patient too ill to talk to them may need aspiration -- defer to ID (6) Catheter-associated urinary tract infection: Given history of MRSA growing on urine culture without subsequent blood cultures in August this is concerning for MRSA bacteremia. Therefore will cover with vancomycin pending repeat urine and blood cultures. However subsequent urine cultures have not contain MRSA I suspect this was a skin/catheter contaminant and did not represent a true infection. She is also have a history of Pseudomonas UTIs therefore will continue coverage with cefepime (prior providencia resistant to cipro). Continue cefepime and vancomycin IV 2-9 Urine culture with proteus downgrade to rocephin, cont vanco (7) Urinary retention: Continue chronic Lopez catheter, replaced in ER. (8) Constipation: MiralLAX TID, no bowel obstruction suspected. (9) Severe protein-calorie malnutrition: Consult dietary (10) Adenocarcinoma of lung: Status post right upper lobe resection. (11) Spina bifida: Wheelchair bound - per patient, although this is relatively recent, prev iously mobilized with walker. (12) CLL (chronic lymphocytic leukemia): Increasing ALC, no acute intervention per hematology/oncology. Consider consultation depending on clinical course. (13) DVT (deep venous thrombosis): 2018. Presumably on anticoagulation for life with Xarelto due to ongoing risk with CLL. I addressed code status with patient's brother. He stated that her wishes were to be full code. Admission and Anticipated Discharge Date Admission Date: December 29, 2020 Subjective incomprehensible speech patient appears to be in significant pain sounds like she is saying, "help me" Review of Systems Review of Systems: Unobtainable due to cognitive status Physical Exam Constitutional: + acute distress and + ill appearing Eyes: PERRL, conjunctivae normal, anicteric sclerae ENMT: Mouth: oral mucous membranes not dry Respiratory: normal respiratory effort; no respiratory distress and no labored breathing Auscultation: lungs clear to auscultation bilaterally; no crackles, no rales, no rhonchi and no wheezes Cardiovascular: Rate/Rhythm: regular rate and regular rhythm Heart Sounds: no murmur and no cardiac rub Vessels: normal peripheral pulses and radial pulses present; no JVD Extremities: no edema Gastrointestinal (Abdomen): Inspection/Auscultation: abdomen normal to inspection and normal bowel sounds; abdomen not distended Percussion/Palpation: abdomen soft; abdomen nontender, no guarding, abdomen not rigid and no hepatosplenomegaly Musculoskeletal: Head/Neck/Chest: normocephalic and head atraumatic Spine: no cervical spinal tenderness, no cervical muscular tenderness, no thoracic spinal tenderness and no lumbar spinal tenderness Skin: no rashes, warm and dry Neurologic: CN's II-XI intact bilaterally and moves all extremities Motor/Sensory: no tremor and no sensory deficit Psychiatric: Orientation: alert and oriented to person; + not oriented to place and + not oriented to time Apperance: + disheveled; + inappropriately groomed Affect: + anxious affect; + affect not euthymic and no tearful affect Genitourinary: no CVA tenderness Results & Data Results & Data ([facility]) Vital Signs (Past 12 Hours) Vital Signs Temp Pulse Pulse Resp BP Pulse Ox 12/31/20 07:20 119 H 12/31/20 04:00 36.4 C L 115 H 20 151/75 H 94 12/31/20 01:27 111 H 12/30/20 22:43 36.9 C 111 H 18 134/81 96 Laboratory Results Abnormal lab results 12/31/20 12/31/20 12/31/20 Range/Units 06:25 06:25 06:25 WBC 198.11 H* (4.8-10.8) K/uL RBC 3.49 L (4.2-5.4) M/uL Hgb 10.5 L (12.0-16.0) g/dL Hct 31.7 L (37-47) % RDW Std Deviation 55.1 H (36.4-46.3) fL RDW Coeff of Figueroa 16.9 H (11.5-14.5) % Chloride 114 H (98-107) mmol/L BUN 53 H (7-18) mg/dl BUN/Creatinine Ratio 86.7 H (10-20) Glucose 171 H (70-99) mg/dl Phosphorus 2.4 L (2.5-4.9) mg/dl Lactate Dehydrogenase 299 H (84-246) U/L Medications Administered Current Inpatient Medications Al Hydrox/Mg Hydrox/Simethicone (Aluminum/Magnesium Susp 30 Ml Udc) 15 ml PO Q4H PRN PRN Reason: Dyspepsia Stop: 01/28/21 19:54 Bisacodyl (Bisacodyl 10 Mg Supp) 10 mg ME DAILY PRN PRN Reason: Constipation Stop: 01/28/21 19:54 Diclofenac Sodium (Diclofenac Sod 1% Gel 100 Gm Tube) 4 gm EXT QID IMAN Stop: 01/28/21 20:59 Last Admin: 12/31/20 08:36 Dose: 4 gm Documented by: Haloperidol Lactate (Haloperidol Lactate 5 Mg/Ml 1 Ml Vial) 5 mg IM HS PRN PRN Reason: agitation Stop: 01/29/21 21:13 Last Admin: 12/30/20 22:15 Dose: 5 mg Documented by: Hydromorphone HCl (Hydromorphone Inj 0.5 Mg/0.5 Ml Syr) 0.25 mg IV Q4H PRN PRN Reason: Pain Stop: 01/12/21 22:42 Cefepime HCl 2,000 mg/ Syringe 20 mls @ 5 mls/min IV Q12H [facility]; Protocol Stop: 01/01/21 03:59 Last Admin: 12/31/20 04:17 Dose: 5 mls/min Documented by: Vancomycin HCl 1,000 mg/ (Sodium Chloride) 270 mls @ 200 mls/hr IV Q18H [facility]; Protocol Stop: 01/09/21 10:59 Last Infusion: 12/31/20 06:40 Dose: Infused Documented by: Miscellaneous Information (Vancomycin Consult Active) 1 ea N/A UD PRN PRN Reason: Consult Stop: 01/28/21 16:38 Miscellaneous Information (Cefepime Consult Active) 1 ea N/A UD PRN PRN Reason: Consult Stop: 01/28/21 19:54 Multivitamins (Multivitamin Tab) 1 tab PO QAM [facility] Stop: 01/29/21 08:59 Last Admin: 12/31/20 08:36 Dose: Not Given Documented by: Ondansetron HCl (Ondansetron Inj 2 Mg/Ml 2 Ml Vial) 4 mg IV Q6H PRN PRN Reason: Nausea Stop: 01/28/21 19:54 Oxycodone HCl (Oxycodone Hcl Ir 5 Mg Tab (Immediate Release)) 5 mg PO Q4H PRN PRN Reason: Pain Stop: 01/12/21 22:42 Last Admin: 12/31/20 01:49 Dose: 5 mg Documented by: Polyethylene Glycol (Polyethylene (Miralax) 17 Gm Pack) 17 gm PO TID [facility] Stop: 01/28/21 20:59 Last Admin: 12/31/20 08:36 Dose: Not Given Documented by: Rivaroxaban (Rivaroxaban 20 Mg Tab) 20 mg PO DAILY [facility] Stop: 01/29/21 08:59 Last Admin: 12/31/20 08:36 Dose: Not Given Documented by: PG Care Time/CCT Total # of Minutes Spent Total Time Spent with Patient: Total time spent is greater than 50% in coordination of care (as documented) at patient's floor/unit and/or counseling patient: Coding Level of Care Code 25486 Subseq Hosp Care Lvl 3 Diagnoses Sepsis A41.9 Sepsis type: sepsis due to unspecified organism Sepsis acute organ dysfunction status: unspecified Altered mental state R41.82 Bacteremia R78.81 Leukocytosis D72.829 Osteomyelitis M86.9 Catheter-associated urinary tract infection T83.511A; N39.0 Urinary retention R33.9 Constipation K59.00 Severe protein-calorie malnutrition E43 Adenocarcinoma of lung C34.90 Spina bifida Q05.9 CLL (chronic lymphocytic leukemia) C91.90 DVT (deep venous thrombosis) I82.90 Chronicity: unspecified DVT location: non-extremity vein (1) DVT (deep venous thrombosis) Chronicity: unspecified DVT location: non-extremity vein Qualified Code(s): I82.90 - Acute embolism and thrombosis of unspecified vein (2) Sepsis Sepsis type: sepsis due to unspecified organism Sepsis acute organ dysfunction status: unspecified Qualified Code(s): A41.9 - Sepsis, unspecified organism
[2020-12-31] MEDS: MULTIVITAMIN TAB PO SCH (08:36)
[2020-12-31] MEDS: POLYETHYLENE (MIRALAX) 17 GM PACK PO SCH ×3 (08:36→21:06)
[2020-12-31] MEDS: DICLOFENAC SOD 1% GEL 100 GM TUBE EXT SCH ×4 (08:36→21:07)
[2020-12-31] MEDS: RIVAROXABAN 20 MG TAB PO SCH (08:36)
[2020-12-31] MEDS ORDERED: SODIUM CHLORIDE 0.9% 1000ML 500 ML IV ONE (11:28)
[2020-12-31 11:46] LABS: Base Excess ABG -2.8 mEq/L (-9-1.8); HCO3 ABG 20 mmol/L (19-24); PCO2 ABG 27 mmHg (35-46); PO2 ABG 73 mmHg (80-95); pH ABG 7.48 (7.35-7.45)
[2020-12-31 11:48] LABS: Allen Test Pos (Pos)
[2020-12-31] MEDS: SODIUM CHLORIDE 0.9% 500 ML IV SCH ×3 (12:47→22:03)
[2020-12-31] MEDS ORDERED: HALOPERIDOL LACTATE 5 MG/ML 1 ML VIAL IM PRN (16:37)
[2020-12-31] MEDS ORDERED: SODIUM PHOSPHATE 3 MMOL/1 ML INFUSION IV STA (16:40)
[2020-12-31] MEDS ORDERED: SODIUM PHOSPHATE 15 MMOL in SODIUM CHLORIDE 0.9% 250 ML IV ONE (17:00)
[2020-12-31] MEDS: HYDROmorphone INJ 0.5 MG/0.5 ML SYR IV PRN ×2 (17:03→22:04)
[2020-12-31] MEDS: cefTRIAXone SODIUM 2,000 MG in DEXTROSE 5% 50 ML IV SCH (17:05)
[2020-12-31] MEDS: LORazepam 0.5 MG/1 ML VIAL IV PRN (17:07)
--- NOTE | 2020-12-31 17:07 | Palliative Care Consultation ---
Date of Consultation December 31, 2020 Assessment & Plan (1) Acute alteration in mental status: (2) Back pain: I suspect that part of her agitation is pain related. I spoke with her brother, Everton Leonard, by phone. He is very concerned about her having pain and would like that to be a focus of care. She is not taking po meds at this time. Will increase dose and frequency of hydromorphone for analgesia. (3) Constipation: Not taking po laxatives. Abdomen benign. Monitor on opioids. (4) Bacteremia: (5) CLL (chronic lymphocytic leukemia): (6) Adenocarcinoma of lung: (7) Spina bifida: (8) Palliative care encounter: Her brother has a good understanding of her current condition. He tells me that maintaining her independence was a high priority for Emily and that she had been distressed about being more dependent recently. He would want her to have medication for pain but is not comfortable with full comfort care at this point in time. We discussed continuing current treatment without escalation of care and he feels that is the best approach at this time. We did discuss code status and outcome of resuscitation would likely not return her to her current functional status. He would want her to be DNR. Code status changed to reflect this. Palliative care will follow. History of Present Illness Reason for Consultation: goals of care, pain management Requesting Physician: Dr. Barnhart Attending Physician: Dominique Barnhart MD History of Present Illness 80 yo lady who resides at [facility] admitted with altered mental status. She has a h/o spina bifida, CLL and lung cancer though she has not currently been receiving any cancer treatment. She had recently been having increased back pain at [facility] and had been on a 25mcg fentanyl patch with oxycodone prn. It is not clear when fentanyl was started. These medications were stopped on admission due to concern that they were contributing to her altered mental status. She is also noted to have a urinary tract infection with chronic indwelling bush catheter and strep bacteremia. Palliative care was asked to see Emily who is restless and calling out. She repeatedly says "help me" but does not respond to questions. She becomes more agitated with tactile stimulation. Allergies Allergy/AdvReac Type Severity Reaction Status Date / Time aspirin AdvReac Intermediate INCREASES Verified 12/29/20 14:42 BLEEDING capsaicin AdvReac Mild INTOLERANCE Verified 12/29/20 14:42 codeine AdvReac Mild INTOLERANCE Verified 12/29/20 14:42 diazepam AdvReac Mild INTOLERANCE Verified 12/29/20 14:42 diclofenac AdvReac Mild INTOLERANCE Verified 12/29/20 14:42 Diclopak AdvReac Mild INTOLERANCE Verified 03/21/18 14:33 diphenhydramine AdvReac Mild Dizziness Verified 12/29/20 14:42 [From Benadryl] erythromycin base AdvReac Mild INTOLERANCE Verified 12/29/20 14:42 sulindac AdvReac Mild INTOLERANCE Verified 12/29/20 14:42 tramadol AdvReac Mild INTOLERANCE Verified 12/29/20 14:42 turkey AdvReac Mild Diarrhea Verified 12/29/20 14:42 Home Medications Medication Instructions Recorded Confirmed Type multivitamin 1 tab PO QAM 01/08/19 12/29/20 History Xarelto 20 mg PO DAILY 10/24/19 12/29/20 History ascorbic acid (vitamin C) 500 mg 500 mg PO DAILY 11/30/19 12/29/20 History tablet acetaminophen 1,000 mg PO Q8H #180 tab 01/05/20 12/29/20 Rx atenolol 50 mg PO QAM #30 tab 01/05/20 12/29/20 Rx diclofenac sodium [Voltaren] 4 g EXT QID #100 gm 01/05/20 12/29/20 Rx lisinopril 10 mg PO DAILY #0 tab 01/05/20 12/29/20 Rx bisacodyl [Dulcolax (bisacodyl)] 10 mg KS DAILY PRN 02/01/20 12/29/20 History dextromethorphan-guaifenesin 10 ml PO Q6H PRN 02/01/20 12/29/20 History [Robitussin Cough-Chest [place] DM] lidocaine 1 patch TOPICAL DAILY 02/01/20 12/29/20 History loperamide [Imodium A-D] 2 mg PO Q3H PRN 02/01/20 12/29/20 History magnesium hydroxide [Milk of 30 ml PO DAILY PRN 02/01/20 12/29/20 History Magnesia] sodium phosphates [Fleet Enema] 118 ml KS DAILY PRN 02/01/20 12/29/20 History fentanyl 1 patch TOPICAL Q3D 12/29/20 12/29/20 History ferrous sulfate 325 mg PO BID 12/29/20 12/29/20 History oxycodone 5 mg PO Q6 PRN 12/29/20 12/29/20 History Patient History Medical History Breast cancer s/p lumpectomy s/p chemo/XRT CLL (chronic lymphocytic leukemia) h/o chemotherapy (2014); chronic leukocytosis (baseline WBC 50-60 range per chart review) 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 GERD (gastroesophageal reflux disease) occasional Hypertension Lung mass "NON-MALIGNANT" Nonsustained ventricular tachycardia Osteoarthritis Peripheral neuropathy b/l hands r/t chemo Pulmonary nodules Spina bifida able to walk short distances with walker but often uses wheelchair but due to increasing back pain Thyroid nodule UTI (urinary tract infection) Surgical History History of back surgery lumbar History of bilateral tubal ligation History of bronchoscopy Navigational bronchoscopy 07/21/1919 Grade 1 view Yao 2 blade History of cardiac cath 2001= no stents History of chemotherapy Chemotherapeutics History of cholecystectomy History of lumbar puncture as an infant r/t spina bifida History of surgery repair of the spina bifida (at the base of pt neck) History of tonsillectomy Hx of lumpectomy left Family History Mother Hypertension Social History Smoking Status: Former smoker Second Hand Exposure: No; Do You Dip or Chew Tobacco: No; Hx Alcohol Use: No Hx Substance Use: No Preferred Language: Wolof Communication Ability: Effective Visual Impairment: No Limitations Integrity Manager Required: No Beliefs That Will Affect Care: None marital status: / Current Living Situation: Intermediate Current Living Situation Comment: [facility] current occupational status: retired Other Information That Helps Us Care for You: No Feels Safe at Home: Yes Safety Concerns: Feels Safe At This Time Assistive Devices: None Review of Systems Review of Systems: Unobtainable due to cognitive status [place] Symptom Assessment Scale Pain by observation 2/3 Dyspnea by observation 0/3 Anxiety 2/3 Drowsiness 0/3 Palliative Performance Score 30% Physical Exam Constitutional: + thin, + frail appearing and + in distress ENMT: Mouth: + dry oral mucous membranes Respiratory: no labored breathing Cardiovascular: Extremities: no edema Gastrointestinal (Abdomen): Percussion/Palpation: abdomen soft; abdomen nontender Musculoskeletal: foot contractures, muscle atrophy Results & Data ([facility]) Vital Signs (Past 12 Hours) Vital Signs Temp Pulse Pulse Pulse Resp BP Pulse Ox 12/31/20 16:00 98.2 F 115 H 20 121/45 L 92 12/31/20 11:24 97.5 F L 112 H 20 154/95 H 97 12/31/20 07:20 119 H PG Care Time/CCT Total # of Minutes Spent Total Time Spent with Patient: Total time spent is greater than 50% in coordination of care (as documented) at patient's floor/unit and/or counseling patient: total time spent 65 minutes with more than 50% of time spent on family support, goals of care, symptom management. Coding Level of Care Code 04222 Inpt Consult Level 3 Diagnoses Acute alteration in mental status R41.82 Back pain M54.9 Constipation K59.00 Bacteremia R78.81 CLL (chronic lymphocytic leukemia) C91.90 Adenocarcinoma of lung C34.90 Spina bifida Q05.9 Palliative care encounter Z51.5
[2021-01-01] MEDS ORDERED: SODIUM CHLORIDE 0.9% 1000ML 1,000 ML IV SCH ×2 (01:00→01:15)
[2021-01-01 05:43] LABS: Hemoglobin 9.7 g/dL (12.0-16.0); Mean Corpuscular Hgb Conc 31.3 g/dL (32-36); Mean Corpuscular Volume 92.8 fL (80-100); Mean Platelet Volume 10.1 fL (7.4-10.4); Platelet Count 136 K/uL (130-400); RDW Standard Deviation 56.9 fL (36.4-46.3); Red Blood Count 3.34 M/uL (4.2-5.4)
[2021-01-01 06:23] LABS: BUN Creatinine Ratio 90.5 (10-20); Calcium 7.2 mg/dl (8.5-10.1); Creatinine Clr Calc Pharmacy 72.2 ml/min; Est GFR (African American) 110.5; Est GFR (Non-African American) 95.3; Magnesium 1.8 mg/dl (1.8-2.4); Phosphorus 3.1 mg/dl (2.5-4.9); Potassium 6.2 mmol/L (3.5-5.1)
--- NOTE | 2021-01-01 07:24 | Hospitalist Progress Note ---
Date of Service January 01, 2021 Assessment & Plan (1) Sepsis: tachycardic, leukocytosis lactate is 2 giving NS fluid bolus, starting maintenance fluids blood cultures with strep, urine culture with proteus patient is critically ill, appears that she may be actively dying, informed patients brother. he stated to continue all medical interventions, continue antibiotics ABG with respiratory alkalosis monitoring closely (2) Altered mental state: No acute intracranial abnormality on CT Suspected infection with ANC 28. No acute findings on chest x-ray to suggest pneumonia as source. Possible catheter associated UTI although will always have chronic bacteriuria ?C2-3 discitis/osteomyelitis on prior CT Possibly also related to opiate use - patient on fentanyl 25 mcg/h patch, removed on admission, patient also receiving oxycodone 5 mg recently started on December 25. Prior to this she was on tramadol. This was increased to 10 mg which she had 3 times yesterday ?CLL with increasing ALC and progressive lymphadenopathy as noted on prior CT 2-9 worse today than yesterday incomprehensible speech, appears agonal. checking ABG long conversation with patient's only living family -- her brother. consulting palliative care 2-10 palliative discussed with brother -- continue all appropriate medical interventions change to DNR 2-11 more awake today, but still not answering questions (3) Bacteremia: blood cultures with strep cont vanco in case ends up being enterococcus discussed with pharmacy (4) Hypernatremia: 2-10 likely related to dehydration, not eating starting D5W at 80ml/hr check BMP q6h Na 151 so will increase D5W to 125ml/hr (5) Hyperkalemia: 2-10 K 6.2 today treat with bicarb repeat BMP at noon with K 6 EKG without peaked t waves or other abnormalities will give calcium and kayexalate repeat BMP at 5pm (6) Leukocytosis: 1-27 baseline WBC 94 2-7 WBC 123 2-8 WBC 140 check peripheral smear, consulting oncology oncology stated leukapheresis not needed unless WBC > 400 they also stated that underlying infection in setting of CLL is source of worsening leukocytosis (7) Osteomyelitis: vs. discitis on recent outpatient CT MRI lumbar spine Bedrest ESR/CRP with AM labs. ?infective vs. metastatic disease 2-8 ID consult placed, but then on hold as patient too ill to talk to them may need aspiration -- defer to ID (8) Catheter-associated urinary tract infection: Given history of MRSA growing on urine culture without subsequent blood cultures in August this is concerning for MRSA bacteremia. Therefore will cover with vancomycin pending repeat urine and blood cultures. However subsequent urine cultures have not contain MRSA I suspect this was a skin/catheter contaminant and did not represent a true infection. She is also have a history of Pseudomonas UTIs therefore will continue coverage with cefepime (prior providencia resistant to cipro). Continue cefepime and vancomycin IV 2-9 Urine culture with proteus downgrade to rocephin, cont vanco (9) Urinary retention: Continue chronic Lopez catheter, replaced in ER. (10) Constipation: MiralLAX TID, no bowel obstruction suspected. (11) Severe protein-calorie malnutrition: Consult dietary (12) Adenocarcinoma of lung: Status post right upper lobe resection. (13) Spina bifida: Wheelchair bound - per patient, although this is relatively recent, previously mobilized with walker. (14) CLL (chronic lymphocytic leukemia): Increasing ALC, no acute intervention per hematology/oncology. Consider consultation depending on clinical course. (15) DVT (deep venous thrombosis): 2018. Presumably on anticoagulation for life with Xarelto due to ongoing risk with CLL. Palliative care discussed with patient's brother and she will be DNR Admission and Anticipated Discharge Date Admission Date: December 29, 2020 Subjective Patient doing better today More awake Still saying help me Not answering questions Review of Systems Review of Systems: Unobtainable due to cognitive status Physical Exam Constitutional: + acute distress and + ill appearing Eyes: PERRL, conjunctivae normal, anicteric sclerae ENMT: Mouth: oral mucous membranes not dry Respiratory: normal respiratory effort; no respiratory distress and no labored breathing Auscultation: lungs clear to auscultation bilaterally; no crackles, no rales, no rhonchi and no wheezes Cardiovascular: Rate/Rhythm: regular rate and regular rhythm Heart Sounds: no murmur and no cardiac rub Vessels: normal peripheral pulses and radial pulses present; no JVD Extremities: no edema Gastrointestinal (Abdomen): Inspection/Auscultation: abdomen normal to inspection and normal bowel sounds; abdomen not distended Percussion/Palpation: abdomen soft; abdomen nontender, no guarding, abdomen not rigid and no hepatosplenomegaly Musculoskeletal: Head/Neck/Chest: normocephalic and head atraumatic Spine: no cervical spinal tenderness, no cervical muscular tenderness, no thoracic spinal tenderness and no lumbar spinal tenderness Skin: no rashes, warm and dry Neurologic: CN's II-XI intact bilaterally and moves all extremities Motor/Sensory: no tremor and no sensory deficit Psychiatric: Orientation: alert and oriented to person; + not oriented to place and + not oriented to time Apperance: + disheveled; + inappropriately groomed Affect: + anxious affect; + affect not euthymic and no tearful affect Genitourinary: no CVA tenderness Results & Data Results & Data ([facility]) Vital Signs (Past 12 Hours) Vital Signs Temp Pulse Pulse Pulse Resp BP Pulse Ox 01/01/21 04:00 37.2 C 111 H 20 124/62 97 01/01/21 00:35 100 H 12/31/20 23:00 36.8 C 104 H 18 161/76 H 96 Laboratory Results Abnormal lab results 12/31/20 01/01/21 01/01/21 Range/Units 06:25 05:17 05:17 WBC 189.60 H* (4.8-10.8) K/uL RBC 3.34 L (4.2-5.4) M/uL Hgb 9.7 L (12.0-16.0) g/dL Hct 31.0 L (37-47) % MCHC 31.3 L (32-36) g/dL RDW Std Deviation 56.9 H (36.4-46.3) fL RDW Coeff of Figueroa 17.0 H (11.5-14.5) % Haptoglobin 230 H (43-212) mg/dL Sodium 150 H (136-145) mmol/L Potassium 6.2 H* D (3.5-5.1) mmol/L Chloride 124 H (98-107) mmol/L Carbon Dioxide 18 L (21-32) mmol/L BUN 41 H (7-18) mg/dl Creatinine 0.45 L (0.6-1.2) mg/dl BUN/Creatinine Ratio 90.5 H (10-20) Glucose 128 H (70-99) mg/dl Calcium 7.2 L D (8.5-10.1) mg/dl 01/01/21 Range/Units 12:15 WBC (4.8-10.8) K/uL RBC (4.2-5.4) M/uL Hgb (12.0-16.0) g/dL Hct (37-47) % MCHC (32-36) g/dL RDW Std Deviation (36.4-46.3) fL RDW Coeff of Figuero[place] (11.5-14.5) % Haptoglobin (43-212) mg/dL Sodium 151 H (136-145) mmol/L Potassium 6.0 H (3.5-5.1) mmol/L Chloride 123 H (98-107) mmol/L Carbon Dioxide (21-32) mmol/L BUN 39 H (7-18) mg/dl Creatinine 0.56 L (0.6-1.2) mg/dl BUN/Creatinine Ratio 70.3 H (10-20) Glucose 173 H (70-99) mg/dl Calcium 8.1 L (8.5-10.1) mg/dl Medications Administered Current Inpatient Medications Al Hydrox/Mg Hydrox/Simethicone (Aluminum/Magnesium Susp 30 Ml Udc) 15 ml PO Q4H PRN PRN Reason: Dyspepsia Stop: 01/28/21 19:54 Bisacodyl (Bisacodyl 10 Mg Supp) 10 mg [place] DAILY PRN PRN Reason: Constipation Stop: 01/28/21 19:54 Diclofenac Sodium (Diclofenac Sod 1% Gel 100 Gm Tube) 4 gm EXT QID IMAN Stop: 01/28/21 20:59 Last Admin: 01/01/21 13:40 Dose: 4 gm Documented by: Haloperidol Lactate (Haloperidol Lactate 5 Mg/Ml 1 Ml Vial) 5 mg IM HS PRN PRN Reason: severe agitation Stop: 01/29/21 21:13 Hydromorphone HCl (Hydromorphone Inj 0.5 Mg/0.5 Ml Syr) 0.5 mg IV Q3H PRN PRN Reason: Pain Stop: 01/12/21 22:42 Last Admin: 12/31/20 22:04 Dose: 0.5 mg Documented by: Vancomycin HCl 1,000 mg/ (Sodium Chloride) 270 mls @ 200 mls/hr IV Q18H IMAN; Protocol Stop: 01/09/21 10:59 Last Infusion: 01/01/21 00:46 Dose: Infused Documented by: Ceftriaxone Sodium 2,000 mg/ (Dextrose) 70 mls @ 140 mls/hr IV Q24H [facility]; Protocol Stop: 01/14/21 15:59 Last Infusion: 12/31/20 17:36 Dose: Infused Documented by: Lorazepam (Ativan) 0.5 mg in 1 mls @ 1 mls/min IV Q4H PRN PRN Reason: agitation Stop: 01/30/21 16:35 Last Admin: 12/31/20 17:07 Dose: 1 mls/min Documented by: Dextrose (D5w) 1,000 mls @ 125 mls/hr IV .Q8H IMAN Stop: 01/31/21 07:29 Last Admin: 01/01/21 07:44 Dose: 80 mls/hr Documented by: Miscellaneous Information (Vancomycin Consult Active) 1 ea N/A UD PRN PRN Reason: Consult Stop: 01/28/21 16:38 Multivitamins (Multivitamin Tab) 1 tab PO QAM [facility] Stop: 01/29/21 08:59 Last Admin: 01/01/21 10:19 Dose: 1 tab Documented by: Ondansetron HCl (Ondansetron Inj 2 Mg/Ml 2 Ml Vial) 4 mg IV Q6H PRN PRN Reason: Nausea Stop: 01/28/21 19:54 Oxycodone HCl (Oxycodone Hcl Ir 5 Mg Tab (Immediate Release)) 5 mg PO Q4H PRN PRN Reason: Pain Stop: 01/12/21 22:42 Last Admin: 01/01/21 10:32 Dose: 5 mg Documented by: Polyethylene Glycol (Polyethylene (Miralax) 17 Gm Pack) 17 gm PO TID [facility] Stop: 01/28/21 20:59 Last Admin: 01/01/21 13:40 Dose: Not Given Documented by: Rivaroxaban (Rivaroxaban 20 Mg Tab) 20 mg PO DAILY [facility] Stop: 01/29/21 08:59 Last Admin: 01/01/21 10:19 Dose: 20 mg Documented by: PG Care Time/CCT Total # of Minutes Spent Total Time Spent with Patient: Total time spent is greater than 50% in coordination of care (as documented) at patient's floor/unit and/or counseling patient: Coding Level of Care Code 59123 Subseq Hosp Care Lvl 2 Diagnoses Sepsis A41.9 Sepsis acute organ dysfunction status: unspecified Sepsis type: sepsis due to unspecified organism Altered mental state R41.82 Bacteremia R78.81 Hypernatremia E87.0 Hyperkalemia E87.5 Leukocytosis D72.829 Osteomyelitis M86.9 Catheter-associated urinary tract infection T83.511A; N39.0 Urinary retention R33.9 Constipation K59.00 Severe protein-calorie malnutrition E43 Adenocarcinoma of lung C34.90 Spina bifida Q05.9 CLL (chronic lymphocytic leukemia) C91.90 DVT (deep venous thrombosis) I82.90 Chronicity: unspecified DVT location: non-extremity vein (1) DVT (deep venous thrombosis) Chronicity: unspecified DVT location: non-extremity vein Qualified Code(s): I82.90 - Acute embolism and thrombosis of unspecified vein (2) Sepsis Sepsis acute organ dysfunction status: unspecified Sepsis type: sepsis due to unspecified organism Qualified Code(s): A41.9 - Sepsis, unspecified organism
[2021-01-01] MEDS ORDERED: SODIUM BICARB 8.4% INJ 50 MEQ/50 ML SYR IV STA (07:31)
[2021-01-01] MEDS: DEXTROSE 5% 1,000 ML IV SCH ×2 (07:44→20:03)
[2021-01-01] MEDS: POLYETHYLENE (MIRALAX) 17 GM PACK PO SCH ×3 (07:55→20:05)
[2021-01-01] MEDS: DICLOFENAC SOD 1% GEL 100 GM TUBE EXT SCH ×4 (08:05→20:05)
[2021-01-01] MEDS: MULTIVITAMIN TAB PO SCH (10:19)
[2021-01-01] MEDS: RIVAROXABAN 20 MG TAB PO SCH (10:19)
[2021-01-01] MEDS: oxyCODONE HCL IR 5 MG TAB (IMMEDIATE RELEASE) PO PRN ×2 (10:32→17:36)
[2021-01-01 12:52] LABS: Est GFR (African American) 102.8
[2021-01-01 12:53] LABS: BUN Creatinine Ratio 70.3 (10-20); Calcium 8.1 mg/dl (8.5-10.1); Creatinine Clr Calc Pharmacy 58.5 ml/min; Est GFR (Non-African American) 88.7
--- NOTE | 2021-01-01 12:59 | Electrocardiogram Report ---
Test Reason : Blood Pressure : / mmHG Vent. Rate : 116 BPM Atrial Rate : 116 BPM P-R Int : 112 ms QRS Dur : 094 ms QT Int : 366 ms P-R-T Axes : 059 -29 138 degrees QTc Int : 508 ms Sinus tachycardia Possible Left atrial enlargement Nonspecific T wave abnormality Abnormal ECG When compared with ECG of 29-DEC-2020 12:26, Nonspecific T wave abnormality no longer evident in Anterior leads Confirmed by Andrew Del Toro ([id number]) on 01/01/2021 12:58:45 PM Referred By: [facility] Confirmed By:Andrew Del Toro
[2021-01-01] MEDS ORDERED: SODIUM POLYSTYRENE SULFONATE 15G/60ML SUSP PR STA ×2 (13:54→14:12)
[2021-01-01] MEDS ORDERED: CALCIUM GLUCONATE 10% 1,000 MG in SODIUM CHLORIDE 0.9% 50 ML IV ONE (14:15)
--- NOTE | 2021-01-01 14:34 | Palliative Care Progress Note ---
Date of Service January 01, 2021 Assessment & Plan (1) Back pain: Using prn opioids. Appears more comfortable. (2) Palliative care encounter: I spoke with her brother, Everton, to update him. Emily is DNR but he would still like to continue current level of care. He would like to be updated with changes in condition. (3) Sepsis: Admission and Anticipated Discharge Date Admission Date: December 29, 2020 Subjective Resting more comfortably today. She does still get agitated at times. Review of Systems Review of Systems: Unobtainable due to cognitive status [place] Symptom Assessment Scale Pain by observation 0/3 Dyspnea by observation 0/3 Palliative Performance Score 30% Physical Exam Constitutional: + frail appearing ENMT: Mouth: + dry oral mucous membranes Respiratory: no labored breathing Musculoskeletal: LE contractures Skin: warm and dry Neurologic: + confused Genitourinary: Lopez catheter Results & Data ([facility]) Vital Signs (Past 12 Hours) Vital Signs Temp Pulse Pulse Resp BP Pulse Ox 01/01/21 11:23 98.2 F 118 H 18 135/77 97 01/01/21 09:00 111 H 01/01/21 07:38 98.6 F 100 H 22 133/71 96 01/01/21 04:00 99.0 F 111 H 20 124/62 97 PG Care Time/CCT Total # of Minutes Spent Total Time Spent with Patient: Total time spent is greater than 50% in coordination of care (as documented) at patient's floor/unit and/or counseling patient: Coding Level of Care Code 18913 Subseq Hosp Care Lvl 2 Diagnoses Back pain M54.9 Palliative care encounter Z51.5 Sepsis A41.9 Sepsis acute organ dysfunction status: unspecified Sepsis type: sepsis due to unspecified organism (1) Sepsis Sepsis acute organ dysfunction status: unspecified Sepsis type: sepsis due to unspecified organism Qualified Code(s): A41.9 - Sepsis, unspecified organism
[2021-01-01] MEDS ORDERED: VANCOMYCIN TROUGH ONE (16:30)
[2021-01-01 17:15] LABS: BUN Creatinine Ratio 69.3 (10-20); Calcium 8.7 mg/dl (8.5-10.1); Creatinine Clr Calc Pharmacy 61.8 ml/min; Est GFR (African American) 104.7; Est GFR (Non-African American) 90.3; Potassium 4.4 mmol/L (3.5-5.1)
[2021-01-01] MEDS: cefTRIAXone SODIUM 2,000 MG in DEXTROSE 5% 50 ML IV SCH (17:36)
[2021-01-01] MEDS: VANCOMYCIN HCL 1,000 MG in SODIUM CHLORIDE 0.9% 250 ML IV SCH (18:18)
[2021-01-01] MEDS: LORazepam 0.5 MG/1 ML VIAL IV PRN (19:23)
[2021-01-01] MEDS: SODIUM CHLORIDE 0.9% 500 ML IV SCH (19:26)
[2021-01-01] MEDS: HYDROmorphone INJ 0.5 MG/0.5 ML SYR IV PRN (22:36)
[2021-01-02] MEDS: DEXTROSE 5% 1,000 ML IV SCH ×2 (04:35→10:37)
[2021-01-02 06:07] LABS: Hemoglobin 8.5 g/dL (12.0-16.0); Mean Corpuscular Hemoglobin 29.6 pg (25-34); Mean Corpuscular Hgb Conc 31.5 g/dL (32-36); Mean Corpuscular Volume 94.1 fL (80-100); Mean Platelet Volume 9.8 fL (7.4-10.4); Platelet Count 124 K/uL (130-400); RDW Coefficient of Variation 16.9 % (11.5-14.5); RDW Standard Deviation 56.9 fL (36.4-46.3); Red Blood Count 2.87 M/uL (4.2-5.4); White Blood Count 142.07 K/uL (4.8-10.8)
[2021-01-02 06:44] LABS: BUN Creatinine Ratio 57.5 (10-20); Calcium 8.3 mg/dl (8.5-10.1); Creatinine Clr Calc Pharmacy 65.5 ml/min; Est GFR (African American) 106.7; Est GFR (Non-African American) 92.1; Magnesium 1.7 mg/dl (1.8-2.4); Phosphorus 1.7 mg/dl (2.5-4.9); Potassium 3.6 mmol/L (3.5-5.1)
--- NOTE | 2021-01-02 07:13 | Hospitalist Progress Note ---
Date of Service January 02, 2021 Assessment & Plan (1) Sepsis: tachycardic, leukocytosis lactate is 2 giving NS fluid bolus, starting maintenance fluids blood cultures with strep, urine culture with proteus patient is critically ill, appears that she may be actively dying, informed patients brother. he stated to continue all medical interventions, continue antibiotics ABG with respiratory alkalosis monitoring closely (2) Bacteremia: blood cultures with strep, likely 2' to discitis 2- will stop vanc and switch to ampicillin for UTI blood culture with strep intermedius -- will cover with ampicillin reconsult ID since she is awake now (3) Catheter-associated urinary tract infection: Given history of MRSA growing on urine culture without subsequent blood cultures in August this is concerning for MRSA bacteremia. Therefore will cover with vancomycin pending repeat urine and blood cultures. However subsequent urine cultures have not contain MRSA I suspect this was a skin/catheter contaminant and did not represent a true infection. She is also have a history of Pseudomonas UTIs therefore will continue coverage with cefepime (prior providencia resistant to cipro). 2-9 Urine culture with proteus downgrade to rocephin, cont vanco 01-02 urine culture with enterococcus susceptible to ampicillin and proteus susceptible to ampicillin stop vanc, start ampicillin (4) Osteomyelitis: vs. discitis on recent outpatient CT MRI lumbar spine Bedrest ESR/CRP with AM labs. ?infective vs. metastatic disease 2-8 ID consult placed, but then on hold as patient too ill to talk to them may need aspiration -- defer to ID (5) Altered mental state: No acute intracranial abnormality on CT Suspected infection with ANC 28. No acute findings on chest x-ray to suggest pneumonia as source. Possible catheter associated UTI although will always have chronic bacteriuria ?C2-3 discitis/osteomyelitis on prior CT Possibly also related to opiate use - patient on fentanyl 25 mcg/h patch, removed on admission, patient also receiving oxycodone 5 mg recently started on December 25. Prior to this she was on tramadol. This was increased to 10 mg which she had 3 times yesterday ?CLL with increasing ALC and progressive lymphadenopathy as noted on prior CT 2-9 worse today than yesterday incomprehensible speech, appears agonal. checking ABG long conversation with patient's only living family -- her brother. consulting palliative care 2-10 palliative discussed with brother -- continue all appropriate medical interventions change to DNR 2-11 more awake today, said, "I want a coke" and "I'm hungry" problem is resolving (6) Hypomagnesemia: 2-11 magnesium level 1.7, replace (7) Hypophosphatemia: 2-11 phos level 1.7, replace (8) Hypernatremia: 2-10 likely related to dehydration, not eating starting D5W at 80ml/hr check BMP q6h Na 151 so will increase D5W to 125ml/hr 2-11 530am sodium 147, making improvement BMP at 4pm to see if we need to adjust rate (9) Hyperkalemia: 2-10 K 6.2 today treat with bicarb repeat BMP at noon with K 6 EKG without peaked t waves or other abnormalities will give calcium and kayexalate repeat BMP at 5pm (10) Leukocytosis: 1-27 baseline WBC 94 2-7 WBC 123 2-8 WBC 140 check peripheral smear, consulting oncology oncology stated leukapheresis not needed unless WBC > 400 they also stated that underlying infection in setting of CLL is source of worsening leukocytosis (11) Urinary retention: Continue chronic Lopez catheter, replaced in ER. (12) Constipation: MiralLAX TID, no bowel obstruction suspected. (13) Severe protein-calorie malnutrition: Consult dietary (14) Adenocarcinoma of lung: Status post right upper lobe resection. (15) Spina bifida: Wheelchair bound - per patient, although this is relatively recent, previously mobilized with walker. (16) CLL (chronic lymphocytic leukemia): Increasing ALC, no acute intervention per hematology/oncology. Consider consultation depending on clinical course. (17) DVT (deep venous thrombosis): 2018. Presumably on anticoagulation for life with Xarelto due to ongoing risk with CLL. Palliative care discussed with patient's brother and she will be DNR Admission and Anticipated Discharge Date Admission Date: December 29, 2020 Subjective Patient doing much better today. She is awake. Stating that she wants a coke. She ate some of her breakfast, but required feeding. No fevers, no vomiting Denies pain in chest, abdomen, back No sob, no cough, no headache Review of Systems Constitutional: no fever, no chills, no fatigue, no weakness, no anorexia, no weight loss and no weight gain Ear, Nose, Mouth, Throat: no nasal congestion, no sore throat and no dysphagia Respiratory: no cough and no dyspnea Cardiovascular: no chest pain, no dyspnea on exertion, no orthopnea and no palpitations Gastrointestinal: no abdominal pain, no nausea, no vomiting, no hematemesis, no dysphagia, no constipation, no diarrhea/loose stools, no blood in stools and no melena Genitourinary: no dysuria, no urinary frequency, no hematuria and no flank pain Musculoskeletal: no back pain, no joint pain, no myalgia and no muscle weakness Integumentary: no rash, no lesions, no skin ulcer, no erythema, no dry skin and no pruritus Neurologic: no falls, no localized weakness, no generalized weakness, no numbness, no paresthesia, no tremor(s) and no headache(s) Psychiatric: no depression, no suicidal ideation, no homicidal ideation and no anxiety Endocrine: no cold intolerance and no heat intolerance Hematologic / Lymphatic: no easy bleeding and no easy bruising Physical Exam Constitutional: + ill appearing; no acute distress Eyes: PERRL, conjunctivae normal, anicteric sclerae ENMT: Mouth: oral mucous membranes not dry Respiratory: normal respiratory effort; no respiratory distress and no labored breathing Auscultation: lungs clear to auscultation bilaterally; no crackles, no rales, no rhonchi and no wheezes Cardiovascular: Rate/Rhythm: regular rate and regular rhythm Heart Sounds: no murmur and no cardiac rub Vessels: normal peripheral pulses and radial pulses present; no JVD Extremities: no edema Gastrointestinal (Abdomen): Inspection/Auscultation: abdomen normal to inspection and normal bowel sounds; abdomen not distended Percussion/Palpation: abdomen soft; abdomen nontender, no guarding, abdomen not rigid and no hepatosplenomegaly Musculoskeletal: Head/Neck/Chest: normocephalic and head atraumatic Spine: no cervical spinal tenderness, no cervical muscular tenderness, no thoracic spinal tenderness and no lumbar spinal tenderness Skin: no rashes, warm and dry Neurologic: CN's II-XI intact bilaterally and moves all extremities Motor/Sensory: no tremor and no sensory deficit Psychiatric: Orientation: alert and oriented to person; + not oriented to place and + not oriented to time Apperance: + disheveled; + inappropriately groomed Affect: + anxious affect; + affect not euthymic and no tearful affect Genitourinary: no CVA tenderness Results & Data Results & Data ([facility]) Vital Signs (Past 12 Hours) Vital Signs Temp Pulse Resp BP Pulse Ox 01/02/21 06:54 36.4 C L 96 H 18 127/66 98 01/02/21 06:35 36.6 C 96 H 18 134/75 98 01/01/21 22:57 36.4 C L 123 H 18 133/67 95 01/01/21 19:30 36.7 C 125 H 20 140/62 95 Laboratory Results Abnormal lab results 12/31/20 01/01/21 01/01/21 Range/Units 06:25 12:15 16:17 WBC (4.8-10.8) K/uL RBC (4.2-5.4) M/uL Hgb (12.0-16.0) g/dL Hct (37-47) % MCHC (32-36) g/dL RDW Std Deviation (36.4-46.3) fL RDW Coeff of [place] (11.5-14.5) % Plt Count (130-400) K/uL Haptoglobin 230 H (43-212) mg/dL Sodium 151 H 152 H (136-145) mmol/L Potassium 6.0 H (3.5-5.1) mmol/L Chloride 123 H 122 H (98-107) mmol/L BUN 39 H 37 H (7-18) mg/dl Creatinine 0.56 L 0.53 L (0.6-1.2) mg/dl BUN/Creatinine Ratio 70.3 H 69.3 H (10-20) Glucose 173 H 161 H (70-99) mg/dl Calcium 8.1 L (8.5-10.1) mg/dl Phosphorus (2.5-4.9) mg/dl Magnesium (1.8-2.4) mg/dl 01/02/21 01/02/21 Range/Units 05:32 05:32 WBC 142.07 H* (4.8-10.8) K/uL RBC 2.87 L (4.2-5.4) M/uL Hgb 8.5 L (12.0-16.0) g/dL Hct 27.0 L (37-47) % MCHC 31.5 L (32-36) g/dL RDW Std Deviation 56.9 H (36.4-46.3) fL RDW Coeff of [place] 16.9 H (11.5-14.5) % Plt Count 124 L (130-400) K/uL Haptoglobin (43-212) mg/dL Sodium 147 H (136-145) mmol/L Potassium (3.5-5.1) mmol/L Chloride 117 H (98-107) mmol/L BUN 29 H (7-18) mg/dl Creatinine 0.50 L (0.6-1.2) mg/dl BUN/Creatinine Ratio 57.5 H (10-20) Glucose 145 H (70-99) mg/dl Calcium 8.3 L (8.5-10.1) mg/dl Phosphorus 1.7 L D (2.5-4.9) mg/dl Magnesium 1.7 L (1.8-2.4) mg/dl Medications Administered Current Inpatient Medications Al Hydrox/Mg Hydrox/Simethicone (Aluminum/Magnesium Susp 30 Ml Udc) 15 ml PO Q4H PRN PRN Reason: Dyspepsia Stop: 01/28/21 19:54 Bisacodyl (Bisacodyl 10 Mg Supp) 10 mg WA DAILY PRN PRN Reason: Constipation Stop: 01/28/21 19:54 Diclofenac Sodium (Diclofenac Sod 1% Gel 100 Gm Tube) 4 gm EXT QID IMAN Stop: 01/28/21 20:59 Last Admin: 01/01/21 20:05 Dose: 4 gm Documented by: Haloperidol Lactate (Haloperidol Lactate 5 Mg/Ml 1 Ml Vial) 5 mg IM HS PRN PRN Reason: severe agitation Stop: 01/29/21 21:13 Hydromorphone HCl (Hydromorphone Inj 0.5 Mg/0.5 Ml Syr) 0.5 mg IV Q3H PRN PRN Reason: Pain Stop: 01/12/21 22:42 Last Admin: 01/01/21 22:36 Dose: 0.5 mg Documented by: Vancomycin HCl 1,000 mg/ (Sodium Chloride) 270 mls @ 200 mls/hr IV Q18H IMAN; Protocol Stop: 01/09/21 10:59 Last Infusion: 01/01/21 20:05 Dose: Infused Documented by: Ceftriaxone Sodium 2,000 mg/ (Dextrose) 70 mls @ 140 mls/hr IV Q24H IMAN; Protocol Stop: 01/14/21 15:59 Last Infusion: 01/01/21 18:27 Dose: Infused Documented by: Lorazepam (Ativan) 0.5 mg in 1 mls @ 1 mls/min IV Q4H PRN PRN Reason: agitation Stop: 01/30/21 16:35 Last Admin: 01/01/21 19:23 Dose: 1 mls/min Documented by: Dextrose (D5w) 1,000 mls @ 125 mls/hr IV .Q8H IMAN Stop: 01/31/21 07:29 Last Admin: 01/02/21 04:35 Dose: 125 mls/hr Documented by: Miscellaneous Information (Vancomycin Consult Active) 1 ea N/A UD PRN PRN Reason: Consult Stop: 01/28/21 16:38 Multivitamins (Multivitamin Tab) 1 tab PO QAM [facility] Stop: 01/29/21 08:59 Last Admin: 01/01/21 10:19 Dose: 1 tab Documented by: Ondansetron HCl (Ondansetron Inj 2 Mg/Ml 2 Ml Vial) 4 mg IV Q6H PRN PRN Reason: Nausea Stop: 01/28/21 19:54 Oxycodone HCl (Oxycodone Hcl Ir 5 Mg Tab (Immediate Release)) 5 mg PO Q4H PRN PRN Reason: Pain Stop: 01/12/21 22:42 Last Admin: 01/01/21 17:36 Dose: 5 mg Documented by: Polyethylene Glycol (Polyethylene (Miralax) 17 Gm Pack) 17 gm PO TID [facility] Stop: 01/28/21 20:59 Last Admin: 01/01/21 20:05 Dose: Not Given Documented by: Rivaroxaban (Rivaroxaban 20 Mg Tab) 20 mg PO DAILY [facility] Stop: 01/29/21 08:59 Last Admin: 01/01/21 10:19 Dose: 20 mg Documented by: PG Care Time/CCT Total # of Minutes Spent Total Time Spent with Patient: Total time spent is greater than 50% in coordination of care (as documented) at patient's floor/unit and/or counseling patient: Coding Level of Care Code 73574 Subseq Hosp Care Lvl 2 Diagnoses Sepsis A41.9 Sepsis acute organ dysfunction status: unspecified Sepsis type: sepsis due to unspecified organism Bacteremia R78.81 Catheter-associated urinary tract infection T83.511A; N39.0 Indwelling urinary catheter type: indwelling urethral catheter Encounter type: initial encounter Osteomyelitis M86.9 Osteomyelitis type: unspecified type Osteomyelitis location: other site Altered mental state R41.82 Altered mental status type: unspecified Hypomagnesemia E83.42 Hypophosphatemia E83.39 Hypernatremia E87.0 Hyperkalemia E87.5 Leukocytosis D72.829 Urinary retention R33.9 Constipation K59.00 Severe protein-calorie malnutrition E43 Adenocarcinoma of lung C34.90 Spina bifida Q05.9 CLL (chronic lymphocytic leukemia) C91.90 DVT (deep venous thrombosis) I82.90 Chronicity: unspecified DVT location: non-extremity vein (1) Catheter-associated urinary tract infection Indwelling urinary catheter type: indwelling urethral catheter Encounter type: initial encounter Qualified Code(s): T83.511A - Infection and inflammatory reaction due to indwelling urethral catheter, initial encounter; N39.0 - Urinary tract infection, site not specified (2) DVT (deep venous thrombosis) Chronicity: unspecified DVT location: non-extremity vein Qualified Code(s): I82.90 - Acute embolism and thrombosis of unspecified vein (3) Sepsis Sepsis acute organ dysfunction status: unspecified Sepsis type: sepsis due to unspecified organism Qualified Code(s): A41.9 - Sepsis, unspecified organism (4) Altered mental state Altered mental status type: unspecified Qualified Code(s): R41.82 - Altered mental status, unspecified (5) Osteomyelitis Osteomyelitis type: unspecified type Osteomyelitis location: other site Qualified Code(s): M86.9 - Osteomyelitis, unspecified
[2021-01-02] MEDS: DICLOFENAC SOD 1% GEL 100 GM TUBE EXT SCH ×4 (08:02→21:59)
[2021-01-02] MEDS: POLYETHYLENE (MIRALAX) 17 GM PACK PO SCH ×3 (08:03→21:58)
[2021-01-02] MEDS: RIVAROXABAN 20 MG TAB PO SCH (08:05)
[2021-01-02] MEDS: MULTIVITAMIN TAB PO SCH (08:05)
[2021-01-02] MEDS: VANCOMYCIN HCL 1,000 MG in SODIUM CHLORIDE 0.9% 250 ML IV SCH (10:37)
[2021-01-02] MEDS ORDERED: POTASSIUM PHOS 3 MMOL/1 ML INFUSION IV STA (14:33)
[2021-01-02] MEDS ORDERED: MAGNESIUM SULFATE / D5W 1 GM/100 ML BAG IV ONE (14:45)
[2021-01-02] MEDS ORDERED: POTASSIUM PHOSPHATE 15 MMOL in SODIUM CHLORIDE 0.9% 250 ML IV ONE (15:00)
--- NOTE | 2021-01-02 15:54 | Palliative Care Progress Note ---
Date of Service January 02, 2021 Assessment & Plan (1) Back pain: Controlled on current meds. Monitor as she is more awake and active. Orders clarified to use oxycodone first for pain and IV hydromorphone only for pain not controlled by oxycodone (2) Palliative care encounter: (3) Acute alteration in mental status: Improving Admission and Anticipated Discharge Date Admission Date: December 29, 2020 Subjective Resting comfortably now. Had been more alert earlier and actually asking for something to eat. She had swallowing study earlier and has been recommended for pureed diet. She has been using at most three doses of opioid daily for pain. Review of Systems Review of Systems: [place] Symptom Assessment Scale Pain 1/3 Dyspnea 1/3 Nausea 0/3 Drowsiness 2/3 Anorexia 1/3 Palliative Performance Score 30% Physical Exam Constitutional: + thin and + frail appearing; no acute distress Respiratory: no labored breathing Skin: warm and dry Results & Data ([facility] [place]) Vital Signs (Past 12 Hours) Vital Signs Temp Pulse Pulse Resp BP Pulse Ox 01/02/21 15:45 98.4 F 109 H 20 144/77 H 97 01/02/21 11:32 97.7 F 96 H 20 114/63 98 01/02/21 08:30 97 H 01/02/21 06:54 97.5 F L 96 H 18 127/66 98 01/02/21 06:35 97.9 F 96 H 18 134/75 98 PG Care Time/CCT Total # of Minutes Spent Total Time Spent with Patient: Total time spent is greater than 50% in coordination of care (as documented) at patient's floor/unit and/or counseling patient: Coding Level of Care Code 94534 Subseq Hosp Care Lvl 2 Diagnoses Back pain M54.9 Palliative care encounter Z51.5 Acute alteration in mental status R41.82
[2021-01-02 17:00] LABS: BUN Creatinine Ratio 56.4 (10-20); Calcium 7.5 mg/dl (8.5-10.1); Creatinine Clr Calc Pharmacy 76.2 ml/min; Est GFR (African American) 112.1; Est GFR (Non-African American) 96.7; Potassium 6.4 mmol/L (3.5-5.1)
[2021-01-02] MEDS: SODIUM CHLORIDE 0.9% 1000ML 1,000 ML IV SCH (18:22)
[2021-01-02] MEDS: cefTRIAXone SODIUM 2,000 MG in DEXTROSE 5% 50 ML IV SCH (18:23)
[2021-01-02 18:51] LABS: BUN Creatinine Ratio 43.8 (10-20); Calcium 8.1 mg/dl (8.5-10.1); Creatinine Clr Calc Pharmacy 61.8 ml/min; Est GFR (African American) 104.7; Est GFR (Non-African American) 90.3; Potassium 4.5 mmol/L (3.5-5.1)
[2021-01-02] MEDS: AMOXICILLIN 500 MG CAP PO SCH (22:29)
[2021-01-03] MEDS: oxyCODONE HCL IR 5 MG TAB (IMMEDIATE RELEASE) PO PRN ×2 (01:33→08:30)
[2021-01-03 06:04] LABS: Hematocrit (blood only) 26.2 % (37-47); Hemoglobin 8.2 g/dL (12.0-16.0); Mean Corpuscular Hemoglobin 29.3 pg (25-34); Mean Corpuscular Hgb Conc 31.3 g/dL (32-36); Mean Corpuscular Volume 93.6 fL (80-100); Mean Platelet Volume 10.2 fL (7.4-10.4); Platelet Count 134 K/uL (130-400); RDW Coefficient of Variation 16.8 % (11.5-14.5); RDW Standard Deviation 55.6 fL (36.4-46.3); White Blood Count 144.97 K/uL (4.8-10.8)
[2021-01-03 06:33] LABS: BUN Creatinine Ratio 61.4 (10-20); Calcium 7.8 mg/dl (8.5-10.1); Creatinine Clr Calc Pharmacy 105.7 ml/min; Est GFR (African American) 124.9; Est GFR (Non-African American) 107.7; Magnesium 1.8 mg/dl (1.8-2.4); Phosphorus 2.2 mg/dl (2.5-4.9); Potassium 3.6 mmol/L (3.5-5.1)
[2021-01-03] MEDS: SODIUM CHLORIDE 0.9% 1000ML 1,000 ML IV SCH ×2 (07:29→20:10)
[2021-01-03] MEDS: AMOXICILLIN 500 MG CAP PO SCH ×2 (07:31→20:11)
[2021-01-03] MEDS: DICLOFENAC SOD 1% GEL 100 GM TUBE EXT SCH ×4 (07:32→20:11)
[2021-01-03] MEDS: RIVAROXABAN 20 MG TAB PO SCH (07:35)
[2021-01-03] MEDS: MULTIVITAMIN TAB PO SCH (07:35)
[2021-01-03] MEDS: POLYETHYLENE (MIRALAX) 17 GM PACK PO SCH ×3 (07:35→20:11)
--- NOTE | 2021-01-03 13:21 | Hospitalist Progress Note ---
Date of Service January 03, 2021 Assessment & Plan (1) Sepsis: tachycardic, leukocytosis lactate is 2 giving NS fluid bolus, starting maintenance fluids blood cultures with strep, urine culture with proteus patient is critically ill, appears that she may be actively dying, informed patients brother. he stated to continue all medical interventions, continue antibiotics ABG with respiratory alkalosis monitoring closely (2) Bacteremia: blood cultures with strep, likely 2' to discitis 2 will stop vanc and switch to ampicillin for UTI blood culture with strep intermedius -- will cover with ampicillin, rocephin reconsult ID since she is awake now 2-12 check echo (3) Catheter-associated urinary tract infection: Given history of MRSA growing on urine culture without subsequent blood cultures in August this is concerning for MRSA bacteremia. Therefore will cover with vancomycin pending repeat urine and blood cultures. However subsequent urine cultures have not contain MRSA I suspect this was a skin/catheter contaminant and did not represent a true infection. She is also have a history of Pseudomonas UTIs therefore will continue coverage with cefepime (prior providencia resistant to cipro). 29 Urine culture with proteus downgrade to rocephin, cont vanco 01-02 urine culture with enterococcus susceptible to ampicillin and proteus susceptible to ampicillin stop vanc, start ampicillin (4) Osteomyelitis: vs. discitis on recent outpatient CT MRI lumbar spine Bedrest ESR/CRP with AM labs. ?infective vs. metastatic disease 2-8 ID consult placed, but then on hold as patient too ill to talk to them may need aspiration -- defer to ID (5) Altered mental state: No acute intracranial abnormality on CT Suspected infection with ANC 28. No acute findings on chest x-ray to suggest pneumonia as source. Possible catheter associated UTI although will always have chronic bacteriuria ?C2-3 discitis/osteomyelitis on prior CT Possibly also related to opiate use - patient on fentanyl 25 mcg/h patch, removed on admission, patient also receiving oxycodone 5 mg recently started on December 25. Prior to this she was on tramadol. This was increased to 10 mg which she had 3 times yesterday ?CLL with increasing ALC and progressive lymphadenopathy as noted on prior CT 2-9 worse today than yesterday incomprehensible speech, appears agonal. checking ABG long conversation with patient's only living family -- her brother. consulting palliative care 2-10 palliative discussed with brother -- continue all appropriate medical interventions change to DNR 2-11 more awake today, said, "I want a coke" and "I'm hungry" problem is resolving (6) Hypophosphatemia: 2-11 phos level 1.7, replace 2-12 phos still low 2.2, replace (7) Hypomagnesemia: 2-11 magnesium level 1.7, replace (8) Hypernatremia: 2-10 likely related to dehydration, not eating starting D5W at 80ml/hr check BMP q6h Na 151 so will increase D5W to 125ml/hr 2-11 530am sodium 147, making improvement BMP at 4pm to see if we need to adjust rate 2-12 sodium normal at 141, cont normal saline for hydration (9) Hyperkalemia: 2-10 K 6.2 today treat with bicarb repeat BMP at noon with K 6 EKG without peaked t waves or other abnormalities will give calcium and kayexalate repeat BMP at 5pm 2-12 K normal (10) Leukocytosis: 1-27 baseline WBC 94 2-7 WBC 123 2-8 WBC 140 check peripheral smear, consulting oncology oncology stated leukapheresis not needed unless WBC > 400 they also stated that underlying infection in setting of CLL is source of worsening leukocytosis (11) Urinary retention: Continue chronic Lopez catheter, replaced in ER. (12) Constipation: MiralLAX TID, no bowel obstruction suspected. (13) Severe protein-calorie malnutrition: Consult dietary (14) Adenocarcinoma of lung: Status post right upper lobe resection. (15) Spina bifida: Wheelchair bound - per patient, although this is relatively recent, previously mobilized with walker. (16) CLL (chronic lymphocytic leukemia): Increasing ALC, no acute intervention per hematology/oncology. Consider consultation depending on clinical course. (17) DVT (deep venous thrombosis): 2018. Presumably on anticoagulation for life with Xarelto due to ongoing risk with CLL. Palliative care discussed with patient's brother and she will be DNR Admission and Anticipated Discharge Date Admission Date: December 29, 2020 Subjective Patient doing better again today. Knows she is at [facility] and the year. Tells me she drank coffee for breakfast but did not eat well. Has pain in her back. Agreeable to talking to infectious disease. Denies nausea, vomiting, diarrhea, abdominal pain. Review of Systems Constitutional: no fever, no chills, no fatigue, no weakness, no anorexia, no weight loss and no weight gain Ear, Nose, Mouth, Throat: no nasal congestion, no sore throat and no dysphagia Respiratory: no cough and no dyspnea Cardiovascular: no chest pain, no dyspnea on exertion, no orthopnea and no palpitations Gastrointestinal: no abdominal pain, no nausea, no vomiting, no hematemesis, no dysphagia, no constipation, no diarrhea/loose stools, no blood in stools and no melena Genitourinary: no dysuria, no urinary frequency, no hematuria and no flank pain Musculoskeletal: + back pain and + joint pain; no myalgia and no muscle weakness Integumentary: no rash, no lesions, no skin ulcer, no erythema, no dry skin and no pruritus Neurologic: no falls, no localized weakness, no generalized weakness, no numbness, no paresthesia, no tremor(s) and no headache(s) Psychiatric: no depression, no suicidal ideation, no homicidal ideation and no anxiety Endocrine: no cold intolerance and no heat intolerance Hematologic / Lymphatic: no easy bleeding and no easy bruising Physical Exam Constitutional: + ill appearing; no acute distress Eyes: PERRL, conjunctivae normal, anicteric sclerae ENMT: Mouth: oral mucous membranes not dry Respiratory: normal respiratory effort; no respiratory distress and no labored breathing Auscultation: lungs clear to auscultation bilaterally; no crackles, no rales, no rhonchi and no wheezes Cardiovascular: Rate/Rhythm: regular rate and regular rhythm Heart Sounds: no murmur and no cardiac rub Vessels: normal peripheral pulses and radial p ulses present; no JVD Extremities: no edema Gastrointestinal (Abdomen): Inspection/Auscultation: abdomen normal to inspection and normal bowel sounds; abdomen not distended Percussion/Palpation: abdomen soft; abdomen nontender, no guarding, abdomen not rigid and no hepatosplenomegaly Musculoskeletal: Head/Neck/Chest: normocephalic and head atraumatic Spine: no cervical spinal tenderness, no cervical muscular tenderness, no thoracic spinal tenderness and no lumbar spinal tenderness Skin: no rashes, warm and dry Neurologic: CN's II-XI intact bilaterally and moves all extremities Motor/Sensory: no tremor and no sensory deficit Psychiatric: Orientation: alert, oriented to person, oriented to place, oriented to time and cooperative Apperance: + disheveled; + inappropriately groomed Affect: euthymic affect; no anxious affect and no tearful affect Genitourinary: no CVA tenderness Results & Data Results & Data ([facility]) Vital Signs (Past 12 Hours) Vital Signs Temp Pulse Pulse Resp BP Pulse Ox 01/03/21 11:54 98 H 18 130/75 97 01/03/21 07:49 36.8 C 92 H 18 131/71 97 01/03/21 07:30 99 H 01/03/21 02:42 36.8 C 90 18 130/72 97 Laboratory Results Abnormal lab results 01/02/21 01/02/21 01/03/21 Range/Units 16:04 17:32 05:23 WBC (4.8-10.8) K/uL RBC (4.2-5.4) M/uL Hgb (12.0-16.0) g/dL Hct (37-47) % MCHC (32-36) g/dL RDW Std Deviation (36.4-46.3) fL RDW Coeff of Figueroa (11.5-14.5) % Potassium 6.4 H* D (3.5-5.1) mmol/L Chloride 111 H 111 H 110 H (98-107) mmol/L Carbon Dioxide 19 L (21-32) mmol/L BUN 24 H 23 H 19 H (7-18) mg/dl Creatinine 0.43 L 0.53 L 0.31 L (0.6-1.2) mg/dl BUN/Creatinine Ratio 56.4 H 43.8 H 61.4 H (10-20) Glucose 150 H 192 H 100 H (70-99) mg/dl Calcium 7.5 L 8.1 L 7.8 L (8.5-10.1) mg/dl Phosphorus 2.2 L (2.5-4.9) mg/dl 01/03/21 Range/Units 05:23 WBC 144.97 H* (4.8-10.8) K/uL RBC 2.80 L (4.2-5.4) M/uL Hgb 8.2 L (12.0-16.0) g/dL Hct 26.2 L (37-47) % MCHC 31.3 L (32-36) g/dL RDW Std Deviation 55.6 H (36.4-46.3) fL RDW Coeff of Figueroa 16.8 H (11.5-14.5) % Potassium (3.5-5.1) mmol/L Chloride (98-107) mmol/L Carbon Dioxide (21-32) mmol/L BUN (7-18) mg/dl Creatinine (0.6-1.2) mg/dl BUN/Creatinine Ratio (10-20) Glucose (70-99) mg/dl Calcium (8.5-10.1) mg/dl Phosphorus (2.5-4.9) mg/dl Medications Administered Current Inpatient Medications Al Hydrox/Mg Hydrox/Simethicone (Aluminum/Magnesium Susp 30 Ml Udc) 15 ml PO Q4H PRN PRN Reason: Dyspepsia Stop: 01/28/21 19:54 Amoxicillin (Amoxicillin 500 Mg Cap) 500 mg PO BID IMAN; Protocol Stop: 01/08/21 23:59 Last Admin: 01/03/21 07:31 Dose: 500 mg Documented by: Bisacodyl (Bisacodyl 10 Mg Supp) 10 mg TN DAILY PRN PRN Reason: Constipation Stop: 01/28/21 19:54 Diclofenac Sodium (Diclofenac Sod 1% Gel 100 Gm Tube) 4 gm EXT QID IMAN Stop: 01/28/21 20:59 Last Admin: 01/03/21 12:04 Dose: 4 gm Documented by: Haloperidol Lactate (Haloperidol Lactate 5 Mg/Ml 1 Ml Vial) 5 mg IM HS PRN PRN Reason: severe agitation Stop: 01/29/21 21:13 Hydromorphone HCl (Hydromorphone Inj 0.5 Mg/0.5 Ml Syr) 0.5 mg IV Q3H PRN PRN Reason: Pain Stop: 01/12/21 22:42 Last Admin: 01/01/21 22:36 Dose: 0.5 mg Documented by: Ceftriaxone Sodium 2,000 mg/ (Dextrose) 70 mls @ 140 mls/hr IV Q24H [facility]; Protocol Stop: 01/14/21 15:59 Last Infusion: 01/02/21 18:55 Dose: Infused Documented by: Lorazepam (Ativan) 0.5 mg in 1 mls @ 1 mls/min IV Q4H PRN PRN Reason: agitation Stop: 01/30/21 16:35 Last Admin: 01/01/21 19:23 Dose: 1 mls/min Documented by: Sodium Chloride (Nss 1000ml) 1,000 mls @ 80 mls/hr IV .[id number] [facility] Stop: 02/01/21 17:14 Last Admin: 01/03/21 07:29 Dose: 80 mls/hr Documented by: Multivitamins (Multivitamin Tab) 1 tab PO QAM IMAN Stop: 01/29/21 08:59 Last Admin: 01/03/21 07:35 Dose: 1 tab Documented by: Ondansetron HCl (Ondansetron Inj 2 Mg/Ml 2 Ml Vial) 4 mg IV Q6H PRN PRN Reason: Nausea Stop: 01/28/21 19:54 Oxycodone HCl (Oxycodone Hcl Ir 5 Mg Tab (Immediate Release)) 5 mg PO Q4H PRN PRN Reason: Pain Stop: 01/12/21 22:42 Last Admin: 01/03/21 08:30 Dose: 5 mg Documented by: Polyethylene Glycol (Polyethylene (Miralax) 17 Gm Pack) 17 gm PO TID [facility] Stop: 01/28/21 20:59 Last Admin: 01/03/21 12:07 Dose: 17 gm Documented by: Rivaroxaban (Rivaroxaban 20 Mg Tab) 20 mg PO DAILY [facility] Stop: 01/29/21 08:59 Last Admin: 01/03/21 07:35 Dose: 20 mg Documented by: PG Care Time/CCT Total # of Minutes Spent Total Time Spent with Patient: Total time spent is greater than 50% in coordination of care (as documented) at patient's floor/unit and/or counseling patient: Coding Level of Care Code 03475 Subseq Hosp Care Lvl 2 Diagnoses Sepsis A41.9 Sepsis acute organ dysfunction status: unspecified Sepsis type: sepsis due to unspecified organism Bacteremia R78.81 Catheter-associated urinary tract infection T83.511A; N39.0 Encounter type: initial encounter Indwelling urinary catheter type: indwelling urethral catheter Osteomyelitis M86.9 Osteomyelitis location: other site Osteomyelitis type: unspecified type Altered mental state R41.82 Altered mental status type: unspecified Hypophosphatemia E83.39 Hypomagnesemia E83.42 Hypernatremia E87.0 Hyperkalemia E87.5 Leukocytosis D72.829 Urinary retention R33.9 Constipation K59.00 Severe protein-calorie malnutrition E43 Adenocarcinoma of lung C34.90 Spina bifida Q05.9 CLL (chronic lymphocytic leukemia) C91.90 DVT (deep venous thrombosis) I82.90 Chronicity: unspecified DVT location: non-extremity vein (1) Catheter-associated urinary tract infection Encounter type: initial encounter Indwelling urinary catheter type: indwelling urethral catheter Qualified Code(s): T83.511A - Infection and inflammatory reaction due to indwelling urethral catheter, initial encounter; N39.0 - Urinary tract infection, site not specified (2) DVT (deep venous thrombosis) Chronicity: unspecified DVT location: non-extremity vein Qualified Code(s): I82.90 - Acute embolism and thrombosis of unspecified vein (3) Sepsis Sepsis acute organ dysfunction status: unspecified Sepsis type: sepsis due to unspecified organism Qualified Code(s): A41.9 - Sepsis, unspecified organism (4) Altered mental state Altered mental status type: unspecified Qualified Code(s): R41.82 - Altered mental status, unspecified (5) Osteomyelitis Osteomyelitis location: other site Osteomyelitis type: unspecified type Qualified Code(s): M86.9 - Osteomyelitis, unspecified
[2021-01-03] MEDS ORDERED: SODIUM PHOSPHATE 3 MMOL/1 ML INFUSION IV STA (13:28)
[2021-01-03] MEDS ORDERED: SODIUM PHOSPHATE 15 MMOL in SODIUM CHLORIDE 0.9% 250 ML IV ONE (14:00)
--- NOTE | 2021-01-03 14:55 | Palliative Care Progress Note ---
Date of Service January 03, 2021 Assessment & Plan (1) Back pain: Relieved with prn oxycodone. Continue to monitor. (2) Palliative care encounter: Emily tells me that she wants to go home and be with her friends. I talked with her about the fact that she was very sick and we were worried about what to do for her. We discussed my conversation with her brother, Everton. I asked her if she was really sick what would she want us to do for her and her response was "make me better". I also asked what if we couldn't make you better, "then let me go". I told her what Everton had said about her care which was to treat but do not resuscitate and asked if that was what she would want. Her answer was yes. I updated Everton by phone. Admission and Anticipated Discharge Date Admission Date: December 29, 2020 Subjective Much more talkative today. She tells me that she has pain "all over". She has had oxycodone x 2 today. No hydromorphone since 01/01. She reports that her breathing is "pretty good". She is asking for coke and does not like the coke with thickener. Review of Systems Review of Systems: [place] Symptom Assessment Scale Pain1/3 Dyspnea 1/3 Nausea 0/3 Fatigue 2/3 Anxiety 0/3 Palliative Performance Score 30% Physical Exam Constitutional: + thin and + frail appearing ENMT: Mouth: + dry oral mucous membranes Respiratory: no labored breathing Gastrointestinal (Abdomen): Percussion/Palpation: abdomen soft; abdomen non tender Musculoskeletal: contractures Skin: warm and dry Neurologic: awake; not confused Results & Data ([facility]) Vital Signs (Past 12 Hours) Vital Signs Temp Pulse Pulse Resp BP Pulse Ox 01/03/21 11:54 98 H 18 130/75 97 01/03/21 07:49 98.2 F 92 H 18 131/71 97 01/03/21 07:30 99 H PG Care Time/CCT Total # of Minutes Spent Total Time Spent with Patient: Total time spent is greater than 50% in coordination of care (as documented) at patient's floor/unit and/or counseling patient: Coding Level of Care Code 15552 Subseq Hosp Care Lvl 2 Diagnoses Back pain M54.9 Palliative care encounter Z51.5
[2021-01-03] MEDS: cefTRIAXone SODIUM 2,000 MG in DEXTROSE 5% 50 ML IV SCH (16:46)
[2021-01-04] MEDS ORDERED: Nursing to Pharmacy Communication SCH (04:15)
[2021-01-04 06:09] LABS: Hematocrit (blood only) 29.1 % (37-47); Mean Corpuscular Hemoglobin 29.3 pg (25-34); Mean Corpuscular Hgb Conc 30.9 g/dL (32-36); Mean Corpuscular Volume 94.8 fL (80-100); Platelet Count 164 K/uL (130-400); RDW Standard Deviation 56.5 fL (36.4-46.3); Red Blood Count 3.07 M/uL (4.2-5.4); White Blood Count 154.65 K/uL (4.8-10.8)
[2021-01-04 06:25] LABS: BUN Creatinine Ratio 55.1 (10-20); Calcium 7.7 mg/dl (8.5-10.1); Creatinine Clr Calc Pharmacy 105.7 ml/min; Est GFR (African American) 124.9; Est GFR (Non-African American) 107.7; Magnesium 1.7 mg/dl (1.8-2.4); Phosphorus 2.3 mg/dl (2.5-4.9); Potassium 3.8 mmol/L (3.5-5.1)
[2021-01-04] MEDS: DICLOFENAC SOD 1% GEL 100 GM TUBE EXT SCH ×4 (08:17→20:53)
[2021-01-04] MEDS: AMOXICILLIN 500 MG CAP PO SCH ×2 (08:18→20:55)
[2021-01-04] MEDS: POLYETHYLENE (MIRALAX) 17 GM PACK PO SCH ×3 (08:18→20:55)
[2021-01-04] MEDS: MULTIVITAMIN TAB PO SCH (08:49)
[2021-01-04] MEDS: SODIUM CHLORIDE 0.9% 1000ML 1,000 ML IV SCH (08:49)
[2021-01-04] MEDS: RIVAROXABAN 20 MG TAB PO SCH (08:49)
[2021-01-04] MEDS ORDERED: MAGNESIUM SULFATE / D5W 1 GM/100 ML BAG IV ONE (09:30)
[2021-01-04] MEDS: POT PHOSPHATE MONOBASIC W/ SOD TAB PO SCH ×4 (12:01→20:53)
[2021-01-04] MEDS: oxyCODONE HCL IR 5 MG TAB (IMMEDIATE RELEASE) PO PRN (12:06)
--- NOTE | 2021-01-04 15:19 | Hospitalist Progress Note ---
Date of Service January 04, 2021 Assessment & Plan (1) Septicemia: 2nd strep intermedius. source - lumbar diskitis? check echo - r/o SBE. cont rocephin 2gm IV daily. ID consult pending. repeat blood cultures today to ensure sterility. (2) Osteomyelitis: diskitis, L2/L3 & L3/L4. suspected. cont IV rocephin. poor candidate for bone biopsy. due to strep intermedius?? repeat blood cx's today. treat pain. will obtain ortho-spine consult. (3) Catheter-associated urinary tract infection: 2nd proteus and enterococcus cont amoxicillin bush catheter exchanged on day of admission (4) Hypophosphatemia: place on K-phos neutral 1 tab QID (5) Hypomagnesemia: mag sulfate 1gm IV x 1 (6) Hypernatremia: resolved (7) Hyperkalemia: resolved (8) Constipation: MiralLAX TID likely has element of neurogenic bowel from spina bifida status (9) Severe protein-calorie malnutrition: nutrition consult placed back on fluids due to poor oral intake could consider appetite stimulant suspect combination of CLL, chronic lumbar diskitis, etc as culprits (10) Adenocarcinoma of lung: Status post right upper lobe resection in the past. (11) Spina bifida: Wheelchair bound. with resulting acquired paraplegia. (12) CLL (chronic lymphocytic leukemia): no acute intervention per hematology/oncology unless WBC rises to >300. 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 patient's nurse reports very poor appetite or liquid intake. patient awake during the visit, alert, but disoriented (thought it was ). she did know the year and month. did know she was at the hospital. reported b/l "hip" pain (paraspinal back pain over lumbar region). confirmed she no longer walks; wheelchair dependent. nursing stated that bush was exchanged in ER at time of ER presentation/admission. Review of Systems 2 Constitutional: + fatigue and + anorexia; no fever and no chills Respiratory: no cough and no dyspnea Cardiovascular: no chest pain Gastrointestinal: no abdominal pain, no nausea and no vomiting Physical Exam Constitutional: + thin, + cachectic, + altered mental status and + frail appearing; no acute distress ENMT: Mouth: + dry oral mucous membranes Respiratory: Auscultation: + diminished lung sounds (bases); no crackles and no wheezes Cardiovascular: Rate/Rhythm: regular rate and regular rhythm Heart Sounds: normal S1 and normal S2; no murmur Vessels: posterior tibial pulses present and dorsalis pedis pulses present; no JVD Extremities: + edema (dependent - b/l arms, 1-2+; trace edema, b/l feet & ankles) Gastrointestinal (Abdomen): normal bowel sounds, soft, nontender, no hepatosplenomegaly Musculoskeletal: Spine: + paraspinal tenderness (lumbar region ) Neurologic: paraplegia both legs; atrophy of muscles both legs Psychiatric: Orientation: alert, oriented to person and oriented to place Genitourinary: bush in place Results & Data Results & Data ([facility]) Vital Signs (Past 12 Hours) Vital Signs Temp Pulse Pulse Resp BP Pulse Ox 01/04/21 11:06 36.5 C 94 H 18 145/75 H 97 01/04/21 09:00 96 H 01/04/21 07:29 36.5 C 102 H 20 150/78 H 97 01/04/21 04:00 36.7 C 97 H 18 148/82 H 98 Laboratory Results Laboratory Results - last 24 hr 01/04/21 01/04/21 05:17 05:17 WBC 154.65 H* RBC 3.07 L Hgb 9.0 L Hct 29.1 L MCV 94.8 MCH 29.3 MCHC 30.9 L RDW Std Deviation 56.5 H RDW Coeff of Figueroa 17.0 H Plt Count 164 MPV 10.0 Sodium 142 Potassium 3.8 Chloride 111 H Carbon Dioxide 25 Anion Gap 6.0 BUN 17 Creatinine 0.31 L Est Cr Clr Drug Dosing 105.7 Est GFR ( Amer) 124.9 Est GFR (Non-Af Amer) 107.7 BUN/Creatinine Ratio 55.1 H Glucose 83 Calcium 7.7 L Phosphorus 2.3 L Magnesium 1.7 L admission blood cx's -- strep intermedius urine cx -- proteus/enterococcus PG Care Time/CCT Total # of Minutes Spent Total Time Spent with Patient: Total time spent is greater than 50% in coordination of care (as documented) at patient's floor/unit and/or counseling patient: Coding Level of Care Code 64718 Subseq Hosp Care Lvl 3 Diagnoses Septicemia A41.9 Osteomyelitis M86.9 Osteomyelitis type: unspecified type Osteomyelitis location: other site Catheter-associated urinary tract infection T83.511A; N39.0 Indwelling urinary catheter type: indwelling urethral catheter Encounter type: initial encounter Hypophosphatemia E83.39 Hypomagnesemia E83.42 Hypernatremia E87.0 Hyperkalemia E87.5 Constipation K59.00 Severe protein-calorie malnutrition E43 Adenocarcinoma of lung C34.90 Spina bifida Q05.9 CLL (chronic lymphocytic leukemia) C91.90 DVT (deep venous thrombosis) I82.90 DVT location: non-extremity vein Chronicity: unspecified Paraplegia G82.20 DVT prophylaxis Z29.9 (1) Catheter-associated urinary tract infection Indwelling urinary catheter type: indwelling urethral catheter Encounter type: initial encounter Qualified Code(s): T83.511A - Infection and inflammatory reaction due to indwelling urethral catheter, initial encounter; N39.0 - Urinary tract infection, site not specified (2) Osteomyelitis Osteomyelitis type: unspecified type Osteomyelitis location: other site Qualified Code(s): M86.9 - Osteomyelitis, unspecified (3) DVT (deep venous thrombosis) DVT location: non-extremity vein Chronicity: unspecified Qualified Code(s): I82.90 - Acute embolism and thrombosis of unspecified vein
[2021-01-04] MEDS: cefTRIAXone SODIUM 2,000 MG in DEXTROSE 5% 50 ML IV SCH (15:26)
[2021-01-04] MEDS: D5W AND 1/2NSS + 20MEQ KCL 20 MEQ/1,000 ML BAG IV SCH (15:58)
--- NOTE | 2021-01-04 16:02 | XCELERA ---
[id number]
[2021-01-05 06:23] LABS: Hematocrit (blood only) 27.9 % (37-47); Hemoglobin 8.6 g/dL (12.0-16.0); Mean Corpuscular Hemoglobin 29.3 pg (25-34); Mean Corpuscular Hgb Conc 30.8 g/dL (32-36); Mean Corpuscular Volume 94.9 fL (80-100); Mean Platelet Volume 9.9 fL (7.4-10.4); Platelet Count 234 K/uL (130-400); RDW Coefficient of Variation 17.2 % (11.5-14.5); Red Blood Count 2.94 M/uL (4.2-5.4); White Blood Count 146.11 K/uL (4.8-10.8)
[2021-01-05 06:38] LABS: Calcium 7.9 mg/dl (8.5-10.1); Est GFR (African American) 129.1; Est GFR (Non-African American) 111.4; Potassium 3.7 mmol/L (3.5-5.1)
[2021-01-05] MEDS: AMOXICILLIN 500 MG CAP PO SCH ×2 (08:09→21:47)
[2021-01-05] MEDS: RIVAROXABAN 20 MG TAB PO SCH (08:09)
[2021-01-05] MEDS: POT PHOSPHATE MONOBASIC W/ SOD TAB PO SCH ×4 (08:09→21:47)
[2021-01-05] MEDS: MULTIVITAMIN TAB PO SCH (08:09)
[2021-01-05] MEDS: POLYETHYLENE (MIRALAX) 17 GM PACK PO SCH ×3 (08:10→21:47)
[2021-01-05] MEDS: DICLOFENAC SOD 1% GEL 100 GM TUBE EXT SCH ×4 (08:10→21:47)
[2021-01-05] MEDS: D5W AND 1/2NSS + 20MEQ KCL 20 MEQ/1,000 ML BAG IV SCH (11:34)
--- NOTE | 2021-01-05 14:51 | Hospitalist Progress Note ---
Date of Service January 05, 2021 Assessment & Plan (1) Septicemia: 2nd strep intermedius. source - lumbar diskitis. echo w/o sbe. cont rocephin 2gm IV daily. ID consult pending. repeat blood cultures 01/04 thus far neg. (2) Osteomyelitis: diskitis, L2/L3 & L3/L4. suspected. cont IV rocephin. poor candidate for bone biopsy but likely due to strep intermedius. spoke with Dr Love from spine who will consult tomorrow for additional recs. likely minimum 6 weeks of IV abx therapy. (3) Catheter-associated urinary tract infection: 2nd proteus and enterococcus cont amoxicillin; stop date 01/08 bush catheter exchanged on day of admission (4) Hypophosphatemia: place on K-phos neutral 1 tab QID repeat phos in am (5) Hypomagnesemia: repeat mag level am (6) Hypernatremia: resolved (7) Hyperkalemia: resolved (8) Constipation: MiralLAX TID likely has element of neurogenic bowel from spina bifida status resolved (9) Severe protein-calorie malnutrition: nutrition consult could consider appetite stimulant suspect combination of CLL, chronic lumbar diskitis, etc as culprits (10) Adenocarcinoma of lung: Status post right upper lobe resection in the past. (11) Spina bifida: Wheelchair bound. with resulting acquired paraplegia. (12) CLL (chronic lymphocytic leukemia): no acute intervention per hematology/oncology unless WBC rises to >300. (13) DVT (deep venous thrombosis): 2018 xarelto (14) Paraplegia: acquired, 2nd spina bifida (15) Dark stools: worrisome for melena check fecal occult blood start IV PPI twice daily certainly at risk of GI bleeding due to xarelto use cbc am (16) Edema: 3rd spacing in setting of severe hypoalbuminemia stop IV fluids boost or ensure consider lasix (17) DVT prophylaxis: xarelto updated pt's brother 01/04 poor prognosis; palliative care following Admission and Anticipated Discharge Date Admission Date: December 29, 2020 Subjective tele overnight - NSR or sinus tach patient with very little appetite. staff report 2 very dark BMs today - perhaps melena in appearance no BRBPR patient denies any pain in chest or abdomen continues to be very weak does have back pain, paraspinal in location Review of Systems Constitutional: + fatigue, + weakness and + anorexia Respiratory: no cough Cardiovascular: no chest pain Gastrointestinal: no abdominal pain Physical Exam Constitutional: + thin, + cachectic and + frail appearing; no acute distress ENMT: Mouth: + dry oral mucous membranes Respiratory: Auscultation: + diminished lung sounds (bases); no crackles and no wheezes Cardiovascular: Rate/Rhythm: regular rate and regular rhythm Heart Sounds: normal S1 and normal S2; no murmur Vessels: posterior tibial pulses present and dorsalis pedis pulses present; no JVD Extremities: + edema (b/l arms worse today; trace edema, b/l legs) Gastrointestinal (Abdomen): normal bowel sounds, soft, nontender, no hepatosplenomegaly Neurologic: paraplegia of legs Psychiatric: Orientation: alert, oriented to person and oriented to place Results & Data Results & Data ([facility]) Vital Signs (Past 12 Hours) Vital Signs Temp Pulse Pulse Resp BP Pulse Ox 01/05/21 11:15 36.7 C 113 H 18 146/75 H 94 01/05/21 07:45 105 H 01/05/21 07:29 36.6 C 113 H 18 149/79 H 94 01/05/21 04:00 36.6 C 104 H 18 140/67 97 Laboratory Results Laboratory Results - last 24 hr 01/05/21 01/05/21 05:25 05:25 WBC 146.11 H* RBC 2.94 L Hgb 8.6 L Hct 27.9 L MCV 94.9 MCH 29.3 MCHC 30.8 L RDW Std Deviation 57.0 H RDW Coeff of Figueroa 17.2 H Plt Count 234 MPV 9.9 Sodium 144 Potassium 3.7 Chloride 111 H Carbon Dioxide 25 Anion Gap 7.0 BUN 12 Creatinine 0.28 L Est Cr Clr Drug Dosing 117.0 Est GFR ( Amer) 129.1 Est GFR (Non-Af Amer) 111.4 BUN/Creatinine Ratio 43.0 H Glucose 104 H Calcium 7.9 L repeat blood cx's from 01/04 negative to date echo - no valvular vegetations PG Care Time/CCT Total # of Minutes Spent Total Time Spent with Patient: Total time spent is greater than 50% in coordination of care (as documented) at patient's floor/unit and/or counseling patient: Coding Level of Care Code 15894 Subseq Hosp Care Lvl 3 Diagnoses Septicemia A41.9 Osteomyelitis M86.9 Osteomyelitis location: other site Osteomyelitis type: unspecified type Catheter-associated urinary tract infection T83.511A; N39.0 Encounter type: initial encounter Indwelling urinary catheter type: indwelling urethral catheter Hypophosphatemia E83.39 Hypomagnesemia E83.42 Hypernatremia E87.0 Hyperkalemia E87.5 Constipation K59.00 Severe protein-calorie malnutrition E43 Adenocarcinoma of lung C34.90 Spina bifida Q05.9 CLL (chronic lymphocytic leukemia) C91.90 DVT (deep venous thrombosis) I82.90 Chronicity: unspecified DVT location: non-extremity vein Paraplegia G82.20 Dark stools R19.5 Edema R60.9 DVT prophylaxis Z29.9 (1) Catheter-associated urinary tract infection Encounter type: initial encounter Indwelling urinary catheter type: indwelling urethral catheter Qualified Code(s): T83.511A - Infection and inflammatory reaction due to indwelling urethral catheter, initial encounter; N39.0 - Urinary tract infection, site not specified (2) DVT (deep venous thrombosis) Chronicity: unspecified DVT location: non-extremity vein Qualified Code(s): I82.90 - Acute embolism and thrombosis of unspecified vein (3) Osteomyelitis Osteomyelitis location: other site Osteomyelitis type: unspecified type Qualified Code(s): M86.9 - Osteomyelitis, unspecified
[2021-01-05] MEDS: ACETAMINOPHEN 500 MG TAB PO SCH ×2 (15:38→21:56)
[2021-01-05] MEDS: cefTRIAXone SODIUM 2,000 MG in DEXTROSE 5% 50 ML IV SCH (15:38)
[2021-01-05] MEDS: FAMOTIDINE 20 MG in SYRINGE 3 ML IV SCH ×2 (17:05→21:55)
[2021-01-06 06:55] LABS: Hematocrit (blood only) 29.9 % (37-47); Mean Corpuscular Hemoglobin 28.8 pg (25-34); Mean Corpuscular Hgb Conc 30.1 g/dL (32-36); Mean Corpuscular Volume 95.8 fL (80-100); Platelet Count 318 K/uL (130-400); RDW Coefficient of Variation 17.5 % (11.5-14.5); RDW Standard Deviation 59.2 fL (36.4-46.3); Red Blood Count 3.12 M/uL (4.2-5.4)
[2021-01-06 07:22] LABS: Calcium 7.7 mg/dl (8.5-10.1); Creatinine Clr Calc Pharmacy 121.4 ml/min; Est GFR (African American) 130.7; Est GFR (Non-African American) 112.7; Magnesium 2.1 mg/dl (1.8-2.4)
[2021-01-06 07:25] LABS: Phosphorus 3.6 mg/dl (2.5-4.9)
[2021-01-06] MEDS: POT PHOSPHATE MONOBASIC W/ SOD TAB PO SCH ×5 (08:29→20:23)
[2021-01-06] MEDS: RIVAROXABAN 20 MG TAB PO SCH (08:30)
[2021-01-06] MEDS: MULTIVITAMIN TAB PO SCH (08:30)
[2021-01-06] MEDS: AMOXICILLIN 500 MG CAP PO SCH ×2 (08:30→20:23)
[2021-01-06] MEDS: DICLOFENAC SOD 1% GEL 100 GM TUBE EXT SCH ×5 (08:31→20:24)
[2021-01-06] MEDS: ACETAMINOPHEN 500 MG TAB PO SCH ×3 (08:34→20:23)
[2021-01-06] MEDS: POLYETHYLENE (MIRALAX) 17 GM PACK PO SCH ×3 (08:35→20:22)
[2021-01-06] MEDS: FAMOTIDINE 20 MG in SYRINGE 3 ML IV SCH (08:36)
--- NOTE | 2021-01-06 12:35 | Palliative Care Progress Note ---
Date of Service January 06, 2021 Assessment & Plan (1) Back pain: Pt denies pain today. She has not received any Oxycontin since 01/04 and has not received any Dilaudid IV since 01/01. Patient has been working with PT/OT. She appears to be at baseline 1 assist with pivot to the wheelchair. (2) Palliative care encounter: When I entered the room, Emily said "He tried to off me but he won't win". I did ask her to elaborate and she said her "brother wishes her ." She was able to recall that she lives at [facility] and states that she wants to go back there. I called her brother Everton who lives in [place] ([phone]) and he explained they have an overall strained relationship and he thinks she would want to be aggressive overall in her care. I discussed her progress with Pt and likely has returned to baseline, although remains very deconditioned and ill. We discussed a POLST form that may be beneficial for her return to [facility], but he indicated that he would not want his name on it because if she knew he decided something that was different from her thoughts, she would be very upset. We did discuss this in more depth, but for now, will hold on POLST completion. For now, Everton wishes that she returns to [facility] with SNF approach and see how she does. If she declines, he said he would consider hospice, but knows she would want to return to the hospital if there was a chance for recovery. At this time, anticipated another 6 weeks of IV abx. (3) Severe protein-calorie malnutrition: She has had two feeding tubes placed and she has pulled them both out. She is being seen by Speech Therapy and has had PPN most recently, but is now on trial with minced/pureed diet. She has been refusing PO nourishment, even when I personally offered her a few bites. Patient has sunken temporal area and is becoming cachectic. Admission and Anticipated Discharge Date Admission Date: December 29, 2020 Subjective Pt denies back pain, but I did observe her grimace with movement during my encounter. Her weakness continues and she continues to have a poor appetite. Has refused to eat today. See A/P for further details. tele overnight - NSR or sinus tach Review of Systems Review of Systems: Thrall Symptom Assessment Scale Pain0/3 Dyspnea 1/3 Nausea 0/3 Fatigue 1/3 Anxiety 0/3 Palliative Performance Score 30% Physical Exam Constitutional: + thin, + frail appearing and + in distress; no acute distress ENMT: Mouth: + dry oral mucous membranes Respiratory: no labored breathing Cardiovascular: Extremities: no edema Gastrointestinal (Abdomen): Percussion/Palpation: abdomen soft; abdomen nontender Neurologic: awake and + confused Psychiatric: Orientation: oriented to person, oriented to place and cooperative Insight: + poor insight Results & Data ([facility]) Vital Signs (Past 12 Hours) Vital Signs Temp Pulse Pulse Resp BP BP Pulse Ox 01/06/21 11:45 36.9 C 109 H 16 138/68 94 01/06/21 07:49 36.2 C L 111 H 16 160/80 H 98 01/06/21 04:33 106 H 01/06/21 04:14 36.4 C L 105 H 20 160/79 H 96 PG Care Time/CCT Total # of Minutes Spent Total Time Spent with Patient: Total time spent is greater than 50% in coordination of care (as documented) at patient's floor/unit and/or counseling patient: 45 Coding Level of Care Code 99223 Subseq Hosp Care Lvl 3 Diagnoses Back pain M54.9 Palliative care encounter Z51.5 Severe protein-calorie malnutrition E43 Time Spent (min) 45 Time Spent Midlevel Total time spent 45 minutes with > 50% of that time spent assessing the patient, discussing goals of care with the patients brother and collaborating with the IDT
[2021-01-06] MEDS: cefTRIAXone SODIUM 2,000 MG in DEXTROSE 5% 50 ML IV SCH (16:06)
--- NOTE | 2021-01-06 19:12 | Hospitalist Progress Note ---
Date of Service January 06, 2021 Assessment & Plan (1) Septicemia: 2nd strep intermedius. source - lumbar diskitis. echo w/o sbe. cont rocephin 2gm IV daily. ID consult done but I don't have report. repeat blood cultures 01/04 thus far neg. I spoke with Dr Love from [facility] ortho-spine. He reviewed films. The L3 disc is very diseased/eroded from infection; very poor candidate for surgery of course. Cont IV abx. (2) Osteomyelitis: diskitis, L2/L3 & L3/L4. suspected. cont IV rocephin. poor candidate for bone biopsy or surgery. the pathogen is likely due to strep intermedius. likely minimum 6 weeks of IV abx therapy. (3) Catheter-associated urinary tract infection: 2nd proteus and enterococcus cont amoxicillin; stop date 01/08 bush catheter exchanged on day of admission (4) Hypophosphatemia: K-phos neutral 1 tab QID (5) Hypomagnesemia: replaced/resolved (6) Hypernatremia: resolved repeat BMP am for stability (7) Hyperkalemia: resolved (8) Constipation: MiralLAX TID likely has element of neurogenic bowel from spina bifida status resolved (9) Severe protein-calorie malnutrition: nutrition consult could consider appetite stimulant but concerned marinol will cause confusion poor candidate for prednisone due to active infection in back/blood suspect combination of CLL, chronic lumbar diskitis, etc as culprits (10) Adenocarcinoma of lung: Status post right upper lobe resection in the past. (11) Spina bifida: Wheelchair bound. with resulting acquired paraplegia. (12) CLL (chronic lymphocytic leukemia): no acute intervention per hematology/oncology unless WBC rises to >300. (13) DVT (deep venous thrombosis): 2018 masoud (14) Paraplegia: acquired, 2nd spina bifida (15) Dark stools: worrisome for melena but heme negative and H/H have remained stable stop IV H2 sedrick cbc again in am for stability (16) Edema: 3rd spacing in setting of severe hypoalbuminemia boost or ensure consider lasix (17) Metabolic encephalopathy: ongoing due to septicemia/diskitis/hospital psychosis supportive care (18) DVT prophylaxis: masoud updated pt's brother 01/04 and again today he understands poor prognosis; palliative care following need meeting between brother, patient and care team to discuss hospice vs ongoing IV abx, etc Admission and Anticipated Discharge Date Admission Date: December 29, 2020 Subjective pt confused during visit was talking to herself as I was entering the room she stated she "wanted to get into her wheelchair" no appetite denies any pain tele - sinus tach Review of Systems Constitutional: + fatigue and + anorexia; no fever Respiratory: no cough and no dyspnea Cardiovascular: no chest pain Gastrointestinal: no abdominal pain Physical Exam Constitutional: + thin, + cachectic, + altered mental status and + frail appearing; no acute distress ENMT: Mouth: + dry oral mucous membranes Respiratory: Auscultation: + diminished lung sounds (bases); no crackles and no wheezes Cardiovascular: Rate/Rhythm: regular rate and regular rhythm Heart Sounds: normal S1 and normal S2; no murmur Vessels: posterior tibial pulses present and dorsalis pedis pulses present; no JVD Extremities: + edema (b/l arms - dependent; trace-1+ edema, b/l legs) Gastrointestinal (Abdomen): normal bowel sounds, soft, nontender, no hepatosp lenomegaly Psychiatric: Orientation: alert, oriented to person and oriented to place; + not oriented to time Results & Data Results & Data ([facility]) Vital Signs (Past 12 Hours) Vital Signs Temp Pulse Pulse Resp BP Pulse Ox 01/06/21 16:24 36.4 C L 105 H 19 146/79 H 95 01/06/21 11:45 36.9 C 109 H 16 138/68 94 01/06/21 08:00 108 H 01/06/21 07:49 36.2 C L 111 H 16 160/80 H 98 Laboratory Results Laboratory Results - last 24 hr 01/05/21 01/06/21 01/06/21 21:45 06:22 06:22 WBC 173.20 H* RBC 3.12 L Hgb 9.0 L Hct 29.9 L MCV 95.8 MCH 28.8 MCHC 30.1 L RDW Std Deviation 59.2 H RDW Coeff of Figueroa 17.5 H Plt Count 318 MPV 10.0 Sodium 144 Potassium 4.0 Chloride 112 H Carbon Dioxide 27 Anion Gap 5.0 BUN 14 Creatinine 0.27 L Est Cr Clr Drug Dosing 121.4 Est GFR ( Amer) 130.7 Est GFR (Non-Af Amer) 112.7 BUN/Creatinine Ratio 52.0 H Glucose 79 Calcium 7.7 L Phosphorus 3.6 Magnesium 2.1 Stool Occult Bld Scrn Negative repeat blood cx's neg from 01/04 PG Care Time/CCT Total # of Minutes Spent Total Time Spent with Patient: Total time spent is greater than 50% in coordination of care (as documented) at patient's floor/unit and/or counseling patient: Coding Level of Care Code 80066 Subseq Hosp Care Lvl 3 Diagnoses Septicemia A41.9 Osteomyelitis M86.9 Osteomyelitis location: other site Osteomyelitis type: unspecified type Catheter-associated urinary tract infection T83.511A; N39.0 Encounter type: initial encounter Indwelling urinary catheter type: indwelling urethral catheter Hypophosphatemia E83.39 Hypomagnesemia E83.42 Hypernatremia E87.0 Hyperkalemia E87.5 Constipation K59.00 Severe protein-calorie malnutrition E43 Adenocarcinoma of lung C34.90 Spina bifida Q05.9 CLL (chronic lymphocytic leukemia) C91.90 DVT (deep venous thrombosis) I82.90 Chronicity: unspecified DVT location: non-extremity vein Paraplegia G82.20 Dark stools R19.5 Edema R60.9 Metabolic encephalopathy G93.41 DVT prophylaxis Z29.9 (1) Catheter-associated urinary tract infection Encounter type: initial encounter Indwelling urinary catheter type: indwelling urethral catheter Qualified Code(s): T83.511A - Infection and inflammatory reaction due to indwelling urethral catheter, initial encounter; N39.0 - Urinary tract infection, site not specified (2) DVT (deep venous thrombosis) Chronicity: unspecified DVT location: non-extremity vein Qualified Code(s): I82.90 - Acute embolism and thrombosis of unspecified vein (3) Osteomyelitis Osteomyelitis location: other site Osteomyelitis type: unspecified type Qualified Code(s): M86.9 - Osteomyelitis, unspecified
[2021-01-07 07:03] LABS: Hematocrit (blood only) 30.4 % (37-47); Hemoglobin 9.1 g/dL (12.0-16.0); Mean Corpuscular Hemoglobin 29.1 pg (25-34); Mean Corpuscular Hgb Conc 29.9 g/dL (32-36); Mean Corpuscular Volume 97.1 fL (80-100); Platelet Count 316 K/uL (130-400); RDW Coefficient of Variation 17.5 % (11.5-14.5); RDW Standard Deviation 59.9 fL (36.4-46.3); Red Blood Count 3.13 M/uL (4.2-5.4); White Blood Count 162.28 K/uL (4.8-10.8)
[2021-01-07 07:36] LABS: BUN Creatinine Ratio 50.3 (10-20); Calcium 7.4 mg/dl (8.5-10.1); Creatinine Clr Calc Pharmacy 121.4 ml/min; Est GFR (African American) 130.7; Est GFR (Non-African American) 112.7; Potassium 4.8 mmol/L (3.5-5.1)
[2021-01-07] MEDS: D5W AND 1/2NSS 1,000 ML IV SCH (09:47)
[2021-01-07] MEDS: DICLOFENAC SOD 1% GEL 100 GM TUBE EXT SCH ×4 (09:47→20:54)
[2021-01-07] MEDS: POLYETHYLENE (MIRALAX) 17 GM PACK PO SCH ×3 (09:47→20:53)
[2021-01-07] MEDS: POT PHOSPHATE MONOBASIC W/ SOD TAB PO SCH ×4 (09:48→20:53)
[2021-01-07] MEDS: ACETAMINOPHEN 500 MG TAB PO SCH ×3 (09:48→20:53)
[2021-01-07] MEDS: MULTIVITAMIN TAB PO SCH (09:48)
[2021-01-07] MEDS: RIVAROXABAN 20 MG TAB PO SCH (09:48)
[2021-01-07] MEDS: AMOXICILLIN 500 MG CAP PO SCH ×2 (09:49→20:55)
--- NOTE | 2021-01-07 10:11 | Orthopedic Consultation ---
Date of Consultation January 07, 2021 Assessment & Plan (1) Lumbar discitis: I did describe to the patient that she is evidence of an infection in the lumbar spine. Is extensive. Is predominantly between L3 and L4 with marked erosive changes of the bone. I discussed that any surgery in this area would be extensive requiring an anterior and posterior approach. Under her current health status this would be very risky nature and she may not survive. She understands. She would like to continue with IV antibiotics only. As she is not in any severe distress this seems reasonable. Present on Admission?: Yes History of Present Illness Reason for Consultation: Lumbar spine infection Attending Physician: Antonino Fitch History of Present Illness This is a very pleasant 80-year-old female who presents the hospital with multiple medical issues. Upon of her work-up it was discovered that she had evidence of discitis lumbar spine. This morning she is sitting up in bed. She states she is comfortable. She describes a history of chronic back pain. She has not ambulated in years. Allergies Allergy/AdvReac Type Severity Reaction Status Date / Time aspirin AdvReac Intermediate INCREASES Verified 12/29/20 14:42 BLEEDING capsaicin AdvReac Mild INTOLERANCE Verified 12/29/20 14:42 codeine AdvReac Mild INTOLERANCE Verified 12/29/20 14:42 diazepam AdvReac Mild INTOLERANCE Verified 12/29/20 14:42 diclofenac AdvReac Mild INTOLERANCE Verified 12/29/20 14:42 Diclopak AdvReac Mild INTOLERANCE Verified 03/21/18 14:33 diphenhydramine AdvReac Mild Dizziness Verified 12/29/20 14:42 [From Benadryl] erythromycin base AdvReac Mild INTOLERANCE Verified 12/29/20 14:42 sulindac AdvReac Mild INTOLERANCE Verified 12/29/20 14:42 tramadol AdvReac Mild INTOLERANCE Verified 12/29/20 14:42 turkey AdvReac Mild Diarrhea Verified 12/29/20 14:42 Home Medications Medication Instructions Recorded Confirmed Type multivitamin 1 tab PO QAM 01/08/19 12/29/20 History Xarelto 20 mg PO DAILY 10/24/19 12/29/20 History ascorbic acid (vitamin C) 500 mg 500 mg PO DAILY 11/30/19 12/29/20 History tablet acetaminophen 1,000 mg PO Q8H #180 tab 01/05/20 12/29/20 Rx atenolol 50 mg PO QAM #30 tab 01/05/20 12/29/20 Rx diclofenac sodium [Voltaren] 4 g EXT QID #100 gm 01/05/20 12/29/20 Rx lisinopril 10 mg PO DAILY #0 tab 01/05/20 12/29/20 Rx bisacodyl [Dulcolax (bisacodyl)] 10 mg IA DAILY PRN 02/01/20 12/29/20 History dextromethorphan-guaifenesin 10 ml PO Q6H PRN 02/01/20 12/29/20 History [Robitussin Cough-Chest [place] DM] lidocaine 1 patch TOPICAL DAILY 02/01/20 12/29/20 History loperamide [Imodium A-D] 2 mg PO Q3H PRN 02/01/20 12/29/20 History magnesium hydroxide [Milk of 30 ml PO DAILY PRN 02/01/20 12/29/20 History Magnesia] sodium phosphates [Fleet Enema] 118 ml IA DAILY PRN 02/01/20 12/29/20 History fentanyl 1 patch TOPICAL Q3D 12/29/20 12/29/20 History ferrous sulfate 325 mg PO BID 12/29/20 12/29/20 History oxycodone 5 mg PO Q6 PRN 12/29/20 12/29/20 History Patient History Medical History (Updated 01/07/21 @ 10:10 by Yoni Love DO) Breast cancer s/p lumpectomy s/p chemo/XRT CLL (chronic lymphocytic leukemia) h/o chemotherapy (2014); chronic leukocytosis (baseline WBC 50-60 range per chart review) 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 GERD (gastroesophageal reflux disease) occasional Hypertension Lung mass "NON-MALIGNANT" Nonsustained ventricular tachycardia Osteoarthritis Peripheral neuropathy b/l hands r/t chemo Pulmonary nodules Severe protein-calorie malnutrition Spina bifida able to walk short distances with walker but often uses wheelchair but due to increasing back pain Thyroid nodule UTI (urinary tract infection) Surgical History History of back surgery lumbar History of bilateral tubal ligation History of bronchoscopy Navigational bronchoscopy 07/21/1919 Grade 1 view Yao 2 blade History of cardiac cath 1970s, 2001= no stents History of chemotherapy Chemotherapeutics History of cholecystectomy History of lumbar puncture as an infant r/t spina bifida History of surgery repair of the spina bifida (at the base of pt neck) History of tonsillectomy Hx of lumpectomy left Family History Mother Hypertension Social History Smoking Status: Former smoker Second Hand Exposure: No; Do You Dip or Chew Tobacco: No; Hx Alcohol Use: No Hx Substance Use: No Preferred Language: [place]ese Communication Ability: Effective Visual Impairment: No Limitations Bookkeeping Machine Mechanic Required: No Beliefs That Will Affect Care: None marital status: / Current Living Situation: Long-Term Current Living Situation Comment: [facility] current occupational status: retired Other Information That Helps Us Care for You: No Feels Safe at Home: Yes Safety Concerns: Feels Safe At This Time Assistive Devices: Glasses and Wheelchair Physical Exam Physical Exam: On exam she is sitting up. She does not appear to be in distress. She exhibits sensation to cold and light touch bilateral extremities. She does have plantar flexion dorsiflexion quadriceps intact. Results & Data ([facility]) Vital Signs (Past 12 Hours) Vital Signs Temp Pulse Pulse Resp BP BP Pulse Ox 01/07/21 07:49 36.9 C 101 H 20 148/83 H 93 01/07/21 07:00 89 01/07/21 04:17 36.5 C 96 H 20 137/80 93 01/06/21 23:33 36.7 C 100 H 20 151/79 H 95 01/06/21 23:24 99 H
[2021-01-07] MEDS: cefTRIAXone SODIUM 2,000 MG in DEXTROSE 5% 50 ML IV SCH (17:30)
--- NOTE | 2021-01-07 20:34 | Hospitalist Progress Note ---
Date of Service January 07, 2021 Assessment & Plan (1) Septicemia: 2nd strep intermedius. source - lumbar diskitis. echo w/o sbe. cont rocephin 2gm IV daily. ID consult done today but report not yet available with recs. repeat blood cultures 01/04 thus far neg. I spoke with Dr Love from [facility] [place] ortho-spine. He reviewed films. The L3 disc is very diseased/eroded from infection; very poor candidate for surgery of course. Cont IV abx. (2) Osteomyelitis: diskitis, L2/L3 & L3/L4. cont IV rocephin. poor candidate for bone biopsy or surgery. the pathogen is likely due to strep intermedius. likely minimum 6 weeks of IV abx therapy. ID consult done today; report yet not available. (3) Lumbar discitis: as above (4) Catheter-associated urinary tract infection: 2nd proteus and enterococcus cont amoxicillin; stop date 01/08 bush catheter exchanged on day of admission (5) Hypophosphatemia: K-phos neutral 1 tab QID would repeat level in 48 hours (6) Hypomagnesemia: replaced/resolved (7) Hypernatremia: resolved, and now has returned -- due to poor water intake restart hypotonic fluids repeat BMP am for stability (8) Hyperkalemia: resolved (9) Constipation: MiralLAX TID likely has element of neurogenic bowel from spina bifida status resolved (10) Severe protein-calorie malnutrition: nutrition consult could consider appetite stimulant but concerned marinol will cause confusion poor candidate for prednisone due to active infection in back/blood suspect combination of CLL, chronic lumbar diskitis, etc as culprits I believe this is going to be an ongoing issue (11) Adenocarcinoma of lung: Status post right upper lobe resection in the past. (12) Spina bifida: Wheelchair bound. with resulting acquired paraplegia. (13) CLL (chronic lymphocytic leukemia): no acute intervention per hematology/oncology unless WBC rises to >300. (14) DVT (deep venous thrombosis): 2018 xarelto (15) Paraplegia: acquired, 2nd spina bifida (16) Dark stools: worrisome for melena but heme negative and H/H have remained stable stop IV H2 sedrick cbc again in am for stability (17) Edema: 3rd spacing in setting of severe hypoalbuminemia unfortunately her poor PO intake leads to adding back IV fluids, which then leads to more edema no good option here (18) Metabolic encephalopathy: resolved today due to septicemia/diskitis/hospital psychosis supportive care (19) Hypoglycemia: 2nd to very poor PO intake add dextrose containing fluids today consider cortisol level (20) DVT prophylaxis: xarelto updated pt's brother 01/04, 01/06 he understands poor prognosis; palliative care following need meeting between brother, patient and palliative care team to discuss hospice vs ongoing IV abx, etc prognosis is very, very poor Admission and Anticipated Discharge Date Admission Date: December 29, 2020 Subjective patient awake during my rounds. she asked for something to drink. we had a lengthy conversation about her current status. told her I was concerned about her ongoing anorexia in the setting of severe lumbar spine infection and CLL. she said to me "I think I am doing much better." she blames her lack of appetite on having to drink thickened liquids and eat pureed foods. she continues with considerable fatigue - staff report she has a hard time even moving her arms. she was more oriented today - knew she was in hospital, that it was December. denied any new complaints. tele - sinus tach. Review of Systems Constitutional: + fatigue and + anorexia Respiratory: no dyspnea Cardiovascular: no chest pain Gastrointestinal: no abdominal pain Physical Exam Constitutional: + thin, + cachectic and + frail appearing; no acute distress and no altered mental status ENMT: Mouth: + dry oral mucous membranes Respiratory: Auscultation: + diminished lung sounds (bases); no crackles and no wheezes Cardiovascular: Rate/Rhythm: regular rhythm and + tachycardic Heart Sounds: normal S1 and normal S2; no murmur Vessels: posterior tibial pulses present and dorsalis pedis pulses present; no JVD Extremities: + edema (b/l arms - dependent; trace-1+ edema, b/l legs) Gastrointestinal (Abdomen): normal bowel sounds, soft, nontender, no hepatosplenomegaly Neurologic: paraplegic; muscle atrophy of legs Psychiatric: Orientation: alert, oriented to person, oriented to place and oriented to time Results & Data Results & Data ([facility] [place]) Vital Signs (Past 12 Hours) Vital Signs Temp Pulse Pulse Resp BP Pulse Ox 01/07/21 20:07 36.7 C 96 H 18 162/80 H 96 01/07/21 16:00 103 H Laboratory Results Laboratory Results - last 24 hr 01/07/21 01/07/21 06:42 06:42 WBC 162.28 H* RBC 3.13 L Hgb 9.1 L Hct 30.4 L MCV 97.1 MCH 29.1 MCHC 29.9 L RDW Std Deviation 59.9 H RDW Coeff of Figueroa 17.5 H Plt Count 316 MPV 9.0 Sodium 146 H Potassium 4.8 D Chloride 113 H Carbon Dioxide 27 Anion Gap 6.0 BUN 14 Creatinine 0.27 L Est Cr Clr Drug Dosing 121.4 Est GFR ( Amer) 130.7 Est GFR (Non-Af Amer) 112.7 BUN/Creatinine Ratio 50.3 H Glucose 59 L Calcium 7.4 L PG Care Time/CCT Total # of Minutes Spent Total Time Spent with Patient: Total time spent is greater than 50% in coordination of care (as documented) at patient's floor/unit and/or counseling patient: Coding Level of Care Code 41518 Subseq Hosp Care Lvl 3 Diagnoses Septicemia A41.9 Osteomyelitis M86.9 Osteomyelitis location: other site Osteomyelitis type: unspecified type Lumbar discitis M46.46 Catheter-associated urinary tract infection T83.511A; N39.0 Encounter type: initial encounter Indwelling urinary catheter type: indwelling urethral catheter Hypophosphatemia E83.39 Hypomagnesemia E83.42 Hypernatremia E87.0 Hyperkalemia E87.5 Constipation K59.00 Severe protein-calorie malnutrition E43 Adenocarcinoma of lung C34.90 Spina bifida Q05.9 CLL (chronic lymphocytic leukemia) C91.90 DVT (deep venous thrombosis) I82.90 Chronicity: unspecified DVT location: non-extremity vein Paraplegia G82.20 Dark stools R19.5 Edema R60.9 Metabolic encephalopathy G93.41 Hypoglycemia E16.2 DVT prophylaxis Z29.9 (1) Catheter-associated urinary tract infection Encounter type: initial encounter Indwelling urinary catheter type: indwelling urethral catheter Qualified Code(s): T83.511A - Infection and inflammatory reaction due to indwelling urethral catheter, initial encounter; N39.0 - Urinary tract infection, site not specified (2) DVT (deep venous thrombosis) Chronicity: unspecified DVT location: non-extremity vein Qualified Code(s): I82.90 - Acute embolism and thrombosis of unspecified vein (3) Osteomyelitis Osteomyelitis location: other site Osteomyelitis type: unspecified type Qualified Code(s): M86.9 - Osteomyelitis, unspecified
[2021-01-08] MEDS: D5W AND 1/2NSS 1,000 ML IV SCH ×2 (02:22→20:35)
[2021-01-08 06:36] LABS: Hematocrit (blood only) 27.4 % (37-47); Hemoglobin 8.2 g/dL (12.0-16.0); Mean Corpuscular Hemoglobin 29.4 pg (25-34); Mean Corpuscular Hgb Conc 29.9 g/dL (32-36); Mean Corpuscular Volume 98.2 fL (80-100); Mean Platelet Volume 9.9 fL (7.4-10.4); Platelet Count 336 K/uL (130-400); RDW Coefficient of Variation 17.5 % (11.5-14.5); RDW Standard Deviation 60.2 fL (36.4-46.3); Red Blood Count 2.79 M/uL (4.2-5.4); White Blood Count 140.55 K/uL (4.8-10.8)
[2021-01-08 07:04] LABS: BUN Creatinine Ratio 47.9 (10-20); Calcium 7.6 mg/dl (8.5-10.1); Creatinine Clr Calc Pharmacy 122.7 ml/min; Est GFR (African American) 127.6; Est GFR (Non-African American) 110.1; Potassium 4.9 mmol/L (3.5-5.1)
[2021-01-08 09:14] LABS: Albumin Level 1.2 gm/dl (3.4-5.0); Bilirubin Direct 0.2 mg/dl (0-0.2); Bilirubin,Total 0.4 mg/dl (0.2-1); Total Protein 4.8 gm/dl (6.4-8.2)
[2021-01-08] MEDS: AMOXICILLIN 500 MG CAP PO SCH ×2 (09:17→20:38)
[2021-01-08] MEDS: MULTIVITAMIN TAB PO SCH (09:17)
[2021-01-08] MEDS: POLYETHYLENE (MIRALAX) 17 GM PACK PO SCH ×3 (09:17→20:38)
[2021-01-08] MEDS: ACETAMINOPHEN 500 MG TAB PO SCH ×3 (09:18→20:38)
[2021-01-08] MEDS: POT PHOSPHATE MONOBASIC W/ SOD TAB PO SCH ×4 (09:18→20:38)
[2021-01-08] MEDS: RIVAROXABAN 20 MG TAB PO SCH (09:36)
[2021-01-08] MEDS: DICLOFENAC SOD 1% GEL 100 GM TUBE EXT SCH ×4 (09:37→20:38)
--- NOTE | 2021-01-08 11:44 | Hospitalist Progress Note ---
Date of Service January 08, 2021 Assessment & Plan (1) Septicemia: Secondary to strep intermedius from lumbar discitis ID consult obtained Recommend IV antibiotics for 8 weeks to include cefepime and vancomycin unless bone biopsy can be obtained Currently patient is on ceftriaxone for infection as well as amoxicillin for urinary tract infection Cannot use WBC as an indicator as patient has CLL and WBC is 140,[address] [place] [facility] [place] she is a very poor candidate for surgery. He recommends continuation of IV antibiotics Patient afebrile on current regimen Resident of [facility] -we will check with them regarding IV treatment (2) CLL (chronic lymphocytic leukemia): Diagnosed in 2013 Review of the outpatient notes indicate that WBC has been doubling Most recent visit 12/18/2020 with PHILIPPE Fuentes Has not received any treatment at this point No acute intervention and last WBC rises greater than 300,000 per hematology (3) Primary adenocarcinoma of upper lobe of right lung: Diagnosed 11/03/2019 Status post sublobar RUL resection Surveillance CTs per oncology for pulmonary nodules (4) Breast cancer: Diagnosed in 1999 for stage Ib Received 4 cycles of TCH and 1 year of Herceptin with adjuvant XRT Remission since that point (5) Catheter-associated urinary tract infection: Currently receiving amoxicillin * Discontinue after today's dose (6) Hypophosphatemia: Oral repletion Check repeat phosphorus level tomorrow (7) Hypernatremia: Limited oral intake secondary to aspiration Patient does not like Thick-It Cannot use straws Currently sodium is within normal limits at 143 mmol/L Follow serial lab (8) Constipation: Continue bowel regimen (9) Severe protein-calorie malnutrition: Nutrition consult Continue supplement as tolerated (10) Spina bifida: Wheelchair-bound Paraplegia Resides at [facility] (11) DVT (deep venous thrombosis): History of malignancy associated DVT in 2018 Continue Xarelto for chemical prophylaxis (12) Metabolic encephalopathy: Mental status waxes and wanes Question capacity to make decisions Brother lives in [place] but is reluctant to take responsibility for decision-making Continue to monitor and provide supportive care Admission and Anticipated Discharge Date Admission Date: December 29, 2020 Subjective Attending: Dr. Ramírez Patient seen and examined at bedside. She complains of a dry mouth. She has no shortness of breath. She denies any chest pain. She denies any back pain. She has no fever or chills. No nausea or vomiting. She is alert and oriented. She answers questions appropriately. She is able to recite who saw her yesterday and what the treatment plan has been. She has no other acute complaints. Review of Systems Review of Systems: All systems reviewed & are unremarkable except as noted in Subjective Physical Exam Physical Exam: GENERAL : No acute distress EYES: No icterus, gaze conjugate NOSE: No evidence of epistaxis MOUTH: No lesions or candidiasis NECK: Supple LUNGS: Very fine rales at the bilateral bases. No appreciation of bronchospasm. No appreciation of upper field rhonchi. HEART: Regular, tachycardic ABDOMEN: Soft, NT, ND, BS Present EXTREMITIES: Edema in all 4 extremities, pedal and radial pulses intact and equal bilaterally. Left upper extremity seems to be more edematous than right upper extremity. Patient was given additional pillow to raise arm above heart level. Patient's INR is 1.9. Not concerned for DVT at this time NEURO: A&OX3 Results & Data Results & Data ([facility]) Vital Signs (Past 12 Hours) Vital Signs Temp Pulse Pulse Resp BP Pulse Ox 01/08/21 11:16 36.8 C 104 H 18 150/77 H 96 01/08/21 07:33 97 H 01/08/21 06:57 36.5 C 103 H 20 153/83 H 95 01/08/21 04:17 36 C L 93 H 20 164/80 H 95 01/08/21 00:54 79 Laboratory Results 01/08/21 05:59 01/08/21 05:59 AST and ALT are now within normal limits Diagnostic Findings No new diagnostic imaging PG Care Time/CCT Total # of Minutes Spent Total Time Spent with Patient: Total time spent is greater than 50% in coordination of care (as documented) at patient's floor/unit and/or counseling patient: 25 minutes Coding Level of Care Code 33953 Subseq Hosp Care Lvl 2 Diagnoses Septicemia A41.9 CLL (chronic lymphocytic leukemia) C91.90 Primary adenocarcinoma of upper lobe of right lung C34.11 Breast cancer C50.919 Catheter-associated urinary tract infection T83.511A; N39.0 Indwelling urinary catheter type: indwelling urethral catheter Encounter type: initial encounter Hypophosphatemia E83.39 Hypernatremia E87.0 Constipation K59.00 Severe protein-calorie malnutrition E43 Spina bifida Q05.9 DVT (deep venous thrombosis) I82.90 DVT location: non-extremity vein Chronicity: unspecified Metabolic encephalopathy G93.41 Time Spent (min) 25 (1) Catheter-associated urinary tract infection Indwelling urinary catheter type: indwelling urethral catheter Encounter type: initial encounter Qualified Code(s): T83.511A - Infection and inflammatory reaction due to indwelling urethral catheter, initial encounter; N39.0 - Urinary tract infection, site not specified (2) DVT (deep venous thrombosis) DVT location: non-extremity vein Chronicity: unspecified Qualified Code(s): I82.90 - Acute embolism and thrombosis of unspecified vein
--- NOTE | 2021-01-08 15:03 | Palliative Care Progress Note ---
Date of Service January 08, 2021 Assessment & Plan (1) Palliative care encounter: I spoke with Emily about goals of care again today. She has limited insight into the severity of her medical problems and perseverates on wanting to go back to [facility]. We discussed what her goals would be at [facility] and she told me that she would want to get better so she could go back to her apartment. We discussed that this is likely as good as things are going to get for her and concern that despite our best efforts, her prognosis is poor. I asked her how she felt about that and her reply was "I guess I'd just have to get used to it." She mentioned that she did not want to return to the hospital and we discussed the possibility of her returning to [facility] with comfort care. I asked her if she'd want to stay at [facility] and be comfortable even if it meant that she might get to her dying time a little sooner. She was unsure about this. I do worry that when it comes to decision making, she is alert and responsive but may not have the insight for capable decisions. She does indicate that she would want her brother, Everton, to make decisions if she were unable to do this. Everton has been reluctant to consider comfort directed care but is agreeable to DNR. Admission and Anticipated Discharge Date Admission Date: December 29, 2020 Subjective Emily reports feeling slow and tired today. She denies pain. She is frequently asking for water and is not enthusiastic about thickened liquids. Per RN, she has had only a few bites at meals. Review of Systems Review of Systems: Garber Symptom Assessment Scale Pain 0/3 Nausea 0/3 Dyspnea 0/3 Fatigue 2/3 Anxiety 1/3 Drowsiness 0/3 Palliative Performance Score 30% Physical Exam Constitutional: + thin and + frail appearing ENMT: Mouth: + dry oral mucous membranes Respiratory: normal respiratory effort; no labored breathing Cardiovascular: upper extremity edema Gastrointestinal (Abdomen): Percussion/Palpation: abdomen nontender Musculoskeletal: Extremities: + muscle atrophy Results & Data ([facility]) Vital Signs (Past 12 Hours) Vital Signs Temp Pulse Pulse Resp BP Pulse Ox 01/08/21 11:16 98.2 F 104 H 18 150/77 H 96 01/08/21 07:33 97 H 01/08/21 06:57 97.7 F 103 H 20 153/83 H 95 01/08/21 04:17 96.8 F L 93 H 20 164/80 H 95 PG Care Time/CCT Total # of Minutes Spent Total Time Spent with Patient: Total time spent is greater than 50% in coordination of care (as documented) at patient's floor/unit and/or counseling patient: Total time spent 35 minutes with more than 50% of time spent on goals of care and coordination of care with RN Coding Level of Care Code 53257 Subseq Hosp Care Lvl 3 Diagnoses Palliative care encounter Z51.5
[2021-01-08] MEDS: cefTRIAXone SODIUM 2,000 MG in DEXTROSE 5% 50 ML IV SCH (16:49)
[2021-01-09] MEDS: ACETAMINOPHEN 500 MG TAB PO SCH ×3 (04:52→20:28)
[2021-01-09] MEDS: DICLOFENAC SOD 1% GEL 100 GM TUBE EXT SCH ×4 (04:54→20:32)
[2021-01-09 08:15] LABS: BUN Creatinine Ratio 40.1 (10-20); Calcium 7.7 mg/dl (8.5-10.1); Creatinine Clr Calc Pharmacy 110.9 ml/min; Est GFR (African American) 123.6; Est GFR (Non-African American) 106.6; Hematocrit (blood only) 30.8 % (37-47); Hemoglobin 9.1 g/dL (12.0-16.0); Mean Corpuscular Hemoglobin 28.8 pg (25-34); Mean Corpuscular Hgb Conc 29.5 g/dL (32-36); Mean Corpuscular Volume 97.5 fL (80-100); Mean Platelet Volume 9.6 fL (7.4-10.4); Platelet Count 391 K/uL (130-400); Potassium 4.3 mmol/L (3.5-5.1); RDW Coefficient of Variation 17.2 % (11.5-14.5); RDW Standard Deviation 58.9 fL (36.4-46.3); Red Blood Count 3.16 M/uL (4.2-5.4); White Blood Count 170.17 K/uL (4.8-10.8)
[2021-01-09 08:16] LABS: Phosphorus 2.6 mg/dl (2.5-4.9)
[2021-01-09] MEDS ORDERED: VANCOMYCIN CONSULT ACTIVE PRN (08:26)
[2021-01-09 08:31] LABS: ALC (manual) 160.13 K/uL (1.2-3.4); ANC (manual) 10.04 K/uL (1.4-6.5); Lymphocytes # (manual) 160.13 K/uL (1.2-3.4); Lymphocytes % (manual) 94.1 %; Neutrophils # (manual) 10.04 K/uL (1.4-6.5); Neutrophils % (manual) 5.9 %; Smudge Cells Present
[2021-01-09] MEDS ORDERED: VANCOMYCIN HCL 1,250 MG in SODIUM CHLORIDE 0.9% 250 ML IV ONE (09:00)
[2021-01-09] MEDS: POLYETHYLENE (MIRALAX) 17 GM PACK PO SCH ×4 (09:04→20:28)
[2021-01-09] MEDS: POT PHOSPHATE MONOBASIC W/ SOD TAB PO SCH ×4 (09:04→20:29)
[2021-01-09] MEDS: RIVAROXABAN 20 MG TAB PO SCH (09:04)
[2021-01-09] MEDS: MULTIVITAMIN TAB PO SCH (09:04)
--- NOTE | 2021-01-09 09:32 | Pharmacy Report ---
Pharmacy Abx Dose Short Note - Date of Service January 09, 2021 - Assessment & Plan Assessment 80 year old F admitted on 12/29/20 for suspected UTI * Today is day #12 of antimicrobial therapy. * Patient initially received 3 days of Vancomycin and Cefepime. She was then switched to Amoxicillin and Ceftriaxone when her urine culture grew P. mirabilis and E. faecalis (Vancomycin sensitive) and her blood cultures grew Strep. intermedius. * Patient was then diagnosed with discitis. [facility] Infectious Disease service was consulted and recommended 8 weeks of IV Vancomycin and Cefepime which will be started today. * SCr has been stable and eCrCl > 100 mL/min. However, UO per head of mathematics has been < 0.5 mL/kg/hr for several days which appears to be her baseline. Plan Vancomycin * Loading Dose: 1250 mg IV x 1 (23 mg/kg) * Maintenance Dose: 750 mg IV every 8 hours (14 mg/kg) * This dose is on the aggressive side. Will get patient therapeutic and then back off dose. * Target Trough: 15 - 20 mcg/mL * Trough ordered for 01/10/21 at 0930 * This is prior to the 3rd dose which will not reflect steady state levels but want to ensure dose is not too aggressive. Cefepime (Pharmacy not consulted) * 2 g IV every 8 hours for discitis is appropriate per IDSA guidelines Pharmacy will continue to follow and will adjust dose/frequency as necessary. Thank you.
[2021-01-09] MEDS: CEFEPIME 2,000 MG in SYRINGE 0 ML IV SCH ×2 (10:27→18:07)
--- NOTE | 2021-01-09 13:12 | Hospitalist Progress Note ---
Date of Service January 09, 2021 Assessment & Plan (1) Septicemia: Blood cultures positive for strep intermedius. source - lumbar diskitis. echo w/o MARIAH. We will treat with cefepime and vancomycin for 8 weeks according to infectious disease recommendations. repeat blood cultures 01/04 thus far neg. The L3 disc is very diseased/eroded from infection; very poor candidate for surgery of course. Cont IV abx. (2) Osteomyelitis: diskitis, L2/L3 & L3/L4. cont IV cefepime/vancomycin. Duration of therapy will be 8 weeks. The patient has given consent for PICC line placement poor candidate for bone biopsy or surgery. the pathogen is likely due to strep intermedius. (3) Lumbar discitis: as above (4) Catheter-associated urinary tract infection: 2nd proteus and enterococcus . Will be treated with cefepime and vancomycin. Chronic bush catheter exchanged on day of admission (5) Hypophosphatemia: K-phos neutral 1 tab QID Serial labs (6) Hypomagnesemia: replaced/resolved (7) Hypernatremia: resolved (8) Hyperkalemia: resolved (9) Constipation: MiralLAX TID likely has element of neurogenic bowel from spina bifida status resolved (10) Severe protein-calorie malnutrition: nutrition consult appreciated Megace therapy (11) Adenocarcinoma of lung: Status post right upper lobe resection in the past. (12) Spina bifida: Wheelchair bound. with resulting chronic paraplegia. (13) CLL (chronic lymphocytic leukemia): no acute intervention per hematology/oncology unless WBC rises to >300,000. (14) DVT (deep venous thrombosis): xarelto (15) Paraplegia: Congenital. 2nd spina bifida (16) Dark stools: heme negative and H/H have remained stable (17) Edema: 3rd spacing in setting of severe hypoalbuminemia. Megace therapy to hopefully stimulate appetite going forward (18) Metabolic encephalopathy: resolved due to septicemia/diskitis/hospital psychosis supportive care (19) Hypoglycemia: 2nd to very poor PO intake. Will follow (20) DVT prophylaxis: xarelto Disposition: poor prognosis; palliative care following. Disposition to be de termined Admission and Anticipated Discharge Date Admission Date: December 29, 2020 Subjective Alert and oriented to name and place at the time of my examination. She has gi char me verbal consent for PICC line placement for continued IV antibiotic therapy post discharge. She is third spacing fluid and IV fluids have been discontinued. She will remain on cefepime and vancomycin per infectious disease recommendations for a total of 8 weeks. Review of Systems Review of Systems: All systems reviewed & are unremarkable except as noted in Subjective Physical Exam Physical Exam: General-alert and oriented x2, no fevers, no chills HEENT-head atraumatic and normocephalic, TMs intact bilaterally, pupils equal and reactive to light, extraocular muscles intact Neck-no lymphadenopathy or thyromegaly, trachea midline Chest-clear to auscultation percussion. No rales wheezing or rhonchi Cardiac-regular rate and rhythm, normal S1 and S2, no murmurs Abdomen-normal bowel sounds, nontender, no hepatosplenomegaly Extremities-no cyanosis, clubbing, or edema Neuro-cranial nerves II through XII intact, motor and sensory function within normal limits, strength symmetrical, no focal deficits Psych-normal affect, normal mood Results & Data Results & Data ([facility]) Vital Signs (Past 12 Hours) Vital Signs Temp Pulse Pulse Resp BP Pulse Ox 01/09/21 11:12 36.4 C L 100 H 20 156/85 H 96 01/09/21 09:00 106 H 01/09/21 07:42 36.7 C 102 H 20 154/81 H 95 01/09/21 04:00 36.5 C 106 H 20 155/81 H 97 Laboratory Results 01/09/21 06:58 01/09/21 06:58 PG Care Time/CCT Total # of Minutes Spent Total Time Spent with Patient: Total time spent is greater than 50% in coordination of care (as documented) at patient's floor/unit and/or counseling patient: Coding Level of Care Code 43454 Subseq Hosp Care Lvl 3 Diagnoses Septicemia A41.9 Osteomyelitis M86.9 Osteomyelitis type: unspecified type Osteomyelitis location: other site Lumbar discitis M46.46 Catheter-associated urinary tract infection T83.511A; N39.0 Indwelling urinary catheter type: indwelling urethral catheter Encounter type: initial encounter Hypophosphatemia E83.39 Hypomagnesemia E83.42 Hypernatremia E87.0 Hyperkalemia E87.5 Constipation K59.00 Severe protein-calorie malnutrition E43 Adenocarcinoma of lung C34.90 Spina bifida Q05.9 CLL (chronic lymphocytic leukemia) C91.90 DVT (deep venous thrombosis) I82.90 DVT location: non-extremity vein Chronicity: unspecified Paraplegia G82.20 Dark stools R19.5 Edema R60.9 Metabolic encephalopathy G93.41 Hypoglycemia E16.2 DVT prophylaxis Z29.9 (1) Osteomyelitis Osteomyelitis type: unspecified type Osteomyelitis location: other site Qualified Code(s): M86.9 - Osteomyelitis, unspecified (2) Catheter-associated urinary tract infection Indwelling urinary catheter type: indwelling urethral catheter Encounter type: initial encounter Qualified Code(s): T83.511A - Infection and inflamm atory reaction due to indwelling urethral catheter, initial encounter; N39.0 - Urinary tract infection, site not specified (3) DVT (deep venous thrombosis) DVT location: non-extremity vein Chronicity: unspecified Qualified Code(s): I82.90 - Acute embolism and thrombosis of unspecified vein
[2021-01-09] MEDS ORDERED: VANCOMYCIN HCL 750 MG in SODIUM CHLORIDE 0.9% 500 ML IV SCH (18:00)
[2021-01-09] MEDS: VANCOMYCIN HCL 750 MG in SODIUM CHLORIDE 0.9% 250 ML IV SCH (20:38)
[2021-01-10] MEDS: CEFEPIME 2,000 MG in SYRINGE 0 ML IV SCH ×3 (02:41→18:06)
[2021-01-10] MEDS: VANCOMYCIN HCL 750 MG in SODIUM CHLORIDE 0.9% 250 ML IV SCH ×3 (04:30→19:47)
[2021-01-10 06:52] LABS: Hematocrit (blood only) 30.1 % (37-47); Mean Corpuscular Hemoglobin 28.8 pg (25-34); Mean Corpuscular Hgb Conc 29.9 g/dL (32-36); Mean Corpuscular Volume 96.5 fL (80-100); Mean Platelet Volume 9.7 fL (7.4-10.4); Platelet Count 383 K/uL (130-400); RDW Coefficient of Variation 17.1 % (11.5-14.5); RDW Standard Deviation 58.1 fL (36.4-46.3); Red Blood Count 3.12 M/uL (4.2-5.4); White Blood Count 172.04 K/uL (4.8-10.8)
[2021-01-10 07:32] LABS: BUN Creatinine Ratio 74.8 (10-20); Calcium 7.1 mg/dl (8.5-10.1); Creatinine Clr Calc Pharmacy 190.3 ml/min; Est GFR (African American) 146.7; Est GFR (Non-African American) 126.6; Potassium 4.3 mmol/L (3.5-5.1)
[2021-01-10 08:14] LABS: ALC (manual) 161.55 K/uL (1.2-3.4); ANC (manual) 10.49 K/uL (1.4-6.5); Lymphocytes # (manual) 161.55 K/uL (1.2-3.4); Lymphocytes % (manual) 93.9 %; Neutrophils # (manual) 10.49 K/uL (1.4-6.5); Neutrophils % (manual) 6.1 %
[2021-01-10] MEDS: ACETAMINOPHEN 500 MG TAB PO SCH ×3 (08:33→20:45)
[2021-01-10] MEDS: POT PHOSPHATE MONOBASIC W/ SOD TAB PO SCH ×4 (08:33→20:44)
[2021-01-10] MEDS: DICLOFENAC SOD 1% GEL 100 GM TUBE EXT SCH ×4 (08:33→20:44)
[2021-01-10] MEDS: MULTIVITAMIN TAB PO SCH (08:33)
[2021-01-10] MEDS: RIVAROXABAN 20 MG TAB PO SCH (08:33)
[2021-01-10] MEDS: POLYETHYLENE (MIRALAX) 17 GM PACK PO SCH ×3 (08:34→19:12)
[2021-01-10] MEDS: MEGESTROL ACETATE SUSP 400 MG/10 ML UDC PO SCH (08:34)
[2021-01-10] MEDS ORDERED: VANCOMYCIN TROUGH ONE ×2 (09:30→11:30)
--- NOTE | 2021-01-10 12:09 | Pharmacy Report ---
Pharmacy Abx Dose Short Note - Date of Service January 10, 2021 - Assessment & Plan Assessment 80 year old F admitted on 12/29/20 for suspected UTI * Today is day #13 of antimicrobial therapy. * Day #2 since restarting Vancomycin and Cefepime * Patient initially received 3 days of Vancomycin and Cefepime. She was then switched to Amoxicillin and Ceftriaxone when her urine culture grew P. mirabilis and E. faecalis (Vancomycin sensitive) and her blood cultures grew Strep. intermedius. * Patient was then diagnosed with discitis. [facility] Infectious Disease service was consulted and recommended 8 weeks of IV Vancomycin and Cefepime which will be started today. * SCr has been stable and eCrCl > 100 mL/min. However, UO per oil burner installer has been < 0.5 mL/kg/hr for several days which appears to be her baseline. Plan Vancomycin * Trough level of 19.6 mcg/mL is therapeutic * 04 dose was given 30 minutes late and trough was drawn 30 minutes early. Therefore, expect true trough to be closer to 18 mcg/mL. For this reason, I will not change the dose today. Plan on giving three more doses and checking trough again tomorrow when patient is at steady state. * Continue dose of 750 mg IV every 8 hours * Goal trough level: 15 to 20 mcg/mL * Will order another trough for 01/11/21 at 1130 to ensure patient is not supratherapeutic on this dose Pharmacy will continue to follow and will adjust dose/frequency as necessary. Thank you.
--- NOTE | 2021-01-10 13:16 | Hospitalist Progress Note ---
Date of Service January 10, 2021 Assessment & Plan (1) Septicemia: Blood cultures positive for strep intermedius. source - lumbar diskitis. echo w/o MARIAH. We will treat with cefepime and vancomycin for 8 weeks according to infectious disease recommendations. repeat blood cultures 01/04 thus far neg. The L3 disc is very diseased/eroded from infection; very poor candidate for surgery of course. Cont IV abx. (2) Osteomyelitis: diskitis, L2/L3 & L3/L4. cont IV cefepime/vancomycin. Duration of therapy will be 8 weeks. PICC line has been placed in the left upper extremity. Poor candidate for bone biopsy or surgery. the pathogen is likely due to strep intermedius. (3) Lumbar discitis: as above (4) Catheter-associated urinary tract infection: 2nd proteus and enterococcus . Will be treated with cefepime and vancomycin. Chronic bush catheter exchanged on day of admission (5) Hypophosphatemia: K-phos neutral 1 tab QID Serial labs (6) Hypomagnesemia: replaced/resolved (7) Hypernatremia: resolved (8) Hyperkalemia: resolved (9) Constipation: MiralLAX TID likely has element of neurogenic bowel from spina bifida status resolved (10) Severe protein-calorie malnutrition: nutrition consult appreciated Megace therapy (11) Adenocarcinoma of lung: Status post right upper lobe resection in the past. (12) Spina bifida: Wheelchair bound. with resulting chronic paraplegia. (13) CLL (chronic lymphocytic leukemia): no acute intervention per hematology/oncology unless WBC rises to >300,000. (14) DVT (deep venous thrombosis): xarelto (15) Paraplegia: Congenital. 2nd spina bifida (16) Dark stools: heme negative and H/H have remained stable (17) Edema: 3rd spacing in setting of severe hypoalbuminemia. Megace therapy to hopefully stimulate appetite going forward (18) Metabolic encephalopathy: resolved due to septicemia/diskitis/hospital psychosis supportive care (19) Hypoglycemia: 2nd to very poor PO intake. Will follow (20) DVT prophylaxis: xarelto Disposition: To SNF facility tomorrow, January 11, on IV antibiotic therapy. Admission and Anticipated Discharge Date Admission Date: December 29, 2020 Subjective Alert. No complaints. After some initial trouble with placement of the PICC line, it was eventually placed in the left upper extremity. She will remain on cefepime and vancomycin for a total of 8 weeks. We will plan on discharge to group home facility tomorrow, January 11 Review of Systems Review of Systems: Constitutional-no fever or chills ENT-no blurred vision, no double vision, no epistaxis, no sore throat Respiratory-no cough, no wheezing, no shortness of breath Cardiac-no palpitations, no chest pain, no syncope GI-no nausea, vomiting, diarrhea, melena, hematochezia -no urinary retention, no urinary incontinence, no dysuria, no hematuria Musculoskeletal-no joint pain, no muscle tenderness Skin-no bruising, no rashes, no pruritus Neuro-no isolated weakness, no paresthesia, no weakness Psych-no depression, no anxiety Physical Exam Physical Exam: General-alert and oriented x3, no fevers, no chills HEENT-head atraumatic and normocephalic, TMs intact bilaterally, pupils equal and reactive to light, extraocular muscles intact Neck-no lymphadenopathy or thyromegaly, trachea midline Chest-clear to auscultation percussion. No rales wheezing or rhonchi Cardiac-regular rate and rhythm, normal S1 and S2, no murmurs Abdomen-normal bowel sounds, nontender, no hepatosplenomegaly Extremities-third spaced fluid edema in all extremities Neuro-cranial nerves II through XII intact, motor and sensory function within normal limits, strength symmetrical with generalized weakness, no focal deficits Psych-normal affect, normal mood Results & Data Results & Data ([facility]) Vital Signs (Past 12 Hours) Vital Signs Temp Pulse Pulse Resp BP Pulse Ox 01/10/21 11:42 36.5 C 100 H 18 149/83 H 97 01/10/21 08:00 97 H 01/10/21 07:35 36.5 C 99 H 20 148/75 H 97 01/10/21 04:00 36.5 C 99 H 18 152/83 H 96 Laboratory Results 01/10/21 06:22 01/10/21 06:22 PG Care Time/CCT Total # of Minutes Spent Total Time Spent with Patient: Total time spent is greater than 50% in coordination of care (as documented) at patient's floor/unit and/or counseling patient: Coding Level of Care Code 10356 Subseq Hosp Care Lvl 3 Diagnoses Septicemia A41.9 Osteomyelitis M86.9 Osteomyelitis type: unspecified type Osteomyelitis location: other site Lumbar discitis M46.46 Catheter-associated urinary tract infection T83.511A; N39.0 Indwelling urinary catheter type: indwelling urethral catheter Encounter type: initial encounter Hypophosphatemia E83.39 Hypomagnesemia E83.42 Hypernatremia E87.0 Hyperkalemia E87.5 Constipation K59.00 Severe protein-calorie malnutrition E43 Adenocarcinoma of lung C34.90 Spina bifida Q05.9 CLL (chronic lymphocytic leukemia) C91.90 DVT (deep venous thrombosis) I82.90 DVT location: non-extremity vein Chronicity: unspecified Paraplegia G82.20 Dark stools R19.5 Edema R60.9 Metabolic encephalopathy G93.41 Hypoglycemia E16.2 DVT prophylaxis Z29.9 (1) Osteomyelitis Osteomyelitis type: unspecified type Osteomyelitis location: other site Qualified Code(s): M86.9 - Osteomyelitis, unspecified (2) Catheter-associated urinary tract infection Indwelling urinary catheter type: indwelling urethral catheter Encounter type: initial encounter Qualified Code(s): T83.511A - Infection and inflammatory reaction due to indwelling urethral catheter, initial encounter; N39.0 - Urinary tract infection, site not specified (3) DVT (deep venous thrombosis) DVT location: non-extremity vein Chronicity: unspecified Qualified Code(s): I82.90 - Acute embolism and thrombosis of unspecified vein
[2021-01-11] MEDS: CEFEPIME 2,000 MG in SYRINGE 0 ML IV SCH ×3 (02:15→17:19)
[2021-01-11 06:51] LABS: Hematocrit (blood only) 28.9 % (37-47); Hemoglobin 8.9 g/dL (12.0-16.0); Mean Corpuscular Hemoglobin 29.3 pg (25-34); Mean Corpuscular Hgb Conc 30.8 g/dL (32-36); Mean Corpuscular Volume 95.1 fL (80-100); Mean Platelet Volume 9.9 fL (7.4-10.4); Platelet Count 313 K/uL (130-400); RDW Coefficient of Variation 17.2 % (11.5-14.5); RDW Standard Deviation 57.5 fL (36.4-46.3); Red Blood Count 3.04 M/uL (4.2-5.4); White Blood Count 176.21 K/uL (4.8-10.8)
[2021-01-11 06:56] LABS: BUN Creatinine Ratio 67.2 (10-20); Calcium 6.9 mg/dl (8.5-10.1); Creatinine Clr Calc Pharmacy 133.9 ml/min; Est GFR (African American) 130.7; Est GFR (Non-African American) 112.7; Potassium 4.6 mmol/L (3.5-5.1)
[2021-01-11 07:23] LABS: ALC (manual) 163.35 K/uL (1.2-3.4); ANC (manual) 12.86 K/uL (1.4-6.5); Lymphocytes # (manual) 163.35 K/uL (1.2-3.4); Lymphocytes % (manual) 92.7 %; Neutrophils # (manual) 12.86 K/uL (1.4-6.5); Neutrophils % (manual) 7.3 %; Smudge Cells Present
[2021-01-11] MEDS: POT PHOSPHATE MONOBASIC W/ SOD TAB PO SCH ×4 (09:31→21:31)
[2021-01-11] MEDS: ACETAMINOPHEN 500 MG TAB PO SCH ×3 (09:31→21:32)
[2021-01-11] MEDS: POLYETHYLENE (MIRALAX) 17 GM PACK PO SCH ×3 (09:31→21:31)
[2021-01-11] MEDS: MEGESTROL ACETATE SUSP 400 MG/10 ML UDC PO SCH (09:35)
[2021-01-11] MEDS: RIVAROXABAN 20 MG TAB PO SCH (09:37)
[2021-01-11] MEDS: DICLOFENAC SOD 1% GEL 100 GM TUBE EXT SCH ×4 (09:37→21:31)
[2021-01-11] MEDS: MULTIVITAMIN TAB PO SCH (09:37)
[2021-01-11] MEDS ORDERED: VANCOMYCIN TROUGH ONE (11:30)
[2021-01-11] MEDS: VANCOMYCIN HCL 750 MG in SODIUM CHLORIDE 0.9% 250 ML IV SCH ×2 (11:54→13:47)
--- NOTE | 2021-01-11 12:49 | Pharmacy Report ---
Pharmacy Abx Dose Short Note - Date of Service January 11, 2021 - Assessment & Plan Assessment * 80 year old F receiving VANCOMYCIN + CEFEPIME for treatment of strep intermedius bacteremia, p. mirabilis / enterococcus faecalis UTI, and lumbar discitis * Day # 3 vancomycin + cefepime (but has been receiving abx since 12/29/20: vanco + cefepime --> then amoxicillin + ceftriaxone) * No bone cx has been obtained * Renal fxn appears stable Plan Vancomycin * Trough level of 16.8 mcg/mL is therapeutic HOWEVER the 0400 dose was not administered last night - rather the last dose given was ~ 16 hrs prior to obtaining this trough. Prior doses had been hung on a Q 8 hr schedule * I suspect patient had accumulated vancomycin and would likely have been supratherapeutic on the Q 8 hr schedule. Will adjust to 750mg Q 12 hrs and recheck trough tomorrow afternoon * Goal trough for bacteremia/osteomyelitis/discitis: 15-20mcg/mL Cefepime * eCrCl > 60cc/min, continue 2gm Q 8 hrs Pharmacy will continue to follow and will adjust dose/frequency as necessary. Thank you.
--- NOTE | 2021-01-11 16:29 | Hospitalist Progress Note ---
Date of Service January 11, 2021 Assessment & Plan (1) Septicemia: Blood cultures positive for strep intermedius. source - lumbar diskitis. echo w/o MARIAH. We will treat with cefepime and vancomycin for 8 weeks according to infectious disease recommendations. repeat blood cultures 01/04 thus far neg. The L3 disc is very diseased/eroded from infection; very poor candidate for surgery of course. Cont IV abx PICC placed 01/09 L UE Add probiotics 01/11 for nausea (2) Osteomyelitis: diskitis, L2/L3 & L3/L4. cont IV cefepime/vancomycin. Duration of therapy will be 8 weeks. PICC line has been placed in the left upper extremity. Poor candidate for bone biopsy or surgery. the pathogen is likely due to strep intermedius. (3) Lumbar discitis: as above (4) Catheter-associated urinary tract infection: 2nd proteus and enterococcus--noted for MDR strains in both Will be treated with cefepime and vancomycin. Chronic bush catheter exchanged on day of admission (5) Hypophosphatemia: K-phos neutral 1 tab QID Serial labs (6) Hypomagnesemia: replaced/resolved (7) Hypernatremia: resolved (8) Hyperkalemia: resolved (9) Constipation: MiralLAX TID likely has element of neurogenic bowel from spina bifida status resolved (10) Severe protein-calorie malnutrition: nutrition consult appreciated Megace therapy (11) Adenocarcinoma of lung: Status post right upper lobe resection in the past. (12) Spina bifida: Wheelchair bound. with resulting chronic paraplegia. (13) CLL (chronic lymphocytic leukemia): no acute intervention per hematology/oncology unless WBC rises to >300,000. (14) DVT (deep venous thrombosis): xarelto (15) Paraplegia: Congenital. 2nd spina bifida (16) Dark stools: heme negative and H/H have remained stable (17) Edema: 3rd spacing in setting of severe hypoalbuminemia. Megace therapy to hopefully stimulate appetite going forward (18) Metabolic encephalopathy: resolved due to septicemia/diskitis/hospital psychosis supportive care (19) Hypoglycemia: 2nd to very poor PO intake. Will follow (20) DVT prophylaxis: xarelto Disposition: To SNF on IV antibiotic therapy. Admission and Anticipated Discharge Date Admission Date: December 29, 2020 Subjective Pt states she feels generally unwell this AM. She was very nauseated and unable to eat breakfast due to this. This is new for her today. She feels very tired today. No diarrhea or abd pain. She is unsure of her last bowel movement, but does not feel constipated. Pt denies fever, SOB, chest pain, LE pain or s welling. Did a bit better with lunch. Low PO intake at baseline per nursing. Review of Systems Review of Systems: Pertinent positives and negatives reviewed in HPI--all others negative Physical Exam Constitutional: WD/WN, vitals as above Eyes: normal visual aguirre by confrontation and + anicteric sclerae Neck: normal visual inspection and trachea midline Respiratory: normal respiratory effort, lungs clear to auscultation Cardiovascular: Rate/Rhythm: regular rate and regular rhythm Gastrointestinal (Abdomen): Inspection/Auscultation: abdomen not distended Percussion/Palpation: abdomen soft; abdomen nontender Musculoskeletal: Head/Neck/Chest: normocephalic and head atraumatic negative for edema, peripheral pulses intact Skin: no rashes, warm and dry Neurologic: awake; not confused Speech / Cognition: normal speech Psychiatric: A+Ox3, euthymic affect Results & Data Results & Data ([facility]) Vital Signs (Past 12 Hours) Vital Signs Temp Pulse Pulse Resp BP Pulse Ox 01/11/21 15:09 36.6 C 102 H 16 96/59 L 96 01/11/21 11:16 36.6 C 100 H 16 130/79 94 01/11/21 07:30 98 H 01/11/21 07:16 36.5 C 100 H 16 146/83 H 96 PG Care Time/CCT Total # of Minutes Spent Total Time Spent with Patient: Total time spent is greater than 50% in coordination of care (as documented) at patient's floor/unit and/or counseling patient: Coding Level of Care Code 08336 Subseq Hosp Care Lvl 3 Diagnoses Septicemia A41.9 Osteomyelitis M86.9 Osteomyelitis type: unspecified type Osteomyelitis location: other site Lumbar discitis M46.46 Catheter-associated urinary tract infection T83.511A; N39.0 Indwelling urinary catheter type: indwelling urethral catheter Encounter type: initial encounter Hypophosphatemia E83.39 Hypomagnesemia E83.42 Hypernatremia E87.0 Hyperkalemia E87.5 Constipation K59.00 Severe protein-calorie malnutrition E43 Adenocarcinoma of lung C34.90 Spina bifida Q05.9 CLL (chronic lymphocytic leukemia) C91.90 DVT (deep venous thrombosis) I82.90 DVT location: non-extremity vein Chronicity: unspecified Paraplegia G82.20 Dark stools R19.5 Edema R60.9 Metabolic encephalopathy G93.41 Hypoglycemia E16.2 DVT prophylaxis Z29.9 (1) Osteomyelitis Osteomyelitis type: unspecified type Osteomyelitis location: other site Qualified Code(s): M86.9 - Osteomyelitis, unspecified (2) Catheter-associated urinary tract infection Indwelling urinary catheter type: indwelling urethral catheter Encounter type: initial encounter Qualified Code(s): T83.511A - Infection and inflammatory reaction due to indwelling urethral catheter, initial encounter; N39.0 - Urinary tract infection, site not specified (3) DVT (deep venous thrombosis) DVT location: non-extremity vein Chronicity: unspecified Qualified Code(s): I82.90 - Acute embolism and thrombosis of unspecified vein
[2021-01-12] MEDS: VANCOMYCIN HCL 750 MG in SODIUM CHLORIDE 0.9% 250 ML IV SCH ×2 (02:49→13:44)
[2021-01-12] MEDS: CEFEPIME 2,000 MG in SYRINGE 0 ML IV SCH ×2 (02:50→09:19)
[2021-01-12 05:40] LABS: Hematocrit (blood only) 29.7 % (37-47); Mean Corpuscular Hemoglobin 28.9 pg (25-34); Mean Corpuscular Hgb Conc 30.3 g/dL (32-36); Mean Corpuscular Volume 95.5 fL (80-100); Mean Platelet Volume 9.5 fL (7.4-10.4); Platelet Count 288 K/uL (130-400); RDW Coefficient of Variation 17.4 % (11.5-14.5); RDW Standard Deviation 58.3 fL (36.4-46.3); Red Blood Count 3.11 M/uL (4.2-5.4); White Blood Count 152.06 K/uL (4.8-10.8)
[2021-01-12 06:28] LABS: BUN Creatinine Ratio 79.6 (10-20); Calcium 6.1 mg/dl (8.5-10.1); Creatinine Clr Calc Pharmacy 142.4 ml/min; Est GFR (Non-African American) 115.6; Potassium 5.6 mmol/L (3.5-5.1)
[2021-01-12] MEDS: POT PHOSPHATE MONOBASIC W/ SOD TAB PO SCH ×2 (07:57→12:40)
[2021-01-12] MEDS: DICLOFENAC SOD 1% GEL 100 GM TUBE EXT SCH ×2 (07:57→12:40)
[2021-01-12] MEDS: MEGESTROL ACETATE SUSP 400 MG/10 ML UDC PO SCH (08:00)
[2021-01-12] MEDS: MULTIVITAMIN TAB PO SCH (08:00)
[2021-01-12] MEDS: RIVAROXABAN 20 MG TAB PO SCH (08:00)
[2021-01-12] MEDS: POLYETHYLENE (MIRALAX) 17 GM PACK PO SCH ×2 (08:00→12:40)
[2021-01-12] MEDS: ACETAMINOPHEN 500 MG TAB PO SCH ×2 (08:01→13:44)
[2021-01-12 09:18] LABS: ALC (manual) 137.61 K/uL (1.2-3.4); ANC (manual) 10.64 K/uL (1.4-6.5); Eosinophils % (manual) 0.6 %; Lymphocytes % (manual) 90.5 %
[2021-01-12 09:19] LABS: Monocytes % (manual) 1.9 %; Neutrophils # (manual) 10.64 K/uL (1.4-6.5)
[2021-01-12 09:20] LABS: Lymphocytes # (manual) 137.61 K/uL (1.2-3.4); Monocytes # (manual) 2.89 K/uL (0.11-0.59)
[2021-01-12 09:21] LABS: Eosinophils # (manual) 0.91 K/uL (0-0.5); Smudge Cells Present
--- NOTE | 2021-01-12 13:17 | Discharge Summary ---
Date of Service January 12, 2021 Admission HPI Per Admitting Provider Emily Martino is a 80-year-old female who presents to the ER from [facility] with altered mental status. Unable to get any meaningful history from the patient due to altered mental status, she is aware she is in hospital (on occasions) but unsure why she was sent here. She is calling out for her friend Xiomara despite multiple times being reorientated that her friend is not here. Per [facility] notes she was sent to the ER due to altered mental status, decreased oral intake and concern for UTI. The patient here has been complaining of feeling like she is falling out of bed although is securely lying down. She has a chronic Bush catheter due to urinary retention from spina bifida - history of UTIs with pseudomonas, Klebsiella, Providencia and most concerning MRSA. Patient is on opiates for multiple pains but most notably back pain with recent CT scan concerning for osteomyelitis/discitis - I am, unclear whether this has been addressed but no blood cultures taken since this scan and not currently on antibiotics. Her brother does note her complaining of back pain and left hip pain is a relatively recent phenomena. The patient confirms this but cannot give any timeline of events. She also notes she is wheelchair bound for "some time". Records from [facility] appear to suggest pain is acute onset given rapidly increasing opiate using a Fentanyl patch, regularly requiring PRN tramadol then recently switched to oxycodone 5mg and increased yesterday from 5 to 10mg which she is also getting regularly despite order being PRN (took three times yesterday and once this morning). She has a significant history of lung adenocarcinoma s/p resection and CLL followed by pulmonology and [facility] - not on chemotherapy. She has a more remote history of breast cancer. In the ER she was noted to having an increasing WBC with significant lymphocytosis and neutrophilia. This was discussed with hematology by the ER physician and did not feel acute intervention was needed at this time. UA appeared grossly infected although suspect she always has some bacteruria with chronic bush catheter. She denies any suprapubic pain, fever or chills. Creatinine increased from baseline 0.53 to 0.92 with elevated BUN. She was given cefepime 2g IV due to history of pseudomonas and referred to medicine for admission and ongoing management of altered mental state, dehydration and CLL. Principal Diagnosis Pt denies further nausea today. She was able to eat some breakfast. She states she feels tired and "not sitting well". She cannot further elaborate on what that means. Pt denies fever, SOB, chest pain, abd pain, n/v/c/d, LE pain or swelling. Denies pain to her back. Discharge Exam Constitutional WD/WN, vitals as above Eyes normal visual aguirre by confrontation and + anicteric sclerae Neck normal visual inspection and trachea midline Respiratory normal respiratory effort, lungs clear to auscultation Cardiovascular Rate/Rhythm: regular rate and regular rhythm Extremities: + edema Gastrointestinal (Abdomen) Inspection/Auscultation: abdomen not distended Percussion/Palpation: abdomen soft; abdomen nontender Musculoskeletal Head/Neck/Chest: normocephalic and head atraumatic Skin no rashes, warm and dry Neurologic awake; not confused Speech / Cognition: normal speech Psychiatric Orientation: alert and cooperative Discharge Data Allergies Allergy/AdvReac Type Severity Reaction Status Date / Time aspirin AdvReac Intermediate INCREASES Verified 12/29/20 14:42 BLEEDING capsaicin AdvReac Mild INTOLERANCE Verified 12/29/20 14:42 codeine AdvReac Mild INTOLERANCE Verified 12/29/20 14:42 diazepam AdvReac Mild INTOLERANCE Verified 12/29/20 14:42 diclofenac AdvReac Mild INTOLERANCE Verified 12/29/20 14:42 Diclopak AdvReac Mild INTOLERANCE Verified 03/21/18 14:33 diphenhydramine AdvReac Mild Dizziness Verified 12/29/20 14:42 [From Benadryl] erythromycin base AdvReac Mild INTOLERANCE Verified 12/29/20 14:42 sulindac AdvReac Mild INTOLERANCE Verified 12/29/20 14:42 tramadol AdvReac Mild INTOLERANCE Verified 12/29/20 14:42 turkey AdvReac Mild Diarrhea Verified 12/29/20 14:42 Consultations 12/29/20 16:02 ED Decision to Admit Stat 12/30/20 09:37 Consult Oncology Routine 12/31/20 11:13 Consult Palliative Care Routine 01/02/21 14:35 Consult Infectious Diseases Routine 01/05/21 08:48 Consult Orthopedic Surgery Routine Ordered Studies 12/29/20 12:34 CT head/brain wo con Stat 12/30/20 20:40 MR lumbar spine wo/w con Routine Hospital Course (1) Septicemia: Blood cultures positive for strep intermedius. source - lumbar diskitis. echo w/o MARIAH. We will treat with cefepime and vancomycin for 8 weeks according to infectious disease recommendations. repeat blood cultures 01/04 thus far neg. The L3 disc is very diseased/eroded from infection; very poor candidate for surgery of course. Cont IV abx PICC placed 01/09 L UE Add probiotics 01/11 for nausea (2) Osteomyelitis: diskitis, L2/L3 & L3/L4. cont IV cefepime/vancomycin. Duration of therapy will be 8 weeks. PICC line has been placed in the left upper extremity. Poor candidate for bone biopsy or surgery. the pathogen is likely due to strep intermedius. (3) Lumbar discitis: as above (4) Catheter-associated urinary tract infection: 2nd proteus and enterococcus--noted for MDR strains in both Will be treated with cefepime and vancomycin. Chronic bush catheter exchanged on day of admission (5) Hypophosphatemia: K-phos neutral 1 tab QID Serial labs (6) Hypomagnesemia: replaced/resolved (7) Hypernatremia: resolved (8) Hyperkalemia: resolved (9) Constipation: MiralLAX TID likely has element of neurogenic bowel from spina bifida status resolved (10) Severe protein-calorie malnutrition: nutrition consult appreciated Megace therapy (11) Adenocarcinoma of lung: Status post right upper lobe resection in the past. (12) Spina bifida: Wheelchair bound. with resulting chronic paraplegia. (13) CLL (chronic lymphocytic leukemia): no acute intervention per hematology/oncology unless WBC rises to >300,000. (14) DVT (deep venous thrombosis): xarelto (15) Paraplegia: Congenital. 2nd spina bifida (16) Dark stools: heme negative and H/H have remained stable (17) Edema: 3rd spacing in setting of severe hypoalbuminemia. Megace therapy to hopefully stimulate appetite going forward (18) Metabolic encephalopathy: resolved due to septicemia/diskitis/hospital psychosis supportive care (19) Hypoglycemia: 2nd to very poor PO intake (20) DVT prophylaxis: xarelto Disposition: To SNF on IV antibiotic therapy. Total Time Total Time Spent Total Time Spent (In Minutes): >30 Total Time Includes: Examination of the Patient, Discharge Planning, Medication Reconciliation, Communication With Other Providers and Other Discharge Plan Discharge Items Patient Disposition: Transfer [facility] Fac Reason For Visit: Altered mental state, UTI, SUZANNA Discharge Diagnosis: Discitis, UTI, SUZANNA Activity: Resume your previous activity Non-emergency contact: Primary Care Provider Call non-emergency contact if: you have any medication questions, your symptoms worsen, your pain is not controlled, your pain is worsening and you have a fever Follow-up/Referrals: Chuck Maradiaga [Primary Care Provider] - Diet: Regular Addtl Attending Provider Instructions: Pt needs to have weekly CBC, CMP, Mg, Phos, and vanco trough Pt needs Q2 week CRP, ESR to monitor infectious process Pt was seen via telehealth for Infectious Disease consult via [facility] with Dr. Symone Wang if further questions arise. Next vanco dosing is on 01/13 at 0800 Pending Studies at Discharge: No Stand-Alone Forms: My [facility] Skilled Items Patient informed of condition?: Yes DNR: Yes Discharge Level of Care: Skilled Communicable Disease: No Discharge Prognosis: Improving Lines: PICC Urinary Catheter: Yes Medications and DC Order Prescriptions: New megestrol 400 mg/10 mL (40 mg/mL) Suspension 400 mg PO QAM Qty: 480 RF: 0 polyethylene glycol 3350 [Miralax] 17 gram Powder In Packet 17 g PO TID Qty: 30 RF: 0 cefepime 100 gram recon soln 2 g IV Q8H Qty: 1 RF: 0 Lactobacillus acidophilus 2 billion cell tablet 2,000 mmu cells PO DAILY Qty: 60 RF: 0 vancomycin 750 mg recon soln 750 mg IV Q18H Qty: 10 RF: 0 Continued ascorbic acid (vitamin C) 500 mg tablet 500 mg PO DAILY RF: 0 multivitamin Tablet 1 tab PO QAM RF: 0 Xarelto 20 mg tablet 20 mg PO DAILY RF: 0 fentanyl 25 mcg/hr patch 72 hour 1 patch topical Q3D RF: 0 oxycodone 5 mg tablet 5 mg PO Q6 PRN (Reason: Pain) RF: 0 ferrous sulfate 325 mg (65 mg iron) Capsule, Extended Release 325 mg PO BID RF: 0 atenolol 50 mg Tablet 50 mg PO QAM Qty: 30 RF: 0 diclofenac sodium [Voltaren] 1 % Gel 4 g EXT QID Qty: 100 RF: 0 acetaminophen 500 mg Tablet 1,000 mg PO Q8H Qty: 180 RF: 0 lisinopril 20 mg tablet 10 mg PO DAILY Qty: 0 RF: 0 lidocaine 4 % Adhesive Patch,Medicated 1 patch TOPICAL DAILY RF: 0 loperamide [Imodium A-D] 2 mg Tablet 2 mg PO Q3H PRN (Reason: Diarrhea) RF: 0 bisacodyl [Dulcolax (bisacodyl)] 10 mg Suppository 10 mg MT DAILY PRN (Reason: Constipation) RF: 0 Fleet Enema 19-7 gram/118 mL Enema 118 ml MT DAILY PRN (Reason: Constipation) RF: 0 magnesium hydroxide [Milk of Magnesia] 400 mg/5 mL Suspension 30 ml PO DAILY PRN (Reason: Constipation) RF: 0 Robitussin Cough-Chest Francisco DM 5-100 mg/5 mL Liquid 10 ml PO Q6H PRN (Reason: Cough) RF: 0 Discharge Orders: Discharge Order (Routine); Ordered 01/12/21 Ordered By: Danelle Lu Admission Data Admit Date/Time: 12/29/20 18:15 Attending Provider: Danelle Lu Admit Provider: Antonino Bah Primary Care Provider: Chuck Maradiaga Other Providers: Antonino Bah ; Tawanda Grayson V. ; Paola Delgado ; Wenceslao Johnson ; Basil Mcbride ; Kem Borja I. ; Donny Wyatt II ; Symone Mckinney ; Thor Khan ; Yoni Love Other Interventions: Discharge Summary Assessment (RN) Last Done: 01/12/21 16:33 Coding Level of Care Code D/C Day Management >30 mins Diagnoses Septicemia A41.9 Osteomyelitis M86.9 Osteomyelitis location: other site Osteomyelitis type: unspecified type Lumbar discitis M46.46 Catheter-associated urinary tract infection T83.511A; N39.0 Encounter type: initial encounter Indwelling urinary catheter type: indwelling urethral catheter Hypophosphatemia E83.39 Hypomagnesemia E83.42 Hypernatremia E87.0 Hyperkalemia E87.5 Constipation K59.00 Severe protein-calorie malnutrition E43 Adenocarcinoma of lung C34.90 Spina bifida Q05.9 CLL (chronic lymphocytic leukemia) C91.90 DVT (deep venous thrombosis) I82.90 Chronicity: unspecified DVT location: non-extremity vein Paraplegia G82.20 Dark stools R19.5 Edema R60.9 Metabolic encephalopathy G93.41 Hypoglycemia E16.2 DVT prophylaxis Z29.9
[2021-01-12] MEDS ORDERED: VANCOMYCIN TROUGH ONE (13:30)
--- NOTE | 2021-01-12 14:30 | Pharmacy Report ---
Pharmacy Abx Dose Short Note - Date of Service January 12, 2021 - Assessment & Plan Assessment * 80 year old F receiving VANCOMYCIN + CEFEPIME for treatment of strep intermedius bacteremia, p. mirabilis / enterococcus faecalis UTI, and lumbar discitis * Day # 4 vancomycin + cefepime (but has been receiving abx since 12/29/20: vanco + cefepime --> then amoxicillin + ceftriaxone) * No bone cx has been obtained * Renal fxn appears stable Plan Vancomycin * Trough level of 20.5 mcg/mL is slightly supra-therapeutic. Level was drawn at the appropriate time and prior doses hung mostly on schedule. * Will adjust to 750mg Q 18 hrs * Goal trough for bacteremia/osteomyelitis/discitis: 15-20mcg/mL * Will recheck level in ~3 days Cefepime * eCrCl > 60cc/min; continue 2gm IV Q 8 hrs Pharmacy will continue to follow and will adjust dose/frequency as necessary. Thank you.
[2021-01-13] MEDS ORDERED: VANCOMYCIN HCL 750 MG in SODIUM CHLORIDE 0.9% 250 ML IV SCH (08:00)
== END 2021-01-12 17:45 | DRG 871 ==
LOC: ED 12:12 → 2N 18:15 → SUATTDRO 18:15 → 2N 19:04